=== PATIENT | female | born 1980 | race Caucasian/White ===

== ENCOUNTER → 2016-04-09 | Outpatient (REF) | payer OTHER ==
[~2016-04-09] MED LIST: /ONDA4TA OR; CLINPOW XX; LANOLIN CREAM TOP; MOTRIN PO; PHEN 25 PO; PRIL20CA PO; TUMS500C OR
== END ==
LOC: M LAB REF 12:42
PROVIDERS: ATTEND Nurse Practitioner Adult Health
DX: N39.9 Disorder of urinary system, unspecified (principal)

== ENCOUNTER → 2017-04-21 | Outpatient (REF) | payer OTHER ==
[2017-04-21 10:37] LABS: INFLUENZA A AMPLIFICATION POSITIVE (NEGATIVE); INFLUENZA B AMPLIFICATION NEGATIVE (NEGATIVE); RSV AMPLIFICATION NEGATIVE (NEGATIVE)
== END ==
LOC: M LAB REF 09:54
DX: J11.1 Influenza due to unidentified influenza virus with other respiratory manifestations (principal)

== ENCOUNTER → 2017-05-21 | Outpatient (REF) | payer BC, OTHER ==
[2017-05-21 09:59] LABS: HEMATOCRIT 38.3 % (36.0-47.0); HEMOGLOBIN 11.6 g/dl (12.0-16.0); MEAN CORPUSCULAR HEMOGLOBIN 23.8 pg (27.0-33.0); MEAN CORPUSCULAR HGB CONC 30.3 g/dl (32.0-36.5); MEAN CORPUSCULAR VOLUME 78.6 fl (80.0-96.0); PLATELET COUNT, AUTOMATED 345 10^3/uL (150-450); RED BLOOD COUNT 4.87 10^6/uL (4.00-5.40); RED CELL DISTRIBUTION WIDTH 16.1 % (11.5-14.5); WHITE BLOOD COUNT 9.7 10^3/uL (4.0-10.0)
[2017-05-21 10:07] LABS: ALBUMIN 3.4 GM/DL (3.2-5.2); ALBUMIN/GLOBULIN RATIO 0.94 (1.00-1.93); ALKALINE PHOSPHATASE 103 U/L (45-117); ALT/SGPT 19 U/L (12-78); ANION GAP 5 MEQ/L (8-16); AST/SGOT 12 U/L (7-37); BILIRUBIN,TOTAL 0.2 MG/DL (0.2-1.0); BLOOD UREA NITROGEN 13 MG/DL (7-18); CALCIUM LEVEL 8.3 MG/DL (8.5-10.1); CARBON DIOXIDE LEVEL 28 MEQ/L (21-32); CHLORIDE LEVEL 107 MEQ/L (98-107); CHOLESTEROL LEVEL 147 MG/DL (<200); CHOLESTEROL RISK RATIO 3.195 (<5); GLOMERULAR FILTRATION RATE > 60.0 (>60); GLUCOSE, FASTING 97 MG/DL (70-100); HDL CHOLESTEROL 46 MG/DL (>40); LDL CHOLESTEROL 85.6 MG/DL (<100); NON-HDL-C 101 MG/DL; POTASSIUM SERUM 4.2 MEQ/L (3.5-5.1); SODIUM LEVEL 140 MEQ/L (136-145); TRIGLYCERIDES LEVEL 77 MG/DL (<150)
== END ==
LOC: M LAB REF 04:17
DX: D50.9 Iron deficiency anemia, unspecified (principal)
CPT/HCPCS: 80053

== ENCOUNTER → 2017-06-12 | Outpatient (REF) | payer BC, OTHER ==
[2017-06-12 06:34] LABS: HEMATOCRIT 38.5 % (36.0-47.0); HEMOGLOBIN 11.8 g/dl (12.0-16.0); MEAN CORPUSCULAR HEMOGLOBIN 23.9 pg (27.0-33.0); MEAN CORPUSCULAR HGB CONC 30.6 g/dl (32.0-36.5); MEAN CORPUSCULAR VOLUME 78.1 fl (80.0-96.0); PLATELET COUNT, AUTOMATED 356 10^3/uL (150-450); RED BLOOD COUNT 4.93 10^6/uL (4.00-5.40); RED CELL DISTRIBUTION WIDTH 15.9 % (11.5-14.5); WHITE BLOOD COUNT 8.5 10^3/uL (4.0-10.0)
[2017-06-12 06:53] LABS: FREE T4 0.95 NG/DL (0.76-1.46)
[2017-06-14 14:13] LABS: DEHYDROEPIANDROSTERONE SULFATE 134.3 ug/dL (84.8-378.0); TESTOSTERONE FREE (DIRECT) 1.6 pg/mL (0.0-4.2)
== END ==
LOC: M LAB REF 06:24
DX: N92.4 Excessive bleeding in the premenopausal period (principal)
CPT/HCPCS: 84403

== ENCOUNTER → 2017-06-14 | Outpatient (CLI) | payer BC, OTHER | LOC: M RAD 13:46 | DX: N92.6 Irregular menstruation, unspecified (principal) ==

== ENCOUNTER 2017-08-09 08:19 | Day surgery (SDC) | payer BC, OTHER ==
[2017-08-09 08:52] LABS: HEMATOCRIT 38.3 % (36.0-47.0); MEAN CORPUSCULAR HEMOGLOBIN 24.2 pg (27.0-33.0); MEAN CORPUSCULAR HGB CONC 31.3 g/dl (32.0-36.5); MEAN CORPUSCULAR VOLUME 77.4 fl (80.0-96.0); PLATELET COUNT, AUTOMATED 319 10^3/uL (150-450); RED BLOOD COUNT 4.95 10^6/uL (4.00-5.40); RED CELL DISTRIBUTION WIDTH 15.9 % (11.5-14.5); WHITE BLOOD COUNT 7.5 10^3/uL (4.0-10.0)
[2017-08-09 09:11] LABS: CONTROL LINE HCG INT CTR LINE PRESENT; HCG, SERUM QUALITATIVE NEGATIVE (NEGATIVE)
[2017-08-09] MEDS: LR 1,000 ML IV ×4 (09:24→22:00)
[2017-08-09] MEDS ORDERED: PROPOFOL 200 MG/20 ML VIAL As Ordered (09:32)
[2017-08-09] MEDS ORDERED: LIDOCAINE 2% INJ 100 MG/5 ML SDV (FOR ANES.) As Ordered (09:32)
[2017-08-09] MEDS ORDERED: MIDAZOLAM INJ 2 MG/2 ML VIAL (J2250) As Ordered (09:32)
[2017-08-09] MEDS ORDERED: fentaNYL 100 MCG/2 ML INJECTION (J3010) As Ordered ×2 (09:32→11:10)
[2017-08-09] MEDS ORDERED: ROCURONIUM BROMIDE 50 MG/5 ML VIAL As Ordered ×2 (09:32→11:10)
[2017-08-09] MEDS ORDERED: BUPIVACAINE HCL 0.25% 30 ML VIAL As Ordered (10:14)
[2017-08-09] MEDS ORDERED: HYDROmorphone HCL 2 MG/ML 1ML VIAL (J1170) As Ordered (12:31)
[2017-08-09] MEDS ORDERED: ONDANSETRON 4MG/2ML VIAL (J2405) As Ordered (13:03)
[2017-08-09] MEDS ORDERED: GLYCOPYRROLATE INJ 0.2 MG/ML 2 ML VIAL As Ordered (13:05)
[2017-08-09] MEDS ORDERED: KETOROLAC 30 MG/ML VIAL (J1885) As Ordered (13:43)
[2017-08-09] MEDS: KETOROLAC 30 MG/ML VIAL (J1885) IV ×2 (13:54→19:57)
[2017-08-09] MEDS ORDERED: PERCOCET 5MG/325MG TAB PO (14:00)
[2017-08-09] MEDS ORDERED: MORPHINE 4 MG/ML 1ML VIAL/SYRINGE (J2270) IV (14:00)
[2017-08-09] MEDS ORDERED: zolPIDEM TARTRATE 5 MG TAB PO (14:00)
[2017-08-09] MEDS ORDERED: fentaNYL 100 MCG/2 ML INJECTION (J3010) IV (14:00)
[2017-08-09] MEDS: ONDANSETRON 4MG/2ML VIAL (J2405) IV (14:04)
[2017-08-09] MEDS: PROMETHAZINE INJ 25 MG/ML VIAL (J2550) IV (15:11)
[2017-08-10] MEDS: PERCOCET 5MG/325MG TAB PO ×2 (00:12→06:28)
[2017-08-10] MEDS: LR 1,000 ML IV (02:47)
[2017-08-10] MEDS: KETOROLAC 30 MG/ML VIAL (J1885) IV ×2 (03:01→08:15)
[2017-08-10 06:51] LABS: HEMATOCRIT 31.4 % (36.0-47.0); MEAN CORPUSCULAR HEMOGLOBIN 24.3 pg (27.0-33.0); MEAN CORPUSCULAR HGB CONC 30.9 g/dl (32.0-36.5); MEAN CORPUSCULAR VOLUME 78.7 fl (80.0-96.0); PLATELET COUNT, AUTOMATED 284 10^3/uL (150-450); RED BLOOD COUNT 3.99 10^6/uL (4.00-5.40); RED CELL DISTRIBUTION WIDTH 15.9 % (11.5-14.5); WHITE BLOOD COUNT 10.3 10^3/uL (4.0-10.0)
[2017-08-10 07:00] LABS: HEMOGLOBIN 9.7 g/dl (12.0-15.5)
== END 2017-08-10 10:20 | disposition home or self-care (01) ==
LOC: M SDC 08:19 → M PED 14:48
DX: N85.8 Other specified noninflammatory disorders of uterus (principal); N83.8 Other noninflammatory disorders of ovary, fallopian tube and broad ligament; K21.9 Gastro-esophageal reflux disease without esophagitis; D56.1 Beta thalassemia; G43.909 Migraine, unspecified, not intractable, without status migrainosus; Z88.0 Allergy status to penicillin; Z79.899 Other long term (current) drug therapy
CPT/HCPCS: 58571

== ENCOUNTER → 2017-12-02 | Outpatient (CLI) | payer BC, OTHER ==
[2017-12-02 11:32] LABS: BASO % 0.2 % (0.0-1.0); EOS # 0.1 10^3/uL (0.0-0.50); EOS % 0.7 % (0.0-3.0); HEMATOCRIT 38.6 % (36.0-47.0); HEMOGLOBIN 11.9 g/dl (12.0-15.5); IMMATURE GRANULOCYTE % 0.3 % (0-3.0); LYMPH % 23.2 % (24.0-44.0); MEAN CORPUSCULAR HEMOGLOBIN 24.7 pg (27.0-33.0); MEAN CORPUSCULAR HGB CONC 30.8 g/dl (32.0-36.5); MEAN CORPUSCULAR VOLUME 80.1 fl (80.0-96.0); MONO # 0.5 10^3/uL (0.0-0.8); MONO % 5.3 % (0.0-5.0); NEUTROPHILS # 6.1 10^3/uL (1.8-7.7); NEUTROPHILS % 70.3 % (36.0-66.0); PLATELET COUNT, AUTOMATED 310 10^3/uL (150-450); RED BLOOD COUNT 4.82 10^6/uL (4.00-5.40); RED CELL DISTRIBUTION WIDTH 16.1 % (11.5-14.5); WHITE BLOOD COUNT 8.7 10^3/uL (4.0-10.0)
[2017-12-02 12:34] LABS: ALBUMIN 3.4 GM/DL (3.2-5.2); ALBUMIN/GLOBULIN RATIO 0.83 (1.00-1.93); ALKALINE PHOSPHATASE 93 U/L (45-117); ALT/SGPT 23 U/L (12-78); ANION GAP 8 MEQ/L (8-16); AST/SGOT 14 U/L (7-37); BILIRUBIN,TOTAL 0.3 MG/DL (0.2-1.0); BLOOD UREA NITROGEN 9 MG/DL (7-18); CALCIUM LEVEL 8.6 MG/DL (8.5-10.1); CARBON DIOXIDE LEVEL 27 MEQ/L (21-32); CHLORIDE LEVEL 105 MEQ/L (98-107); CREATININE FOR GFR 0.88 MG/DL (0.55-1.30); FREE T4 0.98 NG/DL (0.76-1.46); GLOMERULAR FILTRATION RATE > 60.0 (>60); GLUCOSE, FASTING 102 MG/DL (70-100); POTASSIUM SERUM 3.9 MEQ/L (3.5-5.1); SODIUM LEVEL 140 MEQ/L (136-145); TOTAL PROTEIN 7.5 GM/DL (6.4-8.2)
== END ==
LOC: M LAB 11:04
DX: D50.9 Iron deficiency anemia, unspecified (principal)
CPT/HCPCS: 84443

== ENCOUNTER 2017-12-05 13:01 | Emergency (ER) | payer OTHER, BC ==
[2017-12-05 13:32] LABS: BASO % 0.4 % (0.0-1.0); EOS # 0.1 10^3/uL (0.0-0.50); EOS % 0.8 % (0.0-3.0); HEMATOCRIT 39.8 % (36.0-47.0); HEMOGLOBIN 12.4 g/dl (12.0-15.5); IMMATURE GRANULOCYTE % 0.3 % (0-3.0); LYMPH # 2.7 10^3/uL (1.5-4.5); LYMPH % 25.6 % (24.0-44.0); MEAN CORPUSCULAR HEMOGLOBIN 24.4 pg (27.0-33.0); MEAN CORPUSCULAR HGB CONC 31.2 g/dl (32.0-36.5); MEAN CORPUSCULAR VOLUME 78.2 fl (80.0-96.0); MONO # 0.6 10^3/uL (0.0-0.8); MONO % 5.7 % (0.0-5.0); NEUTROPHILS % 67.2 % (36.0-66.0); PLATELET COUNT, AUTOMATED 353 10^3/uL (150-450); RED BLOOD COUNT 5.09 10^6/uL (4.00-5.40); WHITE BLOOD COUNT 10.5 10^3/uL (4.0-10.0)
[2017-12-05 13:57] LABS: CONTROL LINE HCG INT CTR LINE PRESENT; HCG, SERUM QUALITATIVE NEGATIVE (NEGATIVE)
[2017-12-05 14:14] LABS: ALBUMIN 3.6 GM/DL (3.2-5.2); ALBUMIN/GLOBULIN RATIO 0.86 (1.00-1.93); ALKALINE PHOSPHATASE 100 U/L (45-117); ALT/SGPT 22 U/L (12-78); ANION GAP 11 MEQ/L (8-16); AST/SGOT 17 U/L (7-37); BILIRUBIN,TOTAL 0.2 MG/DL (0.2-1.0); BLOOD UREA NITROGEN 10 MG/DL (7-18); CALCIUM LEVEL 9.2 MG/DL (8.5-10.1); CARBON DIOXIDE LEVEL 25 MEQ/L (21-32); CHLORIDE LEVEL 105 MEQ/L (98-107); CREATININE FOR GFR 1.02 MG/DL (0.55-1.30); GLOMERULAR FILTRATION RATE > 60.0 (>60); GLUCOSE, FASTING 102 MG/DL (70-100); HEPATITIS B SURFACE ANTIBODY NEGATIVE (POSITIVE); POTASSIUM SERUM 3.9 MEQ/L (3.5-5.1); SODIUM LEVEL 141 MEQ/L (136-145); TOTAL PROTEIN 7.8 GM/DL (6.4-8.2)
[2017-12-05 14:24] LABS: HEPATITIS B SURFACE ANTIGEN NEGATIVE (NEGATIVE)
[2017-12-05 14:52] LABS: HEPATITIS C VIRUS ABY INDEX 0.1 INDEX (<0.8)
[2017-12-05 14:53] LABS: HIV SCREEN CENTAUR EXPOSED NEGATIVE (NEGATIVE)
[2017-12-05] MEDS: ONDANSETRON 4 MG ORAL DISINTEGRATING TAB (Q0162 PER 1MG) PO (16:08)
[2017-12-05] MEDS: ADACEL/BOOSTRIX VACCINE (DIPHTH/PERTUSS/ACELL/TETANUS)0.5ML SYR (90715) IM (16:09)
[2017-12-05] MEDS: EXPOSURE KIT-ADULT 7 DAY SUPPLY PO (16:10)
== END 2017-12-05 16:26 | disposition home or self-care (01) ==
LOC: M ED 13:01
DX: Z77.21 Contact with and (suspected) exposure to potentially hazardous body fluids (principal); Y99.0 Civilian activity done for income or pay; D56.3 Thalassemia minor; F33.9 Major depressive disorder, recurrent, unspecified; Z79.899 Other long term (current) drug therapy; Z88.0 Allergy status to penicillin
CPT/HCPCS: 90715

== ENCOUNTER → 2017-12-26 | Outpatient (REF) | payer OTHER ==
[2017-12-26 15:53] LABS: BASO % 0.3 % (0.0-1.0); EOS # 0.1 10^3/uL (0.0-0.50); EOS % 0.6 % (0.0-3.0); HEMATOCRIT 38.4 % (36.0-47.0); HEMOGLOBIN 11.6 g/dl (12.0-15.5); IMMATURE GRANULOCYTE % 0.5 % (0-3.0); LYMPH # 2.3 10^3/uL (1.5-4.5); LYMPH % 19.8 % (24.0-44.0); MEAN CORPUSCULAR HEMOGLOBIN 24.3 pg (27.0-33.0); MEAN CORPUSCULAR HGB CONC 30.2 g/dl (32.0-36.5); MEAN CORPUSCULAR VOLUME 80.5 fl (80.0-96.0); MONO # 0.7 10^3/uL (0.0-0.8); MONO % 5.8 % (0.0-5.0); NEUTROPHILS # 8.6 10^3/uL (1.8-7.7); PLATELET COUNT, AUTOMATED 354 10^3/uL (150-450); RED BLOOD COUNT 4.77 10^6/uL (4.00-5.40); RED CELL DISTRIBUTION WIDTH 16.4 % (11.5-14.5); WHITE BLOOD COUNT 11.8 10^3/uL (4.0-10.0)
[2017-12-26 16:04] LABS: ALBUMIN 3.6 GM/DL (3.2-5.2); ALKALINE PHOSPHATASE 104 U/L (45-117); ALT/SGPT 24 U/L (12-78); ANION GAP 5 MEQ/L (8-16); AST/SGOT 13 U/L (7-37); BILIRUBIN,TOTAL 0.2 MG/DL (0.2-1.0); BLOOD UREA NITROGEN 7 MG/DL (7-18); CALCIUM LEVEL 8.6 MG/DL (8.5-10.1); CARBON DIOXIDE LEVEL 32 MEQ/L (21-32); CHLORIDE LEVEL 105 MEQ/L (98-107); CREATININE FOR GFR 0.96 MG/DL (0.55-1.30); GLOMERULAR FILTRATION RATE > 60.0 (>60); GLUCOSE, FASTING 86 MG/DL (70-100); POTASSIUM SERUM 3.9 MEQ/L (3.5-5.1); SODIUM LEVEL 142 MEQ/L (136-145); TOTAL PROTEIN 7.6 GM/DL (6.4-8.2)
[2017-12-26 16:51] LABS: HEPATITIS C VIRUS ABY INDEX < 0.0 INDEX (<0.8)
[2017-12-26 16:52] LABS: HIV 1&2 SCREEN CENTAUR NEGATIVE (NEGATIVE)
== END ==
LOC: M SFHCPLAZ 13:58
DX: R11.2 Nausea with vomiting, unspecified (principal)

== ENCOUNTER → 2018-03-06 | Outpatient (CLI) | payer OTHER ==
[~2018-03-06] MED LIST changes: +FLON1SPR; +MULT1CHW44 PO; +PERCOCET PO; +RALT40TA PO; +TRUVTAB PO; +ZITHTAB PO; +ZOFR4TAB14 PO
[2018-03-06 11:46] LABS: HEPATITIS B SURFACE ANTIBODY NEGATIVE (POSITIVE); HEPATITIS B SURFACE ANTIGEN NEGATIVE (NEGATIVE); HEPATITIS C VIRUS ABY INDEX 0.1 INDEX (<0.8); HIV 1&2 SCREEN CENTAUR NEGATIVE (NEGATIVE)
== END ==
LOC: M LAB 09:12
PROVIDERS: ATTEND Internal Medicine Infectious Disease
DX: Z57.8 Occupational exposure to other risk factors (principal)

== ENCOUNTER → 2018-05-16 | Outpatient (CLI) | payer OTHER, BC | LOC: M LAB 11:23 | PROVIDERS: ATTEND Internal Medicine Infectious Disease | DX: Z57.8 Occupational exposure to other risk factors (principal) ==

== ENCOUNTER → 2018-05-16 | Outpatient (CLI) | payer BC, OTHER ==
[2018-05-16 12:10] LABS: BASO % 0.4 % (0.0-1.0); EOS # 0.1 10^3/uL (0.0-0.50); EOS % 0.9 % (0.0-3.0); HEMATOCRIT 40.5 % (36.0-47.0); HEMOGLOBIN 12.8 g/dl (12.0-15.5); LYMPH % 26.8 % (24.0-44.0); MEAN CORPUSCULAR HEMOGLOBIN 25.9 pg (27.0-33.0); MEAN CORPUSCULAR HGB CONC 31.6 g/dl (32.0-36.5); MONO # 0.6 10^3/uL (0.0-0.8); MONO % 5.3 % (0.0-5.0); NEUTROPHILS # 7.5 10^3/uL (1.8-7.7); NEUTROPHILS % 66.2 % (36.0-66.0); PLATELET COUNT, AUTOMATED 359 10^3/uL (150-450); RED BLOOD COUNT 4.94 10^6/uL (4.00-5.40); WHITE BLOOD COUNT 11.3 10^3/uL (4.0-10.0)
[2018-05-16 13:05] LABS: ALT/SGPT 31 U/L (12-78); BILIRUBIN,TOTAL 0.2 MG/DL (0.2-1.0); BLOOD UREA NITROGEN 13 MG/DL (7-18); CALCIUM LEVEL 8.9 MG/DL (8.5-10.1); CARBON DIOXIDE LEVEL 27 MEQ/L (21-32); CHLORIDE LEVEL 103 MEQ/L (98-107); CREATININE FOR GFR 0.86 MG/DL (0.55-1.30); GLOMERULAR FILTRATION RATE > 60.0 (>60); GLUCOSE, FASTING 86 MG/DL (70-100); SODIUM LEVEL 138 MEQ/L (136-145); TOTAL PROTEIN 8.1 GM/DL (6.4-8.2)
== END ==
LOC: M LAB 11:28
PROVIDERS: ATTEND Otolaryngology
DX: R59.0 Localized enlarged lymph nodes (principal)

== ENCOUNTER → 2019-01-15 | Outpatient (REF) | payer OTHER ==
[~2019-01-15] MED LIST changes: -/ONDA4TA OR; +ONDA-1 OR
== END ==
LOC: M SFHCPLAZ 10:49
PROVIDERS: ATTEND Dermatology
DX: L72.11 Pilar cyst (principal)

== ENCOUNTER 2019-02-21 05:40 | Emergency (ER) | payer BC, OTHER ==
[~2019-02-21] VITALS: Ht 162.6 cm; Wt 114.1 kg
[2019-02-21] MEDS ORDERED: SUCR1TAB56 (05:48)
[2019-02-21] MEDS ORDERED: PANT20TA2 (05:48)
[2019-02-21] MEDS ORDERED: FLUTISP (05:48)
[2019-02-21] MEDS ORDERED: SERT50TA29 (05:48)
[2019-02-21] MEDS ORDERED: NS 1,000 ML IV ONE (06:30)
[2019-02-21 07:02] LABS: BASO % 0.2 % (0.0-1.0); EOS % 0.4 % (0.0-3.0); HEMATOCRIT 41.1 % (36.0-47.0); HEMOGLOBIN 12.6 g/dl (12.0-15.5); LYMPH % 19.3 % (24.0-44.0); MEAN CORPUSCULAR HEMOGLOBIN 25.8 pg (27.0-33.0); MEAN CORPUSCULAR HGB CONC 30.7 g/dl (32.0-36.5); MONO # 0.5 10^3/uL (0.0-0.8); NEUTROPHILS # 7.8 10^3/uL (1.5-8.5); NEUTROPHILS % 74.9 % (36.0-66.0); PLATELET COUNT, AUTOMATED 279 10^3/uL (150-450); RED BLOOD COUNT 4.89 10^6/uL (4.00-5.40); WHITE BLOOD COUNT 10.4 10^3/uL (4.0-10.0)
[2019-02-21 07:30] LABS: ALBUMIN 3.5 GM/DL (3.2-5.2); ALT/SGPT 28 U/L (12-78); BILIRUBIN,DIRECT < 0.1 MG/DL (0.0-0.2); BILIRUBIN,TOTAL 0.3 MG/DL (0.2-1.0); BLOOD UREA NITROGEN 8 MG/DL (7-18); CALCIUM LEVEL 8.6 MG/DL (8.5-10.1); CARBON DIOXIDE LEVEL 26 MEQ/L (21-32); CHLORIDE LEVEL 109 MEQ/L (98-107); CK-MB VALUE MASS < 1.0 NG/ML (<3.6); CPK CREATINE PHOSPHOKINASE 105 U/L (26-192); CREATININE FOR GFR 0.76 MG/DL (0.55-1.30); GLOMERULAR FILTRATION RATE > 60.0 (>60); GLUCOSE, FASTING 90 MG/DL (70-100); LIPASE 100 U/L (73-393); MB/CK RELATIVE INDEX 0.95 (< OR =4); SODIUM LEVEL 141 MEQ/L (136-145); TOTAL PROTEIN 7.4 GM/DL (6.4-8.2); TROPONIN I < 0.02 NG/ML (< 0.10)
--- NOTE | 2019-02-21 07:56 | REP ---
Clinical: Abdominal pain. Technique: PA and lateral. Comparison: None. Findings: Subtle patchy air space disease involving the left mid to lower lung zone requires correlation. No effusion. No pneumothorax. Mediastinum and cardiac silhouette are normal. Skeletal structures are intact. Impression: Subtle patchy opacities in the left mid to lower lung zone. Electronically Signed by Nba Oakley MD 02/21/2019 07:48 A
[2019-02-21] MEDS ORDERED: DOXY100C37 PO ×2 (09:04→09:05)
--- NOTE | 2019-02-21 09:20 | REP ---
Clinical: Abdominal pain. Technique: Single supine view of the abdomen and pelvis. Findings: Bowel gas pattern is nonspecific. No organomegaly. No abnormal calcification. Skeletal structures are intact. Impression: Nonspecific bowel gas pattern. Electronically Signed by Nba Oakley MD 02/21/2019 09:11 A
[2019-02-21 09:57] VITALS: BP 139/83
--- NOTE | 2019-02-21 15:41 | ECGEPIP ---
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
== END 2019-02-21 09:56 | disposition home or self-care (01) ==
LOC: M ED 05:40
DX: R55 Syncope and collapse (principal); J18.9 Pneumonia, unspecified organism; R11.0 Nausea; F43.10 Post-traumatic stress disorder, unspecified; K21.9 Gastro-esophageal reflux disease without esophagitis; K29.80 Duodenitis without bleeding; Z88.0 Allergy status to penicillin; Z79.899 Other long term (current) drug therapy

== ENCOUNTER 2019-04-25 09:42 | Emergency (ER) | payer BC, OTHER ==
[~2019-04-25] VITALS: Ht 162.6 cm; Wt 115.9 kg
[~2019-04-25 09:42] MED LIST changes: +DOXY100C37 PO; +FLUTISP; +PANT20TA2; +SERT50TA29; +SUCR1TAB56
[2019-04-25] MEDS ORDERED: CEFD1CAP8 OR (10:08)
[2019-04-25] MEDS ORDERED: diphenhydrAMINE 50 MG CAP PO ONE (10:30)
[2019-04-25] MEDS ORDERED: hydrOXYzine 50 MG TAB PO STA (10:45)
[2019-04-25 12:23] VITALS: BP 150/79
== END 2019-04-25 12:56 | disposition home or self-care (01) ==
LOC: M ED 09:42
DX: R21 Rash and other nonspecific skin eruption (principal); R06.00 Dyspnea, unspecified; T36.95XA Adverse effect of unspecified systemic antibiotic, initial encounter; X58.XXXA Exposure to other specified factors, initial encounter; Y92.89 Other specified places as the place of occurrence of the external cause; D56.9 Thalassemia, unspecified; K22.70 Barrett's esophagus without dysplasia; Z79.899 Other long term (current) drug therapy; Z88.0 Allergy status to penicillin

== ENCOUNTER → 2019-07-02 | Outpatient (CLI) | payer BC, OTHER ==
[~2019-07-02] MED LIST changes: +CEFD1CAP8 OR
== END ==
LOC: M LABSMTC 10:05
PROVIDERS: ATTEND Family Medicine
DX: Z11.59 Encounter for screening for other viral diseases (principal); Z20.828 Contact with and (suspected) exposure to other viral communicable diseases

== ENCOUNTER → 2019-09-04 | Outpatient (REF) | payer BC, OTHER ==
[~2019-09-04] MED LIST changes: +ARIP1TAB6; +LEVO500T3 PO; -PANT20TA2; +PANT20TA6 PO; +SERT-138; -SERT50TA29; +SERT50TA29 PO; +ZOFR4TAB16 PO
[2019-09-04 03:29] LABS: HEMATOCRIT 40.2 % (36.0-47.0); HEMOGLOBIN 12.4 g/dl (12.0-15.5); MEAN CORPUSCULAR HEMOGLOBIN 25.6 pg (27.0-33.0); MEAN CORPUSCULAR HGB CONC 30.8 g/dl (32.0-36.5); MEAN CORPUSCULAR VOLUME 82.9 fl (80.0-96.0); PLATELET COUNT, AUTOMATED 329 10^3/uL (150-450); RED BLOOD COUNT 4.85 10^6/uL (4.00-5.40); WHITE BLOOD COUNT 11.3 10^3/uL (4.0-10.0)
[2019-09-04 04:12] LABS: ALBUMIN 3.7 GM/DL (3.2-5.2); ALT/SGPT 31 U/L (12-78); BILIRUBIN,TOTAL 0.2 MG/DL (0.2-1.0); BLOOD UREA NITROGEN 17 MG/DL (7-18); CALCIUM LEVEL 8.8 MG/DL (8.5-10.1); CARBON DIOXIDE LEVEL 26 MEQ/L (21-32); CHLORIDE LEVEL 104 MEQ/L (98-107); CHOLESTEROL LEVEL 176 MG/DL (<200); CHOLESTEROL RISK RATIO 4.093 (<5); CREATININE FOR GFR 0.86 MG/DL (0.55-1.30); GLOMERULAR FILTRATION RATE > 60.0 (>60); GLUCOSE, FASTING 94 MG/DL (70-100); HDL CHOLESTEROL 43 MG/DL (>40); LDL CHOLESTEROL 116 MG/DL (<100); NON-HDL-C 133 MG/DL; POTASSIUM SERUM 4.2 MEQ/L (3.5-5.1); SODIUM LEVEL 139 MEQ/L (136-145); TOTAL PROTEIN 7.9 GM/DL (6.4-8.2); TRIGLYCERIDES LEVEL 83 MG/DL (<150)
== END ==
LOC: M LAB REF 02:49
PROVIDERS: ATTEND Family Medicine
DX: F41.0 Panic disorder [episodic paroxysmal anxiety] (principal)

== ENCOUNTER 2020-01-03 20:44 | Emergency (ER) | payer BC, OTHER ==
[~2020-01-03] VITALS: Ht 162.6 cm; Wt 115.3 kg
[~2020-01-03 20:44] MED LIST changes: -ARIP1TAB6; -LEVO500T3 PO; -SERT-138; -ZOFR4TAB16 PO
[2020-01-03] MEDS ORDERED: ACETAMINOPHEN 325 MG TAB PO ONE (21:45)
[2020-01-03] MEDS ORDERED: PANTOPRAZOLE 40MG VIAL (C9113 PER 1) IV ONE (21:45)
[2020-01-03] MEDS ORDERED: ONDANSETRON 4MG/2ML VIAL As Ordered ONE (21:46)
[2020-01-03 21:51] LABS: BASO % 0.3 % (0.0-1.0); EOS # 0.1 10^3/uL (0.0-0.5); EOS % 0.9 % (0.0-3.0); HEMATOCRIT 42.4 % (36.0-47.0); HEMOGLOBIN 13.3 g/dl (12.0-15.5); LYMPH # 3.1 10^3/uL (1.5-5.0); LYMPH % 25.5 % (24.0-44.0); MEAN CORPUSCULAR HEMOGLOBIN 25.8 pg (27.0-33.0); MEAN CORPUSCULAR HGB CONC 31.4 g/dl (32.0-36.5); MEAN CORPUSCULAR VOLUME 82.3 fl (80.0-96.0); MONO # 0.7 10^3/uL (0.0-0.8); MONO % 5.4 % (0.0-5.0); NEUTROPHILS # 8.2 10^3/uL (1.5-8.5); NEUTROPHILS % 67.7 % (36.0-66.0); PLATELET COUNT, AUTOMATED 314 10^3/uL (150-450); RED BLOOD COUNT 5.15 10^6/uL (4.00-5.40); WHITE BLOOD COUNT 12.1 10^3/uL (4.0-10.0)
[2020-01-03] MEDS ORDERED: ONDANSETRON 4MG/2ML VIAL IV ONE (22:00)
--- NOTE | 2020-01-03 22:14 | REPVR ---
PROCEDURE INFORMATION: Exam: US Abdomen, Limited; Right Upper Quadrant Exam date and time: 01/03/2020 10:04 PM Age: 39 years old Clinical indication: Abdominal pain; Epigastric; Additional info: Ruq ttp, positive mcduffie's sign TECHNIQUE: Imaging protocol: US abdomen. Real time ultrasound with image documentation. Limited exam focused on the right upper quadrant. COMPARISON: CT ABD PELVIS WITH CONTRAST 06/14/2014 6:08 PM FINDINGS: Liver: Unremarkable. Gallbladder: No gallstones. No gallbladder wall thickening or pericholecystic fluid. 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 Common bile duct: No stones. No ductal dilatation. Pancreas: Unremarkable as visualized. Right kidney: No mass. No definite stones. No hydronephrosis. IMPRESSION: No acute sonographic findings. Electronically signed by: Christopher Veronica On 01/03/2020 22:13:33 PM
[2020-01-03 22:25] LABS: ALBUMIN 3.5 GM/DL (3.2-5.2); ALT/SGPT 32 U/L (12-78); BILIRUBIN,DIRECT < 0.1 MG/DL (0.0-0.2); BILIRUBIN,TOTAL 0.4 MG/DL (0.2-1.0); CK-MB VALUE MASS < 1.0 NG/ML (<3.6); CPK CREATINE PHOSPHOKINASE 181 U/L (26-192); LIPASE 92 U/L (73-393); MB/CK RELATIVE INDEX 0.55 (< OR =4); TROPONIN I < 0.02 NG/ML (< 0.10)
[2020-01-03] MEDS: GASTROGRAFIN SOLUTION 30ML PO SCH ×2 (22:42→22:56)
--- NOTE | 2020-01-03 22:46 | REPVR ---
PROCEDURE INFORMATION: Exam: XR Chest, 2 Views Exam date and time: 01/03/2020 10:31 PM Age: 39 years old Clinical indication: Other: Abdominal pain TECHNIQUE: Imaging protocol: XR of the chest Views: 2 views. COMPARISON: CR Chest, 2 view PA, Lat 02/21/2019 6:34 AM FINDINGS: Lungs: Unremarkable. No consolidation. Pleural space: Unremarkable. No pleural effusion. No pneumothorax. Heart/Mediastinum: Unremarkable. No cardiomegaly. Bones/joints: Unremarkable. IMPRESSION: No acute radiographic findings. Electronically signed by: Christopher Veronica On 01/03/2020 22:46:18 PM
[2020-01-03] MEDS ORDERED: ISOVUE-370 76% 100ML VIAL As Ordered ONE (23:27)
--- NOTE | 2020-01-03 23:51 | REPVR ---
PROCEDURE INFORMATION: Exam: CT Abdomen And Pelvis With Contrast Exam date and time: 01/03/2020 9:41 PM Age: 39 years old Clinical indication: Nausea and vomiting; Abdominal pain; Localized; Right upper quadrant (ruq); Additional info: N/v/d, ruq/epigastric pain, h/o duodenal ulcer TECHNIQUE: Imaging protocol: Computed tomography of the abdomen and pelvis with intravenous contrast. Axial, coronal and sagittal reformatted images were created and reviewed. Radiation optimization: All CT scans at this facility use at least one of these dose optimization techniques: automated exposure control; mA and/or kV adjustment per patient size (includes targeted exams where dose is matched to clinical indication); or iterative reconstruction. Contrast material: ISO; Contrast volume: 100 ml; Contrast route: INTRAVENOUS (IV); COMPARISON: CT ABD PELVIS WITH CONTRAST 06/14/2014 6:08 PM FINDINGS: Mediastinal space: Small hiatal hernia. Liver: Mild hepatomegaly. Gallbladder and bile ducts: No radiodense gallstones. No biliary ductal dilatation. Pancreas: Unremarkable. Spleen: Unremarkable. Adrenals: Unremarkable. Kidneys and ureters: Nonobstructing right renal calculus. No hydronephrosis. Stomach and bowel: Scattered colonic diverticula without evidence of diverticulitis. No obstruction. No bowel wall thickening. No pneumatosis. Appendix: Normal. Intraperitoneal space: No free fluid. No organized fluid collection. No free air. Vasculature: Unremarkable. No aneurysm. Lymph nodes: No pathologically enlarged lymph nodes. Urinary bladder: Unremarkable as visualized. Reproductive: Status post hysterectomy. Bones/joints: No acute osseous abnormality. Degenerative changes, most pronounced at L5-S1. Soft tissues: Unremarkable. IMPRESSION: 1. No CT evidence of acute intra-abdominal or pelvic pathology. 2. Additional findings, as above. Electronically signed by: Christopher Veronica On 01/03/2020 23:51:07 PM
[2020-01-04 00:44] VITALS: BP 114/69
--- NOTE | 2020-01-04 05:52 | ECGEPIP ---
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
== END 2020-01-04 01:00 | disposition home or self-care (01) ==
LOC: M ED 20:44
DX: R11.2 Nausea with vomiting, unspecified (principal); R19.7 Diarrhea, unspecified; R10.84 Generalized abdominal pain; R50.9 Fever, unspecified; R16.0 Hepatomegaly, not elsewhere classified; N20.0 Calculus of kidney; M51.37 Other intervertebral disc degeneration, lumbosacral region; K44.9 Diaphragmatic hernia without obstruction or gangrene; K22.70 Barrett's esophagus without dysplasia; G43.909 Migraine, unspecified, not intractable, without status migrainosus; K21.9 Gastro-esophageal reflux disease without esophagitis; F43.10 Post-traumatic stress disorder, unspecified; Z90.711 Acquired absence of uterus with remaining cervical stump; Z88.0 Allergy status to penicillin; Z79.899 Other long term (current) drug therapy
CPT/HCPCS: 71046; 74177; 76705; 80047; 80076; 81001; 82550; 82553; 83690; 84132; 84484; 85025; 93005; 96374; 96375; 99284; C9113; J2405; Q9963; Q9967

== ENCOUNTER → 2020-01-14 | Outpatient (REF) | payer OTHER | LOC: M LAB REF 14:51 | PROVIDERS: ATTEND Family Medicine | DX: R19.7 Diarrhea, unspecified (principal) ==

== ENCOUNTER → 2020-02-01 | Outpatient (CLI) | payer OTHER ==
[~2020-02-01] MED LIST changes: +LEVO500T3 PO; +ZOFR4TAB16 PO
== END ==
LOC: M LABSMTC 11:12
PROVIDERS: ATTEND Anesthesiology
DX: Z01.812 Encounter for preprocedural laboratory examination (principal); Z20.828 Contact with and (suspected) exposure to other viral communicable diseases

== ENCOUNTER 2020-02-06 11:17 | Day surgery (SDC) | payer BC, OTHER ==
[~2020-02-06] VITALS: Ht 162.6 cm; Wt 113.9 kg
[~2020-02-06 11:17] MED LIST changes: -LEVO500T3 PO; +LIDOCAINE 2% 100MG/5ML SDV (FOR ANES.) As Ordered ONE; +METOCLOPRAMIDE INJ 10MG/2ML VIAL (J2765 PER 1) As Ordered ONE; +MIDAZOLAM INJ 2MG/2ML VIAL (J2250 PER 1MG) As Ordered ONE; +ONDANSETRON 4MG/2ML VIAL As Ordered ONE; +ROCURONIUM BROMIDE 50 MG/5 ML VIAL As Ordered ONE; -ZOFR4TAB16 PO; +fentaNYL 100 MCG/2 ML INJECTION (J3010) As Ordered ONE; +propofoL 200 MG/20 ML VIAL As Ordered ONE
[2020-02-06] MEDS ORDERED: LEVO500T3 PO (11:31)
[2020-02-06] MEDS: LR 1,000 ML IV ONE (12:04)
[2020-02-06] MEDS: LevoFLOXacin IV 500 MG in IV 1 EA IV ONE (12:05)
[2020-02-06] MEDS ORDERED: ALBUTEROL 6.7GM INHALER **FOR ANES. CART/OMNICELL ONLY As Ordered ONE (12:07)
[2020-02-06] MEDS ORDERED: dexameTHASONE 4 MG/ML 1ML VIAL (J1100 PER 1MG) As Ordered ONE (12:07)
[2020-02-06] MEDS ORDERED: ROCURONIUM BROMIDE 50 MG/5 ML VIAL As Ordered ONE ×2 (12:07→14:31)
[2020-02-06] MEDS ORDERED: KETOROLAC 60MG 2ML VIAL As Ordered ONE (12:07)
[2020-02-06] MEDS ORDERED: LIDOCAINE 1% SDV 30ML VIAL As Ordered ONE (12:31)
[2020-02-06] MEDS ORDERED: BUPIVACAINE HCL 0.25% 30ML VIAL As Ordered ONE (12:31)
[2020-02-06] MEDS: SCOPOLAMINE 1MG TRANSDERMAL PATCH TOP ONE (13:11)
[2020-02-06] MEDS ORDERED: fentaNYL 100 MCG/2 ML INJECTION (J3010) As Ordered ONE (15:30)
[2020-02-06] MEDS ORDERED: HALOPERIDOL 5MG/ML VIAL (J1630 PER 1) As Ordered ONE (15:46)
[2020-02-06] MEDS ORDERED: ZOFR4TAB16 PO (15:51)
[2020-02-06] MEDS ORDERED: ONDANSETRON 4MG/2ML VIAL As Ordered ONE (16:26)
[2020-02-06] MEDS: ONDANSETRON 4MG/2ML VIAL IV PRN (16:27)
[2020-02-06] MEDS ORDERED: HYDROMORPHONE HCL 0.5 MG/ 0.5 ML SYRINGE (J1170 PER 1) IV PRN (16:45)
[2020-02-06] MEDS ORDERED: oxyCODONE 5MG TAB PO PRN (16:45)
[2020-02-06] MEDS ORDERED: fentaNYL 100 MCG/2 ML INJECTION (J3010) IV PRN (16:45)
[2020-02-06] MEDS ORDERED: LR 1,000 ML IV SCH (16:45)
[2020-02-06] MEDS ORDERED: NORCO, ANEXSIA 5/325MG TABLET (HYDROcodone/ACETAMINOPHEN) PO PRN ×2 (16:45)
[2020-02-06] MEDS: PROMETHAZINE INJ 25 MG/ML VIAL (J2550) IV ONE (16:52)
[2020-02-06] MEDS: PROMETHAZINE INJ 25 MG/ML VIAL (J2550) IV SCH (17:21)
[2020-02-06] MEDS ORDERED: KETOROLAC 30 MG/ML 1ML VIAL IV SCH (18:00)
[2020-02-06 18:47] VITALS: BP 122/71
--- NOTE | 2020-02-07 07:50 | ROOPDOC ---
[facility] Report Of Operation Report of Operation DATE OF PROCEDURE: 02/06/20 PREPROCEDURE DIAGNOSES: biliary dyskinesia. POSTPROCEDURE DIAGNOSES: biliary dyskinesia, chronic cholecystitis. PROCEDURE: Robotic Assisted Laparoscopic Cholecystectomy with ICG biliary identification; transversus abdominis plane block under laparoscopic guidance using Marcaine 1/4% and lidocaine 1% SURGEON: Fransico Krause MD WOOL SAMPLER: Tereza Manning, LAMBERT Ms. Manning assisted with placement of ports, management of the robot instruments and arms on the field while I was at the surgeon's console, extraction of the gb and closure of ports. ANESTHESIA: General Anesthesia. ESTIMATED BLOOD LOSS: Approximately 10 mL. COMPLICATIONS: none. REMARKS: 39 F with persistent and right upper quadrant pain and discomfort as well as nausea for at least 1 month now. Workup includes no visible stones inside of the gallbladder and a low ejection fraction on HIDA scan consistent with biliary dyskinesia as a cause of her pain and discomfort. She is brought in today for cholecystectomy.. PROCEDURE NOTE: Gallbladder is noted to be moderately distended but relatively thin-walled with no palpable stones inside of the gallbladder. DESCRIPTION OF PROCEDURE: Patient was given a dose of Levaquin 500 mg IV preoperatively for prophylaxis; 5 mg of ICG was given regular intravenously in the preoperative holding area. She was brought to the operating room, laid supine on the table, compression boots placed for DVT prophylaxis. General endotracheal anesthesia started. His abdomen then prepped and draped in usual sterile fashion. Surgical timeout was performed prior to confirm right procedure, right patient identification and other necessary information prior to starting surgery. Entry into the abdomen done through an incision aslightly to the left and below of the umbilical cleft. A Veress needle was inserted with a controlled fashion. CO2 insufflation started to pressure 15 mmHg. Using the same incision an 8 mm robotic trochar was placed under direct vision laparoscope. The area underneath the insertion site was inspected and no injury found. She was then placed in 10 reverse Trendelenburg. Under direct vision 3 more 8 mm trochars were placed along a row at level to the camera port site at the anterior axillary line, right midclavicular line and left mid clavicular line. She had some omental adhesions from prior port sites slightly to the left of the umbilicus which was lysed with laparoscopic scissors connected to a monopolar cautery. A transversus abdominis plane block was then performed bilaterally using the lidocaine/marcaine mixture under laparoscopic guidance. The da Jaiden robot tower was then maneuvered in place and the trochards docked to the robot. I used a prograsp, forced bipolar, and hook cautery for the procedure with a 30 robotic camera. I unscrubbed and assumed control of the camera and instruments at the surgeon's console. Operative findings: She has a moderately enlarged and fatty replaced liver. Initially gallbladder wasn't visible with some omental adhesions on the bottom of the liver and decide the gallbladder which needed to be lysed. Once visualized the gallbladder is noted to be moderately distended and takes a prolonged elongated course deep int o the underside of the liver. The gallbladder wall is only minimally thickened with no signs of active inflammation. I did not notice any significant or big stones inside of the gallbladder during dissection. The omental adhesions were lysed with cautery to expose the gallbladder. The fundus of the gallbladder was grasped and the gallbladder is elevated superiorly exposing the neck of the gallbladder. The peritoneum overlying the area is opened up and dissected free both anteriorly and posteriorly to help with retraction of the gallbladder. The hepatocystic triangle was approached and dissected using hook cautery and firely visualization of the cystic duct. There was good illumination of the course of the cystic duct. The wall of the gallbladder appears midly thickened. The cystic duct was identified coming off from the neck of the gallbladder. This was circumferentially dissected. The cystic artery was identified in its usual position medially behind a mildly enlarged lymph node of [place]. This was similarly circumferentially dissected off surrounding adipose tissue. We continued posterior dissection proximally at the neck of gallbladder to dissect the posterior wall of the gallbladder off the liver plate until a critical view of safety was achieved whereby only the previously identified duct and artery coursing through the neck the gallbladder(photodocumentation done.) The cystic artery looks to a bifurcated early and both branches were clipped. At this point the the cystic artery was most accessible and this was clipped 2 times and divided in between the hemlock clips. After again checking her anatomy and verifying with firely the course of thecystic duct , this was also clipped and divided with 2 clips remaining at the cystic duct stump. The rest of the gallbladder was then dissected free of the gallbladder bed using Bovie cautery. The gallbladder was then placed in an Endo Catch bag and retrieved outside through the right axillary port site. Since there were no big stones, were able to extract it without much difficulty through the 8 mm port did not need to be enlarged. The clips and liver bed was inspected for bleeding and bile leakage and none found. The abdomen was deflated, The trochars undocked, the robot removed from the field. Rest of the skin incisions closed with 4-0 Monocryl in subcuticular fashion. Dermabond placed to cover the incisions.. Patient was awakened, extubated and brought to recovery room stable . FRANSICO KRAUSE MD Feb 07, 2020 07:50
== END 2020-02-06 18:47 | disposition home or self-care (01) ==
LOC: M SDC 11:17
PROVIDERS: ATTEND Surgery
DX: K82.4 Cholesterolosis of gallbladder (principal); K81.1 Chronic cholecystitis; D56.1 Beta thalassemia; F43.10 Post-traumatic stress disorder, unspecified; K21.9 Gastro-esophageal reflux disease without esophagitis; K22.70 Barrett's esophagus without dysplasia; G43.909 Migraine, unspecified, not intractable, without status migrainosus; Z86.59 Personal history of other mental and behavioral disorders; Z88.0 Allergy status to penicillin; Z90.710 Acquired absence of both cervix and uterus
CPT/HCPCS: 47562; 88304; J1100; J1885; J1956; J2250; J2405; J2765; J3010; S2900

== ENCOUNTER → 2020-03-07 | Outpatient (REF) | payer OTHER, BC ==
[~2020-03-07] MED LIST changes: +LEVO500T3 PO; -LIDOCAINE 2% 100MG/5ML SDV (FOR ANES.) As Ordered ONE; -METOCLOPRAMIDE INJ 10MG/2ML VIAL (J2765 PER 1) As Ordered ONE; -MIDAZOLAM INJ 2MG/2ML VIAL (J2250 PER 1MG) As Ordered ONE; -ONDANSETRON 4MG/2ML VIAL As Ordered ONE; -ROCURONIUM BROMIDE 50 MG/5 ML VIAL As Ordered ONE; +ZOFR4TAB16 PO; -fentaNYL 100 MCG/2 ML INJECTION (J3010) As Ordered ONE; -propofoL 200 MG/20 ML VIAL As Ordered ONE
[2020-03-07 11:28] LABS: CHOLESTEROL RISK RATIO 3.767 (<5); THYROID STIMULATING HORMONE 1.83 uIU/ML (0.358-3.740)
== END ==
LOC: M LAB REF 10:03
PROVIDERS: ATTEND Family Medicine
DX: F41.0 Panic disorder [episodic paroxysmal anxiety] (principal)

== ENCOUNTER → 2020-04-01 | Outpatient (CLI) | payer BC, OTHER ==
[~2020-04-01] MED LIST changes: +ISOVUE-370 76% 100ML VIAL As Ordered ONE
--- NOTE | 2020-04-01 16:03 | REPVR ---
PROCEDURE INFORMATION: Exam: CT Neck With Contrast Exam date and time: 04/01/2020 3:29 PM Age: 39 years old Clinical indication: Neck pain; Prior surgery; Additional info: Localized swelling, mass TECHNIQUE: Imaging protocol: Computed tomography images of the neck with intravenous contrast. Radiation optimization: All CT scans at this facility use at least one of these dose optimization techniques: automated exposure control; mA and/or kV adjustment per patient size (includes targeted exams where dose is matched to clinical indication); or iterative reconstruction. Contrast material: ISO 370; Contrast volume: 75 ml; Contrast route: INTRAVENOUS (IV); COMPARISON: CT Neck with contrast 03/22/2018 4:40 PM FINDINGS: Nasopharynx: Unremarkable. Oropharynx: Unremarkable. No significant tonsillar enlargement. Hypopharynx: Unremarkable. Larynx: Unremarkable. Normal epiglottis. Retropharyngeal space: Unremarkable. Submandibular/Parotid glands: Normal. Glands are normal in size. Thyroid: Normal. No enlarged or calcified nodules. Lymph nodes: It is prominent lymph nodes at level II not meeting the criteria of lymphadenopathy. Trachea: Visualized trachea is unremarkable. Lungs: Unremarkable as visualized. Bones/joints: Unremarkable. No acute fracture. Soft tissues: Unremarkable. No significant soft tissue swelling. IMPRESSION: No acute findings. Electronically signed by: Mich Gustafson On 04/01/2020 16:03:58 PM
== END ==
LOC: M RAD 15:09
PROVIDERS: ATTEND Family Medicine
DX: R22.1 Localized swelling, mass and lump, neck (principal)

== ENCOUNTER 2020-04-08 04:17 | Emergency (ER) | payer BC, OTHER ==
[~2020-04-08] VITALS: Ht 162.6 cm; Wt 119.2 kg
[~2020-04-08 04:17] MED LIST changes: -ISOVUE-370 76% 100ML VIAL As Ordered ONE
--- OUTSIDE RECORDS SUMMARY | 2020-04-08 04:25 | CCD ---
Author Author [facility] Organization [facility] Address [address] [place] [address] Phone Care Team Providers Care Museum Service Scheduler Name Role Phone Chris KRISHNAMURTHY, Chinmay Mccall Unavailable [phone] Piper KRISHNAMURTHY, Lillian Aguiar PP [phone] Reason for Referral No Reason for Referral Recorded Problems Includes: Active, inactive, and resolved Problems All Visits Onset Date - Time Resolved Date - Time Provider Co ndition Status Iron Deficiency Anemia 04/08/2016 - 12:00AM Josefina Chamberlain ser ANP-BC Active Anemia Hypochromic / Microcytic 04/03/2015 - 12:00AM Jonatan Zimmerman ANP-BC Active Gastroenteritis 04/03/2015 - 12:00AM Josefina Zimmerman ANP -BC Inactive Allergic Rhinitis 03/07/2013 - 12:00AM Laurel Rivera RPA Active Note: flaring spring-fall depressive disorder-unspecified 03/07/2013 - 12:00AM Jonatan Rivera RPA Active Note: post Dyspepsia 03/07/2013 - 12:00AM Josefina Zimmerman ANP-BC Active Note: EGD 07/01: irregular Z line with negative biopsy, hiatal herniasymptomatic relief with daily PPI 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 Mcdonald referral Abnormal Pap Smear 08/19/2004 - 12:00AM Josefina Zimmerman [facility]- Active Note: 08/23: LSIL mild dyspla leslie, MYRNA I)07/24: ASCUS, HPV negative08/25: LSIL04/28, 09/25, 10/27,01/31, 07/05 normal Plan of Treatment Pending Tests Order Diagnosis Results Due Ordering Provi anthony Outside Labs CBC with Manual Diff Iron deficiency anemia, unspecifi ed 08/24/19 Lillian Saldaña MD Outside Labs Other Diarrhea, unspecified 01/21/20 Lakesha Saldaña MD Lab Lipid Panel 03/21/20 Lillian garcia MD Lab TSH 03/21/20 Lillian garcia MD Rads U/S - a. Ultrasound Ultrasound Oth abn and inc onclusive findings on dx imaging of breast 04/18/20 Lillian Saldaña MD Care Programs [facility] Future Appointments Date Time Location Provider followup 04/18/2020 2:30PM [facility] Lillian Saldaña MD Findings Encounter Date Ordered screening mammogram ANNUAL PE-followup with Lillian Saldaña MD 09/04/2019 Tylenol for discomfort or fever. Push fluids and rest. Saline nasal spray to thin secretions and encourage drainage. Follow up with PCP if persistent or high fever, increased work of breathing, persistent pain, if sxs not improving, or if concerned sick visit with Mike Zimmerman PA-C 06/26/2019 Tylenol for discomfort or fever. Push fluids and rest. Saline nasal spray to thin secretions and encourage drainage. Follow up with PCP if persistent or high fever, increased work of breathing, persistent pain, if sxs not improving, or if concerned followup with Mike Zimmerman PA-C 05/01/2019 Explanation of plan Take all medicatio n as directed. Handwashing discussed to reduce spread of infection. May continue OTC medications. Ibuprofen for pain, inflammation. Notify office or Primary Care Provider if worsening or no Improvement in 7 days. Increase fluids. Rest sick visit with Brittany Martinesha [employer] 04/23/2019 Explanation of plan Humidifier in room. Handwashing discussed to reduce spread of infection. May continue OTC medications. Notify office or Primary Care Provider if worsening or no Improvement in 7 days. Increase fluids. [facility] Explanation of plan Humidifier in room. Saline nasal flushes prn. Take all medication as directed. Handwashing discussed to reduce spread of infection. May continue OTC medications. Notify office or Primary Care Provider if worsening or no Improvement in 7 days. Increase fluids. Rest sick visit with Brittany Marit [facility] 01/25/2018 Ordered antihistamines sick visit with Brittany Marti [facility] 07/07/2016 Supportive care with tylenol for fever. Suspect viral process but given abdominal complaints and continued symptoms will obtain labs as above and follow up via phone once obtained. In the interim, recommended rest, fluids, BRAT diet and avoidance of dairy. Advised to call if high or persistent fever, poor urine output, persistent abdominal pain, persistent vomiting or frequent diarrhea sick visit with [facility] 06/11/2016 Tylenol for discomfort or fever. Push fluids and rest. Advised to call if persistent or high fever, increased work of breathing, persistent pain, if sxs not improving, or if concerned sick visit with [facility] 03/17/2016 Tylenol for discomfort or fever. Push fluids and rest. Advised to call if persistent or high fever, increased work of breathing, persistent pain, if sxs not improving, or if concerned sick visit with [facility] 02/17/2016 Ordered a urine culture sick visit with Humble Noriega MD Saline nasal spray as needed. General mechanisms of infectious spread and hygiene reviewed with the patient. Instructed to call if symptoms fail to improve over next several days sick visit with Humble Noriega MD 07/23/2014 Assessments Includes: Assessments for all patient encounters Findings Encounter Date Adjustment disorder which is inadequatel y controlled on sertraline 100mg daily. Will add abilify 5mg daily. Follow-up in 6 weeks [Adjustment disorder with mixed anxiety and depressed mood] followup with Lillian Saldaña MD 03/07/2020 Allergic rhinitis which is stable stabl e on flonase, saline spray [Allergic rhinitis, unspecified] followup with Lillian Saldaña MD 03/07/2020 Billings's esophagus without dysplasia wh ich is stable Follows with GI, last endscopy 2019, repeat in 2022. Continue Protonix [Billings's esophagus without dysplasia] followup with Lillian Saldaña MD 03/07/2020 Fatty liver which is stable Per GI, LFT 's wnl today. Continue healthy diet, exercise, weight loss [Fatty (change of) liver, not elsewhere classified] followup with Lillian Saldaña MD 03/07/2020 Lumbago which is stable Continue suppor tive care with stretching, heat. Continue weight loss efforts [Low back pain] followup with Lillian Saldaña MD 03/07/2020 Obesity which is stable Counseling and education provided regarding healthy diet, exercise, weight loss. Patient very motivated to loose weight [Morbid (severe) obesity due to excess calories] followup with Lillian Saldaña MD 03/07/2020 Panic disorder [Panic disorder [episodic paroxysmal an xiety]] followup with Lillian Saldaña MD 03/07/2020 Post-traumatic stress disorder [Post-traumatic stress disorder, chronic] followup with Lillian Saldaña MD 03/07/2020 Gastrointestinal infections Patient rep orts she underwent abdominal CT and abdominal US when in [facility] ED. Records requested today. Will obtain stool studies. Patient advised to maintain BRAT diet, PO hydration [Infectious gastroenteritis and colitis, unspecified] sick visit with Lillian Saldaña MD 01/14/2020 Adjustment disorder stable on sertralin e 150mg daily. Will continue to monitor. RTC in 6 months for follow-up [Adjustment disorder with mixed anxiety and depressed mood] ANNUAL PE-followup exam/30 with Lillian Saldaña MD Allergic rhinitis stable on flonase, sa line spray [Allergic rhinitis, unspecified] ANNUAL PE-followup exam/30 with Lillian Saldaña MD Billings's esophagus without dysplasia F ollows with GI, last endscopy 2019, repeat in 2022. Continue Protonix [Billings's esophagus without dysplasia] ANNUAL PE-followup exam/30 with Lillian Saldñaa MD 09/04/2019 Fatty liver Per GI, LFT's wnl today. Co ntinue healthy diet, exercise, weight loss [Fatty (change of) liver, not elsewhere classified] ANNUAL PE-followup exam/30 with Lillian Saldaña MD 09/04/2019 Lumbago Continue supportive care with rashida lehman. Continue weight loss efforts [Low back pain] ANNUAL PE-followup exam/30 with Lillian Saldaña MD 09/04/2019 Obesity Counseling and education provid ed regarding healthy diet, exercise, weight loss. Patient very motivated to loose weight [Morbid (severe) obesity due to excess calories] ANNUAL PE-followup exam/30 with Lillian Saldaña MD 09/04/2019 Panic disorder [Panic disorder [episodic paroxysmal an xiety]] ANNUAL PE-followup exam/30 with Lillian Saldaña MD 09/04/2019 Post-traumatic stress disorder [Post-traumatic stress disorder, chronic] ANNUAL PE-followup exam/30 with Lillian Saldaña MD 09/04/2019 Routine adult history and physical (18 - 64 yrs) Working nights, having difficulty switching between night and day shifts. Last pap 06/2016, s/p hysterectomy 05/2017. Paternal Aunt with history of breast cancer diagnosed in her 50's. Obtain baseline mammogram [Encounter for general adult medical examination with abnormal findings] ANNUAL PE-followup exam/30 with Lillian Saldaña MD 09/04/2019 Adjustment disorder Counseling provided today, improving with sertraline 150mg daily. Will continue to monitor. Follow-up at annual exam scheduled in August [Adjustment disorder with mixed anxiety and depressed mood] Telehealth Communication FU with Lillian Saldaña MD 07/16/2019 Panic disorder [Panic disorder [episodic paroxysmal an xiety]] Telehealth Communication FU with Lillian Saldaña MD 07/16/2019 Post-traumatic stress disorder [Post-traumatic stress disorder, chronic] Telehealth Communication FU with Lillian Saldaña MD 07/16/2019 Acute sinusitis , azithromycin has worked well in past sick visit with Mike Zimmerman PA-C 06/26/2019 Acute sinusitis has tolerated z pac in past. Was improving with Cefdinir but has now worsened after Cefdinir stopped due to reaction followup with Mike Zimmerman PA-C 05/01/2019 Acute otitis media of right ear sick visit with Brittany maurice [employer] 04/23/2019 Upper respiratory infection , viral in nature sick vis it with Brittany Romano [employer] 04/12/2019 Lobar pneumonia , resolving. Chest X-ra y showed resolved pneumonia, LLL. Continue monitoring, follow up with PCP if symptoms persist/worsen followup with Mike Zimmerman PA-C 03/01/2019 Diarrhea Intermittent with constipation , previously seen by GI and would like to return for further eval. Has appointment scheduled in January [Diarrhea, unspecified] followup with Lillian Saldaña MD 12/08/2018 Dyspepsia stable on protonix [Functional dyspepsia] f ollowup with iLllian Saldaña MD 12/08/2018 Panic disorder Improving with increase in sertraline dose to 75mg PO daily [Panic disorder [episodic paroxysmal anxiety]] followup with Lillian Saldaña MD 12/08/2018 Post-traumatic stress disorder RTC f or annual exam [Post-traumatic stress disorder, chronic] followup with Lillian Saldaña MD 12/08/2018 Diarrhea Intermittent with constipation , previously seen by GI and would like to return for further eval [Diarrhea, unspecified] followup with Lillian Saldaña MD 10/25/2018 Dyspepsia stable on protonix [Functional dyspepsia] f ollowup with Lillian Saldaña MD 10/25/2018 Panic disorder Increase sertraline to 7 5mg PO daily. Follow-up in 1 month [Panic disorder [episodic paroxysmal anxiety]] followup with Lillian Saldaña MD 10/25/2018 Post-traumatic stress disorder [Post-traumatic stress disorder, chronic] followup with Lillian Saldaña MD 10/25/2018 Allergic rhinitis patient using saline nasal spray routinely along with Flonase, sinus symptoms stable [Allergic rhinitis, unspecified] ANNUAL PE- followup exam/30 with Lillian Saldaña MD 08/30/2018 Dyspepsia stable on protonix [Functional dyspepsia] A NNUAL PE-followup exam/30 with Lillian Saldaña MD 08/30/2018 Instructions for patient Tylenol or Ibu profen as needed to alleviate back pain that prevents patient from sleeping. Patient will begin seeing physical therapy to further alleviate discomfort in lower back through stretches and strengthening that she can continue at home. Continue taking Claritin and Flonase as needed for allergies. Discussed starting a seratonin reuptake inhibitor for PTSD and occasional panic attacks, discussed potential side effects and patient will come back to follow-up in 6 weeks to check progress on new medication ANNUAL PE-followup exam/30 with Lillian Saldaña MD Lumbago [Low back pain] ANNUAL PE-followup exam/30 with Meghan Saldaña MD 08/30/2018 Panic disorder ANNUAL PE-followup exam/30 with Lillian Saldaña MD 08/30/2018 Post-traumatic stress disorder [Post-traumatic stress disorder, chronic] ANNUAL PE-followup exam/30 with Lillian Saldaña MD 08/30/2018 Routine adult history and physical (18 - 64 yrs) -Breast and Pap exam done 07/05, patient now following with Dr. Hunt ANNUAL PE-followup exam/30 with Lillian Saldaña MD 08/30/2018 Acute cervical lymph[facility]itis on [facility] Patient did not really improve once doxycycline therapy completed. Patient has seen Dr. Mahajan in the past , 's office was notified and he will see patient in about 2 weeks , will obtain CT neck, patient will follow-up here in one week. Nasal culture completed, spoke with Dr. Ramsey who recommends treatment with Bactrim for possible MRSA infection also will treat nasal sores with Bactroban ointment applied sparingly to the lesions twice daily Patient will continue to drink increased fluids, may take Tylenol or ibuprofen for neck discomfort, advised to increase rest. She will call sooner ifshe develops any fever or condition changes followup with Josefina BALTAZAR-BC 03/16/2018 Acute cervical lymphadenitis on the [facility] t Patient is slowly improving, will continue with doxycycline therapy. At this point in time I do not find a neck mass, will consider CT scan of the neck if indicated, patient will follow-up in one week. She will finish antibiotic in 4 days' time for a total of 14 days of treatment. Patient will continue to drink increased fluids, may take Tylenol or ibuprofen for neck discomfort, advised to increase rest. She will call sooner if she develops any fever or condition changes followup with Josefina BALTAZAR-BC 03/10/2018 Allergic rhinitis -Start saline nasal s pray prior to Flonase, alternate direction of spray in the nose to help with healing and spray gently. May also take Claritin or Angela for postnasal drip sick visit with Josefina BALTAZAR-BC 02/28/2018 Dyspepsia -Patient is having reflux jameson ly, she will start protontix1 tablet twice daily for the first 10 days and decrease to once daily. Suspect may be cause of sore throat as strep screen is negative, although she does have some symptoms of early sinusitis as well sick visit with Josefina Zimmerman [facility] 02/28/2018 Fatigue -Monospot has returned negative as well as Martinez-Thao virus antibodies IgM, fatigue may be related to current adenopathy and allergies. Patient has not been sleeping well due to her discomfort. May take Tylenol or ibuprofen for neck pain. We'll start doxycycline to treat her neck adenopathy, patient to return in 10 days for reevaluation, call sooner if needed sick visit with Josefina Zimmerman [facility] 02/28/2018 Acute sinusitis sick visit with Brittany Romano [facility] Abnormal Pap Smear -Pap test normal in 07/05, pt is having hysterectomy on 08/09/17, will obtain recent preoperative labs ANNUAL PE-followup exam/30 with Josefina Marti [facility] 07/21/2017 Allergic rhinitis patient using saline nasal spray routinely along with Flonase, sinus symptoms improved overall ANNUAL PE-followup exam/30 with [facility] 07/21/2017 Dyspepsia Has stopped using Pepcid as s ymptoms are controlled, has a rare breakthrough about once a month for which she uses Tums ANNUAL PE-followup exam/30 with Josefina M [facility] 07/21/2017 Iron deficiency anemia pt indicates has been told has thalassemia, no workup found supporting this in record, prometrius test negative for IBD, thought related in part to heavier menses, having hysterectomy later this month ANNUAL PE-followup exam/30 with Josefina Figueroa [facility] 07/21/2017 Noninfectious dermatological conditions Patient has asymmetrical lesion right upper back, multiple other lesions as well, will refer to dermatology for further evaluation ANNUAL PE-followup exam/30 with Josefina M [facility] 07/21/2017 Routine adult history and physical (18 - 64 yrs) -Breast and Pap exam done 07/05, patient now following with Dr. Hunt ANNUAL PE-followup exam/30 with Josefina [facility] 07/21/2017 Acute upper respiratory infection possi ble early sinusitis. Start doxycyline 100mg twice daily, take as directed. Pt was instructed to use saline and Flonase correctly, was given written instructions. Was always tasting Flonase when used, suspect that is why it was ineffective. May OTC cough syrup such as Delsym, take claritin or angela for post nasal drip. Will need to continue regimen until ears are no longer pressured [facility] Neck strain sick visit with Brittany Marti [facility] Pyrexia sick visit with Brittany Figueroa [facility] Viral syndrome sick visit with Brittany Figueroa [facility] Diarrhea - possibly viral, internal/ext ernal hemorrhoid. No distress. No associated symptoms. Monitor. Return if any abdominal pain, fever, rectal pain sick visit with Brittany M [facility] 10/18/2016 Contact dermatitis of the left arm Unk nown exposure. Patient instructed to avoid itching the area. May apply steroid ointment as directed. Benadryl or Zyrtec as directed for itching. Most likely will resolve on its own within the next few days. Monitor for worsening symptoms or infection secondary to excoriation sick visit with Brittany Marti [facility] 07/07/2016 Abnormal Pap Smear -Pap test taken with out difficulty, will be notified of results once available ANNUAL PE-followup exam/30 with Josefina Figueroa [facility] 06/25/2016 Allergic rhinitis Recommend patient use saline nasal spray routinely when having some increased nasal swelling ANNUAL PE-followup exam/30 with Josefina M [facility] 06/25/2016 Dyspepsia Using Pepcid intermittently with good resul ts ANNUAL PE-followup exam/30 with Josefina M [facility] 06/25/2016 Iron deficiency anemia MCV is 74 in 05/19 7, has had GI workup in 07/31, pt indicates has been told has thalassemia, no workup found supporting this in record, prometrius test negative for IBD, will check hemoglobin electrophoresis in future, has labs at [facility] Routine adult history and physical (18 - 64 yrs) -Breast and Pap exam done today ANNUAL PE-followup exam/ with Josefina Marti Elsie [facility]- 0 06/25/2016 Viral gastroenteritis sick visit with Lisandra Figueroa [place] [facility] Abdominal pain--RUQ She does have an ul trasound scheduled in [place] tomorrow. She is requesting to have a ultrasound changed to today in [place]. Discussed GB vs. viral illness. If we are unable I have asked her to keep her scheduled appt. She does not appear acutely ill, or dehyrdrated at this time. If her pain worsens or she is unable to keep fluids down she can use the ER for immdiate care sick visit with Brittany Marti [facility] 04/14/2016 Constipation sick visit with Brittany Marti Rosal[facility]- Abdominal pain--RUQ Will check Monospot due to discomfort here and increased fatigue, that has returned negative. CMP is negative with liver function tests normal, may be a viral syndrome or possibly a gastroenteritis. Patient to call if symptoms not improving sick visit with Josefina M Elsie [facility]- 04/08/2016 Iron deficiency anemia , MCV 75, will pl an to obtain iron studies. Patient indicates she does occasionally have small amounts of blood with constipation, has known hemorrhoids. Will obtain stool for occult blood. Treatment options will be reevaluated once labs are available, patient will call if symptoms worsen or if not improving sick visit with Josefina M Elsie [facility]- 04/08/2016 Upper respiratory infection , viral in nature [facility] Acute sinusitis sick visit with Lisandra Figueroa [facility] 01/20 Otitis media ; bilateral [facility] Upper respiratory infection , viral in nature urgent visit mara Zimmerman PA-C 12/08/2015 Acute hemorrhagic cystitis sick visit with Humble Noriega MD 04/16/2015 Bacterial cystitis no evidence of pyelo nephritis. Possibly urolithiasis but presentation more typical of UTI sick visit with Humble Noriega MD 04/16/2015 Urinary tract infection sick visit with Humble Noriega MD Gastrointestinal infections -suspect ga stroenteritis, most likely viral. Will start zofran 8mg 1 tab every 8 hrs as needed. Will check BMP, as potassium has been borderline in the past. Follow BRAT diet which was included in patient instructions, will call if not improving sick visit with Josefina Zimmerman ANP-BC 04/03/2015 Acute upper respiratory infection vs bronchitis sick visit with Josefina Zimmerman ANP-BC 12/17/2014 Acute otitis media of right ear sick visit with Humble sanabria MD 07/23/2014 Acute upper respiratory infection sick visit with Humble Olmos MD 07/23/2014 Abdominal pain--RLQ resolved sick visit with J Shamb o RPA 06/20/2014 Allergic rhinitis sick visit with Lauerl J Shambo RPA 04/2014 Acute viral pharyngitis sick visit with Dewey Ty 05/20/2014 Otitis media left followup with J Shambo RPA 2014 Sinusitis followup with J Shambo RPA 2014 Otitis media sick visit with J Shambo RPA 08/2014 Sinusitis sick visit with J Shambo RPA 08/2014 Contusion of the shoulder and upper arm with intact sk in surface followup with J Shambo RPA 04/11/2014 Contusion with intact skin surface of the forearm foll owup with J Shambo RPA 04/11/2014 Contusion with intact skin surface of the thigh follow up with J Shambo RPA 04/11/2014 Right leg strain resolved followup with J Shambo RPA 04/11/2014 Pain in lower leg right sick visit with J Shambo RPA 04/04/2014 Pain in thigh right sick visit with J Shambo RPA Upper respiratory infection , viral in nature sick vis it with J Shambo RPA 04/04/2014 Viral gastroenteritis (rotavirus) sick visit with Dewey Rivera MD 08/15/2013 Essential hypertension followup with Laurel Rivera RPA Dyspepsia followup with Dewey Rivera MD 03/22 Essential hypertension followup with Dewey Rivera MD 0 04/10/2013 Gastroenteritis sick visit with Laurel Rivera RPA 02/18 Upper respiratory infection , viral in nature sick vis it with Laurel Rivera RPA 03/07/2013 Instructions Instructions not supported for this document typeNo Instructions Recorded Medical Equipment - Implanted Devices Includes: Current and historical DevicesNo Medical Equipment Recorded Medications Includes: Current and historical Medications Current Medications (continue as prescribed) Abilify 5 MG Oral Tablet 03/07/2020 Provider: Lillian Saldaña MD Diagnosis: 1 PO QD Flonase Allergy Relief 50 MCG/ACT Nasal Suspension 0 Provider: Lillian Saldaña MD Diagnosis: Instill 1-2 sprays each nostril once daily Protonix 20 MG Oral Tablet Delayed Release 08/27/2019 Provider: Lillian Saldaña MD Diagnosis: 1 PO QD Sertraline HCl 100 MG Oral Tablet 07/10/2019 Provid er: Lillian Saldaña MD Diagnosis: 1.5 tabs daily Symbicort 160-4.5 MCG/ACT Inhalation Aerosol 06/29/2019 Provider: Mike Zimmerman PA-C Diagnosis: 1 puff q am and 1 puff q pm Doxycycline Hyclate 100MG Oral Capsule 02/21/2019 P rovider: Diagnosis: Sucralfate 1GM Oral Tablet 02/20/2019 Provider: Chinmay Perez MD Diagnosis: Bactroban Nasal 2% Ointment 03/16/2018 Provider: Josefina Zimmerman ANP-BC Diagnosis: apply to nasal cavity twice daily for 14 days Ondansetron 4MG Oral Tablet Disintegrating 12/23/2017 Provider: Mikey Ramsey MD Diagnosis: 1 PO QID prn Famotidine 20 MG Tablet 06/25/2016 Provider: Josefina Zimmerman ANP-BC Diagnosis: 1-2 tabsas needed Daily Value Multivitamin Tablet 06/25/2016 Provider : Josefina Zimmerman ANP-BC Diagnosis: 1 PO QD Past Medications on file Emverm 100 MG Oral Tablet Chewable 01/09/2020 - 01/15/2020 P rovider: Lillian Saldaña MD Diagnosis: 1 PO BID x 3 days. Repeat in 3 weeks if not cured with initi al treatment. Azithromycin 250 MG Oral Tablet 06/26/2019 - 07/01/2019 Prov ider: Mike Zimmerman PA-C Diagnosis: Acute maxillary sinu sitis, unspecified Take 2 tablets PO on day 1 and 1 tablet PO on days 2 through 5 Sertraline HCl 100 MG Oral Tablet 06/06/2019 - 07/10/2019 Pr ovider: Lillian Saldaña MD Diagnosis: 1 PO QD Oseltamivir Phosphate 75 MG Oral Capsule 05/08/2019 - 2019 Provider: Mikey Ramsey MD Diagnosis: 1 PO QD Azithromycin 250 MG Oral Tablet 05/01/2019 - 05/06/2019 Prov ider: Mike Zimmerman PA-C Diagnosis: Acute maxillary sinu sitis, unspecified Take 2 tablets PO on day 1 and 1 tablet PO on days 2 through 5 Cefdinir 300 MG Oral Capsule 04/23/2019 - 05/03/2019 Provide r: Brittany Romano [employer]-BC Diagnosis: 1 cap po bid Protonix 20MG Oral Tablet Delayed Release 02/01/2019 - 07/15 Provider: Lillian Saldaña MD Diagnosis: 1 PO QD Sertraline HCl 50MG Oral Tablet 01/08/2019 - 06/06/2019 Prov ider: Lillian Saldaña MD Diagnosis: 1.5 tabs daily Sertraline HCl 50MG Oral Tablet 10/25/2018 - 12/08/2018 Prov ider: Lillian Saldaña MD Diagnosis: 1.5 tabs daily Flonase Allergy Relief 50MCG/ACT Nasal Suspension 09/25/2018 - 09/04/2019 Provider: Lillian Saldaña MD Diagnosis: Instill 1-2 sprays each nostril once daily Protonix 20MG Oral Tablet Delayed Release 09/18/2018 - 12/08 Provider: Lillian Saldaña MD Diagnosis: 1 PO QD Sertraline HCl 50MG Oral Tablet 08/30/2018 - 03/07/2020 Prov ider: Lillian Saldaña MD Diagnosis: 1 PO QD Protonix 20MG Oral Tablet Delayed Release 05/16/2018 - 08/30 Provider: Josefina Zimmerman ANP-BC Diagnosis: 1 PO QD Bactrim DS 800-160MG Oral Tablet 03/16/2018 - 03/26/2018 Pro vider: Josefina Zimmerman ANP-BC Diagnosis: 1 tab po bid x 10 days. Doxycycline Monohydrate 100MG Oral Capsule 03/07/2018 - 02/19 Provider: Josefina Zimmerman ANP-BC Diagnosis: Take 1 tab every 12 hours with food Doxycycline Monohydrate 100MG Oral Capsule 02/28/2018 - 02/18 Provider: Josefina Zimmerman ANP-BC Diagnosis: Take 1 tab every 12 hours with food Protonix 20MG Oral Tablet Delayed Release 02/28/2018 - 03/16 Provider: Josefina Zimmerman [facility] Diagnosis: 1 TAB TWICE DAILY FOR 10 DAYS THEN DECREASE TO ONCE DAILY WI TH A MEAL Bactrim DS 800-160MG Oral Tablet 01/25/2018 - 03/16/2018 Pro vider: Brittany Marti Conradjosafat [facility]- Diagnosis: 1 tab po bid x 10 days. Flonase Allergy Relief 50MCG/ACT Nasal Suspension 08/01/2017 - 08/30/2018 Provider: Josefina Zimmerman [facility] Diagnosis: Instill 1-2 sprays each nostril once daily Tamiflu 75MG Oral Capsule 04/21/2017 - 07/21/2017 Provider: Josefina Zimmerman [facility] Diagnosis: as directed- 1 capsule PO Q12H for 5 days Doxycycline Hyclate 100MG Oral Tablet 03/18/2017 - 8 Provider: Josefina Zimmerman [facility] Diagnosis: Take 1 tab every 12 hours with food Flonase Allergy Relief 50 MCG/ACT NA SUSP 07/20/2016 - 07/21 Provider: Josefina Zimmerman [facility] Diagnosis: Instill 1-2 sprays each nostril once daily Triamcinolone Acetonide 0.1 % Ointment 07/07/2016 - 07/18/19 17 Provider: Brittany Romano [facility] Diagnosis: apply BID to skin on left arm. Flonase Allergy Relief 50 MCG/ACT Suspension 06/25/2016 - Provider: Josefina Zimmerman [facility] Diagnosis: Instill 1-2 sprays each nostril once daily Zofran ODT 4 MG Tablet Dispersible 06/11/2016 - 06/25/2016 P rovider: Lisandra Figueroa RPA Diagnosis: 1 PO TID prn nausea Bactrim DS 800-160 MG Tablet 03/19/2016 - 04/12/2016 Provide r: Mikey Ramsey MD Diagnosis: 1 PO BID Levaquin 500 MG Tablet 02/17/2016 - 04/12/2016 Provider: Lisandra Figueroa RPA Diagnosis: 1 PO QD Fluticasone Propionate 50 MCG/ACT Suspension 06/17/2015 - Provider: Humble Noriega MD Diagnosis: 2 sprays in each nostril QD Bactrim DS 800-160 MG Tablet 04/16/2015 - 04/12/2016 Provide r: Humble Noriega MD Diagnosis: Urinary tract infect ion, site not specified 1 PO BID for 3 days. Zofran ODT 8 MG Tablet Dispersible 04/03/2015 - 06/11/2016 P rovider: Josefina Zimmerman [facility] Diagnosis: 1 tab every 8 hrs, dissolve on tongue Zithromax Z-Frankie 250 MG Tablet 07/23/2014 - 04/12/2016 Provid er: Humble Noriega MD Diagnosis: Acute serous otitis media, right ear 2 po qd for one day, then one po qd for 4 days. Fluticasone Propionate 50 MCG/ACT Suspension 05/20/2014 - Provider: Dewey Rivera MD Diagnosis: 2 sprays in each nostril QD Protonix 40 MG Tablet, enteric coated 05/20/2014 - 7 Provider: Dewey Rivera MD Diagnosis: ESOPHAGEAL REFLUX 1 PO QD Zithromax Z-Frankie 250 MG Tablet 05/20/2014 - 04/12/2016 Provid er: Dewey Rivera MD Diagnosis: as directed 2 tabs po today, then 1 po daily until gone Doxycycline Hyclate 100 MG OR TABS 04/26/2014 - 05/20/2014 P rovider: Laurel Rivera RPA Diagnosis: Fluticasone Propionate 50 MCG/ACT NA SUSP 04/04/2014 - 05/20 Provider: Laurel Rivera RPA Diagnosis: Zofran 4 MG OR TABS 08/15/2013 - 04/12/2016 Provider: Dewey Rivera MD Diagnosis: 1 or 2 tabs every 6 hours as needed for nausea Lisinopril 2.5 MG OR TABS 08/31/2012 - 04/10/2013 Provider: Diagnosis: Hypertension/Unspeci fied Protonix 40 MG OR TBEC 06/06/2012 - 05/20/2014 Provider: Diagnosis: ESOPHAGEAL REFLUX Medications Administered Includes: Administered Medications in patient's chartNo Administered Medications Recorded Vital Signs Includes: Vital Signs from 03/07/2019 through 03/07/2020 Vital Name 03/07/2020 02:28P 01/14/2020 09:50A 09/04/2019 01:08P 07/16/2019 01:11P 06/26/2019 01:12P Body Surface Area (m2) 2.15 2.15 2.13 2. 15 Blood Pressure Sitting (mmHg) 128/74 120/86 110/62 Pulse Rate-Sitting (bpm) 87 78 72 88 Respiration Rate (breaths/min) 18 18 20 22 Temp-Oral (F) 98.3 98.4 Height (in) 63 63 63 63 63 Weight (lb) 256 255.6 252 256 Body Mass Index (kg/m2) 45.3 45.3 44.6 4 5.3 Vital Name 05/01/2019 02:02P 04/23/2019 10:13A 04/12/2019 10:49A Body Surface Area (m2) 2.15 2.15 Blood Pressure Sitting (mmHg) 130/80 118/80 Pulse Rate-Sitting (bpm) 72 60 78 Respiration Rate (breaths/min) 20 18 24 Temp-Oral (F) 97.9 97.9 Height (in) 63 63 63 Weight (lb) 257 257 Body Mass Index (kg/m2) 45.5 45.5 Oxygen Saturation (%) 97 98 Results Includes: Results from 03/07/2019 through 03/07/2020 LIPASE [facility] Ordered by Lillian Saldaña MD on 01/21/2020 Collected: 01/21/2020 Reported: 01/21/2020 12:45 Lipase SerPl-cCnc 85 enzyme_unit_per_liter (73-393) N (Normal) Note: Responsible Observer: Lipase Lipas e 400.2310 (G) Reviewed by Lillian Saldaña MD on 01/20; All test results are final unless otherwise noted. Reported Physicians [facility] Ordered by Lillian Saldaña MD on 01/21/2020 Collected: 01/21/2020 Reported: 01/21/2020 12:45 Reported Physicians See Note None Note: Reported Physicians:Ordering: Sofía Moranending: Nguyen Toro To: Lillian Saldaña Reviewed by Lillian Saldaña MD on 01/20; All test results are final unless otherwise noted. AMYLASE [facility] Ordered by Lillian Saldaña MD on 01/21/2020 Collected: 01/21/2020 Reported: 01/21/2020 12:45 Amylase SerPl-cCnc 39 enzyme_unit_per_liter (30-118) N (Normal) Note: Responsible Observer: Amylase Amyl ase 400.2300 (G) Reviewed by Lillian Saldaña MD on 01/20; All test results are final unless otherwise noted. Reported Physicians [facility] Ordered by Lillian Saldaña MD on 01/21/2020 Collected: 01/21/2020 Reported: 01/21/2020 12:45 Reported Physicians See Note None Note: Reported Physicians:Ordering: Joe MoranAttending: Nguyen Toro To: Lillian Saldaña Reviewed by Lillian Saldaña MD on 01/20; All test results are final unless otherwise noted. TROPONIN [facility] Ordered by Lillian Saldaña MD on 01/21/2020 Collected: 01/21/2020 Reported: 01/21/2020 12:45 Troponin I SerPl-mCnc Less Than 0.015 (0.00-0.09) N (Normal) Note: Less than 0.09 NG/ML Negative 0.10 - 0.77 NG/ML High Risk0.78 NG/ML or Greater PositiveThe WHO defined the cutoff (definition for diagnosis of [place])for this method as 0.78 ng/ml.Responsible Observer: Troponin I Troponin I 600.1101 (G) Reviewed by Lillian Saldaña MD on 01/20; All test results are final unless otherwise noted. Reported Physicians [facility] Ordered by Lillian Saldaña MD on 01/21/2020 Collected: 01/21/2020 Reported: 01/21/2020 12:45 Reported Physicians See Note None Note: Reported Physicians:Ordering: Joe MoranAttending: Nguyen Toro To: Lillian Saldaña Reviewed by Lillian Saldaña MD on 01/20; All test results are final unless otherwise noted. CBC W AUTO DIFF [facility] Ordered by Lillian Saldaña MD on 01/21/2020 Collected: 01/21/2020 Reported: 01/21/2020 12:21 MCV BldCo Auto 83.9 FemtoLiter_[SI_Volume_Units] (80-96) N (Normal) Note: Responsible Observer: MCV MCV 100 .0600 (B) RDW RBC Auto 15 percent (11-15) N (Normal) Note: Responsible Observer: RDW RDW 100 .0900 (B) Manual diff Bld NO None Note: Responsible Observer: CBC Manual D ifferential Added 100.1990 (B) PMV Bld 9.9 FemtoLiter_[SI_Volume_Units] (9.1-13.1) N (Normal) Note: Responsible Observer: MPV MPV 100 .1100 (B) Imm Granulocytes Bld Ql Auto See Note (0-2) N (Normal) Note: [id number] Ob materials handler: IG% IG% 100.1375 (B) Hct VFr Bld Auto 40.5 percent (37-47) N (Normal) Note: Responsible Observer: HEMATOCRIT H EMATOCRIT 100.0500 (B) MCHC BldCo-mCnc 30.9 GramsPerDeciLiter_[Mass_Concentration_Units] (33-37) L (Low) Note: Responsible Observer: MCHC MCHC 1 00.0800 (B) Imm Granulocytes # Bld Auto 0.0 Unit (0-0.1) None Note: Responsible Observer: IG# IG# 100 .1400 (B) Monocytes/leuk NFr Bld Auto 4.5 percent (4-12) N (Normal) Note: Responsible Observer: MONO % MONO % 100.1225 (B) Hgb Bld-sCnc 12.5 GramsPerDeciLiter_[Mass_Concentration_Units] (10.7-15.4) N (Normal) Note: Responsible Observer: HGB HEMOGLOB IN 100.0400 (B) WBC # Bld Auto 8.7 ThousandsPerMicroLiter_[Number_Concentration_Units] (4.45-10 .71) N (Normal) Note: Responsible Observer: WBC WHITE BL OOD COUNT 100.0100 (E) Basophils # Bld Auto 0.0 Unit (0.0-0.2) N (Normal) Note: Responsible Observer: BASO # BASO# 100.1350 (B) Basophils/leuk NFr Bld Auto 0.3 percent (0.4-1.3) L (Low) Note: Responsible Observer: BASO % BASO % 100.1325 (B) Eosinophil # Bld Auto 0.1 Unit (0.0-0.5) N (Normal) Note: Responsible Observer: EOS # EOS# 100.1300 (D) Eosinophil/leuk NFr Bld Auto 0.7 percent (0-7) N (Normal) Note: Responsible Observer: EOS % EOS % 100.1275 (B) Lymphocytes # Bld Auto 2.2 Unit (0.6-4.6) N (Normal) Note: Responsible Observer: LYMPH # LYMP H# 100.1200 (B) Lymphocytes/leuk NFr Bld Auto 25.4 percent (14-46) N (Normal) Note: Responsible Observer: LYMPH % LYMP H % 100.1175 (B) Monocytes # Bld Auto 0.4 Unit (0.2-1.2) N (Normal) Note: Responsible Observer: MONO # MONO# 100.1250 (C) Neutrophils # Bld Auto 6.0 Unit (1.7-7.6) N (Normal) Note: Responsible Observer: NEUT# NEUT# 100.1150 (B) Neutrophils/leuk NFr Bld Auto 68.9 percent (41-77) N (Normal) Note: Responsible Observer: NEUT% NEUT% 100.1125 (B) Platelet # Bld Auto 305 ThousandsPerMicroLiter_[Number_Concentration_Units] (130-472 ) N (Normal) Note: Responsible Observer: PLATELET COU NT PLATELET COUNT 100.1000 (D) MCH RBC Qn Auto 25.9 PicoGram_[SI_Mass_Units] (27-31) L (Low) Note: Responsible Observer: MCH MCH 100 .0700 (B) RBC # Bld Auto 4.83 MillionsPerMicroLiter_[Number_Concentration_Units] (4.20-5.4 0) N (Normal) Note: Responsible Observer: RBC Red Bloo d Count 100.0300 (B) NUCLEATED RED BLOOD CELL# 0 Unit None Note: Responsible Observer: NRBC# NUCLEA SETH RBC 100.1362 (A) NUCLEATED RED BLOOD CELL 0 percent None Note: Responsible Observer: NRBC% NRBC% 100.1360 (B) Reviewed by Lillian Saldaña MD on 01/27; All test results are final unless otherwise noted. [facility] Ordered by Lillian Saldaña MD on 01/21/2020 Collected: 01/21/2020 Reported: 01/21/2020 12:45 ALT SerPl w P-5'-P-cCnc 24 enzyme_unit_per_liter (10-49) N (Normal) Note: Responsible Observer: SGPT/ALT SGP T/ALT 400.1750 (G) Calcium SerPl-mCnc 9.0 MilliGramsPerDeciLiter_[Mass_Concentration_Units] (8.5-10.1) N (Normal) Note: Responsible Observer: Calcium Calc ium 400.2500 (G) Bilirub SerPl-mCnc 0.4 MilliGramsPerDeciLiter_[Mass_Concentration_Units] (0.3-1.2) N (Normal) Note: Responsible Observer: T KAM Total Bilirubin 400.2600 (G) CO2 SerPl-sCnc 30 MilliMolesPerLiter_[Substance_Concentration_Units] (20-31) N (Normal) Note: Responsible Observer: CO2 Carbon D ioxide 400.1400 (G) Chloride SerPl-sCnc 104 MilliMolesPerLiter_[Substance_Concentration_Units] (99-109) N (Normal) Note: Responsible Observer: Chloride Chl oride 400.1250 (G) Glucose SerPl-mCnc 82 MilliGramsPerDeciLiter_[Mass_Concentration_Units] (74-106) N (Normal) Note: Responsible Observer: Glucose Gluc ose 400.1500 (G) Potassium SerPl-sCnc 3.8 MilliMolesPerLiter_[Substance_Concentration_Units] (3.5-5.5) N (Normal) Note: Responsible Observer: K Potassium 400.1210 (G) Prot SerPl-mCnc 8.2 GramsPerDeciLiter_[Mass_Concentration_Units] (5.7-8.2) N (Normal) Note: Responsible Observer: TP Total Pro tein 400.2800 (G) Sodium SerPl-sCnc 139 MilliMolesPerLiter_[Substance_Concentration_Units] (132-146) N (Normal) Note: Responsible Observer: Sodium Sodiu m 400.1100 (G) AST SerPl w P-5'-P-cCnc 16 enzyme_unit_per_liter (0-33) N (Normal) Note: Responsible Observer: SGOT / AST S GOT / AST 400.1900 (G) BUN SerPl-mCnc 12 MilliGramsPerDeciLiter_[Mass_Concentration_Units] (9-23) N (Normal) Note: Responsible Observer: BUN Blood Ur ea Nitrogen 400.1000 (G) Anion Gap SerPl-sCnc 9 MilliMolesPerLiter_[Substance_Concentration_Units] (8-16) N (Normal) Note: Responsible Observer: ANION GAP AN ION GAP 400.1402 (E) Albumin SerPl BCP-mCnc 3.8 GramsPerDeciLiter_[Mass_Concentration_Units] (3.2-4.8) N (Normal) Note: Responsible Observer: Albumin Albu min 400.2700 (G) ALP SerPl-cCnc 100 enzyme_unit_per_liter (45-129) N (Normal) Note: Responsible Observer: ALP Alkaline Phosphatase 400.2000 (G) GFR/BSA.pred SerPlBld-ArVRat Greater Than 60 (ABOVE 60) None Note: Responsible Observer: GFR Glomerul ar Filt Rate Calc 400.1605 (D) Creatinine 0.9 MilliGramsPerDeciLiter_[Mass_Concentration_Units] (0.5-1.1) N (Normal) Note: Responsible Observer: Creatinine C reatinine 400.1600 (G) Reviewed by Lillian Saldaña MD on 01/27; All test results are final unless otherwise noted. [facility] Ordered by Lillian Saldaña MD on 01/21/2020 Collected: 01/21/2020 Reported: 01/21/2020 13:26 Lactic w Rfx (if elevated) 0.9 MilliMolesPerLiter_[Substance_Concentration_Units] (0.5-2.2) N (Normal) Note: Responsible Observer: Lactic Acid Lactic Acid 400.2831 (G) NOTES See Note None Note: Special Instructions: Lab may orde r repeat test if initial test elevatedPhysician If elevated, reflex second test in 4-6 hrs Reviewed by Lillian Saldaña MD on 01/27; All test results are final unless otherwise noted. Blood Culture (Incl Anaerobic)-1 [facility] Ordered by Lillian Saldaña MD on 01/21/2020 Collected: 01/21/2020 Reported: 01/26/2020 12:17 Bacteria Bld Cult See Note None Note: NG5DNo growth.[id number] GROWTH AFTE R 5 DAYS Reviewed by Lillian Saldaña MD on 01/27; All test results are final unless otherwise noted. Blood Culture (Incl Anaerobic)-2 [facility] Ordered by Lillian Saldaña MD on 01/21/2020 Collected: 01/21/2020 Reported: 01/26/2020 12:17 Bacteria Bld Cult See Note None Note: NG5DNo growth.[id number] GROWTH AFTE R 5 DAYS Reviewed by Lillian Saldaña MD on 01/27; All test results are final unless otherwise noted. Reported Physicians [facility] Ordered by Lillian Saldaña MD on 01/21/2020 Collected: 01/21/2020 Reported: 01/26/2020 12:17 Reported Physicians See Note None Note: Reported Physicians:Ordering: Sofía Moranending: Nguyen Toro To: Lillian Saldaña Reviewed by Lillian Saldaña MD on 01/27; All test results are final unless otherwise noted. CBC W AUTO DIFF [facility] Ordered by Lillian Saldaña MD on 01/18/2020 Collected: 01/18/2020 Reported: 01/18/2020 11:37 MCV BldCo Auto 83.6 FemtoLiter_[SI_Volume_Units] (80-96) N (Normal) Note: Responsible Observer: MCV MCV 100 .0600 (B) RDW RBC Auto 15 percent (11-15) N (Normal) Note: Responsible Observer: RDW RDW 100 .0900 (B) Manual diff Bld NO None Note: Responsible Observer: CBC Manual D ifferential Added 100.1990 (B) PMV Bld 10.2 FemtoLiter_[SI_Volume_Units] (9.1-13.1) N (Normal) Note: Responsible Observer: MPV MPV 100 .1100 (B) Imm Granulocytes Bld Ql Auto See Note (0-2) N (Normal) Note: [id number] Ob materials handler: IG% IG% 100.1375 (B) Hct VFr Bld Auto 43.2 percent (37-47) N (Normal) Note: Responsible Observer: HEMATOCRIT H EMATOCRIT 100.0500 (B) MCHC BldCo-mCnc 30.6 GramsPerDeciLiter_[Mass_Concentration_Units] (33-37) L (Low) Note: Responsible Observer: MCHC MCHC 1 00.0800 (B) Imm Granulocytes # Bld Auto 0.0 Unit (0-0.1) None Note: Responsible Observer: IG# IG# 100 .1400 (B) Monocytes/leuk NFr Bld Auto 4.9 percent (4-12) N (Normal) Note: Responsible Observer: MONO % MONO % 100.1225 (B) Hgb Bld-sCnc 13.2 GramsPerDeciLiter_[Mass_Concentration_Units] (10.7-15.4) N (Normal) Note: Responsible Observer: HGB HEMOGLOB IN 100.0400 (B) WBC # Bld Auto 8.5 ThousandsPerMicroLiter_[Number_Concentration_Units] (4.45-10 .71) N (Normal) Note: Responsible Observer: WBC WHITE BL OOD COUNT 100.0100 (E) Basophils # Bld Auto 0.0 Unit (0.0-0.2) N (Normal) Note: Responsible Observer: BASO # BASO# 100.1350 (B) Basophils/leuk NFr Bld Auto 0.5 percent (0.4-1.3) N (Normal) Note: Responsible Observer: BASO % BASO % 100.1325 (B) Eosinophil # Bld Auto 0.1 Unit (0.0-0.5) N (Normal) Note: Responsible Observer: EOS # EOS# 100.1300 (D) Eosinophil/leuk NFr Bld Auto 0.8 percent (0-7) N (Normal) Note: Responsible Observer: EOS % EOS % 100.1275 (B) Lymphocytes # Bld Auto 2.0 Unit (0.6-4.6) N (Normal) Note: Responsible Observer: LYMPH # LYMP H# 100.1200 (B) Lymphocytes/leuk NFr Bld Auto 24.1 percent (14-46) N (Normal) Note: Responsible Observer: LYMPH % LYMP H % 100.1175 (B) Monocytes # Bld Auto 0.4 Unit (0.2-1.2) N (Normal) Note: Responsible Observer: MONO # MONO# 100.1250 (C) Neutrophils # Bld Auto 5.9 Unit (1.7-7.6) N (Normal) Note: Responsible Observer: NEUT# NEUT# 100.1150 (B) Neutrophils/leuk NFr Bld Auto 69.5 percent (41-77) N (Normal) Note: Responsible Observer: NEUT% NEUT% 100.1125 (B) Platelet # Bld Auto 321 ThousandsPerMicroLiter_[Number_Concentration_Units] (130-472 ) N (Normal) Note: Responsible Observer: PLATELET COU NT PLATELET COUNT 100.1000 (D) MCH RBC Qn Auto 25.5 PicoGram_[SI_Mass_Units] (27-31) L (Low) Note: Responsible Observer: MCH MCH 100 .0700 (B) RBC # Bld Auto 5.17 MillionsPerMicroLiter_[Number_Concentration_Units] (4.20-5.4 0) N (Normal) Note: Responsible Observer: RBC Red Bloo d Count 100.0300 (B) NUCLEATED RED BLOOD CELL# 0 Unit None Note: Responsible Observer: NRBC# NUCLEA SETH RBC 100.1362 (A) NUCLEATED RED BLOOD CELL 0 percent None Note: Responsible Observer: NRBC% NRBC% 100.1360 (B) Reviewed by Lillian Saldaña MD on 01/17; All test results are final unless otherwise noted. [facility] Ordered by Lillian Saldaña MD on 01/18/2020 Collected: 01/18/2020 Reported: 01/18/2020 12:04 ALT SerPl w P-5'-P-cCnc 32 enzyme_unit_per_liter (10-49) N (Normal) Note: Responsible Observer: SGPT/ALT SGP T/ALT 400.1750 (G) Calcium SerPl-mCnc 9.4 MilliGramsPerDeciLiter_[Mass_Concentration_Units] (8.5-10.1) N (Normal) Note: Responsible Observer: Calcium Calc ium 400.2500 (G) Bilirub SerPl-mCnc 0.4 MilliGramsPerDeciLiter_[Mass_Concentration_Units] (0.3-1.2) N (Normal) Note: Responsible Observer: T KAM Total Bilirubin 400.2600 (G) CO2 SerPl-sCnc 30 MilliMolesPerLiter_[Substance_Concentration_Units] (20-31) N (Normal) Note: Responsible Observer: CO2 Carbon D ioxide 400.1400 (G) Chloride SerPl-sCnc 105 MilliMolesPerLiter_[Substance_Concentration_Units] (99-109) N (Normal) Note: Responsible Observer: Chloride Chl oride 400.1250 (G) Glucose SerPl-mCnc 89 MilliGramsPerDeciLiter_[Mass_Concentration_Units] (74-106) N (Normal) Note: Responsible Observer: Glucose Gluc ose 400.1500 (G) Potassium SerPl-sCnc 4.1 MilliMolesPerLiter_[Substance_Concentration_Units] (3.5-5.5) N (Normal) Note: Responsible Observer: K Potassium 400.1210 (G) Prot SerPl-mCnc 8.0 GramsPerDeciLiter_[Mass_Concentration_Units] (5.7-8.2) N (Normal) Note: Responsible Observer: TP Total Pro tein 400.2800 (G) Sodium SerPl-sCnc 140 MilliMolesPerLiter_[Substance_Concentration_Units] (132-146) N (Normal) Note: Responsible Observer: Sodium Sodiu m 400.1100 (G) AST SerPl w P-5'-P-cCnc 20 enzyme_unit_per_liter (0-33) N (Normal) Note: Responsible Observer: SGOT / AST S GOT / AST 400.1900 (G) BUN SerPl-mCnc 10 MilliGramsPerDeciLiter_[Mass_Concentration_Units] (9-23) N (Normal) Note: Responsible Observer: BUN Blood Ur ea Nitrogen 400.1000 (G) Anion Gap SerPl-sCnc 9 MilliMolesPerLiter_[Substance_Concentration_Units] (8-16) N (Normal) Note: Responsible Observer: ANION GAP AN ION GAP 400.1402 (E) Albumin SerPl BCP-mCnc 3.9 GramsPerDeciLiter_[Mass_Concentration_Units] (3.2-4.8) N (Normal) Note: Responsible Observer: Albumin Albu min 400.2700 (G) ALP SerPl-cCnc 102 enzyme_unit_per_liter (45-129) N (Normal) Note: Responsible Observer: ALP Alkaline Phosphatase 400.2000 (G) GFR/BSA.pred SerPlBld-ArVRat Greater Than 60 (ABOVE 60) None Note: Responsible Observer: GFR Glomerul ar Filt Rate Calc 400.1605 (D) Creatinine 0.9 MilliGramsPerDeciLiter_[Mass_Concentration_Units] (0.5-1.1) N (Normal) Note: Responsible Observer: Creatinine C reatinine 400.1600 (G) Reviewed by Lillian Saldaña MD on 01/17; All test results are final unless otherwise noted. Reported Physicians [facility] Ordered by Lillian Saldaña MD on 01/18/2020 Collected: 01/18/2020 Reported: 01/18/2020 12:04 Reported Physicians See Note None Note: Reported Physicians:Ordering: Lillian JjAttending: Lillian Saldaña Reviewed by Lillian Saldaña MD on 01/17; All test results are final unless otherwise noted. History of Present Illness History of Present Illness not supported for this document typeNo History of Present Illness Recorded Social History Description Last Updated Smoking status : Never smoker 07/05/2016 Caffeine use 20 oz. 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 12/17/2014 Not a current smoker 07/23/2014 Alcohol use None 03/07/2013 Non-smoker 03/07/2013 Procedures and Surgical History Includes: Procedures from 03/07/2019 through 03/07/2020 Procedures Code Diagnosis Performing Provider Service Location Service Date Brief Emotional Behavior Assessment [address] Adju stment disorder with mixed anxiety and depressed mood, Post-traumatic stress disorder, chronic, Panic disorder without agoraphobia, Screening for Mental Health/Behavioral Disorder, Unspecified Lillian Saldaña MD [facility] 020 Surgical History Last Updated Surgical / procedural history May 2017, total hyste rectomy (ovaries remain) 09/04/2019 History of section In 2008 ~hy sterectomy 07/2017 Dr. Alejo ~right cervical lymph node removed 05/23/18 Dr. Cruz 08/30/2018 Prior surgery Ear surgery?, de livery, colposcopy (2002), Essure procedure (2011) 04/04/2014 Medical History Includes: Medical History in patient's chart Description Last Updated History of colonoscopy 2019, normal, Grade 3 hemorrho ids 09/04/2019 A Pap smear was performed 06/25/2016 08/30/2018 Colposcopy of cervix in 200207/05/2016 Hysteroscopy with insertion of device to occlude fallo pian tubes In 201107/05/2016 Tympanoplasty In 198807/05/2016 No tissue injury of the head 04/09/2016 A recent URI 12/08/2015 Environmental exposure was unknown 04/03/2015 No consumption of possibly contaminated, spoiled, or p oisonous food 04/03/2015 No exposure to a contagious disease sta pricilla her daughter also had illness and seems to be recovered ~ 04/03/2015 Not taking antibiotics recently last given in - Not taking OTC medications 07/23/2014 Family History Includes: Family History in patient's chart Description Last Updated Brother in good health Has sports-induc ed asthma, currently is being evaluated for MS 07/05/2016 Father in fair health Has hypertension, hypercholesterolemia, asthma, depression 07/05/2016 First child is a son Has reactive airway disease 06/19 Mother in fair health has hypertension, asthma, depre ssion, is a smoker 07/05/2016 Second child is a daughter Healthy, is a cystic fibro sis carrier 07/05/2016 Sister in good health Is a cystic fibrosis carrier Strong [facility] GI disorders. Reports + [facility] breast cance r, depression, HTN 03/07/2013 Review of Systems Review of Systems not supported for this document typeNo Review of Systems Recorded Mental Status Mental Status not supported for this document typeNo Mental Status Recorded Functional Status Functional Status not supported for this document typeNo Functional Status Recorded Physical Exam Physical Exam not supported for this document typeNo Physical Exam Recorded Immunizations Includes: Immunizations in patient's chart Vaccine Dose # Date Site Reaction(s) Status Source Td 1 03/21/2009 Complete (Reported) Patient Allergies Includes: Active, inactive, and resolved Allergies Substance Type Reaction Onset Date - Time Resolved Date - Ti me Status 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 vomiting 08/17/2012 - 12:00AM Acti ve Penicillin G Benzathine Allergy unknown 03/07/2013 - 12:00AM Active Cefdinir Allergy Hives, Shortness of Breath 05/01/2019 - 12:00AM Active Ceclor Allergy nausea 03/07/2013 - 12:00AM Acti ve Encounters Includes: Encounters from 03/07/2019 through 03/07/2020 Encounter Provider Location Date Check-In Time Check-Out Time D iagnosis followup Lillian Saldaña MD [facility], [facility] 03/07 2:16PM 2:44PM Fatty Liver, Allergic Rhinitis, Adjustme nt Disorder, Obesity, Lumbago, Post-traumatic Stress Disorder, Panic Disorder, Billings's Esophagus Without Dysplasia sick visit Lillian Saldaña MD [facility], [facility] 1 9:44AM 10:26AM Gastrointestinal Infections [Patient Encounter] Lillian Saldaña MD 01/09/20202 020 2:25PM 09/04/2019 11:59PM ANNUAL PE-followup exam/30 Lillian Saldaña MD [facility], [facility] 09/04/2019 12:50PM 1:33PM Adjustment Disorder, Post-traumatic Stress Disorder, Panic Disorder, Allergic Rhinitis, Lumbago, Routine History and Physical Adult (18 - 64 Yrs), Obesity, Billings's Esophagus Without Dysplasia, Fatty Liver [Patient Encounter] Lillian Saldaña MD 08/17/20192 020 2:42PM 07/16/2019 11:59PM Telehealth Communication FU Lillian Saldaña MD [facility], [facility] 07/16/2019 11:33AM 1:12PM Post-traumatic S tress Disorder, Panic Disorder, Adjustment Disorder sick visit Mike Zimmerman PA-C [facility], [facility] 0 1:04PM 1:22PM Sinusitis Acute [Patient Encounter] Mikey Ramsey MD 05/08/2019 0 05/01/2019 7:23PM 05/01/2019 11:59PM followup Mike Zimmemran PA-C [facility], [facility] 0 1:47PM 2:22PM Sinusitis Acute sick visit Brittany Marti [facility], [facility] 04/23/2019 10:05AM 10:34AM Otitis Media Acute of Right Ear sick visit Brittany Marti [facility], [facility] 04/12/2019 10:38AM 11:15AM Upper Respiratory Infection Insurance Includes: Active Insurance Policies Plan Name Member ID Group # Subscriber Relationship Effective Da pricilla 1 - [place] Plan[employer] [id number] Jamar De Luna Advance Directives Includes: Current Advance DirectivesNo Advance Directives Recorded Health Concerns Includes: Active Health ConcernsNo Active Health Concerns Recorded Goals Includes: Active GoalsNo Active Goals Recorded Interventions Includes: Interventions for active GoalsNo Interventions Recorded Evaluations & Outcomes Includes: Evaluations & Outcomes for active GoalsNo Outcomes Recorded
--- OUTSIDE RECORDS SUMMARY | 2020-04-08 04:26 | CCD ---
Author [facility] Address [address] [place] [address] Phone Care Team Providers Care Dock Associate Name Role Phone Chris KRISHNAMURTHY, Chinmay Mccall Unavailable [phone] Piper KRISHNAMURTHY, Lillian Aguiar PP [phone] Reason for Referral No Reason for Referral [...] Pap Smear 08/19/2004 - 12:00AM Josefina Zimmerman ANP- Active Note: 08/23: LSIL mild dyspla leslie, MYRNA I)07/24: ASCUS, HPV negative08/25: LSIL04/28, 09/25, 10/27,01/31, 07/05 normal Plan of Treatment Pending Tests Order Diagnosis Results Due Ordering Provi anthony Outside Labs CBC with Manual Diff Iron deficiency anemia, unspecifi ed 08/24/19 Lillian Saldaña MD Lab CBC 10/14/19 Lillian garcia MD Lab CMP 10/14/19 Lillian garcia MD Lab Lipid Panel 10/14/19 Lillian garcia MD Lab TSH 10/14/19 Lillian garcia MD Outside Labs Other Diarrhea, unspecified 01/21/20 Lakesha Saldaña MD [facility] - a. Ultrasound Ultrasound Oth abn and inc onclusive findings on dx imaging of breast 04/18/20 Lillian Saldaña MD Xrays - Mammograms Mammogram Right Oth abn and inconclu sive findings on dx imaging of breast 04/18/20 Lillian Saldaña MD Care Programs [facility] Future Appointments Date Time Location Provider followup 03/07/2020 2:30PM [facility], [facility] Lillian Saldaña MD [...] Increase fluids. Rest sick visit with Brittany Marti [facility] 04/23/2019 Explanation of plan Humidifier in room. Handwashing discussed to reduce spread of infection. May continue OTC medications. Notify office or Primary Care Provider if worsening or no Improvement in 7 days. Increase fluids. Rest sick visit with Brittany Marti [facility] 04/12/2019 Explanation of plan Humidifier in room. Saline nasal flushes prn. Take all medication as directed. Handwashing discussed to reduce spread of infection. May continue OTC medications. Notify office or Primary Care Provider if worsening or no Improvement in 7 days. Increase fluids. Rest sick visit with Brittany Marti [facility] 01/25/2018 Ordered antihistamines sick visit with Brittany Marti [facility] 07/07/2016 Supportive care with tylenol for fever. Suspect viral process but given abdominal complaints and continued symptoms will obtain labs as above and follow up via phone once obtained. In the interim, recommended rest, fluids, BRAT diet and avoidance of dairy. Advised to call if high or persistent fever, poor urine output, persistent abdominal pain, persistent vomiting or frequent diarrhea sick visit with [facility] 06/11/2016 Tylenol for discomfort or fever. Push fluids and rest. Advised to call if persistent or high fever, increased work of breathing, persistent pain, if sxs not improving, or if concerned sick visit with [facility] 03/17/2016 Tylenol for discomfort or fever. Push fluids and rest. Advised to call if persistent or high fever, increased work of breathing, persistent pain, if sxs not improving, or if concerned sick visit with [facility] 02/17/2016 Ordered a urine culture sick visit with Humble Noriega MD Saline nasal spray as needed. General mechanisms of infectious spread and hygiene reviewed with the patient. Instructed to call if symptoms fail to improve over next several days sick visit with Humble Noriega MD 07/23/2014 Assessments Includes: Assessments for all patient encounters Findings Encounter Date Gastrointestinal infections Patient rep orts she underwent abdominal CT and abdominal US when in [facility] ED. Records requested today. Will obtain stool [...] without dysplasia] ANNUAL PE-followup exam/30 with Lillian Saldaña MD 09/04/2019 Fatty liver Per GI, LFT's [...] right ear sick visit with Brittany maurice [facility] 04/23/2019 Upper respiratory infection , viral in nature sick vis it with Brittany Romano [facility] 04/12/2019 Lobar pneumonia , resolving. Chest X-ra [...] dyspepsia] f ollowup with Lillian Saldaña MD 12/08/2018 Panic disorder Improving with [...] MD 08/30/2018 Acute cervical lymphadenitis on the righ t Patient did not really improve once doxycycline [...] fever or condition changes followup with Josefina Zimmerman [facility]- 03/16/2018 Acute cervical lymphadenitis on the rig t Patient is slowly improving, will continue [...] fever or condition changes followup with Josefina Zimmerman [facility]- 03/10/2018 Allergic rhinitis -Start saline nasal s pray prior to Flonase, alternate direction of spray in the nose to help with healing and spray gently. May also take Claritin or Angela for postnasal drip sick visit with Josefina Zimmerman [facility]- 02/28/2018 Dyspepsia -Patient is having reflux jameson ly, she will start protontix1 tablet twice daily for the first 10 days and decrease to once daily. Suspect may be cause of sore throat as strep screen is negative, although she does have some symptoms of early sinusitis as well sick visit with Josefina Zimmerman [facility]- 02/28/2018 Fatigue -Monospot has returned negative as [...] if needed sick visit with Josefina Zimmerman [facility]- 02/28/2018 Acute sinusitis sick visit with Brittany Romano [facility]- Abnormal Pap Smear -Pap test normal in 07/05, pt is having hysterectomy on 08/09/17, will obtain recent preoperative labs ANNUAL PE-followup exam/30 with Josefina Zimmerman ANP- 07/21/2017 Allergic rhinitis patient using saline nasal spray routinely along with Flonase, sinus symptoms improved overall ANNUAL PE-followup exam/30 with Josefina M [facility] 07/21/2017 Dyspepsia Has stopped using Pepcid as s ymptoms are controlled, has a rare breakthrough about once a month for which she uses Tums ANNUAL PE-followup exam/30 with Josefina Marti [facility] 07/21/2017 Iron deficiency anemia pt indicates has been told has thalassemia, no workup found supporting this in record, prometrius test negative for IBD, thought related in part to heavier menses, having hysterectomy later this month ANNUAL PE-followup exam/30 with Josefina Marti [facility] 07/21/2017 Noninfectious dermatological conditions Patient has asymmetrical lesion right upper back, multiple other lesions as well, will refer to dermatology for further evaluation ANNUAL PE-followup exam/30 with Josefina Marti [facility] 07/21/2017 Routine adult history and physical (18 - 64 yrs) -Breast and Pap exam done 07/05, patient now following with Dr. Hunt ANNUAL PE-followup exam/30 with [facility] 07/21/2017 Acute upper respiratory infection possi ble [...] no longer pressured sick visit with Josefina Marti [facility] 03/18/2017 Neck strain sick visit with Brittany Marti [facility] Pyrexia sick visit with Brittany Figueroa [facility] Viral syndrome sick visit with Brittany Figueroa [facility] Diarrhea - possibly viral, internal/ext ernal hemorrhoid. No distress. No associated symptoms. Monitor. Return if any abdominal pain, fever, rectal pain sick visit with Brittany Marti [facility] 10/18/2016 Contact dermatitis of the left arm Unk nown exposure. Patient instructed to avoid itching the area. May apply steroid ointment as directed. Benadryl or Zyrtec as directed for itching. Most likely will resolve on its own within the next few days. Monitor for worsening symptoms or infection secondary to excoriation sick visit with Brittany Marti Rosalina [facility] 07/07/2016 Abnormal Pap Smear -Pap test taken with out difficulty, will be notified of results once available [facility] Allergic rhinitis Recommend patient use saline nasal spray routinely when having some increased nasal swelling ANNUAL PE-followup exam/30 with Josefina Marti [facility] 06/25/2016 Dyspepsia Using Pepcid intermittently with good resul ts ANNUAL PE-followup exam/30 with Josefina M [facility] 06/25/2016 Iron deficiency anemia MCV is 74 in 05/19 7, has had GI workup in 07/31, pt indicates has been told has thalassemia, no workup found supporting this in record, prometrius test negative for IBD, will check hemoglobin electrophoresis in future, has labs at [facility] ANNU[facility] Routine adult history and physical (18 - 64 yrs) -Breast and Pap exam done today AN[facility] 06/[facility]2016 Viral gastroenteritis sick visit with Lisandra Figueroa [facility] Abdominal pain--RUQ She does have an ul trasound scheduled in [place] tomorrow. She is requesting to have a ultrasound changed to today in [place]. Discussed GB vs. viral illness. If we are unable I have asked her to keep her scheduled appt. She does not appear acutely ill, or dehyrdrated at this time. If her pain worsens or she is unable to keep fluids down she can use the ER for immdiate care sick visit with Brittany Marti Rosal[facility] 04/14/2016 Constipation sick visit with Brittany Marti [facility] Abdominal pain--RUQ Will check Monospot due to discomfort here and increased fatigue, that has returned negative. CMP is negative with liver function tests normal, may be a viral syndrome or possibly a gastroenteritis. Patient to call if symptoms not improving [facility] Iron deficiency anemia , MCV 75, will pl an to obtain iron studies. Patient indicates she does occasionally have small amounts of blood with constipation, has known hemorrhoids. Will obtain stool for occult blood. Treatment options will be reevaluated once labs are available, patient will call if symptoms worsen or if not improving sick visit with Josefina Figueroa Zimmerman [facility] 04/08/2016 Upper respiratory infection , viral in nature [facility]20 Otitis media ; bilateral [facility] Upper respiratory infection , viral in nature urgent visit w juventino Mike Elsie GREGG 12/08/2015 Acute hemorrhagic cystitis sick visit with [...] 07/23/2014 Abdominal pain--RLQ resolved sick visit with Laurel rodriguez RPA 06/20/2014 Allergic rhinitis sick visit with Laurel Mi Shambo [facility] 04/2014 Acute viral pharyngitis sick visit with Dewey Ty 05/20/2014 Otitis media left followup with J Shambo [facility] 2014 Sinusitis followup with J Shambo [facility] 2014 Otitis media sick visit with Laruel J Shambo [facility] 08/2014 Sinusitis sick visit with J Shambo [facility] 08/2014 Contusion of the shoulder and upper arm with intact sk in surface followup with J Shambo [facility] 04/11/2014 Contusion with intact skin surface of the forearm foll owup with J Shambo [facility] 04/11/2014 Contusion with intact skin surface of the thigh follow up with Laurel Rivera [facility] 04/11/2014 Right leg strain resolved followup with Laurel Rivera [facility] 04/11/2014 Pain in lower leg right sick visit with Laurel Rivera [facility] 04/04/2014 Pain in thigh right sick visit with stephanie Rivera [facility] Upper respiratory infection , viral in nature sick vis it with Laurel Rivera [facility] 04/04/2014 Viral gastroenteritis (rotavirus) sick visit with Dewey Rivera MD 08/15/2013 Essential hypertension followup with Laurel Rivera [facility] Dyspepsia followup with Dewey Rivera MD 03/22 Essential hypertension followup with Dewey Rivera MD 0 04/10/2013 Gastroenteritis sick visit with Laurel Rivera [facility] 02/18 Upper respiratory infection , viral in nature sick vis it with Laurel Rivera [facility] 03/07/2013 Instructions Instructions not supported for this document typeNo Instructions Recorded Medical Equipment - Implanted Devices Includes: Current and historical DevicesNo Medical Equipment Recorded Medications Includes: Current and historical Medications Current Medications (continue as prescribed) Emverm 100 MG Oral Tablet Chewable 01/09/2020 - 01/15/2020 P rovider: Lillian Saldaña MD Diagnosis: 1 PO BID x 3 days. Repeat in 3 weeks if not cured with initi al treatment. Flonase Allergy Relief 50 MCG/ACT Nasal Suspension [...] Tablet 02/20/2019 Provider: Chinmay Perez MD Diagnosis: Sertraline HCl 50MG Oral Tablet 08/30/2018 Provider : Lillian Saldaña MD Diagnosis: 1 PO QD Bactroban Nasal 2% Ointment 03/16/2018 Provider: Josefina Zimmerman [facility] Diagnosis: apply to nasal cavity twice daily for 14 days Ondansetron 4MG Oral Tablet Disintegrating 12/23/2017 Provider: Mikey Ramsey MD Diagnosis: 1 PO QID prn Famotidine 20 MG Tablet 06/25/2016 Provider: Josefina Zimmerman [facility] Diagnosis: 1-2 tabsas needed Daily Value Multivitamin Tablet 06/25/2016 Provider : Josefina Zimmerman [facility] Diagnosis: 1 PO QD Past Medications on file Azithromycin 250 MG Oral Tablet 06/26/2019 - [...] Capsule 04/23/2019 - 05/03/2019 Provide r: Brittany Marti Rosalina [facility] Diagnosis: 1 cap po bid Protonix 20MG [...] Release 05/16/2018 - 08/30 [facility] Diagnosis: 1 PO QD Bactrim DS 800-160MG Oral Tablet 03/16/2018 - 03/26/2018 Pro vider: Josefina Zimmerman [facility] Diagnosis: 1 tab po bid x 10 days. Doxycycline Monohydrate 100MG Oral Capsule 03/07/2018 - 02/19 Provider: Josefina Zimmerman [facility] Diagnosis: Take 1 tab every 12 hours with food Doxycycline Monohydrate 100MG Oral Capsule 02/28/2018 - 02/18 Provider: Josefina Zimmerman [facility] Diagnosis: Take 1 tab every 12 hours with food Protonix 20MG Oral Tablet Delayed Release 02/28/2018 - 03/16 Provider: Josefina Zimmerman [facility] Diagnosis: 1 TAB TWICE DAILY FOR 10 DAYS THEN DECREASE TO ONCE DAILY WI TH A MEAL Bactrim DS 800-160MG Oral Tablet 01/25/2018 - 03/16/2018 Pro vider: [facility] Diagnosis: 1 tab po bid x 10 days. Flonase Allergy Relief 50MCG/ACT Nasal Suspension 08/01/2017 - 08/30/2018 Provider: Josefina Zimmerman [facility] Diagnosis: Instill 1-2 sprays each nostril once daily Tamiflu 75MG Oral Capsule 04/21/2017 - 07/21/2017 Provider: Josefina Zimmerman [facility] Diagnosis: as directed- 1 capsule PO Q12H for 5 days Doxycycline Hyclate 100MG Oral Tablet 03/18/2017 - 8 [facility]: [facility] Diagnosis: Take 1 tab every 12 hours with food Flonase Allergy Relief 50 MCG/ACT NA SUSP 07/20/2016 - 07/21 Provider: Josefina Zimmerman [facility] Diagnosis: Instill 1-2 sprays each nostril once daily Triamcinolone Acetonide 0.1 % Ointment 07/07/2016 - 07/18/19 17 Provider: Brittany RIVEROP-[facility] Diagnosis: apply BID to skin on left arm. Flonase Allergy Relief 50 MCG/ACT Suspension 06/25/2016 - Provider: Josefina Zimmerman [facility] Diagnosis: Instill 1-2 sprays each nostril once daily Zofran ODT 4 MG Tablet Dispersible 06/11/2016 - 06/25/2016 P rovider: Lisandra Figeuroa [facility] Diagnosis: 1 PO TID prn nausea Bactrim DS 800-160 MG Tablet 03/19/2016 - 04/12/2016 Provide r: Mikey Ramsey MD Diagnosis: 1 PO BID Levaquin 500 MG Tablet 02/17/2016 - 04/12/2016 Provider: Lisandra Figueroa [facility] Diagnosis: 1 PO QD Fluticasone Propionate 50 MCG/ACT Suspension 06/17/2015 - Provider: Humble Noriega MD Diagnosis: 2 sprays in each nostril QD Bactrim DS 800-160 MG Tablet 04/16/2015 - 04/12/2016 Provide r: Humble Noriega MD Diagnosis: Urinary tract infect ion, site not specified 1 PO BID for 3 days. Zofran ODT 8 MG Tablet Dispersible 04/03/2015 - 06/11/2016 P rovider: Josefina Zimmerman [facility] Diagnosis: 1 tab every 8 hrs, dissolve [...] Recorded Vital Signs Includes: Vital Signs from 01/13/2019 through 01/14/2020 Vital Name 01/14/2020 09:50A 09/04/2019 01:08P 07/16/2019 01:11P 06/26/2019 01:12P 05/01/2019 02:02P Body Surface Area (m2) 2.15 2.13 2.15 Blood Pressure Sitting (mmHg) 120/86 110/62 Pulse Rate-Sitting (bpm) 78 72 88 72 Respiration Rate (breaths/min) 18 20 22 20 Height (in) 63 63 63 63 63 Weight (lb) 255.6 252 256 Body Mass Index (kg/m2) 45.3 44.6 45.3 Temp-Oral (F) 98.4 Vital Name 04/23/2019 10:13A 04/12/2019 10:49A 03/01/2019 01:40P Body Surface Area (m2) 2.15 2.15 2.15 Blood Pressure Sitting (mmHg) 130/80 118/80 Pulse Rate-Sitting (bpm) 60 78 84 Respiration Rate (breaths/min) 18 24 20 Height (in) 63 63 63 Weight (lb) 257 257 256.125 Body Mass Index (kg/m2) 45.5 45.5 45.4 Temp-Oral (F) 97.9 97.9 97.8 Oxygen Saturation (%) 97 98 99 Flow Rate (l/min) (None (Room Air)) FiO2 (%) 21 Blood Pressure Sitting R 122/74 BP Cuff Size Large Results Includes: Results from 01/13/2019 through 01/14/2020No Results Recorded For Specified Dates History of Present Illness History of Present [...] States for the past year 07/05/2016 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/05/2016 Never smoked , had second hand exposure, 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, 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 12/17/2014 Not a current smoker 07/23/2014 Alcohol use None 03/07/2013 Non-smoker 03/07/2013 Procedures and Surgical History Includes: Procedures from 01/13/2019 through 01/14/2020 Procedures Code Diagnosis Performing Provider Service Location Service Date Brief Emotional Behavior Assessment [address]3731 Adju stment disorder with mixed anxiety and depressed mood, Post-traumatic stress disorder, chronic, Panic disorder without agoraphobia, Screening for Mental Health/Behavioral Disorder, Unspecified Lillian Saldaña MD [facility], [facility] 020 Surgical History [...] Not taking antibiotics recently last given in 5-15 Not taking OTC medications 07/23/2014 Family History [...] health 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 vomiting 08/17/2012 - 12:00AM Acti ve Penicillin G Benzathine Allergy unknown 03/07/2013 - 12:00AM Active Cefdinir Allergy Hives, Shortness of Breath 05/01/2019 - 12:00AM Active Ceclor Allergy nausea 03/07/2013 - 12:00AM Acti ve Encounters Includes: Encounters from 01/13/2019 through 01/14/2020 Encounter Provider Location Date Check-In Time Check-Out Time D iagnosis sick visit Lillian Saldaña MD [facility], [facility] 1 9:44AM 09/04/2019 11:59PM Gastrointestinal Infections [Patient Encounter] Lillian Saldaña MD 01/09/2020 020 2:25PM 09/04/2019 11:59PM ANNUAL PE-followup exam/30 Lillian Saldaña MD [facility], [facility] 09/04/2019 12:50PM 1:33PM Adjustment Disorder, Post-traumatic Stress Disorder, Panic Disorder, Allergic Rhinitis, Lumbago, Routine History and Physical Adult (18 - 64 Yrs), Obesity, Billings's Esophagus Without Dysplasia, Fatty Liver [Patient Encounter] Lillian Saldaña MD 08/17/2019 020 2:42PM 07/16/2019 11:59PM Telehealth Communication FU Lillian Saldaña MD [facility], [facility] 07/16/2019 11:33AM 1:12PM Post-traumatic S tress Disorder, Panic Disorder, Adjustment Disorder [facility] 0 1:04PM 1:22PM Sinusitis Acute [Patient Encounter] Mikey Ramsey MD 05/08/2019 0 05/01/2019 7:23PM 05/01/2019 11:59PM [facility] 0 1:47PM 2:22PM Sinusitis Acute sick visit Brittany Marti [facility], [facility] 04/23/2019 10:05AM 10:34AM Otitis Media Acute of Right Ear sick visit Brittany Marti [facility], [facility] 04/12/2019 10:38AM 11:15AM Upper Respiratory Infection [facility] 9 1:18PM 2:03PM Lobar Pneumonia Insurance Includes: Active Insurance Policies Plan Name Member ID Group # Subscriber Relationship Effective Da pricilla 1 - [place] Plan-[place] [id number] Jamar De Luna Advance Directives Includes: Current Advance DirectivesNo Advance Directives Recorded Health Concerns Includes: Active Health ConcernsNo Active Health Concerns Recorded Goals Includes: Active GoalsNo Active Goals Recorded Interventions Includes: Interventions for active GoalsNo Interventions Recorded Evaluations & Outcomes Includes: Evaluations & Outcomes for active GoalsNo Outcomes Recorded
--- OUTSIDE RECORDS SUMMARY | 2020-04-08 04:26 | CCD ---
Author Author [facility] Organization [facility] em[facility] Address Unknown Phone Unavailable Care Team Providers Care Hand Scudder Name Role Phone Sydneemike Judah Unavailable PROBLEMS Type Condition ICD9-CM Code [id number] Code Onset Dates Condition S tatus SNOMED Code Notes Problem Melanocytic nevi of unspecified lower limb, including hip D22.70 Active 57022669 Problem Melanocytic nevi of unspecified upper limb, including shoulder D22.60 Active 581450486 Problem Melanocytic nevi of trunk D22.5 Active 184162 002 Problem Melanocytic nevi of left lower limb, including hip D22.72 Active 647304952 Problem Melanocytic nevi of right lower limb, including hip D22.71 Active 250931344 Problem Xerosis cutis L85.3 Active 06159883 Problem Melanocytic nevi of face D22.30 Active 9007711 04 Problem Folliculitis L73.9 Active 92096837 Problem 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 Active 88917860 ALLERGIES Allergen (clinical drug ingredient) Drug/Non Drug Allergy do cumented on EMR Reaction Allergy Type Onset Date Status Penicillin (For Allergies Use Only) Hives Drug Allerg y Active ENCOUNTERS from 1982 to 2020-01-14 Encounter Location Date Provider Diagnosis [facility] Dermatology [address] [place] [id number] Sep, 2019 Judah Valdovinos 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 IMMUNIZATIONS Vaccine Route Administration Date Status Hepatitis B 0.5mL (HEPLISAV-B) IM Intramuscular Apr 06, 2018 Administered Hepatitis B 0.5mL (HEPLISAV-B) IM Intramuscular Mar 09, 2018 Administered Hepatitis B Adult 1.0mL (Engerix-B) Unknown August 08, 2000 Administered Hepatitis B Adult 1.0mL (Engerix-B) Unknown Feb 09, 2000 Administered Hepatitis B Adult 1.0mL (Engerix-B) Unknown Dec 30, 1999 Administered SOCIAL HISTORY Tobacco Use: Social History Observation Description Date Details (start date - stop date) Never Smoker Sex Assigned At : Social History Observation Description Sex Assigned At Unknown Education: Question Answer Notes Level of Education: Not Finished College Language: Question Answer Notes Languages spoken: Mohawk Gnosticism: Question Answer Notes Gnosticism 21 Mandaen Sexual Hx: Question Answer Notes Had sex in the last 12 months (vaginal, oral, or anal)? Yes with Men only Alcohol Screening: Question Answer Notes Did you have a drink containing alcohol in the past year? Ye s Points 1 Interpretation Negative How many drinks did you have on a typica l day when you were drinking in the past year? 1 or 2 (0 points) How often did you have a drink containing alcohol in t he past year? Monthly or less (1 point) Tobacco Use: Question Answer Notes Are you a: never smoker REASON FOR REFERRAL No Information VITAL SIGNS Weight 254.6 lbs Sep, Height 64 in Sep, BMI 43.70 kg/m2 Sep, Blood pressure systolic 132 mm Hg Sep, Blood pressure diastolic 78 mm Hg Sep, MEDICATIONS Medication SIG (Take, Route, Frequency, Duration) Start Date En d Date Status Flonase 50 MCG/ACT 1 spray in each nostril Nasally Once a day Active Pantoprazole Sodium 40 MG Oral for 90 Ac tive Zoloft Active Multivitamin - Orally Active Sertraline HCl 100 MG Oral for 90 Active PROCEDURES Procedure Date Ordered Result Body Site Medication: Kenalog 40mg/1mL [place] (Triamcinolone) 2019-09-27 N/A RESULTS No Results REASON FOR VISIT SHOT IN SCAR MEDICAL (GENERAL) HISTORY Type Description Date Medical History Betathalassemia Medical History GERD Medical History ptsd Surgical History c -section 2009 Surgical History hysterectomy 2018 Surgical History essure 2012 Hospitalization History GI issues Goals Section No Information Health Concerns No Information MEDICAL EQUIPMENT No Information MENTAL STATUS No Information FUNCTIONAL STATUS No Information ASSESSMENTS Encounter Date Diagnosis Notes Sep, Hypertrophic scar (ICD-10 - L91.0) PLAN OF TREATMENT Treatment Notes Assessment Notes Clinical Notes Hypertrophic scar Consent: The benefits, risks , and complications of intralesional Kenalog injection were thoroughly reviewed prior to carrying out the procedure. Specifically, the risk of skin atrophy which may be permanent was reviewed. It was also emphasized that multiple treatments may be necessary. # lesions injected: [ 1 ]. Kenalog concentration: [ 20 ] mg/cc. Sterile saline was used to reach this concentration . [facility] for Kenalog 40: [facility] [id number] Method:Area to be treated cleansed with chlorhexidine. Intralesional Kenalog at the concentration above was carefully injected into affected areas and sites massaged well to distribute the steroid evenly. Patient tolerated well. Total of [ 0.6 ] cc's injected today. Post-procedure:The patient was instructed to gently massage the treatment site(s). Should any problems occur the patient is to call the office immediately Next Appt Details 4 Weeks - 6 Weeks Reason:ILK follow up w / Tayler Provider Name:Tayler Chen, 02:15:00 PM, [address] [place] [address], [address] [place] [address], [id number], Provider Name:Judah Valdovinos, 2020-02 01:30:00 PM, [address] [place] [address], [address] [place] [address], [id number], Follow Up:4 Weeks - 6 WeeksILK follow up w/ Tayler Insurance Providers Payer Name Payer Address Payer Phone Insured Name Patient Relati onship to Insured Coverage Start Date Coverage End Date [facility] [address] [facility] [id number] [phone] Judson De Luna
--- OUTSIDE RECORDS SUMMARY | 2020-04-08 04:26 | CCD ---
Author Author [facility] Organization 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 Active 82193374 Problem Nevus of neck D22.4 Active 85045992 Problem Xerosis cutis L85.3 Active 91063203 Problem Dermatofibroma D23.9 Active 535110015 Problem Melanocytic nevi of trunk D22.5 Active 241810 002 Problem Melanocytic nevi of left lower limb, including hip D22.72 Active 510115910 Problem Melanocytic nevi of right lower limb, including hip D22.71 Active 603810251 Problem 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 Active 4476709 Problem Atrophic scar L90.5 Active 863090972 ALLERGIES Allergen (clinical drug ingredient) Drug/Non Drug Allergy do cumented on EMR Reaction Allergy Type Onset Date Status Penicillin (For Allergies Use Only) Hives Drug Allerg y Active ENCOUNTERS from 1982 to 2020-02-26 Encounter Location Date Provider Diagnosis [facility] Dermatology [address] [address] Feb, Judah Valdovinos Atrophic scar L90.5 ; Screen ing, malignant neoplasm, skin Z12.83 ; Folliculitis L73.9 ; Melanocytic nevi of trunk D22.5 ; Melanocytic nevi of unspecified upper limb, including shoulder D22.60 ; Melanocytic nevi of unspecified lower limb, including hip D22.70 ; Melanocytic nevi of face D22.30 ; Melanocytic nevi of left lower limb, including hip D22.72 ; Melanocytic nevi of right lower limb, including hip D22.71 ; Nevus of neck D22.4 ; Xerosis cutis L85.3 ; Dermatofibroma D23.9 and 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 IMMUNIZATIONS Vaccine Route Administration Date Status Hepatitis [...] College Language: Question Answer Notes Languages spoken: [place] Islander Restorationist: Question Answer Notes Restorationist 21 Uatsdin Sexual Hx: Question Answer Notes Had sex [...] FOR REFERRAL No Information VITAL SIGNS Weight 250 lbs Feb, Height 64 in Feb, BMI 42.91 kg/m2 Feb, Blood pressure systolic 132 mm Hg Feb, Blood pressure diastolic 80 mm Hg Feb, MEDICATIONS Medication SIG (Take, Route, Frequency, Duration) Notes Start Da te End Date Status Flonase 50 MCG/ACT 1 spray in each nostril Nasally Once a day Active Multivitamin - Orally Active Sertraline HCl 100 MG Oral for 90 A ctive Pantoprazole Sodium 40 MG Oral for 90 Active Clindamycin Phosphate 1 % as directed Externally Twice a day to affected areas armpits, groin, face for 30 day(s) Active PROCEDURES No Information RESULTS No Results REASON FOR VISIT 1 YEAR FBSE MEDICAL (GENERAL) HISTORY Type Description Date Medical History Betathalassemia Medical History GERD Medical History ptsd Surgical History c -section 2008 Surgical History hysterectomy 2017 Surgical History essure 2011 Surgical History Gallbladder removal 2019 Hospitalization History GI issues Goals Section No Information Health Concerns No Information MEDICAL EQUIPMENT No Information MENTAL STATUS No Information FUNCTIONAL STATUS No Information ASSESSMENTS Encounter Date Diagnosis Assessment Notes Treatment Notes Treatm ent Clinical Notes Feb, Atrophic scar (ICD-10 - L90.5) No ILK today, will do saline trial - 10 cc injected to right neck scar after discussion R/B/A. Tolerated well. May help with atrophy and pigment dilution, she is aware, we can do PDL in future as well if we are able to obtain in the clinic Feb, Screening, malignant neoplasm, skin (ICD-10 - Z1 2.83) Patient counseled on signs and symptoms of skin cancer including ABCDE's of Melanoma. Patient counseled to wear sunscreen or use sun protective clothing when outdoors. Avoid peak hours of sun between 10-2. Patient instructed to call with any new or changing lesions. Feb, Folliculitis (ICD-10 - L73.9) Can use rx as above, can use BPO wash daily in shower, pat/dry off with white towels Feb, Melanocytic nevi of trunk (ICD-10 - D22.5) Benign, reassurance, ABCDE, photoprotection, q 2 Y MD skin check, q 2 M self skin check Feb, Melanocytic nevi of unspecif ied upper limb, including shoulder (ICD-10 - D22.60) Benign, reassurance, ABCDE, photoprotection, q 2 Y MD skin check, q 2 M self skin check Feb, Melanocytic nevi of unspecif ied lower limb, including hip (ICD-10 - D22.70) Benign, reassurance, ABCDE, photoprotection, q 2 Y MD skin check, q 2 M self skin check Feb, Melanocytic nevi of face (ICD-10 - D22.30) Benign, reassurance, ABCDE, photoprotection, q 2 Y MD skin check, q 2 M self skin check Feb, Melanocytic nevi of left low er limb, including hip (ICD-10 - D22.72) Benign-appearing today. Reassurance provided, however patient was educated moles can jacquard loom card changer time. ABCDE education performed. Patient instructed to return for any changes to the mole to include size, color, itching, burning, or bleeding. Feb, Melanocytic nevi of right lo wer limb, including hip (ICD-10 - D22.71) Benign, reassurance, ABCDE, photoprotection, q 2 Y MD skin check, q 2 M self skin check Feb, Nevus of neck (ICD-10 - D22.4) Benign, reassurance, ABCDE, photoprotection, q 2 Y MD skin check, q 2 M self skin check Feb, Xerosis cutis (ICD-10 - L85.3) Discussed important issues including the need to take short baths or showers, use a mild soap like Dove, Tone or Caress, and the importance of moisturizing after bathing, and discussed that moisturizing creams are more effective than lotions. Feb, Dermatofibroma (ICD-10 - D23.9) Benign, reassurance Feb, Martinez angioma (ICD-10 - D18.01) Benign, reassurance Feb, Other Benign lesion. Benign lesion counseling performed PLAN OF TREATMENT Medication Medication Name Sig Start Date Stop Date Clindamycin Phosphate 1 % as directed Externally Twice a day to affected areas armpits, groin, face for 30 day(s) Treatment Notes Assessment Notes Clinical Notes Atrophic scar No ILK today, will do saline trial - 10 cc injected to right neck scar after discussion R/B/A. Tolerated well. May help with atrophy and pigment dilution, she is aware, we can do PDL in future as well if we are able to obtain in the clinic Martinez angioma Benign, reassurance Screening, malignant neoplasm, skin Patient counseled on signs and symptoms of skin cancer including ABCDE's of Melanoma. Patient counseled to wear sunscreen or use sun protective clothing when outdoors. Avoid peak hours of sun between 10 -2. Patient instructed to call with any new or changing lesions. Folliculitis Can use rx as above, can use BPO wash daily in shower, pat/dry off with white towels Melanocytic nevi of trunk Benign, reassu inderjit, ABCDE, photoprotection, q 2 Y MD skin check, q 2 M self skin check Melanocytic nevi of unspecified upper limb, including should er Benign, reassurance, ABCDE, photoprotection, q 2 Y MD skin check, q 2 M self skin check Melanocytic nevi of unspecified lower limb, including hip Benign, reassurance, ABCDE, photoprotection, q 2 Y MD skin check, q 2 M self skin check Melanocytic nevi of face Benign, reassur ance, ABCDE, photoprotection, q 2 Y MD skin check, q 2 M self skin check Dermatofibroma Benign, reassurance Xerosis cutis Discussed important issues including the need to take short baths or showers, use a mild soap like Dove, Tone or Caress, and the importance of moisturizing after bathing, and discussed that moisturizing creams are more effective than lotions. Melanocytic nevi of left lower limb, including hip Benign-appearing today. Reassurance provided, however patient was educated moles can jacquard loom card changer time. ABCDE education performed. Patient instructed to return for any changes to the mole to include size, color, itching, burning, or bleeding. Melanocytic nevi of right lower limb, including hip Benign, reassurance, ABCDE, photoprotection, q 2 Y MD skin check, q 2 M self skin check Nevus of neck Benign, reassurance, ABCDE, photoprotection, q 2 Y MD skin check, q 2 M self skin check Next Appt Details 4 Weeks - 6 Weeks:, 1 Year Reason:neck s car: FBSE Provider Name:Judah Valdovinos, 2020-03 01:30:00 PM, [address] [place] [address], [address] [place] [address], [id number], Provider Name:Judah Valdovinos, 2021-02 01:30:00 PM, [address] [place] [address], [address] [place] [address], [place], [address], Follow Up:4 Weeks - 6 Weeks:, 1 Yearneck scar: FBSE Insurance Providers Payer Name Payer Address Payer Phone Insured Name Patient Relati onship to Insured Coverage Start Date Coverage End Date [facility] [address] [facility] [id number] Judson De Luna A
--- OUTSIDE RECORDS SUMMARY | 2020-04-08 04:26 | CCD | Continuity of Care Document ---
Author Author Yanni KRAUSE MD Organization Unknown Address [address] [facility] [address] [place] [address] Phone [phone] Care Team Providers Care Leasing Property Manager Name Role Phone Lillian Silverio M.D. AUTM [phone] Problems Active Problems Provider Date Light and infrequent menstruation Cortez Goncalves MD On set: 03/11/2011 Social History Type Date Description Comments Sex Unknown ETOH Use Denies alcohol use Tobacco Use Start: Unknown Non Smoker Recreational Drug Use Denies Drug Use Exercise Type/Frequency Walks 5 times a week Allergies, Adverse Reactions, Alerts Active Allergies Reaction Severity Comments Date Penicillin Urticaria 05/12/2011 Medications Active Medications SIG Qnty Indications Ordering Provide r Date Levofloxacin 500mg Tablets once daily x 7 days 7tabs Fransico Krause MD 0 Ondansetron HCL 4mg Tablets one table every 6 hours as needed for nausea 20tabs Fransico Infante MD 01/29/2020 Multivitamin Adult 1 by mouth every day Unknown Flonase Allergy Relief 50mcg/Act Suspension 2 sprays per nostril daily Unknown 0 Ondansetron HCL 4mg Tablets A s needed Unknown Sertraline HCL 100mg Tablets 1 1/2 every day Lillian Silverio M.D. Pantoprazole Sodium 40mg Tablets D R 1 every day 60tabs Chinmay Perez MD Immunizations Description No Information Available Vital Signs Date Vital Result Comment 01/29/2020 3:18pm BP Systolic 127 mmHg BP Diastolic 90 mmHg Height 64 inches 5'4" Weight 244.12 lb BMI (Body Mass Index) 41.9 kg/m2 [place] Body Weight 120 lb Weight 110.735 kg 2017 1:19pm BP Systolic 142 mmHg BP Diastolic 80 mmHg Height 64 inches 5'4" Weight 256.00 lb BMI (Body Mass Index) 43.9 kg/m2 [place] Body Weight 120 lb Weight 116.122 kg Results Description No Information Available Procedures Description No Information Available Medical Devices Description No Information Available Encounters Description No Information Available Assessments Description No Information Available Plan of Treatment Future Appointment(s):* 02/06/2020 12:45 pm - Fransico Krause MD at [facility] 2017 - Makeda Hough MD* Z48.816 Encounter for surgical aftercare following surgery on the genitourinary system Functional Status Description No Information Available Mental Status Description No Information Available Referrals Refer to Reason for Referral Status Appt Date Babar Mauricio JR, MD RUQ PAIN, NAUSEA AND VOMITING. Scheduled 01/29/[address] [place] [id number] [phone]
--- OUTSIDE RECORDS SUMMARY | 2020-04-08 04:26 | CCD | Continuity of Care Document ---
Author Author [facility] Address [address] [place] [address] Phone Support Name Relationship Address Phone Lillian Saldaña PRS [address] [place] [address] Rica Zimmermany PRS [facility] [place] [address] Doctor Provided, Family No PRS Unknown Unava ilable Joe Toro PRS [address] [facility] [place] [address] Allergies, Adverse Reactions, Alerts Allergen Type Severity Reaction Last Updated Verified Status cefaclor Allergy Unknown January 21, 2020 12:16pm Yes Active penicillin V Allergy Unk nown January 21, 2020 12:16pm Yes Active prednisone Adverse Reaction Moderate TENDER SKIN, FLUSH FACE, INSOMNIA, SORE THROAT January 21, 2020 12:16pm Yes Active oxycodone Adverse Reaction Mild ?vomiting January 21, 2020 12:16pm Yes Active hydrocodone Adverse Reaction Unknown [employer] January 21, 2020 12:16pm Yes Active Medications Medication Status Dose Units Route Directions Qty Days Start Date End Date Instructions Multivitamin Active 1 TAB PO Once Per Day December 05, 2016 10:42am Fluticasone Propionate (Flonase Allergy Relief) 9.9 ML spray,suspension Active 1 SPRAYS MEETA Once Per Day December 05, 2016 10:42am Pantoprazole Active 40 MG PO Once Per Day January 21, 2020 12:16pm Ondansetron Hcl (Zofran) 4 mg tablet Activ e 4 MG PO Every 6 hours January 21, 2020 3:23pm Famciclovir Discontinued 500 MG PO 0 April 23, 2010 4:43pm August 18, 2010 12:56pm Fluocinonide Discontinued 60 GM TP 0 April 23, 2010 4:44pm August 18, 2010 12:56pm Esomeprazole Magnesium (Nexium) 40 mg ca psule,delayed release(DR/EC) Discontinued 40 MG PO Once Per Day 0 April 23, 2010 4:44pm August 18, 2010 12:56pm Dicyclomine (Bentyl) 10 mg capsule D iscontinued 10 MG PO T hree times a day 0 April 23, 2010 4:45pm August 18, 2010 12:56pm Pseudoephedrine Hcl Discontinued 60 MG PO UNKNOWN 0 April 23, 2010 4:47pm December 11, 2010 10:28am Norgestrel-Ethinyl Estradiol (Lo-Ovral-28) Discontinued 1 TAB PO O nce Per Day 0 April 23, 2010 4:47pm August 18, 2010 12:56pm Sertraline Discontinued 50 MG PO Once Per Day 0 April 23, 2010 4:48pm August 18, 2010 12:56pm Vits W-Ca,Fe,Fa(<1MG) () Discontinued 1 TAB PO O nce Per Day 0 July 06, 2010 8:28am December 16, 2010 10:07am Ciprofloxacin-Dexamethasone (Ciprodex) 0 .3-0.1 % drops,suspension Discontinued 4 DROPS 2 Times Per Day August 18, 2010 1:25pm September 10 9:26am Sulfamethoxazole-Trimethoprim (Bactrim Ds) 800-160 mg tablet Discontinued 1 TAB PO 2 Times Per Day September 10, 2010 9:26am November 10:28am Ondansetron Hcl Discontinued 1 TAB PO Q4HRS 30 May 06, 2011 10:00am April 24, 2012 2:36pm Vits W-Ca,Fe,Fa(<1MG) () Discontinued 1 TAB PO O nce Per Day 0 May 06, 2011 10:32am April 24, 2012 2:36pm Azithromycin (Zithromax) 250 mg tablet Discontinued 1 TAB PO O nce Per Day 6 July 16, 2011 11:08am April 24, 2012 2:36pm Azithromycin (Zithromax) 500 mg tablet Discontinued 500 MG PO Once Per Day 7 April 03, 2012 3:49pm April 24, 2012 2:36pm Fluticasone Propionate (Flonase) 50 mcg/ actuation spray,suspension Discontinued 2 SPRAYS NA 2 Times Per Day 1 April 03, 2012 3:50pm April 242012 2:36pm Omeprazole Magnesium (Prilosec Otc) 20 m g tablet,delayed release (DR/EC) Discontinued 10 MG PO 2 Times Per Day 0 April 24, 2012 2:34pm May 9:43am Norethindrone-Ethin Estradiol (Balziva ( 28)) 0.4-35 mg-mcg tablet Discontinued 1 TAB PO Once Per Day 0 April 24, 2012 2:36pm August 03, 2012 10:14am Oxycodone-Acetaminophen (Percocet) 5-325 mg tablet Discontinued 1 - 2 TAB PO Every 4 Hours 60 May 22, 2012 12:12pm August 03 10:14am Pantoprazole (Protonix) 40 mg tablet,delayed release ( DR/EC) Discontinued 40 MG PO Once Per Day 90 June 06, 2012 9:43am December 052016 10:43am Azithromycin (Zithromax) 500 mg tablet Discontinued 500 MG PO Once Per Day 7 June 09, 2012 9:35am August 03, 2012 10:14am Prednisone Discontinued 3 TAB PO Once Per Day 15 August 03, 2012 10:15am August 10, 2012 7:57am Loratadine (Claritin) Discontinued 10 MG PO DAILY PRN August 03, 2012 10:1 8am August 31, 2012 9:41am Azithromycin (Zithromax) 500 mg tablet Discontinued 500 MG PO Once Per Day 7 August 10, 2012 7:58am August 31, 2012 9:41am Oxycodone-Acetaminophen (Percocet) 5-325 mg tablet Discontinued 1 - 2 TAB PO Q4H August 15, 2012 8:31am August 17, 2012 9:44am Lisinopril Discontinued 2.5 MG PO Once Per Day August 15, 2012 8:31am August 31, 2012 9:44am Lisinopril Discontinued 2.5 MG PO Once Per Day August 31, 2012 9:44am December 05, 2016 10:43am Problems Active Problems Medical Problem Onset Date Status Viral syndrome Active Nausea & vomiting Acti ve Procedures Procedure Date Performed Status CT Abd/pel w/ contrast January 21, 2020 11:59am completed Blood Culture January 21, 2020 active US Abd single organ/quadrant January 18, 2020 10:20am completed US Breast - Limited Unilat September 20, 2019 2:28pm completed DIG MAMMO SCREEN RT 2D ONLY September 2:03pm completed 3D DIG MAMMO SCREEN BILAT September 11, 2019 8:23am completed Xray Chest 2 view PA/LAT March 012018 2:44pm completed Relevant Diagnostic Tests and/or Laboratory Data Laboratory Results Test Date/Time Result Interpretation Reference Range Result Comment Performing Site White Blood Count January 21, 2020 12:14pm 8.7 10e3/uL 4.45-10.71 [facility], [address] [place] [address] 54647 White Blood Count January 18, 2020 10:30am 8.5 10e3/uL 4.45-10.71 [facility], [address] [place] [address] 97005 Red Blood Count January 21, 2020 12:14pm 4.83 10e6/uL 4.20-5.40 [facility], [address] [place] [address] Red Blood Count January 18, 2020 10:30am 5.17 10e6/uL 4.20-5.40 [facility], [address] [place] [address] 00958 Hemoglobin January 21, 2020 12:14pm 12.5 g/dL 10.7-15.4 [facility], [address] [place] [address] 55031 Hemoglobin January 18, 2020 10:30am 13.2 g/dL 10.7-15.4 [facility], [address] [place] [address] 70609 Hematocrit January 21, 2020 12:14pm 40.5 % 37-47 [facility], [address] [place] [address] 99554 Hematocrit January 18, 2020 10:30am 43.2 % 37-47 [facility], [address] [place] [address] 19560 Mean Corpuscular Volume January 12:14pm 83.9 fl 80-96 [facility], [address] [place] [address] Mean Corpuscular Volume December 10:30am 83.6 fl 80-96 [facility], [address] [place] [address] 69267 Mean Corpuscular Hemoglobin January 21, 2020 12:14pm 25.9 pg 27-31 [facility], [address] [place] [address] Mean Corpuscular Hemoglobin January 18, 2020 10:30am 25.5 pg 27-31 [facility], [address] [place] [address] 03441 Mean Corpuscular Hemoglobin Concent January 21, 2020 12:14pm 30.9 g/dl 37 [facility], [address] [place] [address] Mean Corpuscular Hemoglobin Concent January 18, 2020 10:30am 30.6 g/dl [facility], [address] [place] [address] Red Cell Distribution Width January 21, 2020 12:14pm 15 % 11-15 [facility], [address] [place] [address] Red Cell Distribution Width January 18, 2020 10:30am 15 % 11-15 [facility], [address] [place] [address] Platelet Count January 21, 2020 12:14pm 305 10e3/ul 130-472 [facility], [address] [place] [address] Platelet Count January 18, 2020 10:30am 321 10e3/ul 130-472 [facility], [address] [place] [address] Mean Platelet Volume January 20 12:14pm 9.9 fl 9.1-13.1 [facility], [address] [place] [address] Mean Platelet Volume January 17 020 10:30am 10.2 fl 9.1-13.1 [facility], [address] [place] [address] 53231 Neutrophils (%) (Auto) January 21, 2020 12:14pm 68.9 % 41-77 [facility], [address] [place] [address] 59031 Neutrophils (%) (Auto) January 18, 2020 10:30am 69.5 % 41-77 [facility], [address] [place] [address] 74131 Absolute Neutrophil January 20 12:14pm 6.0 # 1.7-7.6 [facility], [address] [place] [address] Absolute Neutrophil January 17 10:30am 5.9 # 1.7-7.6 [facility], [address] [place] [address] 66124 Lymphocytes (%) (Auto) January 21, 2020 12:14pm 25.4 % 14-46 [facility], [address] [place] [address] 04024 Lymphocytes (%) (Auto) January 18, 2020 10:30am 24.1 % 14-46 [facility], [address] [place] [address] 48717 Lymphocytes # (Auto) January 20 12:14pm 2.2 # 0.6-4.6 [facility], [address] [place] [address] 96920 Lymphocytes # (Auto) January 17 10:30am 2.0 # 0.6-4.6 [facility], [address] [place] [address] 21926 Monocytes (%) (Auto) January 20 12:14pm 4.5 % 4-12 [facility], [address] [place] [address] Monocytes (%) (Auto) January 17 10:30am 4.9 % 4-12 [facility], [address] [place] [address] 61306 Monocytes # January 21, 2020 12:14pm 0.4 # 0.2-1.2 [facility], [address] [place] [address] 14298 Monocytes # January 18, 2020 10:30am 0.4 # 0.2-1.2 [facility], [address] [place] [address] 37108 Eosinophils (%) (Auto) January 21, 2020 12:14pm 0.7 % 0-7 [facility], [address] [place] [address] 20978 Eosinophils (%) (Auto) January 18, 2020 10:30am 0.8 % 0-7 [facility], [address] [place] [address] 32073 Absolute Eosinophils (CBC) January 21, 2020 12:14pm 0.1 # 0.0-0.5 [facility], [address] [place] [address] 71849 Absolute Eosinophils (CBC) December 212019 10:30am 0.1 # 0.0-0.5 [facility], [address] [place] [address] 93341 Basophils (%) (Auto) January 20 12:14pm 0.3 % 0.4-1.3 [facility], [address] [place] [address] 10305 Basophils (%) (Auto) January 17 10:30am 0.5 % 0.4-1.3 [facility], [address] [place] [address] 81249 Absolute Basophils (CBC) January 12:14pm 0.0 # 0.0-0.2 [facility], [address] [place] [address] Absolute Basophils (CBC) December 10:30am 0.0 # 0.0-0.2 [facility], [address] [place] [address] 86776 Immature Granulocyte % (Auto) Novemb er 2019 12:14pm 0.2 % 0-2 [facility], [address] [place] [address] Immature Granulocyte % (Auto) Octobe r 2019 10:30am 0.2 % 0-2 [facility], [address] [place] [address] 45271 Absolute Immature Granulocyte (auto January 21, 2020 12:14pm 0.0 # 0-0.1 [facility], [address] [place] [address] 69787 Absolute Immature Granulocyte (auto January 18, 2020 10:30am 0.0 # 0-0.1 [facility], [address] [place] [address] 76111 Add Manual Differential January 12:14pm No [facility], [address] [place] [address] 01851 Add Manual Differential December 10:30am No [facility], [address] [place] [address] 68471 Blood Urea Nitrogen January 20 12:14pm 12 mg/dL 12-11 [facility], [address] [place] [address] 68619 Blood Urea Nitrogen January 17 10:30am 10 mg/dL 12-11 [facility], [address] [place] [address] 38233 Sodium Level January 21, 2020 12:14pm 139 mmol/L 132-146 [facility], [address] [place] [address] Sodium Level January 18, 2020 10:30am 140 mmol/L 132-146 [facility], [address] [place] [address] 01573 Potassium Level January 21, 2020 12:14pm 3.8 mmol/L 3.5-5.5 [facility], [address] [place] [address] 50739 Potassium Level January 18, 2020 10:30am 4.1 mmol/L 3.5-5.5 [facility], [address] [place] [address] 87591 Chloride Level January 21, 2020 12:14pm 104 mmol/l 99-109 [facility], [address] [place] [address] Chloride Level January 18, 2020 10:30am 105 mmol/l 99-109 [facility], [address] [place] [address] 10767 Carbon Dioxide Level January 20 12:14pm 30 mmol/l -31 [facility], [address] [place] [address] Carbon Dioxide Level January 17 020 10:30am 30 mmol/l - [facility], [address] [place] [address] 47510 Anion Gap January 21, 2020 12:14pm 9 mmol/l 8-16 [facility], [address] [place] [address] 84145 Anion Gap January 18, 2020 10:30am 9 mmol/l -16 [facility], [address] [place] [address] 93166 Glucose Level January 21, 2020 12:14pm 82 mg/dL 74-106 [facility], [address] [place] [address] Glucose Level January 18, 2020 10:30am 89 mg/dL 74-106 [facility], [address] [place] [address] 31117 Creatinine January 21, 2020 12:14pm 0.9 mg/dL 0.5-1.1 [facility], [address] [place] [address] 93913 Creatinine January 18, 2020 10:30am 0.9 mg/dL 0.5-1.1 [facility], [address] [place] [address] Glomerular Filtration Rate Calc Nove mber 2019 12:14pm Greater than 60 ml/min ABOVE 60 [facility], [address] [place] [address] Glomerular Filtration Rate Calc Octo samuel 2019 10:30am Greater than 60 ml/min ABOVE 60 [facility], [address] [place] [address] Alanine Aminotransferase (ALT/SGPT) January 21, 2020 12:14pm 24 U/L -49 [facility], [address] [place] [address] Alanine Aminotransferase (ALT/SGPT) January 18, 2020 10:30am 32 U/L -49 [facility], [address] [place] [address] 85148 Aspartate Amino Transf (AST/SGOT) No vember 2019 12:14pm 16 U/L 0-33 [facility], [address] [place] [address] Aspartate Amino Transf (AST/SGOT) Oc tober 2019 10:30am 20 U/L 0-33 [facility], [address] [place] [address] Alkaline Phosphatase January 20 12:14pm 100 U/L 45-129 [facility], [address] [place] [address] Alkaline Phosphatase January 17 10:30am 102 U/L 45-129 [facility], [address] [place] [address] Amylase Level January 21, 2020 12:14pm 39 U/L 30-118 [facility], [address] [place] [address] 53028 Lipase January 21, 2020 12:14pm 85 U/L 73-393 [facility], [address] [place] [address] Calcium Level January 21, 2020 12:14pm 9.0 mg/dL 8.5-10.1 [facility], [address] [place] [address] Calcium Level January 18, 2020 10:30am 9.4 mg/dL 8.5-10.1 [facility], [address] [place] [address] Total Bilirubin January 21, 2020 12:14pm 0.4 mg/dL 0.3-1.2 [facility], [address] [place] [address] Total Bilirubin January 18, 2020 10:30am 0.4 mg/dL 0.3-1.2 [facility], [address] [place] [address] 32366 Albumin January 21, 2020 12:14pm 3.8 g/dL 3.2-4.8 [facility], [address] [place] [address] Albumin January 18, 2020 10:30am 3.9 g/dL 3.2-4.8 [facility], [address] [place] [address] 99477 Serum Total Protein January 20 12:14pm 8.2 g/dL 5.7-8.2 [facility], [address] [place] [address] Serum Total Protein October 30th, 20 20 10:30am 8.0 g/dL 5.7-8.2 [facility], [address] [place] [address] 31276 Lactic Acid Level January 21, 2020 12:14pm 0.9 mmol/L 0.5-2.2 [facility], [address] [place] [address] 22244 Troponin I January 21, 2020 12:14pm Less than 0.015 ng/mL 0.00-0.09 Less than 0.09 NG/ML Negative0.10 - 0.77 NG/ML High Risk0.78 NG/ML or Greater Positive The WHO defined the cutoff (definition for diagnosis of [place])for this method as 0.78 ng/ml. [facility], [address] [place] [address] 27986 Diagnostic Imaging Reports Report Dictated Date/Time Dictated By Status Radiology Report March 01, 2019 2:53p bandar Mendez MD completed [place] [address] [place] [address] [phone] NAME SEX PT STATUS ACCOUNT NUMBER YANNI DE LUNA REG REF [id number] ORDERING PHYSICIAN LOCATION MEDICAL RECORD NO. MIKE STRONG [facility] [id number] ATTENDING PHYSICIAN DATE OF DATE OF EXAM/TIME Lillian aSldaña MD 1980 03/01/19 / 1444 TYPE / EXAM Xray Chest 2 view PA/LAT REASON FOR EXAM LOBAR PNEUMONIA, UNSPECIFIED ORGANISM COMPARISON: 02/21/2019, study from [facility] FINDINGS: Lung meade are clear. No focal infiltrate or consolidation is identified. The previously noted infiltrate at the left lower lobe is no longer demonstrated. Cardiac silhouette appears unremarkable. Costophrenic angles are sharp. Osseous structures appear unremarkable IMPRESSION: Resolved left lower lobe infiltrate. No acute pulmonary findings. This study was reviewed by the supervising Radiologist at the time of this dictation. Reported by Christopher Mancuso at 03/01/2019 2:53 PM Signed by Christopher Mancuso at 03/01/2019 3:10 PM Reported By Ariane Mendez MD on 03/01/19 5414 Signed By Ariane Mendez MD on 03/02/19 3276 Date Time CC: Lillian Saldaña MD; Ariane Mendez MD Techn: CARAI Trans Dt/Tm: Trans by: DT Prt Dt/Tm: [id number]: Total DLP = 0.00 mGy-cm Fluoroscopy Time (in secs): Radiology Report September 12, 2019 11:30am Alex Baird MD completed [facility] [address] [place], [place] [id number] [phone] NAME SEX PT STATUS ACCOUNT NUMBER YANNI DE LUNA REG REF [id number] ORDERING PHYSICIAN LOCATION MEDICAL RECORD NO. Lillian Saldaña MD MAMMO [id number] ATTENDING PHYSICIAN DATE OF DATE OF EXAM/TIME Lillian Saldaña MD 1980 09/11/19922 TYPE / EXAM 3D DIG MAMMO SCREEN BILAT REASON FOR EXAM SCREENING LAST CLINICAL BREAST EXAM: unknown FIVE YEAR RISK: 0.3% LIFETIME RISK: 10.3% FAMILY HISTORY OF BREAST CARCINOMA: paternal aunt COMPARISON: None 2D bilateral digital mammogram in the CC and MLO projections was performed with supplemental 3D tomosynthesis of both breasts. FINDINGS: Craniocaudad and oblique lateral views of the breasts were obtained. The breasts are composed of scattered areas of fibroglandular density. Focal asymmetry is seen in the 11 to 12:00 position of the right breast. Further evaluation with compression spot imaging and ultrasound is advised. An axillary node is seen on the left. There is no other dominant mass, suspicious clustered microcalcification or architectural distortion. IMPRESSION: Focal asymmetry seen in the 11 12:00 position of the right breast. Further evaluation advised. OVERALL FINAL ASSESSMENT OF FINDINGS BI-RADS 0 - Incomplete: Needs Additional Imaging Evaluation. OVERALL FINAL ASSESSMENT OF THE BREAST COMPOSITION Breast Density Classification: B Description: The breasts are composed of scattered areas of fibroglandular density. This mammogram was read with the assistance of [employer], an FDA-approved computer- aided detection system for mammography. Reported By Alex Baird MD on 09/12/19 1130 Signed By Alex Baird MD on 09/12/19 1145 Date Time CC: Lillian Saldaña MD; Alex Baird MD Techn: BAKLE Trans Dt/Tm: Trans by: DT Prt Dt/Tm: : Total DLP = 0.00 mGy-cm : Total Radiation Dose = 0.0000 mSv Lifetime Dose: 0 mSv Radiology Report September 20, 2019 4:04pm Alex Baird MD completed [facility] [address] [place] [address] [phone] NAME SEX PT STATUS ACCOUNT NUMBER YANNI DE LUNA [facility] REF [id number] ORDERING PHYSICIAN LOCATION MEDICAL RECORD NO. Lillian Saldaña MD MAMMO [id number] ATTENDING PHYSICIAN DATE OF DATE OF EXAM/TIME Doctor Provided,No Family 1980 09/20/19 / 152 8 TYPE / EXAM US Breast - Limited Unilat REASON FOR EXAM RIGHT BREAST ABN SEEN ON MAMMO COMPARISON: None Multiple images of the right breast at the 11-12 o'clock location were obtained, encompassing the area of clinical concern. FINDINGS: No cystic or solid mass identified. IMPRESSION: No sonographic evidence of a mass. OVERALL FINAL ASSESSMENT OF FINDINGS BI-RADS 3 - Probably benign findings Reported By Alex Baird MD on 09/20/19 1604 Signed By Alex Baird MD on 09/20/19 160 Date Time CC: Alex Baird MD; No Family PHYS Provided Techn: CARAI Trans Dt/Tm: Trans by: DT Prt Dt/Tm: : Total DLP = 0.00 mGy-cm : Total Radiation Dose = 0.0000 mSv Lifetime Dose: 0 mSv Radiology Report September 20, 2019 3:59pm Alex Baird MD completed [facility] [address] [place] [address] [phone] NAME SEX PT STATUS ACCOUNT NUMBER YANNI DE LUNA PRE REF [id number] ORDERING PHYSICIAN LOCATION MEDICAL RECORD NO. Lillian Saldaña MD MAMMO [id number] ATTENDING PHYSICIAN DATE OF DATE OF EXAM/TIME Doctor Provided,No Family 1980 09/20/19 / 150 3 TYPE / EXAM DIG MAMMO SCREEN RT 2D ONLY REASON FOR EXAM EXTRA VIEWS LAST CLINICAL BREAST EXAM: Unknown FIVE YEAR RISK: 0.3% LIFETIME RISK: 10.3% FAMILY HISTORY OF BREAST CARCINOMA: Aunt COMPARISON: Screening mammogram dated September 11, 2019 FINDINGS: Craniocaudad and oblique lateral views of the breasts were obtained. The breast is composed of scattered areas of fibroglandular density. Compression spot imaging of the left breast demonstrates persistent focal asymmetry in the 11-12 o'clock position of the breast. Ultrasound imaging demonstrates no correlate, and this finding is likely related to asymmetrical breast tissue. No other asymmetry, architectural distortion, or suspicious microcalcification is seen. IMPRESSION: Focal asymmetry in the 12:00 position with no ultrasound correlate. Six-month ultrasound and mammographic follow-up advised. OVERALL FINAL ASSESSMENT OF FINDINGS BI-RADS 3 - Probably benign findings OVERALL FINAL ASSESSMENT OF THE BREAST COMPOSITION Breast Density Classification: B Description: The breast is composed of scattered areas of fibroglandular density. This mammogram was read with the assistance of [employer], an FDA-approved computer-a ided detection system for mammography. Reported By Alex Baird MD on 09/20/19 1550 Signed By Alex Baird MD on 09/20/19 1604 Date Time CC: Alex Baird MD; No Family PHYS Provided Techn: PELBU Trans Dt/Tm: Trans by: DT Prt Dt/Tm: : Total DLP = 0.00 mGy-cm : Total Radiation Dose = 0.0000 mSv Lifetime Dose: 0 mSv Health Concerns Health Concerns may be documented in an alternate section. Advance Directives Advance Directive Response Recorded Date/Time Advanced Directive No No [email or web address] 12:13pm Does Patient have a DNR? No January 21, 2020 12:13pm Healthcare Proxy No Ana poseykendra 2019 12:13pm Living Will No March 212014 10:52am Chief Complaint and Reason for Visit Chief Complaint J18.1 SCREENING/DENSE TISSUE/ BASELINE CALLBACK AND POSS US RUQ PAIN,R10.10,A09 abdominal pain,vomiting Encounters Encounter Location(s) Ar rival/Admit Date Discharge/Depart Date Provider(s) Registered Referred [facility]-Radiology March 01, 2019 2:18pm TAE AMOS Registered Referred [facility]-Mammography September 11, 2019 10:26am Lillian Saldaña MD Registered Referred [facility]-Mammography September 20, 2019 3:00pm Lillian Saldaña MD Registered Referred [facility]-Radiology January 18, 2020 9:40am Lillian Saldaña MD Departed Emergency [facility]-Emergency Room ER January 21, 2020 11:29am January 21, 2020 3:50pm null Assessments No Assessments Information Available Functional Status No Functional Status information available Goals Goals may be documented in an alternate section. Immunizations No Immunization Information Available Mental Status Observation Response Karan e Recorded Impairments No impairments or barriers January 21, 2020 11:30am Medical Equipment No Medical Equipment Information available Insurance Providers Guarantor Yanni De Luna Address [address] [place], [place] [address] Contact Info. Home Phone: Payer Policy Id Coverage Id Subscriber's Name Subscriber Id Effective Date Expiration Date BC/BS SRI [employer] [id number] Jamar De Luna [id number] [facility] [id number] Jamar De Luna [id number] Self Pay Self N/A PATIENT RESPONSIBILITY Plan of Treatment Future Tests Future scheduled test information is unavailable Pending Tests Pending diagnostic test information is unavailable Future Visits Future appointment information is unavailable Referrals to Other Providers Referral information is unavailable Future Procedures Future procedure information is unavailable Future Medications Future medication information is unavailable Patient Instructions Acute Nausea and Vomiting (ED) Social History Smoking Status Status Date of Observation Never smoker January 21, 2020 12:1 3pm Observation Status Date of Observation Not January 21, 2020 Observation Status Observation Response Karan e of Response Smoking Status Never smoker January 21, 2020 12:13pm Alcohol Use No January 21, 2020 12:05pm Substance Use No Novembe r 2019 12:05pm Assigned Sex Female Vital Signs Vital Reading Result Ref erence Range Collection Date/Time Height 64 [in_i] January 21, 2020 12:13pm Weight 252.00 [lb_av] January 21, 2020 12:13pm Body Temperature 98.7 [degF] 97.6-99.5 January 21, 2020 12:13pm Heart Rate 72 /min 60-100 January 21, 2020 12:13pm Respiratory rate 16 /min 12-24 January 21, 2020 12:13pm Oxygen saturation by Pulse oximetry 97 % 95- 100 January 21, 2020 12:13pm BP Systolic 126 mm[Hg] January 21, 2020 12:13pm BP Diastolic 84 mm[Hg] January 21, 2020 12:13pm
--- OUTSIDE RECORDS SUMMARY | 2020-04-08 04:28 | CCD ---
Author Author [facility] Organization [facility] Address Unknown Phone Unavailable Care Team Providers Care Education And Training Coordinator Name Role Phone Jonatan Ramsey MD Unavailable Unavailable Jonatan Ramsey MD Unavailable Unavailable Jonatan Ramsey MD Unavailable Unavailable Jonatan Ramsey MD Unavailable Unavailable LynJonatan turk MD Unavailable Unavailable Jonatan Ramsey MD Unavailable Unavailable LynJonatan turk MD Unavailable Unavailable LynJonatan turk MD Unavailable Unavailable LynJonatan turk MD Unavailable Unavailable LynJonatan turk MD Unavailable Unavailable LynJonatan turk MD Unavailable Unavailable LynJonatan turk MD Unavailable Unavailable Jonatan Ramsey MD Unavailable Unavailable Jonatan Ramsey MD Unavailable Unavailable LynJonatan turk MD Unavailable Unavailable Jonatan Ramsey MD Unavailable Unavailable Jonatan Ramsey MD Unavailable Unavailable LynJonatan turk MD Unavailable Unavailable Jonatan Ramsey MD Unavailable Unavailable Jonatan Ramsey MD Unavailable Unavailable LynJonatan turk MD Unavailable Unavailable Jonatan Ramsey MD Unavailable Unavailable LynJonatan turk MD Unavailable Unavailable LynJonatan turk MD Unavailable Unavailable LynJonatan turk MD Unavailable Unavailable Jonatan Ramsey MD Unavailable Unavailable Jonatan Ramsey MD Unavailable Unavailable Jonatan Ramsey MD Unavailable Unavailable Jonatan Ramsey MD Unavailable Unavailable Jonatan Ramsey MD Unavailable Unavailable Jonatan Ramsey MD Unavailable Unavailable Jonatan Ramsey MD Unavailable Unavailable Jonatan Ramsey MD Unavailable Unavailable Jonatan Ramsey MD Unavailable Unavailable Jonatan Ramsey MD Unavailable Unavailable LynJonatan turk MD Unavailable Unavailable LynJonatan turk MD Unavailable Unavailable Jonatan Ramsey MD Unavailable Unavailable Jonatan Ramsey MD Unavailable Unavailable Jonatan Ramsey MD Unavailable Unavailable Jonatan Ramsey MD Unavailable Unavailable Jonatan Ramsey MD Unavailable Unavailable Jonatan Ramsey MD Unavailable Unavailable Jonatan Ramsey MD Unavailable Unavailable Jonatan Ramsey MD Unavailable Unavailable Jonatan Ramsey MD Unavailable Unavailable LynJonatan turk MD Unavailable Unavailable LynJonatan turk MD Unavailable Unavailable LynJonatan turk MD Unavailable Unavailable LynJonatan turk MD Unavailable Unavailable LynJonatan turk MD Unavailable Unavailable LynJonatan turk MD Unavailable Unavailable LynJonatan turk MD Unavailable Unavailable LyndaJonatan lackey MD Unavailable Unavailable LynJonatan turk MD Unavailable Unavailable LyndaJonatan lackey MD Unavailable Unavailable LyndaJonatan lackey MD Unavailable Unavailable LynJonatan turk MD Unavailable Unavailable LynJonatan turk MD Unavailable Unavailable LyndaJonatan lackey MD Unavailable Unavailable LyndaJonatan lackey MD Unavailable Unavailable LynJonatan turk MD Unavailable Unavailable LynJonatan turk MD Unavailable Unavailable LynJonatan turk MD Unavailable Unavailable LynJonatan turk MD Unavailable Unavailable LynJonatan turk MD Unavailable Unavailable LynJonatan turk MD Unavailable Unavailable LynJonatan turk MD Unavailable Unavailable LynJonatan turk MD Unavailable Unavailable LynJonatan turk MD Unavailable Unavailable LynJonatan turk MD Unavailable Unavailable LynJonatan turk MD Unavailable Unavailable LynJonatan turk MD Unavailable Unavailable LynJonatan turk MD Unavailable Unavailable LynJonatan turk MD Unavailable Unavailable LynJonatan turk MD Unavailable Unavailable LynJonatan turk MD Unavailable Unavailable LynJonatan turk MD Unavailable Unavailable LynJonatan turk MD Unavailable Unavailable LynJonatan turk MD Unavailable Unavailable LynJonatan turk MD Unavailable Unavailable LynJonatan turk MD Unavailable Unavailable LynJonatan turk MD Unavailable Unavailable LynJonatan turk MD Unavailable Unavailable LynJonatan turk MD Unavailable Unavailable LynJonatan turk MD Unavailable Unavailable LynJonatan turk MD Unavailable Unavailable LynJonatan turk MD Unavailable Unavailable LynJonatan turk MD Unavailable Unavailable LynJonatan turk MD Unavailable Unavailable Jonatan Ramsey MD Unavailable Unavailable PiperCosme mcmahon MD Unavailable Unavailable PiperCosme mcmahon MD Unavailable Unavailable Cosme Saldaña MD Unavailable Unavailable Cosme Saldaña MD Unavailable Unavailable PiperCosme mcmahon MD Unavailable Unavailable PiperCosme mcmahon MD Unavailable Unavailable PiperCosme mcmahon MD Unavailable Unavailable Piper, E Lillian MD Unavailable Unavailable Piper, E Lillian MD Unavailable Unavailable Piper, E Lillian MD Unavailable Unavailable Piper, E Lillian MD Unavailable Unavailable Piper, E Lillian MD Unavailable Unavailable Piper, E Lillian MD Unavailable Unavailable Piper, E Lillian MD Unavailable Unavailable Piper, E Lillian MD Unavailable Unavailable Piper, E Lillian MD Unavailable Unavailable Piper, E Lillian MD Unavailable Unavailable Piper, E Lillian MD Unavailable Unavailable Piper, E Lillian MD Unavailable Unavailable Piper, E Lillian MD Unavailable Unavailable Piper, E Lillian MD Unavailable Unavailable Piper, E Lillian MD Unavailable Unavailable Piper, E Lillian MD Unavailable Unavailable Piper, E Lillian MD Unavailable Unavailable Piper, E Lillian MD Unavailable Unavailable Piper, E Lillian MD Unavailable Unavailable Piper, E Lillian MD Unavailable Unavailable Piper, E Lillian MD Unavailable Unavailable Piper, E Lillian MD Unavailable Unavailable Piper, E Lillian MD Unavailable Unavailable Piper, E Lillian MD Unavailable Unavailable Piper, E Lillian MD Unavailable Unavailable Piper, E Lillian MD Unavailable Unavailable Piper, E Lillian MD Unavailable Unavailable Piper, E Lillian MD Unavailable Unavailable Piper, E Lillian MD Unavailable Unavailable Piper, E Lillian MD Unavailable Unavailable Piper, E Lillian MD Unavailable Unavailable Piper, E Lillian MD Unavailable Unavailable Piper, E Lillian MD Unavailable Unavailable Piper, E Lillian MD Unavailable Unavailable Piper, E Lillian MD Unavailable Unavailable Piper, E Lillian MD Unavailable Unavailable Piper, E Lillian MD Unavailable Unavailable Piper, Cosme Snyder MD Unavailable Unavailable ChrisStefany ferrara MD Unavailable Unavailable Stefany Perez MD Unavailable Unavailable Stefany Perez MD Unavailable Unavailable Stefany Perez MD Unavailable Unavailable Stefany Perez MD Unavailable Unavailable Stefany Perez MD Unavailable Unavailable Stefany Perez MD Unavailable Unavailable Stefany Perez MD Unavailable Unavailable Stefany Perez MD Unavailable Unavailable Stefany Perez MD Unavailable Unavailable Stefany Perez MD Unavailable Unavailable Stefany Perez MD Unavailable Unavailable Stefany Perez MD Unavailable Unavailable Stefany Perez MD Unavailable Unavailable Chris, Stefany Moy MD Unavailable Unavailable Chris, Stefany Moy MD Unavailable Unavailable Chris, Stefany Moy MD Unavailable Unavailable Chris, Stefany Moy MD Unavailable Unavailable Chris, Stefany Moy MD Unavailable Unavailable Chris, Stefany Moy MD Unavailable Unavailable Chris, Stefayn Moy MD Unavailable Unavailable Chris, Stefany Moy MD Unavailable Unavailable Chris, Stefayn Moy MD Unavailable Unavailable Chris, Stefany Moy MD Unavailable Unavailable Chris, Stefany Moy MD Unavailable Unavailable Chris, Stefany Moy MD Unavailable Unavailable Chris, Stefany Moy MD Unavailable Unavailable Chris, Stefany Moy MD Unavailable Unavailable Chris, Stefany Moy MD Unavailable Unavailable Chris, Stefany Moy MD Unavailable Unavailable Chris, Stefany Moy MD Unavailable Unavailable Chris, Stefany Moy MD Unavailable Unavailable Chris, Stefany Moy MD Unavailable Unavailable Chris, Steafny Moy MD Unavailable Unavailable Chris, Setfany Moy MD Unavailable Unavailable Chris, Stefany Moy MD Unavailable Unavailable Chris, Stefany Moy MD Unavailable Unavailable Chris, Stefany Moy MD Unavailable Unavailable Chris, Stefany Moy MD Unavailable Unavailable Chris, Stefany Moy MD Unavailable Unavailable Chris, Stefany Moy MD Unavailable Unavailable Chris, Stefany Moy MD Unavailable Unavailable Chris, Stefany Moy MD Unavailable Unavailable Chris, Stefany Moy MD Unavailable Unavailable Chris, Stefany Moy MD Unavailable Unavailable Chris, Stefany Moy MD Unavailable Unavailable Chris, Stefany Moy MD Unavailable Unavailable Chris, Stefany Moy MD Unavailable Unavailable Chris, Stefany Moy MD Unavailable Unavailable Chris, Stefany Moy MD Unavailable Unavailable Chris, Stefany Moy MD Unavailable Unavailable Chris, Stefany Moy MD Unavailable Unavailable Chris, Stefany Moy MD Unavailable Unavailable Chris, Stefany Moy MD Unavailable Unavailable Chris, Stefany Moy MD Unavailable Unavailable Chris, Stefany Moy MD Unavailable Unavailable Chris, Stefany Moy MD Unavailable Unavailable Chris, Stefany Moy MD Unavailable Unavailable Chris, Stfeany Moy MD Unavailable Unavailable Chris, Stefany Moy MD Unavailable Unavailable Chris, Stefany Moy MD Unavailable Unavailable Chris, Stefany Moy MD Unavailable Unavailable Chris, Stefany Moy MD Unavailable Unavailable Chris, Stefany Moy MD Unavailable Unavailable Chris, Stefany Moy MD Unavailable Unavailable Chris, Stefany Moy MD Unavailable Unavailable Chris, Stefany Moy MD Unavailable Unavailable Chris, Stefany Moy MD Unavailable Unavailable Chris, Stefany Moy MD Unavailable Unavailable Chris, Stefany Moy MD Unavailable Unavailable Chris, W Chinmay MD Unavailable Unavailable Elsie, D Mike PA Unavailable Unavailable Elsie, D Mike PA Unavailable Unavailable Elsie, D Mike PA Unavailable Unavailable Elsie, D Mike PA Unavailable Unavailable Elsie, D Mike PA Unavailable Unavailable Elsie, D Mike PA Unavailable Unavailable Elsie, D Mike PA Unavailable Unavailable Elsie, D Mike PA Unavailable Unavailable Elsie, D Mike PA Unavailable Unavailable Elsie, D Mike PA Unavailable Unavailable Elsie, D Mike PA Unavailable Unavailable Elsie, D Mike PA Unavailable Unavailable Elsie, D Mike PA Unavailable Unavailable Elsie, D Mike PA Unavailable Unavailable Elsie, D Mike PA Unavailable Unavailable Elsie, D Mike PA Unavailable Unavailable Elsie, D Mike PA Unavailable Unavailable Elsie, D Mike PA Unavailable Unavailable Elsie, D Mike PA Unavailable Unavailable Elsie, D Mike PA Unavailable Unavailable Joe Toro MD Unavailable Unavailable PiperCosme MD Unavailable Unavailable Piper E Lillian KRISHNAMURTHY Unavailable Unavailable Piper, E Lillian KRISHNAMURTHY Unavailable Unavailable Piper, E Lillian KRISHNAMURTHY Unavailable Unavailable Piper, E Lillian KRISHNAMURTHY Unavailable Unavailable iPper E Lillian KRISHNAMURTHY Unavailable Unavailable Piper E Lillian KRISHNAMURTHY Unavailable Unavailable Piper E Lillian KRISHNAMURTHY Unavailable Unavailable Piper, E Lillian KRISHNAMURTHY Unavailable Unavailable Piper E Lillian KRISHNAMURTHY Unavailable Unavailable Piper E Lillian KRISHNAMURTHY Unavailable Unavailable Piper E Lillian KRISHNAMURTHY Unavailable Unavailable Piper E Lillian KRISHNAMURTHY Unavailable Unavailable Piper E Lillian KRISHNAMURTHY Unavailable Unavailable Piper E Lillian KRISHNAMURTHY Unavailable Unavailable Piper E Lillian KRISHNAMURTHY Unavailable Unavailable Piper E Lillian KRISHNAMURTHY Unavailable Unavailable Piper E Lillian KRISHNAMURTHY Unavailable Unavailable Piper E Lillian KRISHNAMURTHY Unavailable Unavailable Piper E Lillian KRISHNAMURTHY Unavailable Unavailable Piper E Lillian MD Unavailable Unavailable Piper E Lillian KRISNHAMURTHY Unavailable Unavailable Piper E Lillian MD Unavailable Unavailable Piper E Lillian KRISHNAMURTHY Unavailable Unavailable Piper E Lillian KRISHNAMURTHY Unavailable Unavailable Piper E Lillian KRISHNAMURTHY Unavailable Unavailable Piper, E Lillian MD Unavailable Unavailable Piper, E Lillian MD Unavailable Unavailable Piper, E Lillian MD Unavailable Unavailable Piper E Lillian MD Unavailable Unavailable Piper, Cosme Snyder MD Unavailable Unavailable Piper, Cosme Snyder MD Unavailable Unavailable Piper, E Lillian KRISHNAMURTHY Unavailable Unavailable Piper, E Lillian KRISHNAMURTHY Unavailable Unavailable Piper, E Lillian KRISHNAMURTHY Unavailable Unavailable Piper, E Lillian KRISHNAMURTHY Unavailable Unavailable Piper, Cosme Snyder MD Unavailable Unavailable Piper, E Lillian KRISHNAMURTHY Unavailable Unavailable Piper, E Lillian KRISHNAMURTHY Unavailable Unavailable Piper, E Lillian KRISHNAMURTHY Unavailable Unavailable Piper, E Lillian KRISHNAMURTHY Unavailable Unavailable Piper, E Lillian KRISHNAMURTHY Unavailable Unavailable Piper, Cosme Snyder MD Unavailable Unavailable Piper, Cosme Snyder MD Unavailable Unavailable Piper, E Lillian KRISHNAMURTHY Unavailable Unavailable NRI, 56 Unavailable Unavailable MUHA, M VINITA WALL AND FLOOR TILER Unavailable Unavailable MUHA, M VINITA [employer] AND FLOOR TILER Unavailable Unavailable MUHA, M VINITA WALL AND FLOOR TILER Unavailable Unavailable MUHA, M VINITA WALL AND FLOOR TILER Unavailable Unavailable MUHA, M VINITA WALL AND FLOOR TILER Unavailable Unavailable MUHA, M VINITA WALL AND FLOOR TILER Unavailable Unavailable MUHA, M VINITA WALL AND FLOOR TILER Unavailable Unavailable MUHA, M VINITA WALL AND FLOOR TILER Unavailable Unavailable MUHA, M VINITA WALL AND FLOOR TILER Unavailable Unavailable MUHA, M VINITA WALL AND FLOOR TILER Unavailable Unavailable MUHA, M VINITA WALL AND FLOOR TILER Unavailable Unavailable MUHA, M VINITA WALL AND FLOOR TILER Unavailable Unavailable MUHA, M VINITA WALL AND FLOOR TILER Unavailable Unavailable MUHA, M VINITA WALL AND FLOOR TILER Unavailable Unavailable MUHA, M VINITA WALL AND FLOOR TILER Unavailable Unavailable MUHA, M VINITA WALL AND FLOOR TILER Unavailable Unavailable MUHA, M VINITA WALL AND FLOOR TILER Unavailable Unavailable MUHA, M VINITA WALL AND FLOOR TILER Unavailable Unavailable MUHA, M VINITA WALL AND FLOOR TILER Unavailable Unavailable MUHA, M VINITA WALL AND FLOOR TILER Unavailable Unavailable MUHA, M VINITA WALL AND FLOOR TILER Unavailable Unavailable MUHA, M VINITA WALL AND FLOOR TILER Unavailable Unavailable MUHA, M VINITA WALL AND FLOOR TILER Unavailable Unavailable MUHA, M VINITA WALL AND FLOOR TILER Unavailable Unavailable MUHA, M VINITA WALL AND FLOOR TILER Unavailable Unavailable MUHA, M VINITA WALL AND FLOOR TILER Unavailable Unavailable MUHA, M VINITA WALL AND FLOOR TILER Unavailable Unavailable MUHA, M VINITA WALL AND FLOOR TILER Unavailable Unavailable MUHA, M VINITA WALL AND FLOOR TILER Unavailable Unavailable MUHA, M VINITA WALL AND FLOOR TILER Unavailable Unavailable MUHA, M VINITA WALL AND FLOOR TILER Unavailable Unavailable MUHA, M VINITA WALL AND FLOOR TILER Unavailable Unavailable MUHA, M VINITA WALL AND FLOOR TILER Unavailable Unavailable MUHA, M VINITA WALL AND FLOOR TILER Unavailable Unavailable MUHA, M VINITA WALL AND FLOOR TILER Unavailable Unavailable MUHA, M VINITA WALL AND FLOOR TILER Unavailable Unavailable MUHA, M VINITA WALL AND FLOOR TILER Unavailable Unavailable MUHA, M VINITA WALL AND FLOOR TILER Unavailable Unavailable MUHA, M VINITA WALL AND FLOOR TILER Unavailable Unavailable MUHA, M VINITA WALL AND FLOOR TILER Unavailable Unavailable MUHA, M VINITA WALL AND FLOOR TILER Unavailable Unavailable MUHA, M VINITA WALL AND FLOOR TILER Unavailable Unavailable MUHA, M VINITA WALL AND FLOOR TILER Unavailable Unavailable MUHA, M VINITA WALL AND FLOOR TILER Unavailable Unavailable MUHA, M VINITA WALL AND FLOOR TILER Unavailable Unavailable MUHA, M VINITA WALL AND FLOOR TILER Unavailable Unavailable MUHA, M VINITA WALL AND FLOOR TILER Unavailable Unavailable MUHA, M VINITA WALL AND FLOOR TILER Unavailable Unavailable MUHA, M VINITA WALL AND FLOOR TILER Unavailable Unavailable MUHA, M VINITA WALL AND FLOOR TILER Unavailable Unavailable MUHA, M VINITA WALL AND FLOOR TILER Unavailable Unavailable MUHA, M VINITA WALL AND FLOOR TILER Unavailable Unavailable Elsie, D Mike PA Unavailable Unavailable Elsie, D Mike PA Unavailable Unavailable Elsie, D Mike PA Unavailable Unavailable Elsie, D Mike PA Unavailable Unavailable Elsie, D Mike PA Unavailable Unavailable Elsie, D Mike PA Unavailable Unavailable Elsie, D Mike PA Unavailable Unavailable Elsie, D Mike PA Unavailable Unavailable Elsie, D Mike PA Unavailable Unavailable Elsie, D Mike PA Unavailable Unavailable Elsie, D Mike PA Unavailable Unavailable Elsie, D Mike PA Unavailable Unavailable Elsie, D Mike PA Unavailable Unavailable Elsie, D Mike PA Unavailable Unavailable Elsie, D Mike PA Unavailable Unavailable Elsie, D Mike PA Unavailable Unavailable Elsie, D Mike PA Unavailable Unavailable Elsie, D Mike PA Unavailable Unavailable Elsie, D Mike PA Unavailable Unavailable Elsie, D Mike PA Unavailable Unavailable Re-disclosure Warning The records that you are about to access may contain information from federally-assisted alcohol or drug abuse programs. If such information is present, then the following federally mandated warning applies: This information has been disclosed to you from records protected by federal confidentiality rules (42 CFR part 2). The federal rules prohibit you from making any further disclosure of this information unless further disclosure is expressly permitted by the written consent of the person to whom it pertains or as otherwise permitted by 42 CFR part 2. A general authorization for the release of medical or other information is NOT sufficient for this purpose. The Federal rules restrict any use of the information to criminally investigate or prosecute any alcohol or drug abuse patient.The records that you are about to access may contain highly sensitive health information, the redisclosure of which is protected by Article 27-F of the [facility] Public Health law. If you continue you may have access to information: Regarding HIV / AIDS; Provided by facilities licensed or operated by the [facility] Office of Mental Health; or Provided by the [facility] Office for People With Developmental Disabilities. If such information is present, then the following [facility] mandated warning applies: This information has been disclosed to you from confidential records which are protected by state law. State law prohibits you from making any further disclosure of this information without the specific written consent of the person to whom it pertains, or as otherwise permitted by law. Any unauthorized further disclosure in violation of state law may result in a fine or shelter sentence or both. A general authorization for the release of medical or other information is NOT sufficient authorization for further disc losure. Allergies and Adverse Reactions Type Description Substance Reaction Status Data Source(s ) Drug allergy cefaclor Cefaclor [facility] Drug allergy penicillin V penicillin V [facility] Drug allergy prednisone prednisone TENDER SKIN, FLU SH FACE, INSOMNIA, SORE THROAT MO [facility] Drug allergy oxycodone oxycodone ?vomiting [facility] Drug allergy hydrocodone Hydrocodone 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 [facility] Drug allergy cefdinir cefdinir Hives, Shortness of Breath Active SHERRY ([facility]) Drug allergy cefdinir cefdinir Hives, Shortness of Breath Active [facility] ([facility]) Drug allergy Cefdinir 125 MG/5ML Oral Suspension Leonid nstituted Cefdinir 125MG/5ML Oral Suspension, when reconstituted Hives, Shortness of Breath Active [facility]Y ([facility]) Drug allergy Cefdinir 125 MG/5ML Oral Suspension Leonid nstituted Cefdinir 125MG/5ML Oral Suspension, when reconstituted Hives, Shortness of Breath Active [facility]Y ([facility]) Drug allergy Cefdinir 125 MG/5ML Oral Suspension Leonid nstituted Cefdinir 125MG/5ML Oral Suspension, when reconstituted Hives, Shortness of Breath Active [facility]Y ([facility]) Drug allergy Cefdinir 125 MG/5ML Oral Suspension Leonid nstituted Cefdinir 125MG/5ML Oral Suspension, when reconstituted Hives, Shortness of Breath Active [facility] ([facility]) Family History Family Member Name Family Member Gender Family Member Status Date o f Status Description Data Source(s) Unknown Unknown Problem [facility] ([facility]) Encounters Encounter Providers Location Date Indications Data Source(s ) Outpatient Attender: Lillian Saldaña MD 03/18/2020 11 :42:00 AM EST RT SIDE 6 MONTH F/U [facility] RT SIDE 6 MONTH F/U Outpatient<td ID="encounterTypeDescripti onID0">followup</td><td>Lillian Saldaña MD</td><td>[facility]</td><td>03/07/2020</td><td>2:16PM</td><td>2:44PM</td><td><content ID="encounterDiagnosisID0-0">Fatty Liver</content>, <content ID="encounterDiagnosisID0-1">Allergic Rhinitis</content>, <content ID="encounterDiagnosisID0-2">Adjustment Disorder</content>, <content ID="encounterDiagnosisID0-3">Obesity</content>, <content ID="encounterDiagnosisID0-4">Lumbago</content>, <content ID="encounterDiagnosisID0-5">Post-traumatic Stress Disorder</content>, <content ID="encounterDiagnosisID0-6">Panic Disorder</content>, <content ID="encounterDiagnosisID0-7">Billings's Esophagus Without Dysplasia</content></td> Attender: Lillian Saldaña MD [facility] 03/07/2020 02:16:00 PM EST - 03/07/2020 02:44:00 PM ES T Billings's Esophagus Without DysplasiaPanic DisorderPost-traumatic Stress DisorderLumbagoObesityAdjustment DisorderFatty LiverAllergic Rhinitis [facility]AH ([facility]) Billings's Esophagus Without Dysplasia Panic Disorder Post-traumatic Stress Disorder Lumbago Obesity Adjustment Disorder Fatty Liver Allergic Rhinitis Outpatient [address] [place] [address], [place] [id number] 02/19/2020 12:00:00 AM EST eCW1 ([facility]) Outpatient Attender: Lillian Saldaña MD 01/25/2020 09:27:00 AM EST RUQ PAIN [facility] RUQ PAIN Emergency Attender: Joe Toro MD 04/2019 11:29:00 AM EST - 01/21/2020 03:50:00 PM EST abdominal pain,vomiting [facility] abdominal pain,vomiting Patient discharged. [facility] [address] [place] [address] 01/21/2020 12:00:00 AM EST eCW1 ([facility]) Outpatient Attender: Lillian Saldaña MD 01/18/2020 10 :40:00 AM EDT RUQ PAIN,R10.10,A09 [facility] RUQ PAIN,R10.10,A09 Outpatient<td ID="encounterTypeDescripti onID1">sick visit</td><td>Lillian Saldaña MD</td><td>[facility], [facility]</td><td>01/14/2020</td><td>9:44AM</td><td>10:26AM</td><td><content ID="encounterDiagnosisID1-0">Gastrointestinal Infections</content></td> Attender: Lillian Saldaña MD [facility] 01/14/2020 09:44:00 AM EDT - 01/14/2020 10:26:07 AM EDT Gastrointestinal InfectionsGastrointesti nal Infections [facility] ([facility]) Gastrointestinal Infections Gastrointestinal Infections Outpatient [id number] [facility] [id number] 09/27/2019 12:00:00 AM EDT eCW1 ([facility]) Outpatient Attender: Lillian Saldaña MD 09/20/2019 03 :00:00 PM EDT CALLBACK AND POSS US [facility] CALLBACK AND POSS US Outpatient Attender: Lillian Saldaña MD 09/11/2019 11 :26:00 AM EDT SCREENING/DENSE TISSUE/ BASELINE [facility] SCREENING/DENSE TISSUE/ BASELINE Outpatient<td ID="encounterTypeDescripti onID2">[Patient Encounter]</td><td>Lillian Saldaña MD</td><td></td><td>01/09/2020</td><td>09/04/2019 2:25PM</td><td>09/04/2019 11:59PM</td><td></td> Attender: Lillian Saldaña MD 09/04/2019 02:25:00 PM EDT - 09/04/2019 11:59:00 PM EDT [facility] ([facility]) Outpatient<td ID="encounterTypeDescripti onID3">ANNUAL PE-followup exam</td><td>Lillian Saldaña MD</td><td>[facility], [facility]</td><td>09/04/2019</td><td>12:50PM</td><td>1:33PM</td><td><content ID="encounterDiagnosisID3-0">Adjustment Disorder</content>, <content ID="encounterDiagnosisID3-1">Post-traumatic Stress Disorder</content>, <content ID="encounterDiagnosisID3-2">Panic Disorder</content>, <content ID="encounterDiagnosisID3-3">Allergic Rhinitis</content>, <content ID="encounterDiagnosisID3-4">Lumbago</content>, <content ID="encounterDiagnosisID3-5">Routine History and Physical Adult (18 - 64 Yrs)</content>, <content ID="encounterDiagnosisID3-6">Obesity</content>, <content ID="encounterDiagnosisID3-7">Billings's Esophagus Without Dysplasia</content>, <content ID="encounterDiagnosisID3-8">Fatty Liver</content></td> Attender: Lillian Saldaña MD [facility] 09/04/2019 12:50:00 PM EDT - 09/04/2019 01:33:00 PM ED T Fatty LiverBarrett's Esophagus Without DysplasiaObesityRoutine History and Physical Adult (18 - 64 Yrs)LumbagoPanic DisorderPost-traumatic Stress DisorderAdjustment DisorderFatty LiverBarrett's Esophagus Without DysplasiaObesityRoutine History and Physical Adult (18 - 64 Yrs)LumbagoPanic DisorderPost-traumatic Stress DisorderAdjustment DisorderFatty LiverBarrett's Esophagus Without DysplasiaObesityRoutine History and Physical Adult (18 - 64 Yrs)LumbagoPanic DisorderPost-traumatic Stress DisorderAdjustment DisorderAllergic RhinitisAllergic RhinitisAllergic Rhinitis SHERRY ([facility]) Fatty Liver Billings's Esophagus Without Dysplasia Obesity Routine History and Physical Adult (18 - 64 Yrs) Lumbago Panic Disorder Post-traumatic Stress Disorder Adjustment Disorder Fatty Liver Billings's Esophagus Without Dysplasia Obesity Routine History and Physical Adult (18 - 64 Yrs) Lumbago Panic Disorder Post-traumatic Stress Disorder Adjustment Disorder Fatty Liver Billings's Esophagus Without Dysplasia Obesity Routine History and Physical Adult (18 - 64 Yrs) Lumbago Panic Disorder Post-traumatic Stress Disorder Adjustment Disorder Allergic Rhinitis Allergic Rhinitis Allergic Rhinitis Attender: Chinmay Perez MD 08/22/2019 08:20:06 PM EDT [facility] Attender: Chinmay Perez MD 08/22/2019 08:20:06 PM EDT [facility] Attender: Chinmay Perez MD 08/21/2019 08:20:06 PM EDT [facility] Attender: Chinmay Perez MD 08/21/2019 08:20:06 PM EDT [facility] Attender: Chinmay Perez MD 08/20/2019 08:20:06 PM EDT [facility] Attender: Chinmay Perez MD 08/20/2019 08:20:06 PM EDT [facility] Outpatient<td ID="encounterTypeDescripti onID4">[Patient Encounter]</td><td>Lillian Saldaña MD</td><td></td><td>08/17/2019</td><td>07/16/2019 2:42PM</td><td>07/16/2019 11:59PM</td><td></td> Attender: Lillian Saldaña MD 08/17/2019 02:42:00 PM EDT - 07/16/2019 11:59:00 PM EDT LENORAH ([facility]) Outpatient<td ID="encounterTypeDescripti onID5">Telehealth Communication FU</td><td>Lillian Saldaña MD</td><td>[facility]</td><td>07/16/2019</td><td>11:33AM</td><td>1:12PM</td><td><content ID="encounterDiagnosisID5-0">Post-traumatic Stress Disorder</content>, <content ID="encounterDiagnosisID5-1">Panic Disorder</content>, <content ID="encounterDiagnosisID5-2">Adjustment Disorder</content></td> Attender: Lillian Saldaña MD [facility] 07/16/2019 11:33:00 A M EDT - 07/16/2019 01:12:42 PM EDT Adjustment DisorderPanic DisorderPost-tr aumatic Stress DisorderAdjustment DisorderPanic DisorderPost-traumatic Stress DisorderAdjustment DisorderPanic DisorderPost-traumatic Stress DisorderAdjustment DisorderPanic DisorderPost-traumatic Stress Disorder LENORAH ([facility]) Adjustment Disorder Panic Disorder Post-traumatic Stress Disorder Adjustment Disorder Panic Disorder Post-traumatic Stress Disorder Adjustment Disorder Panic Disorder Post-traumatic Stress Disorder Adjustment Disorder Panic Disorder Post-traumatic Stress Disorder Outpatient<td ID="encounterTypeDescripti onID6">sick visit</td><td>Mike Melara</td><td>[facility]</td><td>06/26/2019</td><td>1:04PM</td><td>1:22PM</td><td><content ID="encounterDiagnosisID6-0">Sinusitis Acute</content></td> Attender: Mike STRONG [facility] 06/26/2019 01:04:00 P M EDT - 06/26/2019 01:22:00 PM EDT Sinusitis AcuteSinusitis AcuteSinusitis AcuteSinusitis AcuteSinusitis Acute [facility]AH ([facility]) Sinusitis Acute Sinusitis Acute Sinusitis Acute Sinusitis Acute Sinusitis Acute Attender: Chinmay Perez MD 05/28/2019 08:20:03 PM EDT [facility] Attender: Chinmay Perez MD 05/28/2019 08:20:03 PM EDT [facility] Outpatient<td ID="encounterTypeDescripti onID7">[Patient Encounter]</td><td>Mikey Ramsey MD</td><td></td><td>05/08/2019</td><td>05/01/2019 7:23PM</td><td>05/01/2019 11:59PM</td><td></td> Attender: Mikey Ramsey MD 0 07:23:00 PM EST - 05/01/2019 11:59:00 PM EST [facility] ([facility]) Outpatient<td ID="encounterTypeDescripti onID8">followup</td><td>Mike Melara</td><td>[facility], [facility]</td><td>05/01/2019</td><td>1:47PM</td><td>2:22PM</td><td><content ID="encounterDiagnosisID8-0">Sinusitis Acute</content></td> Attender: Mike STRONG [facility] 05/01/2019 01:47:00 P M EST - 05/01/2019 02:22:00 PM EST Sinusitis AcuteSinusitis AcuteSinusitis AcuteSinusitis AcuteSinusitis AcuteSinusitis Acute L[facility]ORAH ([facility]) Sinusitis Acute Sinusitis Acute Sinusitis Acute Sinusitis Acute Sinusitis Acute Sinusitis Acute Outpatient<td ID="encounterTypeDescripti onID9">sick visit</td><td>Vinita Romano [employer]</td><td>[facility], [facility]</td><td>04/23/2019</td><td>10:05AM</td><td>10:34AM</td><td><content ID="encounterDiagnosisID9-0">Otitis Media Acute of Right Ear</content></td> Attender: VINITA DONNELLY [facility], [facility] 04/23/2019 10:05:00 AM EST - 04/23/2019 10:34:00 AM EST Otitis Media Acute of Right EarOtitis Me leonardo Acute of Right EarOtitis Media Acute of Right EarOtitis Media Acute of Right EarOtitis Media Acute of Right EarOtitis Media Acute of Right EarOtitis Media Acute of Right Ear LENORAH ([facility]) Otitis Media Acute of Right Ear Otitis Media Acute of Right Ear Otitis Media Acute of Right Ear Otitis Media Acute of Right Ear Otitis Media Acute of Right Ear Otitis Media Acute of Right Ear Otitis Media Acute of Right Ear Outpatient<td ID="encounterTypeDescripti onID10">sick visit</td><td>Vinita Marti Rosalina RIVEROP-</td><td>[facility]</td><td>04/12/2019</td><td>10:38AM</td><td>11:15AM</td><td><content ID="womqmwbhzKksbrmcybFH73-6">Upper Respiratory Infection</content></td> Attender: VINITA DONNELLY [facility], [facility] 04/12/2019 10:38:00 AM EST - 04/12/2019 11:15:00 AM EST Upper Respiratory InfectionUpper Respira tory InfectionUpper Respiratory InfectionUpper Respiratory InfectionUpper Respiratory InfectionUpper Respiratory InfectionUpper Respiratory InfectionUpper Respiratory Infection LENORAH ([facility]) Upper Respiratory Infection Upper Respiratory Infection Upper Respiratory Infection Upper Respiratory Infection Upper Respiratory Infection Upper Respiratory Infection Upper Respiratory Infection Upper Respiratory Infection Outpatient Referrer: [place] 03/05/2019 09:28:00 PM EST [facility] Attender: Mike STRONG 03/01/2019 02:18:00 PM EST J18.1 [facility] J18.1 Outpatient<td ID="encounterTypeDescripti onID10">followup</td><td>Mike Melara</td><td>[facility], [facility]</td><td>03/01/2019</td><td>1:18PM</td><td>2:03PM</td><td><content ID="[id number]">Lobar Pneumonia</content></td> Attender: Mike STRONG [facility], [facility] 03/01/2019 01:18:00 P M EST - 03/01/2019 02:03:00 PM EST Lobar PneumoniaLobar PneumoniaLobar Pneu moniaLobar PneumoniaLobar PneumoniaLobar PneumoniaLobar PneumoniaLobar Pneumonia [facility]) Lobar Pneumonia Lobar Pneumonia Lobar Pneumonia Lobar Pneumonia Lobar Pneumonia Lobar Pneumonia Lobar Pneumonia Lobar Pneumonia Medications Medication Brand Name Start Date Product Form Dose Route Admi nistrative Instructions Pharmacy Instructions Status Indications Reaction Description Data Source(s) aripiprazole 5 MG Oral Tablet [Abilify] Abilify 5 MG O ral Tablet Abilify 5 MG Oral Tablet 03/07/2020 12:00:00 AM EST 1 active aripiprazole 5 MG Oral Tablet [Abilify] L[facility]ORAH ([facility]) Levofloxacin 500 MG Oral Tablet Levofloxacin 01/29/2020 12:00:00 AM EST active [facility] ([facility]) Ondansetron 4 MG Oral Tablet Ondansetron HCL 01/29/2020 12:00:00 AM EST active [facility] ([facility]) Ondansetron 4 MG Oral Tablet Ondansetron Hcl (Zofran) 4 mg tablet Ondansetron Hcl (Zofran) 4 mg tablet 01/21/2020 03:23:34 PM EST 4 MG active [facility] pantoprazole 40 MG Delayed Release Oral Tablet Pantoprazole Pantoprazole 01/21/2020 12:16:35 PM EST 40 MG active [facility] Emverm 100 MG Oral Tablet Chewable Emverm 100 MG Oral Tablet Chewable 01/09/2020 12:00:00 AM EDT 1 completed mebendazole 100 MG Chewable Tablet [Emverm] LENORAH ([facility]) Flonase Allergy Relief 50 MCG/ACT Nasal Suspension Christiano nase Allergy Relief 50 MCG/ACT Nasal Suspension 10/19/2019 12:00:00 AM EDT active fluticasone propionate 0.05 MG/ACTUAT Metered Dose Nasal Winder [Flonase] [facility]) pantoprazole 20 MG Delayed Release Oral Tablet [Protonix] Protonix 20 MG Oral Tablet Delayed Release Protonix 20 MG Oral Tablet Delayed Release 08/27/2019 12:00:00 AM EDT 1 active pantoprazole 20 MG Delayed Release Oral Tablet [Protonix] LENORAH ([facility]) Sertraline 100 MG Oral Tablet Sertraline HCl 100 MG Or al Tablet Sertraline HCl 100 MG Oral Tablet 07/10/2019 12:00:00 AM EDT active sertraline 100 MG Oral Tablet [facility]) 60 ACTUAT Budesonide 0.16 MG/ACTUAT / fo rmoterol fumarate 0.0045 MG/ACTUAT Metered Dose Inhaler [Symbicort] Symbicort 160-4.5 MCG/ACT Inhalation Aerosol Symbicort 160-4.5 MCG/ACT Inhalation Aerosol 06/29/2019 12:00:00 AM EDT active 60 ACTUAT budeso nide 0.16 MG/ACTUAT / formoterol fumarate 0.0045 MG/ACTUAT Metered Dose Inhaler [Symbicort] LENORAH ([facility]) Azithromycin 250 MG Oral Tablet Azithromycin 250 MG Oral Tab let 06/26/2019 12:00:00 AM EDT completed azith romycin 250 MG Oral Tablet [facility]) Sertraline 100 MG Oral Tablet Sertraline HCl 100 MG Or al Tablet Sertraline HCl 100 MG Oral Tablet 06/06/2019 12:00:00 AM EDT 1 aborted sertraline 100 MG Oral Tablet [facility]) Oseltamivir 75 MG Oral Capsule Oseltamivir Phosphate 7 5 MG Oral Capsule Oseltamivir Phosphate 75 MG Oral Capsule 05/08/2019 12:00:00 AM EST 1 completed [facility]sel[facility]amivir [facility] 250 MG Oral Tablet Azithromycin 250 MG Oral Tab let 05/01/2019 12:00:00 AM EST completed azith romycin 250 MG Oral Tablet [facility]) cefdinir 300 MG Oral Capsule Cefdinir 300 MG Oral Caps ule Cefdinir 300 MG Oral Capsule 04/23/2019 12:00:00 AM EST completed cefdinir 300 MG Oral Capsule LENORAH ([facility]) doxycycline hyclate 100 MG Oral Capsule Doxycycline Hy clate 100MG Oral Capsule Doxycycline Hyclate 100MG Oral Capsule 02/21/2019 12:00:00 AM EST active doxycycline hyclate 100 MG Oral Capsule LENORAH ([facility]) Sucralfate 1000 MG Oral Tablet Sucralfate 1GM Oral Tab let Sucralfate 1GM Oral Tablet 02/20/2019 12:00:00 AM EST active sucralfate 1000 MG Oral Tablet LENORAH ([facility]) pantoprazole 20 MG Delayed Release Oral Tablet [Protonix] Protonix 20MG Oral Tablet Delayed Release Protonix 20MG Oral Tablet Delayed Release 02/01/2019 12:00:00 AM EST 1 aborted pantoprazole 20 MG Delayed Release Oral Tablet [Protonix] LENORAH ([facility]) Sertraline 50 MG Oral Tablet Sertraline HCl 50MG Oral Tablet Sertraline HCl 50MG Oral Tablet 01/08/2019 12:00:00 AM EDT abort ed sertraline 50 MG Oral Tablet L[facility]ORAH ([facility]) Flonase Allergy Relief 50MCG/ACT Nasal Suspension Flon ase Allergy Relief 50MCG/ACT Nasal Suspension 09/25/2018 12:00:00 AM EDT aborted fluticasone propionate 0.05 MG/ACTUAT Metered Dose Nasal Winder [Flonase] [facility]) Sertraline 50 MG Oral Tablet Sertraline HCl 50MG Oral Tablet Sertraline HCl 50MG Oral Tablet 08/30/2018 12:00:00 AM EDT 1 abort ed sertraline 50 MG Oral Tablet L[facility]ORAH ([facility]) Insurance Providers Payer name Policy type / Coverage type Policy ID Covered republican ID Covered republican's relationship to ozuna Policy Ozuna Plan Information BCBS EMPIRE ELEANOR DIV [id number] [facility] [id number] [id number] [facility] [id number] WI2 89 [id number] [facility] Other 0 Family Dependent Judson Vincent 0 BCBS EMPIRE ELEANOR DIV [id number] HU2 [id number] [facility] O [id number] S [id number] [employer] Other 0 Family Dependent Judson Vincent 0 [employer] Other 0 Family Dependent [place] Vincent 0 [place] [facility] [id number] 1 [id number] UNITED HEALTHCARE [id number] [employer] Other 0 Family Dependent [place] Vincent 0 [employer] Other 0 Family Dependent [place] Vincent 0 [employer] Other 0 Family Dependent Judson Vincent 0 BCBS EMPIRE ELEANOR DIV [id number] HU2 [id number] [employer] Other 0 Family Dependent [place] Vincent 0 [employer] Other 0 Family Dependent [place] Vincent 0 [employer] Other 0 Family Dependent Judson Vincent 0 [employer] Other 0 Family Dependent [place] Vincent 0 [employer] Other 0 Family Dependent [place] Vincent 0 [facility] [place] Commercial [id number] Family Depende nt [id number] [employer] Other 0 Family Dependent Judson Vincent 0 BCBS EMPIRE ELEANOR DIV [id number] HU2 [id number] EMPIRE [id number] Spouse [id number] BCBS [facility] [place] [id number] Spouse [id number] PMA MANAGEMENT [facility] [id number] SP [id number] PMA MANAGEMENT [facility] [id number] SP [id number] SELF PAY UNAVAILABLE Patient UNAVAILA BLE [employer] Other 0 Family Dependent Judson Vincent 0 [employer] Other 0 Family Dependent Judson Vincent 0 [employer] [id number] ANSI[employer] [id number] [employer] Other 0 Family Dependent Judson Vincent 0 [employer] [id number] [employer] [id number] [employer] Other 0 Family Dependent Judson Vincent 0 [facility] EMPIRE -PHYSICIAN [id number] 01 [id number] 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 Health Maintenance Organization (O) [id number] [facility] Health Maintenance Organization (O) [id number] [facility] Health Maintenance Organization (O) [id number] [employer] Other 0 Family Dependent [place] Vincent [address] [facility] Health Maintenance Organization (HMO) [id number] [facility] Health Maintenance Organization (O) [id number] [employer] Other 0 Family Dependent [place] Vincent 0 [employer] Other 0 Family Dependent Judson Vincent 0 [employer] Other 0 Family Dependent Judson Vincent 0 [employer] Other 0 Family Dependent Judson Vincent 0 [facility] [id number] HU2 [id number] [facility] DIV [id number] [employer] SELF INSURED [id number] SP [id number] OTHER WORKERS COMPENSATION [id number] SP [id number] [facility] UNAVAILABLE [address] UNAVAILABLE [address] JUDSON A UNAVAILABLE [id number] UNAVAI LABLE Problems, Conditions, and Diagnoses Code Display Name Description Problem Type Effective Dates Data Source(s) L90.5 [id number] Atrophic scar Problem 02/19/2020 12:00:00 AM EST eCW1 ([facility]) D18.01 [id number] Martinez angioma Problem 02/19/2020 12:00:00 A M EST eC1 ([facility]) D23.9 [id number] Dermatofibroma Problem 02/19/2020 12:00:00 A M EST eC1 ([facility]) D22.4 [id number] Nevus of neck Problem 02/19/2020 12:00:00 AM EST [facility] ([facility]) Surgeries/Procedures Procedure Description Date Indications Data Source(s) Computed tomography of abdomen and pelvis with contrast (pro cedure) 01/21/2020 11:59:[address] [facility] Blood Culture 01/21/2020 12:00:00 AM [facility] Ultrasonography of abdomen (procedure) 01/18/2020 11:2 0:00 AM [facility] Medication: Kenalog 40mg/1mL [place] (Triamcinolone) [facility]ason[facility] of breast (procedure) 09/20/2019 03:28 :00 PM [facility] Screening mammography (procedure) 09/20/2019 03:03:00 PM [facility] Screening mammography (procedure) 09/11/2019 09:23:00 AM [facility] Surgical / procedural history May 2017, total hyste rectomy (ovaries remain) Surgical / procedural history May 2017, total hysterectomy (ovaries remain) [facility] Brief Emotional Behavior Assessment Brief Emotional Behavior Assessment 09/04/2019 12:00:00 AM [facility] ([facility]) History of colonoscopy 2019, normal, Grade 3 hemorrho ids History of colonoscopy 2019, normal, Grade 3 hemorrhoids 09/04[facility]2019 [facility] Brief Emotional Behavior Assessment Brief Emotional Behavior Assessment 09/04/2019 12:00:00 AM [facility] ([facility]) Diagnostic radiography of chest, combine d posteroanterior and lateral (procedure) 03/01/2019 02:44:00 PM EST [facility] Results ID Date Data Source CHLOE 04/03/2020 12:00:00 AM EST [facility] Name Value Range Interpretation Code Description Data Mary rce(s) Supporting Document(s) SARS-CoV2 Rapid Antigen Negative [facility] by Kevin More. ID Date Data Source [id number] 03/24/2020 01:30:00 PM EST [facility] Name Value Range Interpretation Code Description Data Mary rce(s) Supporting Document(s) SARS coronavirus 2 RNA Not Detected [facility] This lab was ordered by [facility] and reported by [facility]. ID Date Data Source [id number] 03/18/2020 11:50:00 AM [facility] [address] [place] [address] [phone] NAME SEX PT STATUS ACCOUNT NUMBER KWASI DE [place] REG REF [id number] ORDERING PHYSICIAN LOCATION MEDICAL RECORD NO. Lillian Saldaña MD MAMMO [id number] ATTENDING PHYSICIAN DATE OF DATE OF EXAM/TIME Lillian Saldaña MD 1980 03/18/20 / 1137 TYPE / EXAM US Breast - Limited Unilat REASON FOR EXAM RIGHT BREAST F/U COMPARISON: None Multiple images of the right breast at the 11-12 o'clock location were obtained, encompassing the area of clinical concern. FINDINGS: No cystic or solid mass identified. Focal asymmetry is again demonstrated on savana mogram. IMPRESSION: No sonographic evidence of a mass. Focal asymmetry seen on mammogram. Follow-up study with mammography only in 6 months. OVERALL FINAL ASSESSMENT OF FINDINGS BI-RADS 3 - Probably benign findings Reported By Alex Baird MD on 03/18/20 1150 Signed By Alex Baird MD on 03/18/20 1151 Date Time CC: Lillian Saldaña MD; Alex Baird MD Techn: CARAI Trans Dt/Tm: Trans by: DT Prt Dt/Tm: [id number]: Total DLP = 0.00 mGy-cm [id number]: Total Radiation Dose = 0.0000 mSv Lifetime Dose: 16.1850 mSv Name Value Range Interpretation Code Description Data Mary rce(s) Supporting Document(s) ID Date Data Source [id number] 03/18/2020 11:46:00 AM EST [facility] [address] [place] [address] [phone] NAME SEX PT STATUS ACCOUNT NUMBER KWASI [place] REG REF [id number] ORDERING PHYSICIAN LOCATION MEDICAL RECORD NO. Lillian Saldaña MD MAMMO [id number] ATTENDING PHYSICIAN DATE OF DATE OF EXAM/TIME Lillian Saldaña MD 1980 03/18/20 / 1106 TYPE / EXAM 3D DIG MAMMO DIAG RT REASON FOR EXAM RT SIDE F/U FOR STABILITY LAST CLINICAL BREAST EXAM: unknown FIVE YEAR RISK: 0.5% LIFETIME RISK: 12.3% FAMILY HISTORY OF BREAST CARCINOMA: Aunt COMPARISON: September 19 and September 11, 2019 2D digital mammogram in the CC and MLO projections was performed with supplemental 3D tomosynthesisof the right breast. FINDINGS: Craniocaudad and oblique lateral views of the right breast were obtained. The breasts are composed of scattered areas of fibroglandular density. Again demonstrated is focal asymmetry in the 11 to 12:00 position of the middle third of the right breast. An intramammary lymph node is seen in the posterior aspect of the upper outer breast. There is no other dominant mass, suspicious clustered microcalcification or architectural distortion. IMPRESSION: Focal asymmetry in the 11 to 12:00 position of the right breast, a stable finding. Six-month follow-up with diagnostic mammogram advised. OVERALL FINAL ASSESSMENT OF FINDINGS BI-RADS 3 - Probably benign findings OVERALL FINAL ASSESSMENT OF THE BREAST COMPOSITION Breast Density Classification: B Description: The breast is composed of scattered areas of fibroglandular density. This mammogram was read with the assistance of M-Vu, an FDA-approved computer-aided detection system for mammography. Reported By Alex Baird MD on 03/18/20 1146 Signed By Alex Baird MD on 03/18/20 1148 Date Time CC: Lillian Saldaña MD; Alex Baird MD Techn: BAKLE Trans Dt/Tm: Trans by: DT Prt Dt/Tm: 000: Total DLP = 0.00 mGy-cm : Total Radiation Dose = 0.0000 mSv Lifetime Dose: 16.1850 mSv Name Value Range Interpretation Code Description Data Mary rce(s) Supporting Document(s) ID Date Data Source [id number] 03/17/2020 09:00:00 AM EST [facility] Name Value Range Interpretation Code Description Data Mary rce(s) Supporting Document(s) SARS coronavirus 2 RNA [facility] This lab was ordered by [facility] and reported by [facility]. ID Date Data Source [id number] 03/10/2020 07:00:00 AM EST [facility] Name Value Range Interpretation Code Description Data Mary rce(s) Supporting Document(s) SARS coronavirus 2 RNA [facility] This lab was ordered by [facility] and reported by [facility]. ID Date Data Source [id number] 03/03/2020 06:37:00 AM EST [facility] Name Value Range Interpretation Code Description Data Mary rce(s) Supporting Document(s) SARS coronavirus 2 RNA [facility] This lab was ordered by [facility] and reported by [facility]. ID Date Data Source [id number] 02/25/2020 06:34:00 AM EST [facility] Name Value Range Interpretation Code Description Data Mary rce(s) Supporting Document(s) SARS coronavirus 2 RNA [facility] This lab was ordered by [facility] and reported by [facility]. ID Date Data Source [id number] 02/18/2020 08:49:00 AM EST [facility] Name Value Range Interpretation Code Description Data Mary rce(s) Supporting Document(s) SARS coronavirus 2 RNA [facility] This lab was ordered by [facility] and reported by [facility]. ID Date Data Source [id number] 02/04/2020 07:38:00 AM EST [facility] Name Value Range Interpretation Code Description Data Mary rce(s) Supporting Document(s) SARS coronavirus 2 RNA [facility] This lab was ordered by [facility] and reported by [facility]. ID Date Data Source [id number] 02/01/2020 09:35:00 AM EST [facility] Name Value Range Interpretation Code Description Data Mary rce(s) Supporting Document(s) SARS coronavirus 2 RNA [facility] This lab was ordered by [facility] and reported by [facility]. ID Date Data Source [id number] 01/28/2020 11:35:00 AM EST [facility] Name Value Range Interpretation Code Description Data Mary rce(s) Supporting Document(s) SARS coronavirus 2 RNA [facility] This lab was ordered by [facility] and reported by [facility]. ID Date Data Source [id number] 01/28/2020 08:12:00 AM EST [facility] [address], [place] [address] [phone] NAME SEX PT STATUS ACCOUNT NUMBER KWASI DE LUNA REG REF [id number] ORDERING PHYSICIAN LOCATION MEDICAL RECORD NO. Lillian Saldaña MD [place] [id number] ATTENDING PHYSICIAN DATE OF DATE OF EXAM/TIME Lillian Saldaña MD 1980 01/25/20999 TYPE / EXAM NM HIDA Scan W/Ejection Fract REASON FOR EXAM RUQ PAIN CLINICAL HISTORY: 39 years of age, Female, RUQ PAIN. TECHNIQUE: The patient received 5 mCi Choletec intravenously. Multiple planar images of the abdomenwere obtained in a sequential fashion. Additionally, Kinevac infusion was performed, following w hichdynamic and static images were obtained for 30 minutes for calculation of the gallbladder ejection fraction. COMPARISON: 05/08/2012 FINDINGS: There is prompt visualization of the hepatic parenchyma at approximately 10 minutes. Gallbladder uptake, common bile duct excretion, and small bowel excretion are visualized by approximately 20 minutes. Gallbladder ejection fraction is calculated at 14 percent, (normal range >35 percent). IMPRESSION: Normal filling of the gallbladder. Delayed emptying compatible with biliary dyskinesis. Reported By Geovanny Heart DO on 01/28/20811 Signed By Geovanny Heart DO on 01/28/20815 Date Time CC: Lillian Saldaña MD; Geovanny Heart DO Techn: GRAMR Trans Dt/Tm: Trans by: DT Prt Dt/Tm: : Total DLP = 0.00 mGy-cm : Total Radiation Dose = 0.0000 mSv Lifetime Dose: 16.1850 mSv Name Value Range Interpretation Code Description Data Mary rce(s) Supporting Document(s) ID Date Data Source [id number] 01/21/2020 02:51:00 PM [facility] [address] [place] [address] [phone] NAME SEX PT STATUS ACCOUNT NUMBER KWASI DE LUNA [facility] ER [id number] ORDERING PHYSICIAN LOCATION MEDICAL RECORD NO. Joe Toro MD ER [id number] ATTENDING PHYSICIAN DATE OF DATE OF EXAM/TIME Lillian Saldaña MD 1980 01/21/20 / 9 TYPE / EXAM CT Abd/pel w/ contrast REASON FOR EXAM RUQ abdominal pain, nausea, vomiting Clinical History/Indication for Exam: RUQ abdominal pain, nausea, vomiting CT ABDOMEN AND PELVIS WITH INTRAVENOUS CONTRAST INDICATION: RUQ abdominal pain, nausea, vomiting. TECHNIQUE: Axial computed tomography images of the abdomen and pelvis with intravenous contrast. Sagittal and coronal reformatted images were created and reviewed. This CT exam was performed using one or more of the following dose reduction techniques: automated exposure control, adjustment of the mA and/or kV according to patient size, and/or use of iterative reconstruction technique. COMPARISON: Ultrasound abdomen 01/18/2020. FINDINGS: Lung bases: Unremarkable as visualized. ABDOMEN: Liver: Unremarkable. No mass. Gallbladder and bile ducts: Unremarkable. No calcified stones. No ductal dilation. Pancreas: Unremarkable. No mass. No ductal dilation. Spleen: Unremarkable. No splenomegaly. Adrenals: Unremarkable. No mass. Kidneys and ureters: No mass. No hydronephrosis or hydroureter. A 0.4 cm, nonobstructing calculus in the RIGHT kidney lower pole. Stomach and bowel: No obstruction. No abnormal mucosal thickening. PELVIS: Appendix: Normal appendix. Bladder: Unremarkable. No mass. Reproductive: Hysterectomy. No gross adnexal abnormality identified bilaterally. ABDOMEN and PELVIS: Intraperitoneal space: No free air. No significant fluid collection. Bones/joints: No acute or suspicious osseous abnormality identified. Severe degenerative changes at L5-S1 with degenerative disc disease with vacuum disc phenomenon, endplate sclerosis, marginal bony spurring and facet arthropathy. Small bone island in posterior aspect of T11. Soft tissues: Unremarkable. Vasculature: No abdominal aortic aneurysm. Lymph nodes: No enlarged lymph nodes. IMPRESSION: 1. No acute findings in the abdomen and pelvis. 2. A 0.4 cm, nonobstructing calculus in the RIGHT kidney lower pole. Automatic exposure control was used as a dose lowering technique. Radiation Dose: CTDI is 23.8 mGy. DLP is 1079.1 mGy-cm. Contrast Type: isovue 300. Contrast Volume: 100cc REPORT SIGNATURE ON FILE 01/21/2020 (14:51 Eastern Time ) Signed by: Isabel Montgomery M.D. Reported By Isabel Montgomery MD on 01/21/201450 Signed By Isabel Montgomery MD on 01/21/201450 Date Time CC: Lillian Saldaña MD; Isabel Montgomery MD Techn: BAIAB Trans Dt/Tm: Trans by: DT Prt Dt/Tm: : Total DLP = 1079.00 mGy-cm : Total Radiation Dose = 16.1850 mSv Lifetime Dose: 16.1850 mSv Name Value Range Interpretation Code Description Data Mary rce(s) Supporting Document(s) ID Date Data Source [id number] 01/21/2020 12:21:00 PM [facility] Special Instructions: Lab may order repe at test if initial test elevatedPhysician If elevated, reflex second test in 4-6 hrs Name Value Range Interpretation Code Description Data Mary rce(s) Supporting Document(s) Leukocytes [#/volume] in Blood by Automated count 8.7 10*3/uL 4.45-10 .71 [facility] Erythrocytes [#/volume] in Blood by Automated count 4.83 10*6/uL 4.20 -5.40 [facility] Hemoglobin [Moles/volume] in Blood 12.5 g/dL 10.7-15.4 [facility] Hematocrit [Volume Fraction] of Blood by Automated count 40.5 % 3 7-47 [facility] Erythrocyte mean corpuscular volume [Ent itic volume] in Cord blood by Automated count 83.9 fL 80-96 N [facility] ital Erythrocyte mean corpuscular hemoglobin [Entitic mass] by Automated count 25.9 pg 27-31 Below low normal [facility] pital Erythrocyte mean corpuscular hemoglobin concentration [Mass/volume] in Cord blood 30.9 g/dL 33-37 Below low normal [facility] Erythrocyte distribution width [Entitic volume] by Automated count 15 % 11-15 [facility] Platelets [#/volume] in Blood by Automated count 305 10*3/uL 130-472 [facility] Platelet mean volume [Entitic volume] in Blood 9.9 fL 9.1-13.1 [facility] Neutrophils/100 leukocytes in Blood by Automated count 68.9 % 41- 77 [facility] Neutrophils [#/volume] in Blood by Automated count 6.0 U 1.7-7.6 [facility] Lymphocytes/100 leukocytes in Blood by Automated count 25.4 % 14- 46 [facility] Lymphocytes [#/volume] in Blood by Automated count 2.2 U 0.6-4.6 N [facility] Monocytes/100 leukocytes in Blood by Automated count 4.5 % 4-12 [facility] Monocytes [#/volume] in Blood by Automated count 0.4 U 0.2-1.2 [facility] Eosinophils/100 leukocytes in Blood by Automated count 0.7 % 0-7 N [facility] Eosinophils [#/volume] in Blood by Automated count 0.1 U 0.0-0.5 N [facility] Basophils/100 leukocytes in Blood by Automated count 0.3 % 0.4-1.3 Below low normal [facility] Basophils [#/volume] in Blood by Automated count 0.0 U 0.0-0.2 N [facility] NUCLEATED RED BLOOD CELL 0 % [facility] NUCLEATED RED BLOOD CELL# 0 U [facility] Immature granulocytes [Presence] in Blood by Automated count 0-2 [address] [facility] Immature granulocytes [#/volume] in Blood by Automated count 0.0 U 0-0.1 N [facility] Manual Differential panel - Blood NO [facility] ID Date Data Source [id number] 01/21/2020 12:45:00 PM EST [facility] Special Instructions: Lab may order repe at test if initial test elevatedPhysician If elevated, reflex second test in 4-6 hrs Name Value Range Interpretation Code Description Data Mary rce(s) Supporting Document(s) Urea nitrogen [Mass/volume] in Serum or Plasma 12 mg/dL 9-23 [facility] Sodium [Moles/volume] in Serum or Plasma 139 mmol/L 132-146 [facility] Potassium [Moles/volume] in Serum or Plasma 3.8 mmol/L 3.5-5.5 [facility] Chloride [Moles/volume] in Serum or Plasma 104 mmol/L 99-109 [facility] Carbon dioxide, total [Moles/volume] in Serum or Plasma 30 mmol/L 20 -31 [facility] Anion gap in Serum or Plasma 9 mmol/L 8-16 [facility] Glucose [Mass/volume] in Serum or Plasma 82 mg/dL 74-106 [facility] Creatinine 0.9 mg/dL 0.5-1.1 [facility] Glomerular filtration rate/1.73 sq M.pre dicted [Volume Rate/Area] in Serum or Plasma Greater Than 60 ABOVE 60 [facility] Alanine aminotransferase [Enzymatic acti vity/volume] in Serum or Plasma by With P-5'-P 24 U/L 10-49 [facility] ital Aspartate aminotransferase [Enzymatic ac tivity/volume] in Serum or Plasma by With P-5'-P 16 U/L 0-33 [facility] pital Alkaline phosphatase [Enzymatic activity/volume] in Serum or Plasma 100 U/L 45-129 [facility] Calcium [Mass/volume] in Serum or Plasma 9.0 mg/dL 8.5-10.1 [facility] Bilirubin.total [Mass/volume] in Serum or Plasma 0.4 mg/dL 0.3-1.2 [facility] Albumin [Mass/volume] in Serum or Plasma by Bromocresol purple (BCP) dye binding method 3.8 g/dL 3.2-4.8 [facility] ital Protein [Mass/volume] in Serum or Plasma 8.2 g/dL 5.7-8.2 [facility] ID Date Data Source [id number] 01/21/2020 01:26:00 PM [facility] Special Instructions: Lab may order repe at test if initial test elevatedPhysician If elevated, reflex second test in 4-6 hrs Name Value Range Interpretation Code Description Data Mary rce(s) Supporting Document(s) Lactic w Rfx (if elevated) 0.9 mmol/L 0.5-2.2 N [facility] ID Date Data Source [id number] 01/26/2020 12:17:00 PM [facility] Special Instructions: Lab may order repe at test if initial test elevatedPhysician If elevated, reflex second test in 4-6 hrs Name Value Range Interpretation Code Description Data Mary rce(s) Supporting Document(s) Bacteria identified in Blood by Culture [facility] NO GROWTH AFTER 5 DAYS ID Date Data Source [id number] 01/21/2020 12:45:00 PM [facility] Special Instructions: Lab may order repe at test if initial test elevatedPhysician If elevated, reflex second test in 4-6 hrs Name Value Range Interpretation Code Description Data Mary rce(s) Supporting Document(s) Amylase [Enzymatic activity/volume] in Serum or Plasma 39 U/L 30- 118 [address] [facility] ID Date Data Source [id number] 01/21/2020 12:45:00 PM [facility] Special Instructions: Lab may order repe at test if initial test elevatedPhysician If elevated, reflex second test in 4-6 hrs Name Value Range Interpretation Code Description Data Mary rce(s) Supporting Document(s) Lipase [Enzymatic activity/volume] in Serum or Plasma 85 U/L 73-3 93 [address] [facility] ID Date Data Source [id number] 01/21/2020 12:45:00 PM [facility] Special Instructions: Lab may order repe at test if initial test elevatedPhysician If elevated, reflex second test in 4-6 hrs Name Value Range Interpretation Code Description Data Mary rce(s) Supporting Document(s) Troponin I.cardiac [Mass/volume] in Serum or Plasma Less Than 0.015 0.00-0.09 [facility] Less than 0.09 NG/ML Negative0.10 - 0.77 NG/ML High Risk0.78 NG/ML or Greater PositiveThe WHO defined the cutoff (definition for diagnosis of [place])for this method as 0.78 ng/ml. ID Date Data Source [id number] 01/21/2020 12:14:00 PM [facility]) Name Value Range Interpretation Code Description Data Mary rce(s) Supporting Document(s) Reported Physicians See Note Reported Physici ans [facility]ORAH ([facility]) Note: Reported Physicians:Ordering: Sofía Moranending: Nguyen Toro To: Lillian Saldaña ID Date Data Source [id number] 01/21/2020 12:14:00 PM [facility]) Name Value Range Interpretation Code Description Data Mary rce(s) Supporting Document(s) Bacteria identified in Blood by Culture See Note Bacteria Bld Cult [facility] ([facility]) Note: NG5DNo growth.[id number] GROWTH AFTE R 5 DAYS ID Date Data Source [id number] 01/21/2020 12:14:00 PM [facility]) Name Value Range Interpretation Code Description Data Mary rce(s) Supporting Document(s) Bacteria identified in Blood by Culture See Note Bacteria d Cult [facility] ([facility]) Note: NG5DNo growth.[id number] GROWTH AFTE R 5 DAYS ID Date Data Source [id number] 01/21/2020 12:14:00 PM [facility] ([facility]) Name Value Range Interpretation Code Description Data Mary rce(s) Supporting Document(s) Lactic w Rfx (if elevated) 0.9 MilliMolesPerLiter_[Substance_Concentration_Units] Normal Lactic w Rfx (if elevated) [facility] ([facility]) Note: Responsible Observer: Lactic Acid Lactic Acid 400.2831 (G) Notes [TIMP] See Note NOTES [facility] ([facility]) Note: Special Instructions: Lab may orde r repeat test if initial test elevatedPhysician If elevated, reflex second test in 4-6 hrs ID Date Data Source [id number] 01/21/2020 12:14:00 PM EST [facility] ([facility]) Name Value Range Interpretation Code Description Data Mary rce(s) Supporting Document(s) Calcium [Mass/volume] in Serum or Plasma 9.0 MilliGramsPerDeciLiter_[Mass_Concentration_Units] Normal Calcium [facility] ([facility]) Note: Responsible Observer: Calcium Calc ium 400.2500 (G) Alanine aminotransferase [Enzymatic acti vity/volume] in Serum or Plasma by With P-5'-P 24 enzyme_unit_per_liter Normal ALT SerPl w P-5' -P-cCnc [facility] ([facility]) Note: Responsible Observer: SGPT/ALT SGP T/ALT 400.1750 (G) Carbon dioxide, total [Moles/volume] in Serum or Plasm a 30 MilliMolesPerLiter_[Substance_Concentration_Units] Normal CO2 [facility] ([facility]) Note: Responsible Observer: CO2 Carbon D ioxide 400.1400 (G) Bilirubin.total [Mass/volume] in Serum or Plasma 0.4 MilliGramsPerDeciLiter_[Mass_Concentration_Units] Normal Bilirub [facility] ([facility]) Note: Responsible Observer: T KAM Total Bilirubin 400.2600 (G) Potassium [Moles/volume] in Serum or Plasma 3.8 MilliMolesPerLiter_[Substance_Concentration_Units] Normal Potassium [facility] ([facility]) Note: Responsible Observer: K Potassium 400.1210 (G) Chloride [Moles/volume] in Serum or Plasma 104 MilliMolesPerLiter_[Substance_Concentration_Units] Normal Chloride [facility] ([facility]) Note: Responsible Observer: Chloride Chl oride 400.1250 (G) Glucose [Mass/volume] in Serum or Plasma 82 MilliGramsPerDeciLiter_[Mass_Concentration_Units] Normal Glucose [facility] ([facility]) Note: Responsible Observer: Glucose Gluc ose 400.1500 (G) Protein [Mass/volume] in Serum or Plasma 8.2 GramsPerDeciLiter_[Mass_Concentration_Units] Normal Pro t [facility] ([facility]) Note: Responsible Observer: TP Total Pro tein 400.2800 (G) Sodium [Moles/volume] in Serum or Plasma 139 MilliMolesPerLiter_[Substance_Concentration_Units] Normal Sodium [facility] ([facility]) Note: Responsible Observer: Sodium Sodiu m 400.1100 (G) Urea nitrogen [Mass/volume] in Serum or Plasma 12 MilliGramsPerDeciLiter_[Mass_Concentration_Units] Normal BUN [facility] ([facility]) Note: Responsible Observer: BUN Blood Ur ea Nitrogen 400.1000 (G) Aspartate aminotransferase [Enzymatic ac tivity/volume] in Serum or Plasma by With P-5'-P 16 enzyme_unit_per_liter Normal AST [facility] P-5' -P-[facility] ([facility]) Note: Responsible Observer: SGOT / AST S GOT / AST 400.1900 (G) Alkaline phosphatase [Enzymatic activity/volume] in Se rum or Plasma 100 enzyme_unit_per_liter Normal ALP [facility] ( [facility]) Note: Responsible Observer: ALP Alkaline Phosphatase 400.2000 (G) Anion gap in Serum or Plasma 9 MilliMolesPerLiter_[Substance_Concentration_Units] Normal Anion Gap [facility] ([facility]) Note: Responsible Observer: ANION GAP AN ION GAP 400.1402 (E) Albumin [Mass/volume] in Serum or Plasma by Bromocresol purple (BCP) dye binding method 3.8 GramsPerDeciLiter_[Mass_Concentration_Units] Normal Albumin [facility] ([facility]) Note: Responsible Observer: Albumin [place] min 400.2700 (G) Creatinine [Moles/volume] in Vitreous fluid 0.9 MilliGramsPerDeciLiter_[Mass_Concentration_Units] Normal Creatinine [facility] ([facility]) Note: Responsible Observer: Creatinine C reatinine 400.1600 (G) Glomerular filtration rate/1.73 sq M.pre dicted [Volume Rate/Area] in Serum or Plasma Greater Than 60 GFR/BSA.pred SerPlBld-ArV Rat [facility] ([facility]) Note: Responsible Observer: GFR Glomerul ar Filt Rate Calc 400.1605 (D) ID Date Data Source [id number] 01/21/2020 12:14:00 PM EST [facility] ([facility]) Name Value Range Interpretation Code Description Data Mary rce(s) Supporting Document(s) Erythrocyte mean corpuscular volume [Ent itic volume] in Cord blood by Automated count 83.9 FemtoLiter_[SI_Volume_Units] Normal MCV Bld Co Auto [facility] ([facility]) Note: Responsible Observer: MCV MCV 100 .0600 (B) Erythrocyte distribution width [Entitic volume] by Automated cou nt 15 percent Normal RDW RBC Auto [facility] ([facility]) Note: Responsible Observer: RDW RDW 100 .0900 (B) Manual Differential panel - Blood NO Ma nual diff Bld [facility] ([facility]) Note: Responsible Observer: CBC Manual D ifferential Added 100.1990 (B) Immature granulocytes [Presence] in Blood by Automated count See No te Normal Imm Granulocytes Bld Ql Auto [facility] ([facility]) Note: 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: IG% IG% 100.1375 (B) Platelet mean volume [Entitic volume] in Blood 9.9 FemtoLite r_[SI_Volume_Units] Normal PMV Bld [facility] ([facility]) Note: Responsible Observer: MPV MPV 100 .1100 (B) Hematocrit [Volume Fraction] of Blood by Automated count 40.5 perce nt Normal Hct VFr Bld Auto [facility] ([facility]) Note: Responsible Observer: HEMATOCRIT H EMATOCRIT 100.0500 (B) Erythrocyte mean corpuscular hemoglobin concentration [Mass/volume] in Cord blood 30.9 GramsPerDeciLiter_[Mass_Concentration_Units] Below low normal MCHC BldCo-mCnc [facility] ([facility]) Note: Responsible Observer: MCHC MCHC 1 00.0800 (B) Immature granulocytes [#/volume] in Blood by Automated count 0.0 Un it Imm Granulocytes # Bld Auto [facility] ([facility]) Note: Responsible Observer: IG# IG# 100 .1400 (B) Monocytes/100 leukocytes in Blood by Automated count 4.5 percent Normal Monocytes/leuk NFr Bld Auto [facility] ([facility]) Note: Responsible Observer: MONO % MONO % 100.1225 (B) Hemoglobin [Moles/volume] in Blood 12.5 GramsPerDeciLiter_[Mass_Concentration_Units] Normal Hgb Bld-sCnc [facility] ([facility]) Note: Responsible Observer: HGB HEMOGLOB IN 100.0400 (B) Leukocytes [#/volume] in Blood by Automated count 8.7 ThousandsPerMicroLiter_[Number_Concentration_Units] Normal WBC # Bld Auto [facility] ([facility]) Note: Responsible Observer: WBC WHITE BL OOD COUNT 100.0100 (E) Basophils/100 leukocytes in Blood by Automated count 0.3 percent Below low normal Basophils/leuk NFr Bld Auto [facility] ([facility]) Note: Responsible Observer: BASO % BASO % 100.1325 (B) Basophils [#/volume] in Blood by Automated count 0.0 Unit Normal Basophils # Bld Auto [facility] ([facility]) Note: Responsible Observer: BASO # BASO# 100.1350 (B) Eosinophils [#/volume] in Blood by Automated count 0.1 Unit Normal Eosinophil # Bld Auto [facility] ([facility]) Note: Responsible Observer: EOS # EOS# 100.1300 (D) Eosinophils/100 leukocytes in Blood by Automated count 0.7 percent Normal Eosinophil/leuk NFr Bld Auto [facility] ([facility]) Note: Responsible Observer: EOS % EOS % 100.1275 (B) Lymphocytes [#/volume] in Blood by Automated count 2.2 Unit Normal Lymphocytes # Bld Auto [facility] ([facility]) Note: Responsible Observer: LYMPH # LYMP H# 100.1200 (B) Lymphocytes/100 leukocytes in Blood by Automated count 25.4 percent Normal Lymphocytes/leuk NFr Bld Auto [facility] ([facility]) Note: Responsible Observer: LYMPH % LYMP H % 100.1175 (B) Monocytes [#/volume] in Blood by Automated count 0.4 Unit Normal Monocytes # Bld Auto [facility] ([facility]) Note: Responsible Observer: MONO # MONO# 100.1250 (C) Neutrophils/100 leukocytes in Blood by Automated count 68.9 percent Normal Neutrophils/leuk NFr Bld Auto [facility] ([facility]) Note: Responsible Observer: NEUT% NEUT% 100.1125 (B) Neutrophils [#/volume] in Blood by Automated count 6.0 Unit Normal Neutrophils # Bld Auto [facility] ([facility]) Note: Responsible Observer: NEUT# NEUT# 100.1150 (B) Platelets [#/volume] in Blood by Automated count 305 ThousandsPerMicroLiter_[Number_Concentration_Units] Normal Platelet # Bld Auto [facility] ([facility]) Note: Responsible Observer: PLATELET COU NT PLATELET COUNT 100.1000 (D) Erythrocyte mean corpuscular hemoglobin [Entitic mass] by Automated count 25.9 PicoGram_[SI_Mass_Units] Below low normal MCH RBC Qn Auto [facility] ([facility]) Note: Responsible Observer: MCH MCH 100 .0700 (B) Erythrocytes [#/volume] in Blood by Automated count 4. 83 MillionsPerMicroLiter_[Number_Concentration_Units] Normal RBC # Bld Auto [facility] ([facility]) Note: Responsible Observer: RBC Red Bloo d Count 100.0300 (B) NUCLEATED RED BLOOD CELL 0 percent NUCLEATED R ED BLOOD CELL [facility] ([facility]) Note: Responsible Observer: NRBC% NRBC% 100.1360 (B) NUCLEATED RED BLOOD CELL# 0 Unit NUCLEATED RED BLOOD CELL# [facility] ([facility]) Note: Responsible Observer: NRBC# NUCLEA SETH RBC 100.1362 (A) ID Date Data Source [id number] 01/21/2020 12:14:00 PM EST [facility] ([facility]) Name Value Range Interpretation Code Description Data Mary rce(s) Supporting Document(s) Reported Physicians See Note Reported Physici ans [facility] ([facility]) Note: Reported Physicians:Ordering: Sofía Moranending: Nguyen Toro To: Lillian Saldaña ID Date Data Source [id number] 01/21/2020 12:14:00 PM EST [facility] ([facility]) Name Value Range Interpretation Code Description Data Mary rce(s) Supporting Document(s) Troponin I.cardiac [Mass/volume] in Serum or Plasma Less Than 0.015 Normal Troponin I [facility] ([facility]) Note: Less than 0.09 NG/ML Negative 0.10 - 0.77 NG/ML High Risk0.78 NG/ML or Greater PositiveThe WHO defined the cutoff (definition for diagnosis of [place])for this method as 0.78 ng/ml.Responsible Observer: Troponin I Troponin I 600.1101 (G) ID Date Data Source [id number] 01/21/2020 12:14:00 PM [facility] ([facility]) Name Value Range Interpretation Code Description Data Mary rce(s) Supporting Document(s) Reported Physicians See Note Reported [facility] ([facility]) Note: Reported Physicians:Ordering: Joe MoranAttending: Joe ToroCopy To: Lillian Saldaña ID Date Data Source [id number] 01/21/2020 12:14:00 PM [facility] ([facility]) Name Value Range Interpretation Code Description Data Mary rce(s) Supporting Document(s) Amylase [Enzymatic activity/volume] in Serum or Plasma 39 en zyme_unit_per_liter Normal Amylase [facility] ([facility]) Note: Responsible Observer: Amylase Amyl ase 400.2300 (G) ID Date Data Source [id number] 01/21/2020 12:14:00 PM [facility] ([facility]) Name Value Range Interpretation Code Description Data Mary rce(s) Supporting Document(s) Reported Physicians See Note Reported [facility] ([facility]) Note: Reported Physicians:Ordering: Joe MoranAttending: MunaJoeCopy To: Lillian Saldaña ID Date Data Source [id number] 01/21/2020 12:14:00 PM [facility] ([facility]) Name Value Range Interpretation Code Description Data Mary rce(s) Supporting Document(s) Lipase [Enzymatic activity/volume] in Serum or Plasma 85 enz yme_unit_per_liter Normal Lipase [facility] ([facility] Note: Responsible Observer: Edelmira garcia 400.2310 (G) ID Date Data Source [id number] 01/21/2020 12:02:00 PM [facility] ED Physician Documentation NAME: KWASI DE LUNA : 1980 AGE: 39 MR#: [id number] SERVICE DATE: 01/21/[address]: Joe Toro MD PRIMARY CARE DR: Lillian Saldaña MD ROOM#: HPI (Adult, General) General Chief Complaint: GI Stated Complaint: abdominal pain,vomiting Resident [facility], travel outisde home, exposure to hot tubs:: No Time Seen by Provider: 01/21/20 11:37 Source: patient Exam Limitations: no limitations History of Present Illness Narrative: intermittent right upper abdominal pain, nausea and vomiting for 3 weeks; RUQ ultrasound on 01/18/20 was reportedly negative; denies fever, chills or diarrhea; patient says that every time she tries to eat somethingshe gets the RUQ pain and she starts vomiting History of Present Illness Timing/Duration: getting worse and intermittent Place Injury/Event Occurred (if applicable): home Past Medical History Past Medical History: Nursing Past Medical History Has Been Reviewed Allergies/Home Meds Allergies Allergy/AdvReac Type Severity Reaction Status Date / Time cefaclor [Cefaclor] Allergy Unknown Verified 01/21/20 12:16 penicillin V [Penicillin V] Allergy Unknown Verified 01/21/20 12:16 prednisone [PREDNISONE] AdvReac Intermediate TENDER Verified 01/21/20 12:16 SKIN, FLUSH FACE, INSOMNIA, SORE THROAT oxycodone [From PERCOCET] AdvReac Mild ?vomiting Verified 01/21/20 12:16 hydrocodone [From Vicodin] AdvReac Unknown 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 01/21/20 12:16 Home Medications Medication Instructions Recorded Confirmed Last Taken Type fluticasone propionate [Flonase 1 spry INTRANASAL DAILY 12/05/16 01/21/20 01/21/20 History Allergy Relief] multivitamin 1 tab PO DAILY 12/05/16 01/21/20 01/21/20 History ondansetron HCl [Zofran] 4 mg PO Q6HR PRN #20 tab 01/21/20 Unknown Rx pantoprazole 40 mg PO DAILY 01/21/20 01/21/20 01/21/20 History PMH (from Triage) Yan[place] ent Medical History PMH Reviewed/Updated as Needed: Yes Hx Drug Resistant Infections Hx MRSA: (Methicillin-resistant Staphylococcus aureus): No Hx VRE (Vancomycin-resistant enterococci): No Hx C.Diff: No Hx CRKP: No Isolation: Standard precautions Hx Recent Travel Out of the country within 10 days (where): No Hx Fever: No Hx Fever with a rash?: No Nurse screening for coronavirus: Recent Travel outside the No country (where) Has patient experienced No coronavirus symptoms Social History Does patient have suicidal/homicidal thoughts or ideation?: No Are you in a relationship with/Does anyone hit you, yell/swear at you, steal from you?: No Substance Use Hx Alcohol Use: No Hx Substance Use: No Hx Substance Use Treatment: No PFSH Social History Does the Patient have a Healthcare Proxy: No Does Patient have a DNR?: No Does Patient have a Living Will?: No Hx Recent Travel (where): No Smoking Status: Never smoker ROS Review of Systems Constitutional: Denies fever, chills, weakness and malaise Eyes: Denies vision change ENT: Denies mouth pain, nasal pain, nasal discharge, nasal congestion, throat pain and hoarseness Respiratory: Denies cough and SOB Cardiovascular: Denies chest pain and palpitations Gastrointestinal: Reports nausea, vomiting and abdominal pain; Denies diarrhea Genitourinary-Female: Denies dysuria, frequency and urgen cy Musculoskeletal: Denies neck pain, shoulder pain, arm pain and back pain Skin/Breasts: Denies rash, hives and pruritus Neurologic: Denies weakness and headache Physical Exam General Limitations: no limitations General appearance: alert, in no apparent distress and obese Head Head exam: Present atraumatic, normocephalic and normal inspection Eye Eye exam: Present normal apperance and EOMI ENT ENT exam: Present normal exam, normal orophraynx and mucous membranes moist Neck Neck exam: Present normal inspection, full ROM and supple Respiratory Respiratory exam: Present normal lung sounds bilaterally Cardiovascular Cardiovascular Exam: Present regular rate and normal rhythm GI/Abdominal GI/Abdominal exam: Present soft, tenderness (RUQ tenderness with guaarding), guarding, normal bowel sounds and other (Mcduffie's sign positive) Extremities Exam Extremities exam: Present normal inspection and full ROM; Absent tenderness Back Exam Back exam: Present normal inspection and full ROM; Absent tenderness Neurological Exam Neurological exam: Present alert, oriented X3, normal gait and other (speech normal) Psychiatric Psychiatric exam: Present normal affect and normal mood Skin Skin exam: Present warm, dry, intact and normal color Vital Signs Vital Signs: Vital Signs 01/21/20 12:13 Temperature 98.7 F Pulse Rate 72 Respiratory Rate 16 Blood Pressure 126/84 O2 Sat by Pulse Oximetry 97 MDM (comprehensive) Lab Data Labs: 01/21/20 12:14 01/21/20 12:14 Laboratory Results Last 24 hours 01/21/20 12:14: WBC 8.7, RBC 4.83, Hgb 12.5, Hct 40.5, MCV 83.9, MCH 25.9 L, MCHC 30.9 L, RDW 15, Plt Count 305, MPV 9.9, Immature Gran % (Auto) 0.2, Neut % (Auto) 68.9, Lymph % (Auto) 25.4, [place] % (Auto) 4.5, Eos % (Auto) 0.7, Baso % (Auto) 0.3 L, Lymph # (Auto) 2.2, Abs Immat Gran (auto) 0.0, Add Manual Diff No, Absolute Neutrophils 6.0, Monocytes # 0.4, Absolute Eosinophils 0.1, Absolute Basophils 0.0 01/21/20 12:14: Sodium 139, Potassium 3.8, Chloride 104, Carbon Dioxide 30, Anion Gap 9, BUN 12, Creatinine 0.9, GFR Calculation Greater than 60, Glucose 82, Calcium 9.0, Total Bilirubin 0.4, AST 16, ALT 24, Alkaline Phosphatase 100, Troponin I Less than 0.015, Serum Total Protein 8.2, Albumin 3.8, Amylase 39, Lipase 85 01/21/20 12:14: Lactic Acid 0.9 Radiology Data Radiology impressions: CT Abdomen and Pelvis: IMPRESSION: 1. No acute findings in the abdomen and pelvis. 2. A 0.4 cm, nonobstructing calculus in the RIGHT kidney lower pole. Medical Decision Making Free Text/Narative:: The patient was discussed with Dr. Saldaña, and she will schedule the patient for a HIDA scan Plan Visit Medications Administered ED medications:: Medications Generic Name Dose Route Start Last Admin Trade Name Freq PRN Reason Stop Dose Admin Sodium Chloride 1,000 mls @ 200 mls/hr 01/21/20 11:59 01/21/20 12:21 Ns 0.9% IV 01/21/20 16:58 200 mls/hr .Q5H ONE Administration Discontinued Medications Generic Name Dose Route Start Last Admin Trade Name Freq PRN Reason Stop Dose Admin Ondansetron HCl 4 mg 01/21/20 11:59 01/21/20 12:22 Ondansetron Hcl/Pf 4 Mg/2 Ml Sdv IVP 01/21/20 12:00 4 mg 1T ONE Administration Discharge Plan Admission/Discharge Dx Primary DC Diagnosis: nausea and vomiting ED Provider: Joe Toro ED Status: Sign up Time Seen by Provider: 01/21/20 11:37 Triaged At: 01/21/20 11:30 Discharge Detail Disposition: Home, Self-Care Med Rec New Prescriptions: New ondansetron HCl [Zofran] 4 mg tablet 4 mg PO Q6HR PRN (Reason: nausea and vomiting) Qty: 20 RF: 0 Continued multivitamin Capsule 1 tab PO DAILY RF: 0 fluticasone propionate [Flonase Allergy Relief] 9.9 ML spray,suspension 1 spry Intranasal DAILY RF: 0 pantoprazole 40 mg tablet,delayed release (DR/EC) 40 mg PO DAILY RF: 0 Discharge Education Printouts: Acute Nausea and Vomiting (ED) Discharge Problem: Nausea vomiting Follow Up Care/Instructions Diet/Activity/Wound Care..: take the Zofran, as prescribed for nausea; follow up with Dr. Saldaña to schedule a HIDA scan of yourgallbladder *Discharge Patient* Discharge Orders: Discharge Order (Routine); Ordered 01/21/20 Ordered By: Joe Toro Report Signers: <Electronically signed by Joe Toro MD> Joe Toro MD 01/21/20 1525 Joe Toro MD SIGNATURE DA Report Cosigners: D: BASIL 01/21/20 1202 T: BASIL 01/21/20 1202 CC: Lillian Saldaña MD Name Value Range Interpretation Code Description Data Mary rce(s) Supporting Document(s) ID Date Data Source [id number] 01/21/2020 05:30:00 AM EST [facility] Name Value Range Interpretation Code Description Data [facility] rce(s) Supporting Document(s) SARS coronavirus 2 RNA [facility] This lab was ordered by [facility] and reported by [facility]. ID Date Data Source [id number] 01/18/2020 11:47:00 AM EDT [facility] [address] [place] [address] [phone] NAME SEX PT STATUS ACCOUNT NUMBER KWASI DE LUNA REG REF [id number] ORDERING PHYSICIAN LOCATION MEDICAL RECORD NO. Lillian Saldaña MD RAD [id number] ATTENDING PHYSICIAN DATE OF DATE OF EXAM/TIME Lillian Saldaña MD 1980 01/18/20 / 1119 TYPE / EXAM US Abd single organ/quadrant REASON FOR EXAM UPPER ABD PAIN CLINICAL HISTORY: 39 years of age, Female, UPPER ABD PAIN. TECHNIQUE US: Transabdominal transducer was used to obtain multiple real-time axial and sagittal grayscale and color-flow Doppler images of the right upper abdominal quadrant. COMPARISON US: 04/14/2016 FINDINGS: PANCREAS: Limited views of the pancreas appear sonographically unremarkable. The pancreatic tail is not well-visualized secondary to overlying bowel gas. LIVER: The liver is diffusely hypoechoic in appearance. There are no hepatic cysts or masses. GALLBLADDER: There is no gallbladder sludge, cholelithiasis, gallbladder wall thickening, or perich olecystic fluid. Positive sonographic Mcduffie's sign. The common duct is normal in size with a diameter of 3 mm. RIGHT KIDNEY: The right kidney measures 10.4 cm in length, and is normal in echotexture. There is no sonographic evidence of hydronephrosis. There are no renal cysts, masses, or shadowing calculi. IMPRESSION: 1. Positive sonographic Mcduffie sign. No cholelithiasis or sludge is identified. If there is persistent concern for acute cholecystitis, consider further evaluation with HIDA scan. 2. Hepatic steatosis. Reported By Geovanny Heart DO on 01/18/20 1147 Signed By Geovanny Heart DO on 01/18/20 1149 Date Time CC: Lillian Saldaña MD; Geovanny Heart DO Techn: BUSMI Trans Dt/Tm: Trans by: DT Prt Dt/Tm: 3780-8360: Total DLP = 0.00 mGy-cm 1349-2982: Total Radiation Dose = 0.0000 mSv Lifetime Dose: 0 mSv Name Value Range Interpretation Code Description Data Mary rce(s) Supporting Document(s) ID Date Data Source [id number] 01/18/2020 11:37:00 AM EDT [facility] Name Value Range Interpretation Code Description Data Mary rce(s) Supporting Document(s) Leukocytes [#/volume] in Blood by Automated count 8.5 10*3/uL 4.45-10 .71 N [facility] Erythrocytes [#/volume] in Blood by Automated count 5.17 10*6/uL 4.20 -5.40 [facility] Hemoglobin [Moles/volume] in Blood 13.2 g/dL 10.7-15.4 N [facility] Hematocrit [Volume Fraction] of Blood by Automated count 43.2 % 3 7-47 N [facility] Erythrocyte mean corpuscular volume [Ent itic volume] in Cord blood by Automated count 83.6 fL 80-96 N [facility] ital Erythrocyte mean corpuscular hemoglobin [Entitic mass] by Automated count 25.5 pg 27-31 Below low normal [facility] pital Erythrocyte mean corpuscular hemoglobin concentration [Mass/volume] in Cord blood 30.6 g/dL 33-37 Below low normal [facility] Erythrocyte distribution width [Entitic volume] by Automated count 15 % 11-15 N [facility] Platelets [#/volume] in Blood by Automated count 321 10*3/uL 130-472 N [facility] Platelet mean volume [Entitic volume] in Blood 10.2 fL 9.1-13.1 N [facility] Neutrophils/100 leukocytes in Blood by Automated count 69.5 % 41- 77 [facility] Neutrophils [#/volume] in Blood by Automated count 5.9 U 1.7-7.6 N [facility] Lymphocytes/100 leukocytes in Blood by Automated count 24.1 % 14- 46 N [facility] Lymphocytes [#/volume] in Blood by Automated count 2.0 U 0.6-4.6 N [facility] Monocytes/100 leukocytes in Blood by Automated count 4.9 % 4-12 N [facility] Monocytes [#/volume] in Blood by Automated count 0.4 U 0.2-1.2 N [facility] Eosinophils/100 leukocytes in Blood by Automated count 0.8 % 0-7 N [facility] Eosinophils [#/volume] in Blood by Automated count 0.1 U 0.0-0.5 N [facility] Basophils/100 leukocytes in Blood by Automated count 0.5 % 0.4-1 .3 N [facility] Basophils [#/volume] in Blood by Automated count 0.0 U 0.0-0.2 N [facility] NUCLEATED RED BLOOD CELL 0 % [facility] NUCLEATED RED BLOOD CELL# 0 U [facility] Immature granulocytes [Presence] in Blood by Automated count 0-2 N [facility] Immature granulocytes [#/volume] in Blood by Automated count 0.0 U 0-0.1 N [facility] Manual Differential panel - Blood NO [facility] ID Date Data Source [id number] 01/18/2020 12:04:00 PM EDT [facility] Name Value Range Interpretation Code Description Data Mary rce(s) Supporting Document(s) Urea nitrogen [Mass/volume] in Serum or Plasma 10 mg/dL 9-23 N [facility] Sodium [Moles/volume] in Serum or Plasma 140 mmol/L 132-146 N [facility] Potassium [Moles/volume] in Serum or Plasma 4.1 mmol/L 3.5-5.5 N [facility] Chloride [Moles/volume] in Serum or Plasma 105 mmol/L 99-109 N [facility] Carbon dioxide, total [Moles/volume] in Serum or Plasma 30 mmol/L 20 -31 N [facility] Anion gap in Serum or Plasma 9 mmol/L 8-[address] [facility] Glucose [Mass/volume] in Serum or Plasma 89 mg/dL 74-106 N [facility] Creatinine 0.9 mg/dL 0.5-1.1 N [facility] Glomerular filtration rate/1.73 sq M.pre dicted [Volume Rate/Area] in Serum or Plasma Greater Than 60 ABOVE 60 [facility] Alanine aminotransferase [Enzymatic acti vity/volume] in Serum or Plasma by With P-5'-P 32 U/L 10-49 N [facility] ital Aspartate aminotransferase [Enzymatic ac tivity/volume] in Serum or Plasma by With P-5'-P 20 U/L 0-33 N [facility] pital Alkaline phosphatase [Enzymatic activity/volume] in Serum or Plasma 102 U/L 45-129 N [facility] Calcium [Mass/volume] in Serum or Plasma 9.4 mg/dL 8.5-10.1 [facility] Bilirubin.total [Mass/volume] in Serum or Plasma 0.4 mg/dL 0.3-1.2 [facility] Albumin [Mass/volume] in Serum or Plasma by Bromocresol purple (BCP) dye binding method 3.9 g/dL 3.2-4.8 [facility] ital Protein [Mass/volume] in Serum or Plasma 8.0 g/dL 5.7-8.2 [facility] ID Date Data Source [id number] 01/18/2020 11:30:00 AM [facility] ([facility]) Name Value Range Interpretation Code Description Data Mary rce(s) Supporting Document(s) Reported Physicians See Note Reported Physici ans [facility] ([facility]) Note: Reported Physicians:Ordering: Lillian JjAttending: Lillian Saldaña ID Date Data Source [id number] 01/18/2020 11:30:00 AM [facility] ([facility]) Name Value Range Interpretation Code Description Data Mary rce(s) Supporting Document(s) Alanine aminotransferase [Enzymatic acti vity/volume] in Serum or Plasma by With P-5'-P 32 enzyme_unit_per_liter Normal ALT SerPl w P-5' -P-cCnc [facility] ([facility]) Note: Responsible Observer: SGPT/ALT SGP T/ALT 400.1750 (G) Calcium [Mass/volume] in Serum or Plasma 9.4 MilliGramsPerDeciLiter_[Mass_Concentration_Units] Normal Calcium [facility] ([facility]) Note: Responsible Observer: Calcium Calc ium 400.2500 (G) Carbon dioxide, total [Moles/volume] in Serum or Plasm a 30 MilliMolesPerLiter_[Substance_Concentration_Units] Normal CO2 [facility] ([facility]) Note: Responsible Observer: CO2 Carbon D ioxide 400.1400 (G) Chloride [Moles/volume] in Serum or Plasma 105 MilliMolesPerLiter_[Substance_Concentration_Units] Normal Chloride [facility] ([facility]) Note: Responsible Observer: Chloride Chl oride 400.1250 (G) Bilirubin.total [Mass/volume] in Serum or Plasma 0.4 MilliGramsPerDeciLiter_[Mass_Concentration_Units] Normal Bilirub [facility] ([facility]) Note: Responsible Observer: T KAM Total Bilirubin 400.2600 (G) Sodium [Moles/volume] in Serum or Plasma 140 MilliMolesPerLiter_[Substance_Concentration_Units] Normal Sodium [facility] ([facility]) Note: Responsible Observer: Sodium Sodiu m 400.1100 (G) Potassium [Moles/volume] in Serum or Plasma 4.1 MilliMolesPerLiter_[Substance_Concentration_Units] Normal Potassium [facility] ([facility]) Note: Responsible Observer: K Potassium 400.1210 (G) Protein [Mass/volume] in Serum or Plasma 8.0 GramsPerDeciLiter_[Mass_Concentration_Units] Normal Pro t [facility] ([facility]) Note: Responsible Observer: TP Total Pro tein 400.2800 (G) Glucose [Mass/volume] in Serum or Plasma 89 MilliGramsPerDeciLiter_[Mass_Concentration_Units] Normal Glucose [facility] ([facility]) Note: Responsible Observer: Glucose Gluc ose 400.1500 (G) Anion gap in Serum or Plasma 9 MilliMolesPerLiter_[Substance_Concentration_Units] Normal Anion Gap [facility] ([facility]) Note: Responsible Observer: ANION GAP AN ION GAP 400.1402 (E) Urea nitrogen [Mass/volume] in Serum or Plasma 10 MilliGramsPerDeciLiter_[Mass_Concentration_Units] Normal BUN [facility] ([facility]) Note: Responsible Observer: BUN Blood Ur ea Nitrogen 400.1000 (G) Albumin [Mass/volume] in Serum or Plasma by Bromocresol purple (BCP) dye binding method 3.9 GramsPerDeciLiter_[Mass_Concentration_Units] Normal Albumin [facility] ([facility]) Note: Responsible Observer: Albumin [place] min 400.2700 (G) Aspartate aminotransferase [Enzymatic ac tivity/volume] in Serum or Plasma by With P-5'-P 20 enzyme_unit_per_liter Normal AST SerPl w P-5' -P-[facility] ([facility]) Note: Responsible Observer: SGOT / AST S GOT / AST 400.1900 (G) Glomerular filtration rate/1.73 sq M.pre dicted [Volume Rate/Area] in Serum or Plasma Greater Than 60 GFR/BSA.pred SerPld-ArV Rat [facility] ([facility]) Note: Responsible Observer: GFR Glomerul ar Filt Rate Calc 400.1605 (D) Creatinine [Moles/volume] in Vitreous fluid 0.9 MilliGramsPerDeciLiter_[Mass_Concentration_Units] Normal Creatinine [facility] ([facility]) Note: Responsible Observer: Creatinine C reatinine 400.1600 (G) Alkaline phosphatase [Enzymatic activity/volume] in Se rum or Plasma 102 enzyme_unit_per_liter Normal ALP [facility] ( [facility]) Note: Responsible Observer: ALP Alkaline Phosphatase 400.2000 (G) ID Date Data Source [id number] 01/18/2020 11:30:00 AM EDT [facility] ([facility]) Name Value Range Interpretation Code Description Data Mary rce(s) Supporting Document(s) Manual Differential panel - Blood NO Ma nual diff [facility] ([facility]) Note: Responsible Observer: CBC Manual D ifferential Added 100.1990 (B) Erythrocyte mean corpuscular volume [Ent itic volume] in Cord blood by Automated count 83.6 FemtoLiter_[SI_Volume_Units] Normal MCV Bld Co Auto [facility] ([facility]) Note: Responsible Observer: MCV MCV 100 .0600 (B) Erythrocyte distribution width [Entitic volume] by Automated cou nt 15 percent Normal RDW RBC Auto [facility] ([facility]) Note: Responsible Observer: RDW RDW 100 .0900 (B) Platelet mean volume [Entitic volume] in Blood 10.2 Fe mtoLiter_[SI_Volume_Units] Normal PMV Bld [facility] ([facility] Note: Responsible Observer: MPV MPV 100 .1100 (B) Hematocrit [Volume Fraction] of Blood by Automated count 43.2 perce nt Normal Hct VFr Bld Auto [facility] ([facility]) Note: Responsible Observer: HEMATOCRIT H EMATOCRIT 100.0500 (B) Immature granulocytes [Presence] in Blood by Automated count See No te Normal Imm Granulocytes Bld Ql Auto [facility] ([facility]) Note: 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: IG% IG% 100.1375 (B) Erythrocyte mean corpuscular hemoglobin concentration [Mass/volume] in Cord blood 30.6 GramsPerDeciLiter_[Mass_Concentration_Units] Below low normal MCHC BldCo-mCnc [facility] ([facility]) Note: Responsible Observer: MCHC MCHC 1 00.0800 (B) Immature granulocytes [#/volume] in Blood by Automated count 0.0 Un it Imm Granulocytes # Bld Auto [facility] ([facility]) Note: Responsible Observer: IG# IG# 100 .1400 (B) Monocytes/100 leukocytes in Blood by Automated count 4.9 percent Normal Monocytes/leuk NFr Bld Auto [facility] ([facility]) Note: Responsible Observer: MONO % MONO % 100.1225 (B) Leukocytes [#/volume] in Blood by Automated count 8.5 ThousandsPerMicroLiter_[Number_Concentration_Units] Normal WBC # Bld Auto [facility] ([facility]) Note: Responsible Observer: WBC WHITE BL OOD COUNT 100.0100 (E) Hemoglobin [Moles/volume] in Blood 13.2 GramsPerDeciLiter_[Mass_Concentration_Units] Normal Hgb Bld-sCnc [facility] ([facility]) Note: Responsible Observer: HGB HEMOGLOB IN 100.0400 (B) Eosinophils [#/volume] in Blood by Automated count 0.1 Unit Normal Eosinophil # Bld Auto [facility] ([facility]) Note: Responsible Observer: EOS # EOS# 100.1300 (D) Basophils/100 leukocytes in Blood by Automated count 0.5 percent Normal Basophils/leuk NFr Bld Auto [facility] ([facility]) Note: Responsible Observer: BASO % BASO % 100.1325 (B) Basophils [#/volume] in Blood by Automated count 0.0 Unit Normal Basophils # Bld Auto [facility] ([facility]) Note: Responsible Observer: BASO # BASO# 100.1350 (B) Lymphocytes/100 leukocytes in Blood by Automated count 24.1 percent Normal Lymphocytes/leuk NFr Bld Auto [facility] ([facility]) Note: Responsible Observer: LYMPH % LYMP H % 100.1175 (B) Lymphocytes [#/volume] in Blood by Automated count 2.0 Unit Normal Lymphocytes # Bld Auto [facility] ([facility]) Note: Responsible Observer: LYMPH # LYMP H# 100.1200 (B) Eosinophils/100 leukocytes in Blood by Automated count 0.8 percent Normal Eosinophil/leuk NFr Bld Auto [facility] ([facility]) Note: Responsible Observer: EOS % EOS % 100.1275 (B) Neutrophils/100 leukocytes in Blood by Automated count 69.5 percent Normal Neutrophils/leuk NFr Bld Auto [facility] ([facility]) Note: Responsible Observer: NEUT% NEUT% 100.1125 (B) Neutrophils [#/volume] in Blood by Automated count 5.9 Unit Normal Neutrophils # Bld Auto [facility] ([facility]) Note: Responsible Observer: NEUT# NEUT# 100.1150 (B) Monocytes [#/volume] in Blood by Automated count 0.4 Unit Normal Monocytes # Bld Auto [facility] ([facility]) Note: Responsible Observer: MONO # MONO# 100.1250 (C) Erythrocytes [#/volume] in Blood by Automated count 5. 17 MillionsPerMicroLiter_[Number_Concentration_Units] Normal RBC # Bld Auto [facility] ([facility]) Note: Responsible Observer: RBC Red Bloo d Count 100.0300 (B) Erythrocyte mean corpuscular hemoglobin [Entitic mass] by Automated count 25.5 PicoGram_[SI_Mass_Units] Below low normal [facility] RBC Qn Auto [facility] ([facility] [facility]) Note: Responsible Observer: MCH MCH 100 .0700 (B) Platelets [#/volume] in Blood by Automated count 321 ThousandsPerMicroLiter_[Number_Concentration_Units] Normal Platelet # Bld Auto SHERRY ([facility]) Note: Responsible Observer: PLATELET COU NT PLATELET COUNT 100.1000 (D) NUCLEATED RED BLOOD CELL 0 percent NUCLEATED R ED BLOOD CELL SHERRY ([facility]) Note: Responsible Observer: NRBC% NRBC% 100.1360 (B) NUCLEATED RED BLOOD CELL# 0 Unit NUCLEATED RED BLOOD CELL# SHERRY ([facility]) Note: Responsible Observer: NRBC# NUCLEA SETH RBC 100.1362 (A) ID Date Data Source [id number] 01/14/2020 02:04:00 PM EDT [facility] Name Value Range Interpretation Code Description Data Mary rce(s) Supporting Document(s) SARS coronavirus 2 RNA [facility] This lab was ordered by [facility] and reported by [facility]. ID Date Data Source [id number] 01/07/2020 05:32:00 AM EDT [facility] Name Value Range Interpretation Code Description Data Mary rce(s) Supporting Document(s) SARS coronavirus 2 RNA [facility] This lab was ordered by [facility] and reported by [facility]. ID Date Data Source [id number] 12/31/2019 12:50:00 PM EDT [facility] Name Value Range Interpretation Code Description Data Mary rce(s) Supporting Document(s) SARS coronavirus 2 RNA [facility] This lab was ordered by [facility] and reported by [facility]. ID Date Data Source [id number] 12/24/2019 05:30:00 AM EDT [facility] Name Value Range Interpretation Code Description Data Mary rce(s) Supporting Document(s) SARS coronavirus 2 RNA [facility] This lab was ordered by [facility] and reported by [facility]. ID Date Data Source [id number] 12/17/2019 08:00:00 AM EDT [facility] Name Value Range Interpretation Code Description Data Mary rce(s) Supporting Document(s) SARS coronavirus 2 RNA [facility] This lab was ordered by [facility] and reported by [facility]. ID Date Data Source [id number] 12/10/2019 07:50:00 AM EDT [facility] Name Value Range Interpretation Code Description Data Mary rce(s) Supporting Document(s) SARS coronavirus 2 RNA [facility] This lab was ordered by [facility] and reported by [facility]. ID Date Data Source [id number] 12/06/2019 11:00:00 AM EDT [facility] Name Value Range Interpretation Code Description Data Mary rce(s) Supporting Document(s) SARS coronavirus 2 RNA [facility] This lab was ordered by [facility] and reported by [facility]. ID Date Data Source [id number] 11/19/2019 12:19:00 PM EDT [facility] Name Value Range Interpretation Code Description Data Mary rce(s) Supporting Document(s) SARS coronavirus 2 RNA [facility] This lab was ordered by [facility] and reported by [facility]. ID Date Data Source [id number] 11/12/2019 08:43:00 AM EDT [facility] Name Value Range Interpretation Code Description Data Mary rce(s) Supporting Document(s) SARS coronavirus 2 RNA [facility] This lab was ordered by [facility] and reported by [facility]. ID Date Data Source [id number] 11/06/2019 09:06:00 AM EDT [facility] Name Value Range Interpretation Code Description Data Mary rce(s) Supporting Document(s) SARS-CoV-2, PRASHANT Not Detected Not Detected [facility] was performed using the nabil(R) SARS-CoV-2 test.This test was developed and its performance characteristics determinedby [employer]. This test has not been FDA cleared orapproved. This test has been authorized by FDA under an Emergency UseAuthorization (EUA). This test is only authorized for the duration oftime the declaration that circumstances exist justifying theauthorization of the emergency use of in vitro diagnostic tests fordetection of SARS-CoV-2 virus and/or diagnosis of COVID-19 infectionunder section 564(b)(1) of the Act, 21 U.S.C. 360bbb-3(b)(1), unlessthe authorization is terminated or revoked sooner.When diagnostic testing is negative, the possibility of a falsenegative result should be considered in the context of a patient'srecent exposures and the presence of clinical signs and symptomsconsistent with COVID-19. An individual without symptoms of COVID-19and who is not shedding SARS-CoV-2 virus would expect to have anegative (not detected) result in this assay. ID Date Data Source [id number] 11/06/2019 09:06:00 AM EDT [facility] Name Value Range Interpretation Code Description Data Mary rce(s) Supporting Document(s) Inpatient [facility] Received ID Date Data Source [id number] 10/08/2019 11:21:00 AM EDT [facility] Name Value Range Interpretation Code Description Data Mary rce(s) Supporting Document(s) SARS coronavirus 2 RNA [facility] This lab was ordered by [facility] and reported by [facility]. ID Date Data Source [id number] 10/01/2019 11:02:00 AM EDT [facility] Name Value Range Interpretation Code Description Data Mary rce(s) Supporting Document(s) SARS coronavirus 2 RNA [facility] This lab was ordered by [facility] and reported by [facility]. ID Date Data Source [id number] 09/24/2019 11:30:00 AM EDT [facility] Name Value Range Interpretation Code Description Data Mary rce(s) Supporting Document(s) SARS coronavirus 2 RNA [facility] This lab was ordered by [facility] and reported by [facility]. ID Date Data Source [id number] 09/20/2019 04:04:00 PM EDT [facility] [address] [place], [place] [address] [phone] NAME SEX PT STATUS ACCOUNT NUMBER KWASI DE LUNA PRE REF [id number] ORDERING PHYSICIAN LOCATION MEDICAL RECORD NO. Lillian Saldaña MD MAMMO [id number] ATTENDING PHYSICIAN DATE OF DATE OF EXAM/TIME Doctor Provided,No Family 1980 09/20/198 TYPE / EXAM US Breast - Limited [...] findings Reported By Alex Baird MD on 09/20/191603 Signed By Alex Baird MD on 09/20/191603 Date Time CC: Alex Baird MD; No Family PHYS Provided Techn: LATA Trans Dt/Tm: Trans by: DT Prt Dt/Tm: : Total DLP = 0.00 mGy-cm 25: Total Radiation Dose = 0.0000 mSv Lifetime Dose: 0 mSv Name Value Range Interpretation Code Description Data Mary rce(s) Supporting Document(s) ID Date Data Source [id number] 09/20/2019 03:59:00 PM EDT [facility] [address] [place] [address] [phone] NAME SEX PT STATUS ACCOUNT NUMBER KWASI DE LUNA PRE REF [id number] ORDERING PHYSICIAN LOCATION MEDICAL RECORD NO. Lillian Saldaña MD MAMMO [id number] ATTENDING PHYSICIAN DATE OF DATE OF EXAM/TIME Doctor Provided,No Family 1980 09/20/19 / 3 TYPE / EXAM DIG MAMMO SCREEN [...] mammogram was read with the assistance of M-SkilledWizard, an FDA-approved computer- aided detection system for mammography. Reported By Alex Baird MD on 09/20/19 1559 Signed By Alex Baird MD on 09/20/19 1604 Date Time CC: Alex Baird MD; No Family PHYS Provided Techn: PELBU Trans Dt/Tm: Trans by: DT Prt Dt/Tm: 11: Total DLP = 0.00 mGy-cm : Total Radiation Dose = 0.0000 mSv Lifetime Dose: 0 mSv Name Value Range Interpretation Code Description Data Mary rce(s) Supporting Document(s) ID Date Data Source [id number] 09/17/2019 11:31:00 AM EDT [facility] Name Value Range Interpretation Code Description Data Mary rce(s) Supporting Document(s) SARS CORONAVIRUS 2 RNA [facility] This lab was ordered by [facility] and reported by [facility]. ID Date Data Source [id number] 09/12/2019 11:30:00 AM EDT [facility] [address] [place], [place] [address] [phone] NAME SEX PT STATUS ACCOUNT NUMBER KWASI DE LUNA REG REF [id number] ORDERING PHYSICIAN LOCATION MEDICAL RECORD NO. Lillian Saldaña MD MAMMO [id number] ATTENDING PHYSICIAN DATE OF DATE OF EXAM/TIME [...] mammogram was read with the assistance of M-SkilledWizard, an FDA-approved computer-aided detection system for mammography. Reported By Alex Baird MD on 09/12/19 1130 Signed By Alex Baird MD on 09/12/19 1145 Date Time CC: Lillian Saldaña MD; Alex Baird MD Techn: BAKLE Trans Dt/Tm: Trans by: DT Prt Dt/Tm: : Total DLP = 0.00 mGy-cm : Total Radiation Dose = 0.0000 mSv Lifetime Dose: 0 mSv Name Value Range Interpretation Code Description Data Mary rce(s) Supporting Document(s) ID Date Data Source [id number] 09/11/2019 02:30:00 PM EDT [facility] Name Value Range Interpretation Code Description Data Mary rce(s) Supporting Document(s) [facility] JQEBMr4iRcCERaDdBNPhHtdFTGzzLFrmWGJpC8M0JYdmMg0BSYuzsdWhBHUwDi0+EXYyHD8lud5rPXDp gMy [file] 6InaIqtdumRkWxx6OqY/3NlIs/6f8v6PFoMcqnoR4CO96dBbXIIQFyB335TshjlcZr2/K6nMIurBT+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 [file] Feu9H5wBrZoTu5JO295aekg8AVku4x5UjKu019b4gUlM7bvcVO/Vtj9RyjP+[place]+2FWMt2jATJ12eh/g fbS4uE6VqMtQffYwt2PKXU7lLMRD+mwOR78bjsf8qr OfoBb6xJtUH62sWxiU2nms6D5c9ON9Ps5nEiA4hOxFgfAhn0/Z5KXT5cfFh2v97knyx82ywV3cIqWkwx CsSRl34fiamDD0tRx0JgCU1AGdzYXyaq/dnZK7w4kDIBw6uxxfKbBH+xIztnMbU6g5Q7vZfVGxWlDTbQ MLT9Ztvpd3s+iCfh1IWLJOon9pwAbRdXwi9LbbfLrg 8S0anBMx/a8eq7Kbe6Bm/xhfdsTuKP/SXvfUejEsLugXgeod8BdBY6Mch8sWLXQYk7utPixTPXQ3sl9x 5hRj8tp9rsy3z6v1Cb0dWcbfVXs8jZeKf8dThKOjC4i3N4tBuy4KnQ35XuJ6uzY607jZUPb5053bQtp/ keDElwk5KiCrYu4Mxq+l2A0c0cqFoDPvOZcHm86Kpe m2f7drH3rmf4Wer3cey3zgvGF2QBsH85rCOou4yR2fRwnzDUXLcN2XxWepwE1+WIAfCd49tetn8eW/Zh c/Y3Sx9pBaoreLfeu10JHueeifywir2X3gi+eYqf+omeEqBZjZ2kGD4Pvd5HNfszwjNq+/3yzjfEGkTd n7RrksKE3svuAo5dyD9nFfxs6Fz5wXZNwEZhAH0/bl 6h0tJArxUuSWs5Dur9TpVgn009z9i1L+VmXnejphVNJx8sholtsvYnbNnVFnFKzDtGWYZ8cV+FuCrelG Katheryn+TYUbQOq6J8ZhAEmiaDedtGGIQv5l9GtlFcIDZkcuZANaFyg1QFVksbuxOL1zI+ioU2V6kp4t8D+h [file] zI3Pu4DTY7ZKDb7eitoJIGwRhGZn+YoqJllR+veterans service representative/m44tDOlun49OJ+2TsHG2jlX2HoNfl5SKrKvO9DS [file] dneW9dZzmaNU73D+sanitation lead+QrCidwumrEovrMZObbgGhm [file] [employer]/xMKO8zq4Lnz7V8+lovd4cx+Q9vVWaPNSyJOY7UDPmmCAqWuR0ta5EKXrlzdjk7NHOJ2xFauxM0VXk [file] L+wFl69lYHZQHom5NgKTIDZMu6p8xXrQvyGVMVX+Weinberg kK5U6QIayTfj+si+5/UatIi1dC/POqLqOSzwD6+FPSwjrYOcaKlRdT4e1HaUc3FJs7kous4nKILlu8Sd usY2fgk11XcqfdAMism0HHx89NLleXdAkX04Ad5zH1zZAShk/tCtXbcPe7dcU09JhlL/aXJqYnIv0d3L hNt5ZU9piUo9BaDQuj1+EJ3goa1T61p+zfKl7b+zQN 81UiH9A8d6Mzxt//I+UcK9Qnd7V52JaQWNOJitg15gwFtB4AmJV4yb/lbK/P+i3N/4giuFv7gGdIF/ro hMUHvn9enNbJy8UEyf2A5QyJmxkNTjYIvCn+qhJZ9PKYE3AW2WPQ7ecrI2ORVUBRuKTOpvDK2++im/4w 13LHzE55wfzYE1B4kmajuIv8wbd8e+nkBxF4Chl5Mq WIlYrc3VV0PjG06k5PWadAmhdp5tJsrUpfdrPZGtADQH/naOTFHmV1788BWP5bnZuK6Ur0DWq8exIIN2 ZxJ1ThnQW8bWFQ/Ke50cjhvlr18yTCXT7qyVPSPkVfXJnbcdJjgS8+ljgpbcWInCxBwENT2Avomh+SURGICAL ASSISTANT CERTIFIED [file] a77D+Xd71VutRmWAmSS1kex8piaJiG3WO4f6ljVCXDoDA48q+VGXKJS+65mS4IkDkfrdv8WP9q+dj+Laborer [employer] 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 [employer] [file] BX/+Z5r4i+Q4YfAj/9eehYcoU1DUM39axeckHj/BETINA L/popzkE9JNCwTXQICpU8es3G3mXJPuBWyWZ2DZ7/maría/j875wAoGJNyuWNbEk3QXqSg8MgiRIFb+3nt [file] /7rQh+swknQWGt7yjTskYvq7H8QwNtfx5TQ5lS+/Shaq EvTqrqm8vcTKUOZj9nHsSyf6YSXESrR67KYH+hn4/SL+AXiOeJ53uQ1WqRADHSH2vD6FU0ttRVg8Bxek CbKUPzisDGZp5o1M50GH9Ztioq5kzalEACk0QNuWnyyPUg1nYs/K53yphixJSDCvEXu/lgA9ujV60MSX tz1bvfwTtRybhvE8blGzjZ8mCE12K0+p3gmmJC6eUz kLd0CFu/XRZcYp1349FCSTX7b/QcovxhqlAeP7c4Bn8h3SEBYPudmDlF+OdaTvPitl+bhhk4Aewmx+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 [file] K+M69ALLNL+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/jAWCaBCssZk5zsn/guglby6kkHct0/WpeTLR1T7KZWo2H9ahf3CsFUj41/XuK+5qz1 GlFMUSUNhpbccg+3kmGDYVethhGTDecNt00PO2RoDk QeULsE0ck+a446w2L/nsZED7saRofqaoTj/yQFrpmnnjdzFWmamF2yd5SDjX3uvM+ZQtCJmgzfNpaSq7 x5mgphdyi26dXFQPxcuE7c8XxJePhX4VXp+lWaibnEn2Atcp332SSGz39jMytWEulewoFnDF0xJK0dL5 URXUnBLIKV0Q8jHHWArPXXMSxJlKhmNnk3b2X1/iNE [file] operations support coordinator+P3/DQ7h+b1ai3JUqhU83loFn6Xt5lvXzBS76wD2/p6WzqkBP7vCAxeN1CsML2kvPUjfKrrXg1uz/ [file] nOF/zjBGkQhLpQxVVUHlKWYPo9yWxPSqL4LjW12+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 ID Date Data Source [id number] 09/03/2019 05:30:00 AM EDT [facility] Name Value Range Interpretation Code Description Data Mary rce(s) Supporting Document(s) SARS CORONAVIRUS 2 RNA [facility] This lab was ordered by [facility] and reported by [facility]. ID Date Data Source [id number] 08/27/2019 06:00:00 AM EDT [facility] Name Value Range Interpretation Code Description Data Mary rce(s) Supporting Document(s) SARS CORONAVIRUS 2 RNA [facility] This lab was ordered by [facility] and reported by [facility]. ID Date Data Source [id number] 08/23/2019 08:45:00 AM EDT [facility] Name Value Range Interpretation Code Description Data Mary rce(s) Supporting Document(s) EGD-Colonoscopy [facility] RZGGBu2xSbECWiWcDPTgHmsEDYklHDnsBBSzF5K3DUotQo8UXAhsbiMfAAToEi0+GVSnLM2pzb2iAWCy gMy [file] GbT2l/skilled nursing/ruTMOrNxfVU2BUq7cbwKeNpt1geL5DUihYvv88yPZ4B2Dbs+9WDe29l3m10epOTX8csHlX [file] Upper sorbian/bTa6BB5w3RVht2POS6bfE1f8aqRXgpwywHXMP1+ [file] UvZgxG07HRXi9BUT7Fo7We4BUDNE0Nu4JdD3aO4Ai3D6jqJNeUunt5dXRDpVGfHVMsqX5eRvB+Maurice+Me7 GKpF3jcWN/7U94hwqFzPXqcV1r8fLK0Z2JW/U9/4I80Ejayk8c14eUOS9+ni34tmNf8VnU6sBn9H7GMn gbcnpx75O0bcyljq3OXIC6wko2oDlFp1s9izn3T1tR wzYrUl7KdTsfm+FIkMsOF5RGa10s83ZrCYU/d6SgL7zlbFXWCh5SSlQGjRHfBKxzImIg1/wtLh3trJFm PmHe0naZcI1f/eUdmf05oxGrBWCqOualMkeyaaQw2j7v/R2s/WyKT9nEA9H/KbLLC+2Iv7Vu3gGXowmv MWhxYiMC2mcyOJudPBi5Ksn/hOFtUQ0Bc+NB+EWhBT F5i2Z5hhF9Difk90ByTf9b5JzmC+c/ptuH/CYSS9BpD0gKq0QHSfpV7Erx2lJRv1R3lEGfqf9dnS3uB4 P5rR9jg6RQR0AxPSnUfPpF0aS8OpZkfF6F03aTuzV+t66I5bs9B11uWM9D7UZfzZQBoKb2g4BNs/+diesel engine fitter z/lYAc/lNWzzUva9ZAgxFcd27/jmzmcvk5YDzrqMcs ALJvVbjRCUTJ241Dq94uZ/7NLp+yPtTaDAoKNoLWdQ9LRIy9npQOHxRYFtgA1laeixUO2f1f1OqXZ1vO 8LVvXCU0jK8wlmzWrQm1GADQwMG18Zn/qG5yFzyuErQ2q5/0aC45NvF+CDxPdIzI5W7V0x+P6OO0kOrQ c0obouAraw4gyhCZOmCE/VcQBP/e/YFZtz0LESr4Oh hp54XCWh1wf4hKJOLsAljAC9WrsSTcExe/dEnJYm+ddA1urplyaw+ZHxnipF2Jjh1OkH7+LT6dFWhO6L Ia3NXFWKxfueA0qfnGUdtgDf55J5z8TxqOnRs4QPmsmClBnJnQm+3rhImyO5N5UQ6Ss0v/mYTkryFEgw JtdCN7Q7VBxcTwSN4DPoRW4rIyEIXvRty+sHd6v+dN f/JycE2lRA5z+/xzwQPORTgZwWft6AswIKsJbejNwXi8MsRKoId4u3Hh/5bikyAouyAECfxNyBlD+x6C Wtw3Ft1h04vfB7CtcAYVNcVgg6V1Hgp4d2s/tZMBwlAIflktZouY3ZxgtCCRxcx6Rxj1e3APjXpYx17h jeNE8ZJA+Dfjx9nDKCa6I7DkQks8RhoWkOh3CQu+zt +39wkesmxjAARbLAfW8qoK/A+8tTSP3O6uDbpSl/UvlqNUnnpQOkuE3LKjCpprbiXeg5Hs/e91xddQNg KN9zb9ieFLbyQdLlSMVzFBSu2hbtaJNQPtj1XKBUzMZLdZpbKO9K+JuYtfbLtIr2oo7hlmcAsDbXTRZJ CF+33QCbuF97/GEpG3I6QzcDcsqh+koV4xjQawya/4 YEJyaa71JFc9ZxF2D1sGv9Dqi965JsV1aNxe9g/KDxOKarsv1OmciGpAvWyWRkamDwSImquHHBaLPq6P 6bhI+0c+Y0W9PvZbgb/MBg0ZTBpAraJanMwcHUllgnpT/zrguaU3uuis0cCu3ASRBdzzefNH6PQLx0xu pZAo3izd47l5D3axiAc7ZK5r+hN8T4h2SJTtJ86SvT u3bkO1owblXFaTxBedBDT/tMuK6VuGX8isxgS/Piña/v5MqJPWsduI14DYXvsy0nsimwEW8oZIvpoSoX8 [file] uRPeiNMpJ8H+Rcfqkr/Q58iyx4SlBpCPiEBz28EwjVXS2u9CCeyg511xPNB1Ub6ptaktXKT+historical records administrator/U06V [file] eZAZA0Dd4L9/VETERINARY NURSE/8TkbM9RqGNt1/b+VJjPFWQtE8sGJ23HSwsT213lKjDnfQNeAAMA6rZYS6y2MTA3i [file] c/33XeEhSOq5Bgw/H1cX/R3i2dQEcMRfy2p8EMKp4YKodiT0Xr66nFjjLPRYBhM0CBOKEsbNC1KRW/Wire Steward [file] loan coordinator/7bbCUKASxzRAR7yr1tDRjirOObTx4XtfKCPcmMf [file] WwzQJotnKakjGzviSFnTVpqou3iHgayDoJvPNn+CLARIBEL 5wKAF2JFWE/ulCddapuKMy++hDONPbuV1bbBtCoDLrlukm/EXpSOFn3zWCHhsl/9Z38LGlfjoiBYQwfD tKifpuU3eAt5DML8xAS0HzXkN07KjcWVdcb2WcbkAn9Glp+4EmCWLhnvB3eFqy1wAfSXzpcRo3BHERAm jyNzXLCrq/z5SmfUROo6T5JuY8wi6XvrfO/9YfMf4/ At1pjwYNDsHWEu5OR4tR7jEkI8aF2c7XhRZ5DJ9nWzt5NdysXEulB7RQybk5Qi4RYQO6L+UULIRnnSlX zu+SbuZJijB8zgcFszSSe3m4iOYISn5pYnxvXzn16Ua4OZiWfbJmllkhkbzAJ0/CJ7ZyM6/rpuLqGUhG axCEarCvyfvBB8LocOHEOdoNFnPq/IcZAlgD6RrP46 o+lhmJ4SdX03ty/SSD6drMmk5nKA90QN+N62vQxKjBcgL+JtcmdViJH3q4kPVPqVwE8hpkaXD1fmUTB7 9T9t7dtFGXiTCBEb8tiZzQV4e1RCbPqZryIJHpjwSlFXLE89DDT6m52yhOc7n3spQC+pgbHMUzt++3XL a/lMBI8ChLBtwXzZ7JJpeNJYkUS9ummFYOksan644x M8DXuOCxrDIAaJMMDNr2gd7iDatscDBH4tMnRGxX1NvlmZY1yGaX0rh0diqILtkIH+0L4SiSrfM9rpPo 5pVLqwqP9ZH7nMZMCi9LyGlvZ4hLB7OoD6IMvzAemeyMmOaFGtKh9ihwJbv5Xg9FluozHYSM0J2KuJ/M Utn/rv3KkVHC54OX17/NEm/A8TArUQtZDnnMT0r0Yz Rrfy9aGd60JFp+dKIWpL67TrpinZHCNxUFhJAOhKn+9VJVpVV1fbJ/vdH1gLkfV1BvNuyrIwLKXcYZbB 24v/U8qo+1uEbKGYB9ocY9lpGn2zOgeo2gaihMaGPdlgudRZIGpAY11c7b4dahD2NGFg6Tq+79GMS/eliezer zMMiVewsAYLTM+BoutKF7Iogc7EwOnH5ODcKhzCxi3 EeO7mdWW6Ujknb26lT/PKcsl0J2XfOCdY1UYBi5LVP+NU+5yznUzhGKahYluRGB6NB/TTGYLhuyhY0QW hy457NxJR9vusq6XJx8nTS3wxKJ1Kqlqab5FWRKG9MOTmSVZ3qPYtW3dBI0sRqVumiP18JFeC1NLavKs W3/ZeguNX4oywG7ohvnNO1ElEyTpB6ymEN2idIMSKo 1Okkfz6bgkIW7aGmC3FuB2pjYkXyXk6c9bX1F1Zx3+weJsoboMkA8ax1ebb6G/PwniYe4UOjNGctblqV +zISZkO32qaUc6ZHboDirbhdOPPkIJRxRbO216ijNDpYqP5+NvavUdXbkZFytzP7IgFoCaZ+kLIHThRA N99tn3wAUCEuvaxMvagvdm8HCVnUmRcXp4gH88wunM RKhZ3+/TyKVqLceRgBb3a+o1lxswXy+travel pt/s0kdezfhYmLFkB1IHjG48Q6zUI+VgHhw7cCD/+x5/I7lt [file] yPqvbvni1Q1psZDJ9BzOoUPllnqbvz/Upper sorbian+swBp7bcY [file] RW3z1E5bkPlTGa9vi3A+RHolh/Cme35/battery charger+UZ28RLooBHXWVcNc6GrjEuRDqVVs8RgJpP2Vp7ej4p3f [file] +7D2RI1nsKYKhlNpicWAnywLsr+JOSÉ MIGUEL+V7sgJbmnaRTpoRY+bBIt+xW+uV3CxtNnjLLCfN+egmUuU0B [file] wXKtM6hKje0eZT3Opfs3CNR0o2JDNpJo16jgqQ9m826hu4G/N0KhesXSQHcEVWa6u3Dx3lSzf+C2/Books Binder [file] msNJRK7Er3Xkd0/vBpZ1H7d/YnBnMnu+Julián/oB/Z8ez8ZWHS4G9ei/yA0+XduQhdzDf8AIy6/O8gHetZ [file] HfSQU4RXpzBAMYWr== ID Date Data Source [id number] 08/20/2019 05:30:00 AM EDT [facility] Name Value Range Interpretation Code Description Data Mary rce(s) Supporting Document(s) SARS CORONAVIRUS 2 RNA [facility] This lab was ordered by [facility] and reported by [facility]. ID Date Data Source [id number] 08/14/2019 02:41:00 PM EDT [facility] Name Value Range Interpretation Code Description Data Mary rce(s) Supporting Document(s) SARS CORONAVIRUS 2 RNA [facility] This lab was ordered by [facility] and reported by [facility]. ID Date Data Source [id number] 08/08/2019 11:38:00 AM EDT [facility] Name Value Range Interpretation Code Description Data Mary rce(s) Supporting Document(s) SARS CORONAVIRUS 2 RNA [facility] This lab was ordered by [facility] and reported by [facility]. ID Date Data Source [id number] 08/01/2019 06:49:00 AM EDT [facility] Name Value Range Interpretation Code Description Data Mary rce(s) Supporting Document(s) SARS CORONAVIRUS 2 RNA [facility] This lab was ordered by [facility] and reported by [facility]. ID Date Data Source [id number] 07/02/2019 10:10:00 AM EDT [facility] Name Value Range Interpretation Code Description Data Mary rce(s) Supporting Document(s) SARS CORONAVIRUS 2 RNA [facility] This lab was ordered by [facility] and reported by [facility]. ID Date Data Source [id number] 05/28/2019 08:00:00 AM EDT [facility] Name Value Range Interpretation Code Description Data Mary rce(s) Supporting Document(s) EGD [facility] NHEVFo4oGuHMFbAtGCRdImfNXMrsTYmlKRUiH5J5UOsnOk5PYEiafsEaRHPvTj2+XEBaAL3opf0rLKJq gMy 6oJLXcKbhjW8LwWOQcv12CUQMgBZxGZiUxDuOqEdS5KTckZrC5JBQ9OfQcNmqlCJ8cEYX6LZBrFPdfSA TlMFPwPAJ1CtBrYp5mKVsbSMmbLr3SIO4zd2GeATUdPUSqHggUBBtfBPckGEUeGHYfJATyD064pjOkBb 9CnFPvTLa7IHOoBzN7GERuOnJ3VIWvWy1mDdNhd3Db B0YpBCz8K2dMSpntP0FbOZsuKZ6eESH4RIVcYv7VuSvdTTjmVALDP7twPsFfEZApJTNIOw5+Pj4+DWVu KR0qih23MFXgo1MyFYd0Y0Z4lJBbL7EsP1ZfYDNgqMCGu9fqUoAtDFV9NQAjPhozIM6AELWenDQvERXp OGeoAS8osoXciJA3EE5HpXstODXbTVVULt8+Pi9QYX MslgIiYfBbULPfE91mzWQnhSCiFsudEDDQYH1+ZBVsYB8von26CKGdf2PaWEy1U7xokmo8kXDnTAR5Iq GxPdWdSRBsTX0oLO6PuMZ3jSUfOB8SmLPzNN0PbOGmNZ5QO3NmOEE9U4UpmQElisCdV3BtVNRpYLRvm7 ZzZG7GJ7DCTLSsEVIrB2AhtE3zU0YhD5UzH3Jdkqnx GVVYYz7XjXI5eNQkVFZjJ3avhTdqpBTnFWdpJ7VgrAHQAGYFi87zb59ovxLiKB4+n3SkZUSpNJl29tr2 ZVAcX/cxYKBWMbg9WKlbPBMoVrZQcr6gQ3gtCiK0UUx7YrolhDR5N7eClRKN0//yieo2rdf2xz/eD+/z 8PDBum4+x4ut0yYr6jIv1DJQBPihAOWFjJKYGIRT39 sfhIk1IRelcZzsuVrQ+SKzOYNLiUGlt3wU1U9Pt4UGfgYgZbQ02+Nq9pnq9uwg3aFt6+Lm/CaaKO7er2 ZHQyfGwCDmfEv+lvP/MA87TCqtkRpoboCXHmFPSeIMB+HbG8QXPXIgGfrICM2eWFsBUiZkn4Ryd5W1GT CPDXiFAAS+QgQiISEi/u31+axCBWZXiq3S7AOXV5sI [file] S7ps6kCq9SEefg8zpax6v+x0ePjxr2e//ZRIhV/Asa'[place] [file] K31/wKVJ1AxksPNM8uSo9vsZeOBg0ewW4P8oP++SUPERVISOR FRYER FARM+JOAtbXzm+pgVXBhdfY+N9T/MXKuFoZrFz+Cxpg [file] Sales Operations Assistant/ks6L0cmQN/MJNfJOuXnCs+3aEDB0fkfI0MS0Ls+90zGQQVioQo0mZAFJ+1t9oq+o8CoHsHrEK2Aa [file] Carlos A+JPLye2HBcHo0MOIOJO+7zX8kcAio90pvqNx8mVhffalUqzD2B5vyZDqdYfS+GoO+2R5UFcdMcvmp [file] LPBt40OcosbPdtQmW9Hm6p8y8c8GvymsVpi6I9rErk04yxswRV1+GLUE REEL OPERATOR+0wHie9cEONaNojnOZHAkcMEn [file] JUVPRg== ID Date Data Source [id number] 03/01/2019 02:53:00 PM EST [facility] [address] [id number] [phone] NAME SEX PT STATUS ACCOUNT NUMBER [facility]WASI DE [facility] REG REF [id number] ORDERING PHYSICIAN LOCATION MEDICAL RECORD NO. MIKE TAE CASE [facility] [id number] ATTENDING PHYSICIAN DATE OF DATE OF EXAM/TIME Lillian Saldaña MD 1980 03/01/191443 TYPE / EXAM Xray Chest 2 view PA/LAT REASON FOR EXAM LOBAR PNEUMONIA, UNSPECIFIED ORGANISM COMPARISON: 02/21/2019, study from [facility] FINDINGS: Lung meade are clear. No [...] Reported By Ariane Mendez MD on 03/01/19 1453 Signed By Ariane Mendez MD on 03/02/19 2153 Date Time CC: Lillian Saldaña MD; Ariane Mendez MD Techn: LATA Trans Dt/Tm: Trans by: DT Prt Dt/Tm: 0045-7802: Total DLP = 0.00 mGy-cm Fluoroscopy Time (in secs): Name Value Range Interpretation Code Description Data Mary rce(s) Supporting Document(s) ID Date Data Source [id number] 02/20/2019 10:00:00 AM EST [facility] Name Value Range Interpretation Code Description Data Mary rce(s) Supporting Document(s) EGD-Colonoscopy [facility] BUIQTq9gQsEFCuIxAYWsEfxVNFpbLCctOCHcU5W7VLetFy0VOQmcrfStLFSpFr2+NKPeRY9nwr4iGGNi gMy [file] u2okail/Jo/loan coordinator/XveblwS/6aP1yXu8PIN6lO3JSQ3 wPMSYc71LTPOsFfg3Viat+gZn6aVsSn+4cRRux74/qnq0lVXLdpmCBZLYK21KWjtKB3zdsBKXBWCs4kj ujYS/4F/+daT0Low+6qkVHEgV4xn/ZoQBPrzFs+sJPhQPtxHWpvOyXPAJwmo5mnJxy8R0Ddm9v7Zo/nL 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+p80aV2a5UYZ9UqtH50/A01pOnyRtzM7u9WvlZdf [file] A6Yc9jrTq780p8lF8eo4A90i5jWd73KyTTVyS6+2o5 MlPEPZO0uVs7ivQXwGmGzNM7YMhs9W8RjM/drDTOv+1p9O5YR7c7HffLUFU1jgoQI4BS32aaPflaY1qY Chjt6iDskKkFZHmot2LLhAGQKnh4l6UIo/HvY+ZMt3ME0FQBHsWOHsOhtgu34fDvyOV9rKxWnmpCn6Q7 c7IfToL1ZjRI2sl/vLxtRZZzk1iUaB5zERmEstZOhB 4W40jPMsk2QFbwWHgcPgxSy9WKIOFqrRMHV1F0pGcLLQ2HpfUzr1WvzTIbqUJgGUOOFk1Y5ajVN92msJ Imr8C98SoA43ogAyiNSzFCnw4/ZMxmhgLmZXhTsu4v/6KDMT/6cxPEdN0Uux3o/NoA4ga8VN+KEG++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 [file] Car Framer/ZfSrSWykfQNNEQ9Z0+b9XIqxv4fUC4LPRrl8qXM9yBBnYou9BGYadNwdDZT7raff0U0i8qsDIls6 CYxjxpuMtvpIL9WECEki6fB/7TLpdipzrk380MaINM/0aamySX+1vgWGKo4iYM9VT/Rmbd1//GZwmPUG O3fC4gfoesuifhY2LaNnP2kCyHaaGnmnH0eYPmvsfz jSsSq4nAnXZZu+1lc+RLkCW4yswqIdRbkFBbXu5/iKFjKlyn8fII7WfwbUPB7fwocZ8N+oaPUgiYUVll FagbBs3stm3VtT33leidCDZPoNn8O/juZpi+Gjpa+VZzhaj7jIXfnyqXu7uj7+Mkz6P4ZV7/mVGXVMvg KZA1NkXXx80BgXqJfbp9c+3DScMFf4we/3/yCNDvRJ m2IOg7j3nZP+Suki/f9bY0yGwnWvs6yYKCkJoUdkaUYy15bjutVvA6jLFCl0Vs5XETJJLyqOXXFfcNs16 [file] 1FIO/4qsSrxM5l35/1Dlwkyw7Z9Op9qVrth1t669wjDVwd8i+EA77n8P0LQsoYrhz917gpyjhY+iX+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 [file] Upper sorbian/v8a/Y0FO90ZSOpwYCUf8/Eib2z2FJtl+u6Em2ILBpI9YevRjhhc5az/R+ixiCQ3a/eF1e/YrNf04k JFQ2hVQo3lqLLTx9srKWCOLWQ6gPUgjvdd+3bU1Z81 +F/qM+L6YzEbO7V/1N/uv+jX+UB2GtYmTzLTyk7wFbXLSe0kW3g/UR4sWx2NwKDh5BJMZ92e0MMGrnes tsOWDBf8frjNeCu61wFob8htSLcAWrSU52ttZwiZBxKY5BfrnGwjQwxggXd8ELrRfoKoHEFO6xTBLJ0x 91A2OwtdS3wX33yMw54p75q/ZxY0tC3EDpBO5DmM38 [file] lhMajJOoFmA90/aGAMpY0rGnEhaYyHLdwpQ17d/welder gun [file] NGkJnUB3FsE2r3SWoh9w4kJqBIz5z9eosU6fzkA6/6V8KCQvEEwArZywlE8s0l28Nvu5P/Anai/M9Xyji defect repairer glassware/iXA9dD2Ik2fzumSk8lC+EwXcSpRr2IcAcL43t3 [file] WHnFSvan9G8zmxeFZfto76263VrWxD11MHHYinRrNwi/gAtINHeguAphb0h2tOqORl1K5tvZeKoZ1+executive vp [file] bge0mPYGRmg+loan coordinator+87OgAT/3OtohHiJeufXOsC0qXqk+Vk2DwCKVYm80jd+rdaR5Lu/XasPsoYuQg57eM [file] X8MfRGt+VGRbalxbdRcdOL4JminDuJZqexHUYu9crBSPafUfvKC8rzkNtjqzjZHhzp4/Drv/67g5L/loan coordinator [file] 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/qy+o4q9hXdomte5i9EhTGJxs8SEDvSMUdjlkwCB [file] xCiv1dl4wOBHEMVnrjun30Ir3YFfZyThJNV2MHc1nq4WGFaZs4Mj6SI5JPRbJN3lQUhe7U6zZ0/iI/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 [file] 4U7BD1ezNUzcpH8lw882wTcTbwUXt+Елена+B+eWoDEwX3LLXrk73qACZam0Rl+/04YJBzIozlkodlFnGk [file] NlnoKuB7RGrAxxpdBq5JPgIqdJKmrb1JcCu8AoZxpKqRZ8pn7qaASDpLm/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+pH5w5xjeTbLgeh8OP22 [file] cHBwcHBwcHBwcHBwcHBwcHBwBwcHBwcHBwcHBwcHBwcHBwcHBwBwBwBwBwBwBwBw cHBwcHBwcHBwBwBwBwBwBwBwBw BwcHBw/sqERBLVGxgBmKofqndacf0DvWzG783TJx6+7nkGXOErHA+KIxt9zHItNHJ1gHI5Z8dgO2yHpC mIghiHLr63Ph0ph9OvZM2x3B3UqLjR6k1WGIMDkpk3pc5/bp+2xQhgS+hti+To4e63R4ih9PEb0hoYn1 KkBmuPUcti//W5VxtLjFJgCl5XRWayesPxDZQtVIDy PBLSnTw4zoUDG45OJPpte2wuCR6C0CVSatjMIlRXCwtI/MwwDu1LEREfI62o8dktdZYiGCQK0ibCrTLi TptYTOdKopmx5QXzNgQKtbF+yg7pHyZd3W80fALt3Y2KQBgWVHCUQ1bPal5uLqt9qJSgGnwiWh6OLbiS GJNOmV5oSyy5jUweXk6j+LHpGK6uO4ZmaLAa9mphrf 2r1g9cbtVjdam2YdzVygpbQSE/CrOFnbBVD2Y3iw/v5cTZSKv90kaf+HcH8ts9owsex/UJPQDR9aSTo2 MmWKqDpDgFHlGviOiCrnmzaPfP9UZBmm86JlNZGft3nkL2COF7pZ3dPW6JVqjw5ryfSDThsmNTibUdwh 9KdWFM7PHlQeKy5w6EwJhXkssz59FiN2hFdJ8O3zcD WPWX0wBmzYfS/t13OiF0ZuKmlergKWUNV8MkrZBU96ZCzaUpJMFeqM4cvJX4yaA6usg7lsKiuw2UjRZ1 KxbIQaNX7RGCkjmpVwk+CiiZsZ7lPuJ5vedKK3rcs99LcegAb6sB91QL1diOzo2+ch8jE4kgKp9+alVT xFLx83yS6sMKhkQ9VbgNdolT34ZdsWn+dS9vWmAqtS FN8dedyvVfQukJXgMGcCugIovTfkWc9dzJWV3oHAHhn3GNsGr3M8t/mAr1QVE0ShJHrb/GFeSOFClfAT +2GUdk4/hgnQF5M7nM/Izzy+30q54D6cV6zZvDHdI6MVGgDMkWNs3qQGpLN9megddxBHgNrOJ5Wm6Kdvl [file] YgQJ1FNgRjHN1fwe9YCuY2OVB5pNTzOc1OEOB6ZRKoIIyjBKYSXw== Procedure Social History Code Duration Value Status Description Data Source(s ) Smoking 02/19/2020 12:00:00 AM EST Never Smoker completed Never S sandra eCW1 ([facility]) 01/21/2020 12:13:00 PM EST Never smoker completed Never s [facility] Smoking 01/21/2020 12:13:00 PM EST Never smoker completed Never s [facility] 01/21/2020 12:05:29 PM EST No completed No [facility] 01/21/2020 12:05:29 PM EST No completed No [facility] Smoking 09/27/2019 12:00:00 AM EDT Never Smoker completed Never S sandra eCW1 ([facility]) Vital Signs ID Date Data Source UNK Name Value Range Interpretation Code Description Data Source(s) Body mass index (BMI) [Ratio] 45.3 kg/m2 45.3 k g/m2 LENORAH ([facility]) Body weight 256 [lb_av] 256 [lb_av] LENORAH ([facility]) Body height 63 [in_i] 63 [in_i] LENORAH ([facility]) Body temperature 98.3 [degF] 98.3 [degF] [facility] ([facility]) Respiratory rate 18 /min 18 /min LENORAH ([facility]) Heart rate 87 /min 87 /min LENORAH ([facility]) Diastolic blood pressure 74 mm[Hg] 74 mm[Hg] LENORAH ([facility]) Systolic blood pressure 128 mm[Hg] 128 mm[Hg] [facility] Body surface area Derived from formula 2.15 m2 2.15 m2 LENORAH ([facility]) Diastolic blood pressure 80 mm[Hg] 80 mm[Hg] eCW1 ([facility]) Systolic blood pressure 132 mm[Hg] 132 mm[Hg] e CW1 ([facility]) Body mass index (BMI) [Ratio] 42.91 kg/m2 42.91 kg/m2 [facility] ([facility]) Body height 64 [in_i] 64 [in_i] W1 ([facility]) Body weight 250 [lb_av] 250 [lb_av] W1 ([facility]) Body weight 110.735 kg 110.735 kg MEDENT ([facility], ) [place] body weight 120 [lb_av] 120 [lb_av] MEDEN T ([facility], ) Body mass index (BMI) [Ratio] 41.9 kg/m2 41.9 k g/m2 MEDENT ([facility], ) Body weight 244.12 [lb_av] 244.12 [lb_av] MEDEN T ([facility], ) Body height 64 [in_i] 64 [in_i] MEDENT ([facility], ) 5'4" Diastolic blood pressure 90 mm[Hg] 90 mm[Hg] MEDENT ([facility], ) Systolic blood pressure 127 mm[Hg] 127 mm[Hg] M EDENT ([facility], ) Body mass index (BMI) [Ratio] 45.3 kg/m2 45.3 k g/m2 LENORAH ([facility]) Body weight 255.6 [lb_av] 255.6 [lb_av] [facility] Y ([facility]) Body height 63 [in_i] 63 [in_i] LENORAH ([facility]) Respiratory rate 18 /min 18 /min LENORAH ([facility]) Heart rate 78 /min 78 /min LENORAH ([facility]) Diastolic blood pressure 86 mm[Hg] 86 mm[Hg] SHERRY ([facility]) Systolic blood pressure 120 mm[Hg] 120 mm[Hg] G RE[facility] ([facility]) Body surface area Derived from formula 2.15 m2 2.15 m2 LENORAH ([facility]) Diastolic blood pressure 78 mm[Hg] 78 mm[Hg] eCW1 ([facility]) Systolic blood pressure 132 mm[Hg] 132 mm[Hg] e CW1 ([facility]) Body mass index (BMI) [Ratio] 43.70 kg/m2 43.70 kg/m2 eCW1 ([facility]) Body height 64 [in_i] 64 [in_i] eCW1 ([facility]) Body weight 254.6 [lb_av] 254.6 [lb_av] eCW1 ([facility]) Body mass index (BMI) [Ratio] 44.6 kg/m2 44.6 k g/m2 LENORAH ([facility]) Body weight 252 [lb_av] 252 [lb_av] LENORAH ([facility]) Body height 63 [in_i] 63 [in_i] LENORAH ([facility]) Respiratory rate 20 /min 20 /min LENORAH ([facility]) Heart rate 72 /min 72 /min LENORAH ([facility]) Diastolic blood pressure 62 mm[Hg] 62 mm[Hg] LENORAH ([facility]) Systolic blood pressure 110 mm[Hg] 110 mm[Hg] [facility] ([facility]) Body surface area Derived from formula 2.13 m2 2.13 m2 LENORAH ([facility]) Body height 63 [in_i] 63 [in_i] LENORAH ([facility]) Body mass index (BMI) [Ratio] 45.3 kg/m2 45.3 k g/m2 LENORAH ([facility]) Body weight 256 [lb_av] 256 [lb_av] LENORAH ([facility]) Body height 63 [in_i] 63 [in_i] LENORAH ([facility]) Body temperature 98.4 [degF] 98.4 [degF] [facility] ([facility]) Respiratory rate 22 /min 22 /min LENORAH ([facility]) Heart rate 88 /min 88 /min LENORAH ([facility]) Body surface area Derived from formula 2.15 m2 2.15 m2 LENORAH ([facility]) Body height 63 [in_i] 63 [in_i] LENORAH ([facility]) Respiratory rate 20 /min 20 /min LENORAH ([facility]) Heart rate 72 /min 72 /min LENORAH ([facility]) Body mass index (BMI) [Ratio] 45.5 kg/m2 45.5 k g/m2 LENORAH ([facility]) Body weight 257 [lb_av] 257 [lb_av] LENORAH ([facility]) Body height 63 [in_i] 63 [in_i] LENORAH ([facility]) Body temperature 97.9 [degF] 97.9 [degF] [facility] ([facility]) Respiratory rate 18 /min 18 /min LENORAH ([facility]) Heart rate 60 /min 60 /min LENORAH ([facility] [employer] [facility]) Diastolic blood pressure 80 mm[Hg] 80 mm[Hg] LENORAH ([facility]) Systolic blood pressure 130 mm[Hg] 130 mm[Hg] G [facility] ([facility]) Oxygen saturation in Arterial blood by Pulse oximetry 97 % 97 % [facility]) Body surface area Derived from formula 2.15 m2 2.15 m2 [facility]) Body mass index (BMI) [Ratio] 45.5 kg/m2 45.5 k g/m2 [facility]) Body weight 257 [lb_av] 257 [lb_av] LENORAH ([facility]) Body height 63 [in_i] 63 [in_i] LENORAH ([facility]) Body temperature 97.9 [degF] 97.9 [degF] [place] [facility] ([facility]) Respiratory rate 24 /min 24 /min LENORAH ([facility]) Heart rate 78 /min 78 /min LENORAH ([facility]) Diastolic blood pressure 80 mm[Hg] 80 mm[Hg] LENORAH ([facility]) Systolic blood pressure 118 mm[Hg] 118 mm[Hg] G [facility] ([facility]) Oxygen saturation in Arterial blood by Pulse oximetry 98 % 98 % LENORAH ([facility]) Body surface area Derived from formula 2.15 m2 2.15 m2 LENORAH ([facility]) Body mass index (BMI) [Ratio] 45.4 kg/m2 45.4 k g/m2 [facility]) Body weight 256.125 [lb_av] 256.125 [lb_av] [facility] ([facility]) Body height 63 [in_i] 63 [in_i] LENORAH ([facility]) Body temperature 97.8 [degF] 97.8 [degF] [place] [facility] ([facility]) Respiratory rate 20 /min 20 /min LENORAH ([facility]) Heart rate 84 /min 84 /min LENORAH ([facility]) Diastolic blood pressure 74 mm[Hg] 74 mm[Hg] LENORAH ([facility]) Systolic blood pressure 122 mm[Hg] 122 mm[Hg] G [facility] ([facility]) Inhaled oxygen concentration 21 % 21 % [facility]) Inhaled oxygen flow rate 0 L/min 0 L/min [facility]) Oxygen saturation in Arterial blood by Pulse oximetry 99 % 99 % [facility]) Body surface area Derived from formula 2.15 m2 2.15 m2 LENORAH ([facility]) Patient Treatment Plan of Care Planned Activity Planned Date Details Description Data Source (s) aripiprazole 5 MG Oral Tablet [Abilify] 03/07/2020 12:00:00 AM [facility]) Emverm 100 MG Oral Tablet Chewable 01/09/2020 12:00:00 AM T [facility]) Flonase Allergy Relief 50 MCG/ACT Nasal Suspension 10/19/2019 12 :00:00 AM [facility] pantoprazole 20 MG Delayed Release Oral Tablet [Proton ix] 08/27/2019 12:00:00 AM [facility] ([facility]) Sertraline 100 MG Oral Tablet 07/10/2019 12:00:00 AM [facility]) 60 ACTUAT Budesonide 0.16 MG/ACTUAT / fo rmoterol fumarate 0.0045 MG/ACTUAT Metered Dose Inhaler [Symbicort] 06/29/2019 12:00:00 AM [facility] Azithromycin 250 MG Oral Tablet 06/26/2019 12:00:00 AM [facility]) Sertraline 100 MG Oral Tablet 06/06/2019 12:00:00 AM [facility]) Oseltamivir 75 MG Oral Capsule 05/08/2019 12:00:00 AM [facility]) Azithromycin 250 MG Oral Tablet 05/01/2019 12:00:00 AM [facility]) cefdinir 300 MG Oral Capsule 04/23/2019 12:00:00 AM [facility]) pantoprazole 20 MG Delayed Release Oral Tablet [Proton ix] 02/01/2019 12:00:00 AM [facility]) Sertraline 50 MG Oral Tablet 01/08/2019 12:00:00 AM [facility] Flonase Allergy Relief 50MCG/ACT Nasal Suspension 09/25/2018 12: 00:00 AM [facility]) Sertraline 50 MG Oral Tablet 08/30/2018 12:00:00 AM BELINDA POWELL ([facility])
[2020-04-08] MEDS ORDERED: ARIP1TAB6 (04:29)
[2020-04-08] MEDS ORDERED: SERT-138 (04:29)
[2020-04-08] MEDS ORDERED: ACETAMINOPHEN 500 MG TAB PO ONE (05:30)
[2020-04-08] MEDS ORDERED: KETOROLAC 60MG 2ML VIAL IM ONE (05:30)
--- OUTSIDE RECORDS SUMMARY | 2020-04-08 05:33 | CCD ---
Author Author [facility] Organization [facility] Address Unknown Phone Unavailable Care Team Providers Care Panel Installer Name Role Phone Jonatan Ramsey MD Unavailable [...] Unavailable Unavailable Jonatan Ramsey MD Unavailable Unavailable Jonatna Ramsey MD Unavailable Unavailable Jonatan Ramsey MD [...] Unavailable LynJonatan turk MD Unavailable Unavailable LynJonatan truk MD Unavailable Unavailable LynJonatan turk MD Unavailable [...] Unavailable Elsie, D Mike PA Unavailable Unavailable Lesie, D Mike PA Unavailable Unavailable Elsie, D [...] NRI, 54 Unavailable Unavailable MUHA, M VINITA SALES TEAM RECRUITER Unavailable Unavailable MUHA, M VINITA SALES TEAM RECRUITER Unavailable Unavailable MUHA, M VINITA SALES TEAM RECRUITER Unavailable Unavailable MUHA, M VINITA SALES TEAM RECRUITER Unavailable Unavailable MUHA, M VINITA SALES TEAM RECRUITER Unavailable Unavailable MUHA, M VINITA SALES TEAM RECRUITER Unavailable Unavailable MUHA, M VINITA SALES TEAM RECRUITER Unavailable Unavailable MUHA, M VINITA SALES TEAM RECRUITER Unavailable Unavailable MUHA, M VINITA SALES TEAM RECRUITER Unavailable Unavailable MUHA, M VINITA SALES TEAM RECRUITER Unavailable Unavailable MUHA, M VINITA SALES TEAM RECRUITER Unavailable Unavailable MUHA, M VINITA SALES TEAM RECRUITER Unavailable Unavailable MUHA, M VINITA SALES TEAM RECRUITER Unavailable Unavailable MUHA, M VINITA SALES TEAM RECRUITER Unavailable Unavailable MUHA, M VINITA SALES TEAM RECRUITER Unavailable Unavailable MUHA, M VINITA SALES TEAM RECRUITER Unavailable Unavailable MUHA, M VINITA SALES TEAM RECRUITER Unavailable Unavailable MUHA, M VINITA SALES TEAM RECRUITER Unavailable Unavailable MUHA, M VINITA SALES TEAM RECRUITER Unavailable Unavailable MUHA, M VINITA SALES TEAM RECRUITER Unavailable Unavailable MUHA, M VINITA SALES TEAM RECRUITER Unavailable Unavailable MUHA, M VINITA SALES TEAM RECRUITER Unavailable Unavailable MUHA, M VINITA SALES TEAM RECRUITER Unavailable Unavailable MUHA, M VINITA SALES TEAM RECRUITER Unavailable Unavailable MUHA, M VINITA SALES TEAM RECRUITER Unavailable Unavailable MUHA, M VINITA SALES TEAM RECRUITER Unavailable Unavailable MUHA, M VINITA SALES TEAM RECRUITER Unavailable Unavailable MUHA, M VINITA SALES TEAM RECRUITER Unavailable Unavailable MUHA, M VINITA SALES TEAM RECRUITER Unavailable Unavailable MUHA, M VINITA SALES TEAM RECRUITER Unavailable Unavailable MUHA, M VINITA SALES TEAM RECRUITER Unavailable Unavailable MUHA, M VINITA SALES TEAM RECRUITER Unavailable Unavailable MUHA, M VINITA SALES TEAM RECRUITER Unavailable Unavailable MUHA, M VINITA SALES TEAM RECRUITER Unavailable Unavailable MUHA, M VINITA SALES TEAM RECRUITER Unavailable Unavailable MUHA, M VINITA SALES TEAM RECRUITER Unavailable Unavailable MUHA, M VINITA SALES TEAM RECRUITER Unavailable Unavailable MUHA, M VINITA SALES TEAM RECRUITER Unavailable Unavailable MUHA, M VINITA SALES TEAM RECRUITER Unavailable Unavailable MUHA, M VINITA SALES TEAM RECRUITER Unavailable Unavailable MUHA, M VINITA SALES TEAM RECRUITER Unavailable Unavailable MUHA, M VINITA SALES TEAM RECRUITER Unavailable Unavailable MUHA, M VINITA SALES TEAM RECRUITER Unavailable Unavailable MUHA, M VINITA SALES TEAM RECRUITER Unavailable Unavailable MUHA, M VINITA SALES TEAM RECRUITER Unavailable Unavailable MUHA, M VINITA SALES TEAM RECRUITER Unavailable Unavailable MUHA, M VINITA SALES TEAM RECRUITER Unavailable Unavailable MUHA, M VINITA SALES TEAM RECRUITER Unavailable Unavailable MUHA, M VINITA SALES TEAM RECRUITER Unavailable Unavailable MUHA, M VINITA SALES TEAM RECRUITER Unavailable Unavailable MUHA, M VIINTA SALES TEAM RECRUITER Unavailable Unavailable MUHA, M VINITA SALES TEAM RECRUITER Unavailable Unavailable Elsie, D Mike PA Unavailable [...] is protected by Article 27-F of the [facility] Public Health law. If you continue you may have access to information: Regarding HIV / AIDS; Provided by facilities licensed or operated by the [facility] Office of Mental Health; or Provided by the [facility] Office for People With Developmental Disabilities. If such information is present, then the following [facility] mandated warning applies: This information has been [...] law may result in a fine or alf sentence or both. A general authorization for the release of medical or other information is NOT sufficient authorization for further disc losure. 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 [facility] Drug allergy cefdinir cefdinir Hives, Shortness of Breath Active [facility] ([facility]) Drug allergy cefdinir cefdinir Hives, Shortness of Breath Active [place] ([facility]) Drug allergy Cefdinir 125 MG/5ML Oral Suspension Leonid nstituted Cefdinir 125MG/5ML Oral Suspension, when reconstituted Hives, Shortness of Breath Active [facility] ([facility]) Drug allergy Cefdinir 125 MG/5ML Oral Suspension Leonid nstituted Cefdinir 125MG/5ML Oral Suspension, when reconstituted Hives, Shortness of Breath Active [place] ([facility]) Drug allergy Cefdinir 125 MG/5ML Oral Suspension Leonid nstituted Cefdinir 125MG/5ML Oral Suspension, when reconstituted Hives, Shortness of Breath Active [place] ([facility]) Drug allergy Cefdinir 125 MG/5ML Oral Suspension Leonid nstituted Cefdinir 125MG/5ML Oral Suspension, when reconstituted Hives, Shortness of Breath Active [place] ([facility]) Family History Family Member Name Family Member Gender Family Member Status Date o f Status Description Data Source(s) Unknown Unknown Problem [facility] ([facility]) Encounters Encounter Providers Location Date Indications Data Source(s ) Outpatient Attender: Lillian Saldaña MD 03/18/2020 11 :42:00 AM EST RT SIDE 6 MONTH F/U [facility] RT SIDE 6 MONTH F/U Outpatient<td ID="encounterTypeDescripti onID0">followup</td><td>Lillian Saldaña MD</td><td>[facility]</td><td>03/07/2020</td><td>2:16PM</td><td>2:44PM</td><td><content ID="encounterDiagnosisID0-0">Fatty Liver</content>, <content ID="encounterDiagnosisID0-1">Allergic Rhinitis</content>, <content ID="encounterDiagnosisID0-2">Adjustment Disorder</content>, <content ID="encounterDiagnosisID0-3">Obesity</content>, <content ID="encounterDiagnosisID0-4">Lumbago</content>, <content ID="encounterDiagnosisID0-5">Post-traumatic Stress Disorder</content>, <content ID="encounterDiagnosisID0-6">Panic Disorder</content>, <content ID="encounterDiagnosisID0-7">Billings's Esophagus Without Dysplasia</content></td> Attender: Lillian Saldaña MD [facility] 03/07/2020 02:16:00 PM EST - 03/07/2020 02:44:00 PM ES T Billings's Esophagus Without DysplasiaPanic DisorderPost-traumatic Stress DisorderLumbagoObesityAdjustment DisorderFatty LiverAllergic Rhinitis [place] ([facility]) Billings's Esophagus Without Dysplasia Panic Disorder Post-traumatic Stress Disorder Lumbago Obesity Adjustment Disorder Fatty Liver Allergic Rhinitis Outpatient [address] [place] [address], [place] [address] 02/19/2020 12:00:00 AM EST eCW1 ([facility]) Outpatient Attender: Lillian Saldaña MD 01/25/2020 09:27:00 AM EST RUQ PAIN [facility] RUQ PAIN Emergency Attender: Joe Toro MD 04/2019 11:29:00 AM EST - 01/21/2020 03:50:00 PM EST abdominal pain,vomiting [facility] abdominal pain,vomiting Patient discharged. [facility] [address] [place] [address] 01/21/2020 12:00:00 AM EST eCW1 ([facility]) Outpatient Attender: Lillian Saldaña MD 01/18/2020 10 :40:00 AM EDT RUQ PAIN,R10.10,A09 [facility] RUQ PAIN,R10.10,A09 Outpatient<td ID="encounterTypeDescripti onID1">sick visit</td><td>Lillian Saldaña MD</td><td>[facility]</td><td>01/14/2020</td><td>9:44AM</td><td>10:26AM</td><td><content ID="encounterDiagnosisID1-0">Gastrointestinal Infections</content></td> Attender: Lillian Saldaña MD [facility] 01/14/2020 09:44:00 AM EDT - 01/14/2020 10:26:07 AM EDT Gastrointestinal InfectionsGastrointesti nal Infections [place] ([facility]) Gastrointestinal Infections Gastrointestinal Infections Outpatient [address] [facility] [address] 09/27/2019 12:00:00 AM EDT eCW1 ([facility]) Outpatient Attender: Lillian Saldaña MD 09/20/2019 03 :00:00 PM EDT CALLBACK AND POSS US [facility] CALLBACK AND POSS US Outpatient Attender: Lillian Saldaña MD 09/11/2019 11 :26:00 AM EDT SCREENING/DENSE TISSUE/ BASELINE [facility] SCREENING/DENSE TISSUE/ BASELINE Outpatient<td ID="encounterTypeDescripti onID2">[Patient Encounter]</td><td>Lillian Saldaña MD</td><td></td><td>01/09/2020</td><td>09/04/2019 2:25PM</td><td>09/04/2019 11:59PM</td><td></td> Attender: Lillian Saldaña MD 09/04/2019 02:25:00 PM EDT - 09/04/2019 11:59:00 PM EDT [place] ([facility]) Outpatient<td ID="encounterTypeDescripti onID3">ANNUAL PE-followup exam</td><td>Lillian Saldaña MD</td><td>[facility]</td><td>09/04/2019</td><td>12:50PM</td><td>1:33PM</td><td><content ID="encounterDiagnosisID3-0">Adjustment Disorder</content>, <content ID="encounterDiagnosisID3-1">Post-traumatic Stress Disorder</content>, <content ID="encounterDiagnosisID3-2">Panic Disorder</content>, <content ID="encounterDiagnosisID3-3">Allergic Rhinitis</content>, <content ID="encounterDiagnosisID3-4">Lumbago</content>, <content ID="encounterDiagnosisID3-5">Routine History and Physical Adult (18 - 64 Yrs)</content>, <content ID="encounterDiagnosisID3-6">Obesity</content>, <content ID="encounterDiagnosisID3-7">Billings's Esophagus Without Dysplasia</content>, <content ID="encounterDiagnosisID3-8">Fatty Liver</content></td> Attender: Lillian Saldaña MD [facility] 09/04/2019 12:50:00 PM EDT [...] Stress DisorderAdjustment DisorderAllergic RhinitisAllergic RhinitisAllergic Rhinitis [facility] ([facility]) Fatty Liver Billings's Esophagus Without Dysplasia Obesity [...] 08:20:06 PM EDT [facility] Attender: Chinmay Perez MD 08/22/2019 08:20:06 PM EDT [facility] Attender: Chinmay Perez MD 08/21/2019 08:20:06 PM EDT [facility] Attender: Chinmay Perez MD 08/21/2019 08:20:06 PM EDT [facility] Attender: Chinmay Perez MD 08/20/2019 08:20:06 PM EDT [facility] Attender: Chinmay Perez MD 08/20/2019 08:20:06 PM EDT [facility] Outpatient<td ID="encounterTypeDescripti onID4">[Patient Encounter]</td><td>Lillian Saldaña MD</td><td></td><td>08/17/2019</td><td>07/16/2019 2:42PM</td><td>07/16/2019 11:59PM</td><td></td> Attender: Lillian Saldaña MD 08/17/2019 02:42:00 PM EDT - 07/16/2019 11:59:00 PM EDT [place] ([facility]) Outpatient<td ID="encounterTypeDescripti onID5">Telehealth Communication FU</td><td>Lillian Saldaña MD</td><td>[facility]</td><td>07/16/2019</td><td>11:33AM</td><td>1:12PM</td><td><content ID="encounterDiagnosisID5-0">Post-traumatic Stress Disorder</content>, <content ID="encounterDiagnosisID5-1">Panic Disorder</content>, <content ID="encounterDiagnosisID5-2">Adjustment Disorder</content></td> Attender: Lillian Saldaña MD [facility] 07/16/2019 11:33:00 A M EDT - 07/16/2019 01:12:42 PM EDT Adjustment DisorderPanic DisorderPost-tr aumatic Stress DisorderAdjustment DisorderPanic DisorderPost-traumatic Stress DisorderAdjustment DisorderPanic DisorderPost-traumatic Stress DisorderAdjustment DisorderPanic DisorderPost-traumatic Stress Disorder [place] ([facility]) Adjustment Disorder Panic Disorder Post-traumatic Stress Disorder Adjustment Disorder Panic Disorder Post-traumatic Stress Disorder Adjustment Disorder Panic Disorder Post-traumatic Stress Disorder Adjustment Disorder Panic Disorder Post-traumatic Stress Disorder Outpatient<td ID="encounterTypeDescripti onID6">sick visit</td><td>Mike Melara</td><td>[facility]</td><td>06/26/2019</td><td>1:04PM</td><td>1:22PM</td><td><content ID="encounterDiagnosisID6-0">Sinusitis Acute</content></td> Attender: Mike STRONG [facility] 06/26/2019 01:04:00 P M EDT - 06/26/2019 01:22:00 PM EDT Sinusitis AcuteSinusitis AcuteSinusitis AcuteSinusitis AcuteSinusitis Acute [place] ([facility]) Sinusitis Acute Sinusitis Acute Sinusitis Acute Sinusitis Acute Sinusitis Acute Attender: Chinmay Perez MD 05/28/2019 08:20:03 PM EDT [facility] Attender: Chinmay Perez MD 05/28/2019 08:20:03 PM EDT [facility] Outpatient<td ID="encounterTypeDescripti onID7">[Patient Encounter]</td><td>Mikey Ramsey MD</td><td></td><td>05/08/2019</td><td>05/01/2019 7:23PM</td><td>05/01/2019 11:59PM</td><td></td> Attender: Mikey Ramsey MD 0 07:23:00 PM EST - 05/01/2019 11:59:00 PM EST [place] ([facility]) Outpatient<td ID="encounterTypeDescripti onID8">followup</td><td>Mike Melara</td><td>[facility]</td><td>05/01/2019</td><td>1:47PM</td><td>2:22PM</td><td><content ID="encounterDiagnosisID8-0">Sinusitis Acute</content></td> Attender: Mike STRONG [facility] 05/01/2019 01:47:00 P M EST - 05/01/2019 02:22:00 PM EST Sinusitis AcuteSinusitis AcuteSinusitis AcuteSinusitis AcuteSinusitis AcuteSinusitis Acute [place] ([facility]) Sinusitis Acute Sinusitis Acute Sinusitis Acute Sinusitis Acute Sinusitis Acute Sinusitis Acute Outpatient<td ID="encounterTypeDescripti onID9">sick visit</td><td>Vinita Romano SALES TEAM RECRUITER-BC</td><td>[facility]</td><td>04/23/2019</td><td>10:05AM</td><td>10:34AM</td><td><content ID="encounterDiagnosisID9-0">Otitis Media Acute of Right Ear</content></td> Attender: VINITA DONNELLY [facility] 04/23/2019 10:05:00 AM EST - 04/23/2019 10:34:00 AM EST Otitis Media Acute of Right EarOtitis Me leonardo Acute of Right EarOtitis Media Acute of Right EarOtitis Media Acute of Right EarOtitis Media Acute of Right EarOtitis Media Acute of Right EarOtitis Media Acute of Right Ear [place] ([facility]) Otitis Media Acute of Right Ear Otitis Media Acute of Right Ear Otitis Media Acute of Right Ear Otitis Media Acute of Right Ear Otitis Media Acute of Right Ear Otitis Media Acute of Right Ear Otitis Media Acute of Right Ear Outpatient<td ID="encounterTypeDescripti onID10">sick visit</td><td>Vinita Marti Rosalina RIVEROP-</td><td>[facility]</td><td>04/12/2019</td><td>10:38AM</td><td>11:15AM</td><td><content ID="vaolorkepJosahvpxfGH32-0">Upper Respiratory Infection</content></td> Attender: VINITA DONNELLY [facility] 04/12/2019 10:38:00 AM EST - 04/12/2019 11:15:00 AM EST Upper Respiratory InfectionUpper Respira tory InfectionUpper Respiratory InfectionUpper Respiratory InfectionUpper Respiratory InfectionUpper Respiratory InfectionUpper Respiratory InfectionUpper Respiratory Infection [place] ([facility]) Upper Respiratory Infection Upper Respiratory Infection Upper Respiratory Infection Upper Respiratory Infection Upper Respiratory Infection Upper Respiratory Infection Upper Respiratory Infection Upper Respiratory Infection Outpatient Referrer: [place] 03/05/2019 09:28:00 PM EST [facility] Outpatient Attender: Mike STRONG 03/01/2019 02:18:00 PM EST J18.1 [facility] J18.1 Outpatient<td ID="encounterTypeDescripti onID10">followup</td><td>Mike Melara</td><td>[facility], [facility]</td><td>03/01/2019</td><td>1:18PM</td><td>2:03PM</td><td><content ID="[id number]">Lobar Pneumonia</content></td> Attender: Mike STRONG [facility], [facility] 03/01/2019 01:18:00 P M EST - 03/01/2019 02:03:00 PM EST Lobar PneumoniaLobar PneumoniaLobar Pneu moniaLobar PneumoniaLobar PneumoniaLobar PneumoniaLobar PneumoniaLobar Pneumonia [facility]) Lobar Pneumonia Lobar Pneumonia Lobar Pneumonia Lobar [...] active aripiprazole 5 MG Oral Tablet [Abilify] [place] ([facility]) Levofloxacin 500 MG Oral Tablet Levofloxacin 01/29/2020 12:00:00 AM EST active [facility] ([facility]) Ondansetron 4 MG Oral Tablet Ondansetron HCL 01/29/2020 12:00:00 AM EST active [facility] ([facility]) Ondansetron 4 MG Oral Tablet Ondansetron Hcl (Zofran) 4 mg tablet Ondansetron Hcl (Zofran) 4 mg tablet 01/21/2020 03:23:34 PM EST 4 MG active [facility] pantoprazole 40 MG Delayed Release Oral Tablet Pantoprazole Pantoprazole 01/21/2020 12:16:35 PM EST 40 MG active [facility] Emverm 100 MG Oral Tablet Chewable Emverm 100 MG Oral Tablet Chewable 01/09/2020 12:00:00 AM EDT 1 completed mebendazole 100 MG Chewable Tablet [Emverm] [place] ([facility]) Flonase Allergy Relief 50 MCG/ACT Nasal Suspension Christiano nase Allergy Relief 50 MCG/ACT Nasal Suspension 10/19/2019 12:00:00 AM EDT active fluticasone propionate 0.05 MG/ACTUAT Metered Dose Nasal [place] [Flonase] [facility]) pantoprazole 20 MG Delayed Release Oral Tablet [Protonix] Protonix 20 MG Oral Tablet Delayed Release Protonix 20 MG Oral Tablet Delayed Release 08/27/2019 12:00:00 AM EDT 1 active pantoprazole 20 MG Delayed Release Oral Tablet [Protonix] [place] ([facility]) Sertraline 100 MG Oral Tablet Sertraline HCl 100 MG Or al Tablet Sertraline HCl 100 MG Oral Tablet 07/10/2019 12:00:00 AM EDT active sertraline 100 MG Oral Tablet [facility]) 60 ACTUAT Budesonide 0.16 MG/ACTUAT / fo rmoterol fumarate 0.0045 MG/ACTUAT Metered Dose Inhaler [Symbicort] Symbicort 160-4.5 MCG/ACT Inhalation Aerosol Symbicort 160-4.5 MCG/ACT Inhalation Aerosol 06/29/2019 12:00:00 AM EDT active 60 ACTUAT budeso nide 0.16 MG/ACTUAT / formoterol fumarate 0.0045 MG/ACTUAT Metered Dose Inhaler [Symbicort] [place] ([facility]) Azithromycin 250 MG Oral Tablet Azithromycin 250 MG Oral Tab let 06/26/2019 12:00:00 AM EDT completed azith romycin 250 MG Oral Tablet [facility]) Sertraline 100 MG Oral Tablet Sertraline HCl 100 MG Or al Tablet Sertraline HCl 100 MG Oral Tablet 06/06/2019 12:00:00 AM EDT 1 aborted sertraline 100 MG Oral Tablet [facility]) Oseltamivir 75 MG Oral Capsule Oseltamivir Phosphate 7 5 MG Oral Capsule Oseltamivir Phosphate 75 MG Oral Capsule 05/08/2019 12:00:00 AM EST 1 completed [facility]ivir [facility] 250 MG Oral Tablet Azithromycin 250 MG Oral Tab let 05/01/2019 12:00:00 AM EST completed azith romycin 250 MG Oral Tablet [facility]) cefdinir 300 MG Oral Capsule Cefdinir 300 MG Oral Caps ule Cefdinir 300 MG Oral Capsule 04/23/2019 12:00:00 AM EST completed cefdinir 300 MG Oral Capsule [place] ([facility]) doxycycline hyclate 100 MG Oral Capsule Doxycycline Hy clate 100MG Oral Capsule Doxycycline Hyclate 100MG Oral Capsule 02/21/2019 12:00:00 AM EST active doxycycline hyclate 100 MG Oral Capsule [place] ([facility]) Sucralfate 1000 MG Oral Tablet Sucralfate 1GM Oral Tab let Sucralfate 1GM Oral Tablet 02/20/2019 12:00:00 AM EST active sucralfate 1000 MG Oral Tablet [place] ([facility]) pantoprazole 20 MG Delayed Release Oral Tablet [Protonix] Protonix 20MG Oral Tablet Delayed Release Protonix 20MG Oral Tablet Delayed Release 02/01/2019 12:00:00 AM EST 1 aborted pantoprazole 20 MG Delayed Release Oral Tablet [Protonix] [place] ([facility]) Sertraline 50 MG Oral Tablet Sertraline HCl 50MG Oral Tablet Sertraline HCl 50MG Oral Tablet 01/08/2019 12:00:00 AM EDT abort ed sertraline 50 MG Oral Tablet [place] ([facility]) Flonase Allergy Relief 50MCG/ACT Nasal Suspension Flon ase Allergy Relief 50MCG/ACT Nasal Suspension 09/25/2018 12:00:00 AM EDT aborted fluticasone propionate 0.05 MG/ACTUAT Metered Dose Nasal [place] [Flonase] [facility]) Sertraline 50 MG Oral Tablet Sertraline HCl 50MG Oral Tablet Sertraline HCl 50MG Oral Tablet 08/30/2018 12:00:00 AM EDT 1 abort ed sertraline 50 MG Oral Tablet [place] ([facility]) Insurance Providers Payer name Policy type / Coverage type Policy ID Covered alliance party ID Covered alliance party's relationship to ozuna Policy Ozuna Plan Information [employer]BS EMPIRE ELEANOR DIV [id number] [facility] [id number] [id number] [facility] [id number] WI2 [id number] [facility] Other 0 Family Dependent Judson Vincent 0 BCBS EMPIRE ELEANOR DIV [id number] [id number] [facility] O [id number] S [id number] [employer] Other 0 Family Dependent Judson Vincent 0 [employer] Other 0 Family Dependent [place] Vincent 0 [facility] [id number] 1 [id number] [facility] [id number] [employer] Other 0 Family Dependent [place] Vincent 0 [employer] Other 0 Family Dependent [place] Vincent 0 [employer] Other 0 Family Dependent Judson Vincent 0 BCBS EMPIRE ELEANOR DIV [id number] HU2 [id number] [employer] Other 0 Family Dependent [place] Vincent 0 [employer] Other 0 Family Dependent [place] Vincent 0 [employer] Other 0 Family Dependent Judson Vincent 0 [employer] Other 0 Family Dependent [place] Vincent 0 [employer] Other 0 Family Dependent [place] Vincent 0 [employer] [facility] [place] [employer] [id number] Family Depende nt [id number] [employer] Other 0 Family Dependent Judson Vincent 0 BCBS EMPIRE ELEANOR DIV [id number] HU2 [id number] EMPIRE [id number] Spouse [id number] [place] [facility] [place] [id number] Spouse [id number] PMA MANAGEMENT [facility] [id number] SP [id number] PMA MANAGEMENT [facility] [id number] SP [id number] SELF PAY UNAVAILABLE Patient UNAVAILA BLE [employer] Other 0 Family Dependent Judson Vincent 0 [employer] Other 0 Family Dependent Judson Vincent 0 [employer] [id number] [employer] [id number] [employer] Other 0 Family Dependent Judson Vincent 0 [employer] [id number] [employer] [id number] [employer] Other 0 Family Dependent Judson Vincent 0 COMM[employer] EMPIRE -PHYSICIAN [id number] 01 [id number] 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 [id number] SP [id number] [facility] Health Maintenance Organization (O) [id number] [facility] Health Maintenance Organization (O) [id number] [facility] Health Maintenance Organization (O) [id number] [employer] Other 0 Family Dependent [place] 0 [facility] Health Maintenance Organization (HMO) [id number] [facility] Health Maintenance Organization (O) [id number] [employer] Other 0 Family Dependent [place] [facility] 0 [employer] Other 0 Family Dependent [place] [facility] 0 [employer] Other 0 Family Dependent [facility] 0 [employer] Other 0 Family Dependent [facility] 0 [facility] [id number] HU2 [id number] [facility] [id number] NBA [place] SELF INSURED [id number] SP [id number] OTHER WORKERS COMPENSATION [id number] SP [id number] [facility] UNAVAILABLE [address] [place] A UNAVAILABLE [id number] UNAVAI LABLE Problems, Conditions, and Diagnoses Code Display Name Description Problem Type Effective Dates Data Source(s) L90.5 [id number] Atrophic scar Problem 02/19/2020 12:00:00 AM EST eCW1 ([facility]) D18.01 [id number] Martinez angioma Problem 02/19/2020 12:00:00 A M EST eC1 ([facility]) D23.9 [id number] Dermatofibroma Problem 02/19/2020 12:00:00 A M EST eC1 ([facility]) D22.4 [id number] Nevus of neck Problem 02/19/2020 12:00:00 AM EST [facility] ([facility]) Surgeries/Procedures Procedure Description Date Indications Data Source(s) Computed tomography of abdomen and pelvis with contrast (pro cedure) 01/21/2020 11:59:00 AM [facility] l Blood Culture 01/21/2020 12:00:00 AM [facility] Ultrasonography of abdomen (procedure) 01/18/2020 11:2 0:00 AM [facility] Medication: Kenalog 40mg/1mL [place] (Triamcinolone) [facility] Ultrasonography of breast (procedure) 09/20/2019 03:28 :00 PM [facility] Screening mammography (procedure) 09/20/2019 03:03:00 PM [facility] Screening mammography (procedure) 09/11/2019 09:23:00 AM [facility] Surgical / procedural history May 2017, total hyste rectomy (ovaries remain) Surgical / procedural history May 2017, total hysterectomy (ovaries remain) [facility] Brief Emotional Behavior Assessment Brief Emotional Behavior Assessment 09/04/2019 12:00:00 AM [facility] ([facility]) History of colonoscopy 2019, normal, Grade 3 hemorrho ids History of colonoscopy 2019, normal, Grade 3 hemorrhoids [facility]04[facility] Brief Emotional Behavior Assessment Brief Emotional Behavior Assessment 09/04/2019 12:00:00 AM [facility] ([facility]) Diagnostic radiography of chest, combine d posteroanterior and lateral (procedure) 03/01/2019 02:44:00 PM EST [facility] Results ID Date Data Source [id number] 04/03/2020 12:00:00 AM EST [facility] Name Value Range Interpretation Code Description Data Mary rce(s) Supporting Document(s) SARS-CoV2 Rapid Antigen Negative [facility] by [facility]. ID Date Data Source [id number] 03/24/2020 01:30:00 PM EST [facility] Name Value Range Interpretation Code Description Data Mary rce(s) Supporting Document(s) SARS coronavirus 2 RNA Not Detected [facility] This lab was ordered by [facility] and reported by [facility]. ID Date Data Source [id number] 03/18/2020 11:50:00 AM [facility] [address] [place] [address] [phone] NAME SEX PT STATUS ACCOUNT NUMBER KWASI DE LUNA REG REF [id number] ORDERING PHYSICIAN LOCATION MEDICAL RECORD NO. Lillian Saldaña MD MAMMO [id number] ATTENDING PHYSICIAN DATE OF DATE OF EXAM/TIME [...] Trans Dt/Tm: Trans by: DT Prt Dt/Tm: 9091-6966: Total DLP = 0.00 mGy-cm 1664-3512: Total Radiation Dose = 0.0000 mSv Lifetime Dose: 16.1850 mSv Name Value Range Interpretation Code Description Data Mary rce(s) Supporting Document(s) ID Date Data Source [id number] 03/18/2020 11:46:00 AM EST [facility] [address] [place] [address] [phone] NAME SEX PT STATUS ACCOUNT NUMBER KWASI DE [place]NA REG REF [id number] ORDERING PHYSICIAN LOCATION MEDICAL RECORD NO. Lillian Saldaña MD MAMMO [id number] ATTENDING PHYSICIAN DATE OF DATE OF EXAM/TIME [...] rce(s) Supporting Document(s) ID Date Data Source [id number] 03/17/2020 09:00:00 AM EST [facility] Name Value Range Interpretation Code Description Data Mary rce(s) Supporting Document(s) SARS coronavirus 2 RNA [facility] This lab was ordered by [facility] and reported by [facility]. ID Date Data Source [id number] 03/10/2020 07:00:00 AM EST [facility] Name Value Range Interpretation Code Description Data Mary rce(s) Supporting Document(s) SARS coronavirus 2 RNA [facility] This lab was ordered by [facility] and reported by [facility]. ID Date Data Source [id number] 03/03/2020 06:37:00 AM EST [facility] Name Value Range Interpretation Code Description Data Mary rce(s) Supporting Document(s) SARS coronavirus 2 RNA [facility] This lab was ordered by [facility] and reported by [facility]. ID Date Data Source [id number] 02/25/2020 06:34:00 AM EST [facility] Name Value Range Interpretation Code Description Data Mary rce(s) Supporting Document(s) SARS coronavirus 2 RNA [facility] This lab was ordered by [facility] and reported by [facility]. ID Date Data Source [id number] 02/18/2020 08:49:00 AM EST [facility] Name Value Range Interpretation Code Description Data Mary rce(s) Supporting Document(s) SARS coronavirus 2 RNA [facility] This lab was ordered by [facility] and reported by [facility]. ID Date Data Source [id number] 02/04/2020 07:38:00 AM EST [facility] Name Value Range Interpretation Code Description Data Mary rce(s) Supporting Document(s) SARS coronavirus 2 RNA [facility] This lab was ordered by [facility] and reported by [facility]. ID Date Data Source [id number] 02/01/2020 09:35:00 AM EST [facility] Name Value Range Interpretation Code Description Data Mary rce(s) Supporting Document(s) SARS coronavirus 2 RNA [facility] This lab was ordered by [facility] and reported by [facility]. ID Date Data Source [id number] 01/28/2020 11:35:00 AM EST [facility] Name Value Range Interpretation Code Description Data Mary rce(s) Supporting Document(s) SARS coronavirus 2 RNA [facility] This lab was ordered by [facility] and reported by [facility]. ID Date Data Source [id number] 01/28/2020 08:12:00 AM EST [facility] [address] [place], [place] [address] [phone] NAME SEX PT STATUS ACCOUNT NUMBER KWASI DE LUNA REG REF [id number] ORDERING PHYSICIAN LOCATION MEDICAL RECORD NO. Lillian Saldaña MD MD [id number] ATTENDING PHYSICIAN DATE OF DATE OF EXAM/TIME [...] rce(s) Supporting Document(s) ID Date Data Source [id number] 01/21/2020 02:51:00 PM [facility] [address] [place] [address] [phone] NAME SEX PT STATUS ACCOUNT NUMBER KWASI DE LUNA [facility] ER [id number] ORDERING PHYSICIAN LOCATION MEDICAL RECORD NO. Joe Toro MD ER [id number] ATTENDING PHYSICIAN DATE OF DATE OF EXAM/TIME [...] rce(s) Supporting Document(s) ID Date Data Source [id number] 01/21/2020 12:21:00 PM [facility] Special Instructions: Lab may order repe at test if initial test elevatedPhysician If elevated, reflex second test in 4-6 hrs Name Value Range Interpretation Code Description Data Mary rce(s) Supporting Document(s) Leukocytes [#/volume] in Blood by Automated count 8.7 10*3/uL 4.45-10 .71 N [facility] Erythrocytes [#/volume] in Blood by Automated count 4.83 10*6/uL 4.20 -5.40 N [facility] Hemoglobin [Moles/volume] in Blood 12.5 g/dL 10.7-15.4 N [facility] Hematocrit [Volume Fraction] of Blood by Automated count 40.5 % 3 7-47 N [facility] Erythrocyte mean corpuscular volume [Ent itic volume] in Cord blood by Automated count 83.9 fL 80-96 N [facility] ital Erythrocyte mean corpuscular hemoglobin [Entitic mass] by Automated count 25.9 pg 27-31 Below low normal [facility] pital Erythrocyte mean corpuscular hemoglobin concentration [Mass/volume] in Cord blood 30.9 g/dL 33-37 Below low normal [facility] Erythrocyte distribution width [Entitic volume] by Automated count 15 % 11-15 N [facility] Platelets [#/volume] in Blood by Automated count 305 10*3/uL 130-472 N [facility] Platelet mean volume [Entitic volume] in Blood 9.9 fL 9.1-13.1 N [facility] Neutrophils/100 leukocytes in Blood by Automated count 68.9 % 41- 77 N [facility] Neutrophils [#/volume] in Blood by Automated count 6.0 U 1.7-7.6 N [facility] Lymphocytes/100 leukocytes in Blood by Automated count 25.4 % 14- 46 N [facility] Lymphocytes [#/volume] in Blood by Automated count 2.2 U 0.6-4.6 N [facility] Monocytes/100 leukocytes in Blood by Automated count 4.5 % 4-12 N [facility] Monocytes [#/volume] in Blood by Automated count 0.4 U 0.2-1.2 N [facility] Eosinophils/100 leukocytes in Blood by Automated count 0.7 % 0-7 N [facility] Eosinophils [#/volume] in Blood by Automated count 0.1 U 0.0-0.5 N [facility] Basophils/100 leukocytes in Blood by Automated count 0.3 % 0.4-1.3 Below low normal [facility] Basophils [#/volume] in Blood by Automated count 0.0 U 0.0-0.2 N [facility] NUCLEATED RED BLOOD CELL 0 % [facility] NUCLEATED RED BLOOD CELL# 0 U [facility] Immature granulocytes [Presence] in Blood by Automated count 0-2 N [facility] Immature granulocytes [#/volume] in Blood by Automated count 0.0 U 0-0.1 N [facility] Manual Differential panel - Blood NO [facility] ID Date Data Source [id number] 01/21/2020 12:45:00 PM EST [facility] Special Instructions: Lab may order repe at test if initial test elevatedPhysician If elevated, reflex second test in 4-6 hrs Name Value Range Interpretation Code Description Data Mary rce(s) Supporting Document(s) Urea nitrogen [Mass/volume] in Serum or Plasma 12 mg/dL 9-23 N [facility] Sodium [Moles/volume] in Serum or Plasma 139 mmol/L 132-146 [facility] Potassium [Moles/volume] in Serum or Plasma 3.8 mmol/L 3.5-5.5 [facility] Chloride [Moles/volume] in Serum or Plasma 104 mmol/L 99-109 [facility] Carbon dioxide, total [Moles/volume] in Serum or Plasma 30 mmol/L 20 -31 [facility] Anion gap in Serum or Plasma 9 mmol/L 8-16 [facility] Glucose [Mass/volume] in Serum or Plasma 82 mg/dL 74-106 [facility] Creatinine 0.9 mg/dL 0.5-1.1 [facility] Glomerular filtration rate/1.73 sq M.pre dicted [Volume Rate/Area] in Serum or Plasma Greater Than 60 ABOVE 60 [facility] Alanine aminotransferase [Enzymatic acti vity/volume] in Serum or Plasma by With P-5'-P 24 U/L 10-49 N [facility] ital Aspartate aminotransferase [Enzymatic ac tivity/volume] in Serum or Plasma by With P-5'-P 16 U/L 0-33 [facility] pital Alkaline phosphatase [Enzymatic activity/volume] in Serum or Plasma 100 U/L 45-129 N [facility] Calcium [Mass/volume] in Serum or Plasma 9.0 mg/dL 8.5-10.1 [facility] Bilirubin.total [Mass/volume] in Serum or Plasma 0.4 mg/dL 0.3-1.2 [facility] Albumin [Mass/volume] in Serum or Plasma by Bromocresol purple (BCP) dye binding method 3.8 g/dL 3.2-4.8 N [facility] ital Protein [Mass/volume] in Serum or Plasma 8.2 g/dL 5.7-8.2 [facility] ID Date Data Source [id number] 01/21/2020 01:26:00 PM [facility] Special Instructions: Lab may order repe at test if initial test elevatedPhysician If elevated, reflex second test in 4-6 hrs Name Value Range Interpretation Code Description Data Mary rce(s) Supporting Document(s) Lactic w Rfx (if elevated) 0.9 mmol/L 0.5-2.2 N [facility] ID Date Data Source [id number] 01/26/2020 12:17:00 PM [facility] Special Instructions: Lab may order repe at test if initial test elevatedPhysician If elevated, reflex second test in 4-6 hrs Name Value Range Interpretation Code Description Data Mary rce(s) Supporting Document(s) Bacteria identified in Blood by Culture [facility] NO GROWTH AFTER 5 DAYS ID Date Data Source [id number] 01/21/2020 12:45:00 PM [facility] Special Instructions: Lab may order repe at test if initial test elevatedPhysician If elevated, reflex second test in 4-6 hrs Name Value Range Interpretation Code Description Data Mary rce(s) Supporting Document(s) Amylase [Enzymatic activity/volume] in Serum or Plasma 39 U/L 30- 118 N [facility] ID Date Data Source [id number] 01/21/2020 12:45:00 PM [facility] Special Instructions: Lab may order repe at test if initial test elevatedPhysician If elevated, reflex second test in 4-6 hrs Name Value Range Interpretation Code Description Data Mary rce(s) Supporting Document(s) Lipase [Enzymatic activity/volume] in Serum or Plasma 85 U/L 73-3 93 N [facility] ID Date Data Source [id number] 01/21/2020 12:45:00 PM [facility] Special Instructions: Lab may order repe at test if initial test elevatedPhysician If elevated, reflex second test in 4-6 hrs Name Value Range Interpretation Code Description Data Mary rce(s) Supporting Document(s) Troponin I.cardiac [Mass/volume] in Serum or Plasma Less Than 0.015 0.00-0.09 [facility] Less than 0.09 NG/ML Negative0.10 - 0.77 NG/ML High Risk0.78 NG/ML or Greater PositiveThe WHO defined the cutoff (definition for diagnosis of [place])for this method as 0.78 ng/ml. ID Date Data Source [id number] 01/21/2020 12:14:00 [facility] Name Value Range Interpretation Code Description Data Mary rce(s) Supporting Document(s) Reported Physicians See Note Reported Physici ans [place] ([facility]) Note: Reported Physicians:Ordering: Sofía Moranending: Nguyen Toro To: Lillian Saldaña ID Date Data Source [id number] 01/21/2020 12:14:00 PM [facility] Name Value Range Interpretation Code Description Data Mary rce(s) Supporting Document(s) Bacteria identified in Blood by Culture See Note Bacteria Bld Cult [place] ([facility]) Note: NG5DNo growth.[id number] GROWTH AFTE R 5 DAYS ID Date Data Source [id number] 01/21/2020 12:14:00 PM [facility] Name Value Range Interpretation Code Description Data Mary rce(s) Supporting Document(s) Bacteria identified in Blood by Culture See Note Bacteria d Cult [place] ([facility]) Note: NG5DNo growth.[id number] GROWTH AFTE R 5 DAYS ID Date Data Source [id number] 01/21/2020 12:14:00 PM [facility] ([facility]) Name Value Range Interpretation Code Description Data Mary rce(s) Supporting Document(s) Lactic w Rfx (if elevated) 0.9 MilliMolesPerLiter_[Substance_Concentration_Units] Normal Lactic w Rfx (if elevated) [place] ([facility]) Note: Responsible Observer: Lactic Acid Lactic Acid 400.2831 (G) Notes [TIMP] See Note NOTES [place] ([facility]) Note: Special Instructions: Lab may orde r repeat test if initial test elevatedPhysician If elevated, reflex second test in 4-6 hrs ID Date Data Source [id number] 01/21/2020 12:14:00 PM EST [place] ([facility]) Name Value Range Interpretation Code Description Data Mary rce(s) Supporting Document(s) Calcium [Mass/volume] in Serum or Plasma 9.0 MilliGramsPerDeciLiter_[Mass_Concentration_Units] Normal Calcium [facility] ([facility]) Note: Responsible Observer: Calcium Calc ium 400.2500 (G) Alanine aminotransferase [Enzymatic acti vity/volume] in Serum or Plasma by With P-5'-P 24 enzyme_unit_per_liter Normal ALT SerPl w P-5' -P-cCnc [place] ([facility]) Note: Responsible Observer: SGPT/ALT SGP T/ALT 400.1750 (G) Carbon dioxide, total [Moles/volume] in Serum or Plasm a 30 MilliMolesPerLiter_[Substance_Concentration_Units] Normal CO2 [facility] ([facility]) Note: Responsible Observer: CO2 Carbon D ioxide 400.1400 (G) Bilirubin.total [Mass/volume] in Serum or Plasma 0.4 MilliGramsPerDeciLiter_[Mass_Concentration_Units] Normal Bilirub [facility] ([facility]) Note: Responsible Observer: T KAM Total Bilirubin 400.2600 (G) Potassium [Moles/volume] in Serum or Plasma 3.8 MilliMolesPerLiter_[Substance_Concentration_Units] Normal Potassium [facility] ([facility]) Note: Responsible Observer: K Potassium 400.1210 (G) Chloride [Moles/volume] in Serum or Plasma 104 MilliMolesPerLiter_[Substance_Concentration_Units] Normal Chloride [facility] ([facility]) Note: Responsible Observer: Chloride Chl oride 400.1250 (G) Glucose [Mass/volume] in Serum or Plasma 82 MilliGramsPerDeciLiter_[Mass_Concentration_Units] Normal Glucose [facility] ([facility]) Note: Responsible Observer: Glucose Gluc ose 400.1500 (G) Protein [Mass/volume] in Serum or Plasma 8.2 GramsPerDeciLiter_[Mass_Concentration_Units] Normal Pro t [facility] ([facility]) Note: Responsible Observer: TP Total Pro tein 400.2800 (G) Sodium [Moles/volume] in Serum or Plasma 139 MilliMolesPerLiter_[Substance_Concentration_Units] Normal Sodium [facility] ([facility]) Note: Responsible Observer: Sodium Sodiu m 400.1100 (G) Urea nitrogen [Mass/volume] in Serum or Plasma 12 MilliGramsPerDeciLiter_[Mass_Concentration_Units] Normal BUN [facility] ([facility]) Note: Responsible Observer: BUN Blood Ur ea Nitrogen 400.1000 (G) Aspartate aminotransferase [Enzymatic ac tivity/volume] in Serum or Plasma by With P-5'-P 16 enzyme_unit_per_liter Normal AST [facility] P-5' -P-[facility] ([facility]) Note: Responsible Observer: SGOT / AST S GOT / AST 400.1900 (G) Alkaline phosphatase [Enzymatic activity/volume] in Se rum or Plasma 100 enzyme_unit_per_liter Normal ALP [facility] ( [facility]) Note: Responsible Observer: ALP Alkaline Phosphatase 400.2000 (G) Anion gap in Serum or Plasma 9 MilliMolesPerLiter_[Substance_Concentration_Units] Normal Anion Gap [facility] ([facility]) Note: Responsible Observer: ANION GAP AN ION GAP 400.1402 (E) Albumin [Mass/volume] in Serum or Plasma by Bromocresol purple (BCP) dye binding method 3.8 GramsPerDeciLiter_[Mass_Concentration_Units] Normal Albumin [facility] ([facility]) Note: Responsible Observer: Albumin [place] 400.2700 (G) Creatinine [Moles/volume] in Vitreous fluid 0.9 MilliGramsPerDeciLiter_[Mass_Concentration_Units] Normal Creatinine [facility] ([facility]) Note: Responsible Observer: Creatinine C reatinine 400.1600 (G) Glomerular filtration rate/1.73 sq M.pre dicted [Volume Rate/Area] in Serum or Plasma Greater Than 60 GFR/BSA.pred SerPlBld-ArV Rat [facility] ([facility]) Note: Responsible Observer: GFR Glomerul ar Filt Rate Calc 400.1605 (D) ID Date Data Source [id number] 01/21/2020 12:14:00 PM EST [place] ([facility]) Name Value Range Interpretation Code Description Data Mary rce(s) Supporting Document(s) Erythrocyte mean corpuscular volume [Ent itic volume] in Cord blood by Automated count 83.9 FemtoLiter_[SI_Volume_Units] Normal MCV Bld Co Auto [place] ([facility]) Note: Responsible Observer: MCV MCV 100 .0600 (B) Erythrocyte distribution width [Entitic volume] by Automated cou nt 15 percent Normal RDW RBC Auto [place] ([facility]) Note: Responsible Observer: RDW RDW 100 .0900 (B) Manual Differential panel - Blood NO Ma nual diff Bld [facility] ([facility]) Note: Responsible Observer: CBC Manual D ifferential Added 100.1990 (B) Immature granulocytes [Presence] in Blood by Automated count See No te Normal Imm Granulocytes Bld Ql Auto [place] ([facility]) Note: [id number] Ob subpoena server: IG% IG% 100.1375 (B) Platelet mean volume [Entitic volume] in Blood 9.9 FemtoLite r_[SI_Volume_Units] Normal PMV Bld [facility] ([facility] Note: Responsible Observer: MPV MPV 100 .1100 (B) Hematocrit [Volume Fraction] of Blood by Automated count 40.5 perce nt Normal Hct VFr Bld Auto [facility] ([facility]) Note: Responsible Observer: HEMATOCRIT H EMATOCRIT 100.0500 (B) Erythrocyte mean corpuscular hemoglobin concentration [Mass/volume] in Cord blood 30.9 GramsPerDeciLiter_[Mass_Concentration_Units] Below low normal MCHC BldCo-mCnc [facility] ([facility]) Note: Responsible Observer: MCHC MCHC 1 00.0800 (B) Immature granulocytes [#/volume] in Blood by Automated count 0.0 Un it Imm Granulocytes # Bld Auto [facility] ([facility]) Note: Responsible Observer: IG# IG# 100 .1400 (B) Monocytes/100 leukocytes in Blood by Automated count 4.5 percent Normal Monocytes/leuk NFr Bld Auto [facility] ([facility]) Note: Responsible Observer: MONO % MONO % 100.1225 (B) Hemoglobin [Moles/volume] in Blood 12.5 GramsPerDeciLiter_[Mass_Concentration_Units] Normal Hgb Bld-sCnc [facility] ([facility]) Note: Responsible Observer: HGB HEMOGLOB IN 100.0400 (B) Leukocytes [#/volume] in Blood by Automated count 8.7 ThousandsPerMicroLiter_[Number_Concentration_Units] Normal WBC # Bld Auto [facility] ([facility]) Note: Responsible Observer: WBC WHITE BL OOD COUNT 100.0100 (E) Basophils/100 leukocytes in Blood by Automated count 0.3 percent Below low normal Basophils/leuk NFr Bld Auto [facility] ([facility] Note: Responsible Observer: BASO % BASO % 100.1325 (B) Basophils [#/volume] in Blood by Automated count 0.0 Unit Normal Basophils # Bld Auto [facility] ([facility]) Note: Responsible Observer: BASO # BASO# 100.1350 (B) Eosinophils [#/volume] in Blood by Automated count 0.1 Unit Normal Eosinophil # Bld Auto [facility] ([facility]) Note: Responsible Observer: EOS # EOS# 100.1300 (D) Eosinophils/100 leukocytes in Blood by Automated count 0.7 percent Normal Eosinophil/leuk NFr Bld Auto [facility] ([facility]) Note: Responsible Observer: EOS % EOS % 100.1275 (B) Lymphocytes [#/volume] in Blood by Automated count 2.2 Unit Normal Lymphocytes # Bld Auto [facility] ([facility]) Note: Responsible Observer: LYMPH # LYMP H# 100.1200 (B) Lymphocytes/100 leukocytes in Blood by Automated count 25.4 percent Normal Lymphocytes/leuk NFr Bld Auto [facility] ([facility]) Note: Responsible Observer: LYMPH % LYMP H % 100.1175 (B) Monocytes [#/volume] in Blood by Automated count 0.4 Unit Normal Monocytes # Bld Auto [facility] ([facility]) Note: Responsible Observer: MONO # MONO# 100.1250 (C) Neutrophils/100 leukocytes in Blood by Automated count 68.9 percent Normal Neutrophils/leuk NFr Bld Auto [facility] ([facility]) Note: Responsible Observer: NEUT% NEUT% 100.1125 (B) Neutrophils [#/volume] in Blood by Automated count 6.0 Unit Normal Neutrophils # Bld Auto [facility] ([facility]) Note: Responsible Observer: NEUT# NEUT# 100.1150 (B) Platelets [#/volume] in Blood by Automated count 305 ThousandsPerMicroLiter_[Number_Concentration_Units] Normal Platelet # Bld Auto [facility] ([facility]) Note: Responsible Observer: PLATELET COU NT PLATELET COUNT 100.1000 (D) Erythrocyte mean corpuscular hemoglobin [Entitic mass] by Automated count 25.9 PicoGram_[SI_Mass_Units] Below low normal MCH RBC Qn Auto [facility] ([facility]) Note: Responsible Observer: MCH MCH 100 .0700 (B) Erythrocytes [#/volume] in Blood by Automated count 4. 83 MillionsPerMicroLiter_[Number_Concentration_Units] Normal RBC # Bld Auto [facility] ([facility]) Note: Responsible Observer: RBC Red Bloo d Count 100.0300 (B) NUCLEATED RED BLOOD CELL 0 percent NUCLEATED R ED BLOOD CELL [facility] ([facility]) Note: Responsible Observer: NRBC% NRBC% 100.1360 (B) NUCLEATED RED BLOOD CELL# 0 Unit NUCLEATED RED BLOOD CELL# [facility] ([facility]) Note: Responsible Observer: NRBC# NUCLEA SETH RBC 100.1362 (A) ID Date Data Source [id number] 01/21/2020 12:14:00 PM EST [facility] ([facility]) Name Value Range Interpretation Code Description Data Mary rce(s) Supporting Document(s) Reported Physicians See Note Reported Physici ans [facility] ([facility]) Note: Reported Physicians:Ordering: Sofía Moranending: Nguyen Toro To: Lillian Saldaña ID Date Data Source [id number] 01/21/2020 12:14:00 PM EST [facility] ([facility]) Name Value Range Interpretation Code Description Data Mary rce(s) Supporting Document(s) Troponin I.cardiac [Mass/volume] in Serum or Plasma Less Than 0.015 Normal Troponin I [facility] ([facility]) Note: Less than 0.09 NG/ML Negative 0.10 - 0.77 NG/ML High Risk0.78 NG/ML or Greater PositiveThe WHO defined the cutoff (definition for diagnosis of [place])for this method as 0.78 ng/ml.Responsible Observer: Troponin I Troponin I 600.1101 (G) ID Date Data Source [id number] 01/21/2020 12:14:00 PM [facility] ([facility]) Name Value Range Interpretation Code Description Data Mary rce(s) Supporting Document(s) Reported Physicians See Note Reported [facility] ([facility]) Note: Reported Physicians:Ordering: Joe MoranAttending: Joe ToroCopy To: Lillian Saldaña ID Date Data Source [id number] 01/21/2020 12:14:00 PM [facility] ([facility]) Name Value Range Interpretation Code Description Data Mary rce(s) Supporting Document(s) Amylase [Enzymatic activity/volume] in Serum or Plasma 39 en zyme_unit_per_liter Normal Amylase [facility] ([facility]) Note: Responsible Observer: Amylase Amyl ase 400.2300 (G) ID Date Data Source [id number] 01/21/2020 12:14:00 PM [facility] ([facility]) Name Value Range Interpretation Code Description Data Mary rce(s) Supporting Document(s) Reported Physicians See Note Reported [facility] ([facility]) Note: Reported Physicians:Ordering: Joe MoranAttending: MunaJoeCopy To: Lillian Saldaña ID Date Data Source [id number] 01/21/2020 12:14:00 PM [facility] ([facility]) Name Value Range Interpretation Code Description Data Mary rce(s) Supporting Document(s) Lipase [Enzymatic activity/volume] in Serum or Plasma 85 enz yme_unit_per_liter Normal Lipase [facility] ([facility]) Note: Responsible Observer: Edelmira garcia 400.2310 (G) ID Date Data Source [id number] 01/21/2020 12:02:00 PM [facility] ED Physician Documentation NAME: KWASI DE LUNA : 1980 AGE: 39 MR#: [id number] SERVICE DATE: 01/21/[address]: Joe Toro MD PRIMARY CARE DR: Lillian Saldaña MD ROOM#: HPI (Adult, General) General Chief Complaint: GI Stated Complaint: abdominal pain,vomiting Resident [facility], travel outisde home, exposure to hot tubs:: [...] 01/21/20 12:16 hydrocodone [From Vicodin] AdvReac Unknown [employer]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 ID Date Data Source [id number] 01/18/2020 11:47:00 AM EDT [facility] [address] [place] [address] [phone] NAME SEX PT STATUS ACCOUNT NUMBER KWASI DE LUNA REG REF [id number] ORDERING PHYSICIAN LOCATION MEDICAL RECORD NO. Lillian Saldaña MD RAD [id number] ATTENDING PHYSICIAN DATE OF DATE OF EXAM/TIME [...] Trans Dt/Tm: Trans by: DT Prt Dt/Tm: [id number]: Total DLP = 0.00 mGy-cm 9137-7730: Total Radiation Dose = 0.0000 mSv Lifetime Dose: 0 mSv Name Value Range Interpretation Code Description Data Mary rce(s) Supporting Document(s) ID Date Data Source [id number] 01/18/2020 11:37:00 AM EDT [facility] Name Value Range Interpretation Code Description Data Mary rce(s) Supporting Document(s) Leukocytes [#/volume] in Blood by Automated count 8.5 10*3/uL 4.45-10 .71 N [facility] Erythrocytes [#/volume] in Blood by Automated count 5.17 10*6/uL 4.20 -5.40 [facility] Hemoglobin [Moles/volume] in Blood 13.2 g/dL 10.7-15.4 N [facility] Hematocrit [Volume Fraction] of Blood by Automated count 43.2 % 3 7-47 N [facility] Erythrocyte mean corpuscular volume [Ent itic volume] in Cord blood by Automated count 83.6 fL 80-96 N [facility] ital Erythrocyte mean corpuscular hemoglobin [Entitic mass] by Automated count 25.5 pg 27-31 Below low normal [facility] pital Erythrocyte mean corpuscular hemoglobin concentration [Mass/volume] in Cord blood 30.6 g/dL 33-37 Below low normal [facility] Erythrocyte distribution width [Entitic volume] by Automated count 15 % 11-15 N [facility] Platelets [#/volume] in Blood by Automated count 321 10*3/uL 130-472 N [facility] Platelet mean volume [Entitic volume] in Blood 10.2 fL 9.1-13.1 N [facility] Neutrophils/100 leukocytes in Blood by Automated count 69.5 % 41- 77 [facility] Neutrophils [#/volume] in Blood by Automated count 5.9 U 1.7-7.6 N [facility] Lymphocytes/100 leukocytes in Blood by Automated count 24.1 % 14- 46 N [facility] Lymphocytes [#/volume] in Blood by Automated count 2.0 U 0.6-4.6 N [facility] Monocytes/100 leukocytes in Blood by Automated count 4.9 % 4-12 N [facility] Monocytes [#/volume] in Blood by Automated count 0.4 U 0.2-1.2 N [facility] Eosinophils/100 leukocytes in Blood by Automated count 0.8 % 0-7 N [facility] Eosinophils [#/volume] in Blood by Automated count 0.1 U 0.0-0.5 N [facility] Basophils/100 leukocytes in Blood by Automated count 0.5 % 0.4-1 .3 N [facility] Basophils [#/volume] in Blood by Automated count 0.0 U 0.0-0.2 N [facility] NUCLEATED RED BLOOD CELL 0 % [facility] NUCLEATED RED BLOOD CELL# 0 U [facility] Immature granulocytes [Presence] in Blood by Automated count 0-2 N [facility] Immature granulocytes [#/volume] in Blood by Automated count 0.0 U 0-0.1 N [facility] Manual Differential panel - Blood NO [facility] ID Date Data Source [id number] 01/18/2020 12:04:00 PM EDT [facility] Name Value Range Interpretation Code Description Data Mary rce(s) Supporting Document(s) Urea nitrogen [Mass/volume] in Serum or Plasma 10 mg/dL 9-23 N [facility] Sodium [Moles/volume] in Serum or Plasma 140 mmol/L 132-146 N [facility] Potassium [Moles/volume] in Serum or Plasma 4.1 mmol/L 3.5-5.5 N [facility] Chloride [Moles/volume] in Serum or Plasma 105 mmol/L 99-109 N [facility] Carbon dioxide, total [Moles/volume] in Serum or Plasma 30 mmol/L 20 -31 N [facility] Anion gap in Serum or Plasma 9 mmol/L 8-16 N L [facility] Glucose [Mass/volume] in Serum or Plasma 89 mg/dL 74-106 N [facility] Creatinine 0.9 mg/dL 0.5-1.1 N [facility] Glomerular filtration rate/1.73 sq M.pre dicted [Volume Rate/Area] in Serum or Plasma Greater Than 60 ABOVE 60 [facility] Alanine aminotransferase [Enzymatic acti vity/volume] in Serum or Plasma by With P-5'-P 32 U/L 10-49 N [facility] ital Aspartate aminotransferase [Enzymatic ac tivity/volume] in Serum or Plasma by With P-5'-P 20 U/L 0-33 N [facility] pital Alkaline phosphatase [Enzymatic activity/volume] in Serum or Plasma 102 U/L 45-129 N [facility] Calcium [Mass/volume] in Serum or Plasma 9.4 mg/dL 8.5-10.1 [facility] Bilirubin.total [Mass/volume] in Serum or Plasma 0.4 mg/dL 0.3-1.2 [facility] Albumin [Mass/volume] in Serum or Plasma by Bromocresol purple (BCP) dye binding method 3.9 g/dL 3.2-4.8 [facility] ital Protein [Mass/volume] in Serum or Plasma 8.0 g/dL 5.7-8.2 [facility] ID Date Data Source [id number] 01/18/2020 11:30:00 AM [facility] ([facility]) Name Value Range Interpretation Code Description Data Mary rce(s) Supporting Document(s) Reported Physicians See Note Reported Physici ans [place] ([facility]) Note: Reported Physicians:Ordering: Lillian JjAttending: Lillian Saldaña ID Date Data Source [id number] 01/18/2020 11:30:00 AM [facility] ([facility]) Name Value Range Interpretation Code Description Data Mary rce(s) Supporting Document(s) Alanine aminotransferase [Enzymatic acti vity/volume] in Serum or Plasma by With P-5'-P 32 enzyme_unit_per_liter Normal ALT SerPl w P-5' -P-cCnc [place] ([facility]) Note: Responsible Observer: SGPT/ALT SGP T/ALT 400.1750 (G) Calcium [Mass/volume] in Serum or Plasma 9.4 MilliGramsPerDeciLiter_[Mass_Concentration_Units] Normal Calcium [facility] ([facility]) Note: Responsible Observer: Calcium Calc ium 400.2500 (G) Carbon dioxide, total [Moles/volume] in Serum or Plasm a 30 MilliMolesPerLiter_[Substance_Concentration_Units] Normal CO2 [facility] ([facility]) Note: Responsible Observer: CO2 Carbon D ioxide 400.1400 (G) Chloride [Moles/volume] in Serum or Plasma 105 MilliMolesPerLiter_[Substance_Concentration_Units] Normal Chloride [facility] ([facility]) Note: Responsible Observer: Chloride Chl oride 400.1250 (G) Bilirubin.total [Mass/volume] in Serum or Plasma 0.4 MilliGramsPerDeciLiter_[Mass_Concentration_Units] Normal Bilirub [facility] ([facility]) Note: Responsible Observer: T KAM Total Bilirubin 400.2600 (G) Sodium [Moles/volume] in Serum or Plasma 140 MilliMolesPerLiter_[Substance_Concentration_Units] Normal Sodium [facility] ([facility]) Note: Responsible Observer: Sodium Sodiu m 400.1100 (G) Potassium [Moles/volume] in Serum or Plasma 4.1 MilliMolesPerLiter_[Substance_Concentration_Units] Normal Potassium [facility] ([facility]) Note: Responsible Observer: K Potassium 400.1210 (G) Protein [Mass/volume] in Serum or Plasma 8.0 GramsPerDeciLiter_[Mass_Concentration_Units] Normal Pro t [facility] ([facility]) Note: Responsible Observer: TP Total Pro tein 400.2800 (G) Glucose [Mass/volume] in Serum or Plasma 89 MilliGramsPerDeciLiter_[Mass_Concentration_Units] Normal Glucose [facility] ([facility]) Note: Responsible Observer: Glucose Gluc ose 400.1500 (G) Anion gap in Serum or Plasma 9 MilliMolesPerLiter_[Substance_Concentration_Units] Normal Anion Gap [facility] ([facility]) Note: Responsible Observer: ANION GAP AN ION GAP 400.1402 (E) Urea nitrogen [Mass/volume] in Serum or Plasma 10 MilliGramsPerDeciLiter_[Mass_Concentration_Units] Normal BUN [facility]-nc [place] ([facility]) Note: Responsible Observer: BUN Blood Ur ea Nitrogen 400.1000 (G) Albumin [Mass/volume] in Serum or Plasma by Bromocresol purple (BCP) dye binding method 3.9 GramsPerDeciLiter_[Mass_Concentration_Units] Normal Albumin [facility] BCP-nc [place] ([facility]) Note: Responsible Observer: Albumin [place] min 400.2700 (G) Aspartate aminotransferase [Enzymatic ac tivity/volume] in Serum or Plasma by With P-5'-P 20 enzyme_unit_per_liter Normal AST SerPl w P-5' -P-[facility] ([facility]) Note: Responsible Observer: SGOT / AST S GOT / AST 400.1900 (G) Glomerular filtration rate/1.73 sq M.pre dicted [Volume Rate/Area] in Serum or Plasma Greater Than 60 GFR/BSA.pred SerPld-ArV Rat [place] ([facility]) Note: Responsible Observer: GFR Glomerul ar Filt Rate Calc 400.1605 (D) Creatinine [Moles/volume] in Vitreous fluid 0.9 MilliGramsPerDeciLiter_[Mass_Concentration_Units] Normal Creatinine [place] ([facility]) Note: Responsible Observer: Creatinine C reatinine 400.1600 (G) Alkaline phosphatase [Enzymatic activity/volume] in Se rum or Plasma 102 enzyme_unit_per_liter Normal ALP [facility] ( [facility]) Note: Responsible Observer: ALP Alkaline Phosphatase 400.2000 (G) ID Date Data Source [id number] 01/18/2020 11:30:00 AM EDT [place] ([facility]) Name Value Range Interpretation Code Description Data Mary rce(s) Supporting Document(s) Manual Differential panel - Blood NO Ma nual diff [facility] ([facility]) Note: Responsible Observer: CBC Manual D ifferential Added 100.1990 (B) Erythrocyte mean corpuscular volume [Ent itic volume] in Cord blood by Automated count 83.6 FemtoLiter_[SI_Volume_Units] Normal MCV Bld Co Auto [facility] ([facility]) Note: Responsible Observer: MCV MCV 100 .0600 (B) Erythrocyte distribution width [Entitic volume] by Automated cou nt 15 percent Normal RDW RBC Auto [facility] ([facility]) Note: Responsible Observer: RDW RDW 100 .0900 (B) Platelet mean volume [Entitic volume] in Blood 10.2 Fe mtoLiter_[SI_Volume_Units] Normal PMV Bld [facility] ([facility] Note: Responsible Observer: MPV MPV 100 .1100 (B) Hematocrit [Volume Fraction] of Blood by Automated count 43.2 perce nt Normal Hct VFr Bld Auto [facility] ([facility]) Note: Responsible Observer: HEMATOCRIT H EMATOCRIT 100.0500 (B) Immature granulocytes [Presence] in Blood by Automated count See No te Normal Imm Granulocytes Bld Ql Auto [facility] ([facility]) Note: [id number] Ob subpoena server: IG% IG% 100.1375 (B) Erythrocyte mean corpuscular hemoglobin concentration [Mass/volume] in Cord blood 30.6 GramsPerDeciLiter_[Mass_Concentration_Units] Below low normal MCHC BldCo-mCnc [facility] ([facility]) Note: Responsible Observer: MCHC MCHC 1 00.0800 (B) Immature granulocytes [#/volume] in Blood by Automated count 0.0 Un it Imm Granulocytes # Bld Auto [facility] ([facility]) Note: Responsible Observer: IG# IG# 100 .1400 (B) Monocytes/100 leukocytes in Blood by Automated count 4.9 percent Normal Monocytes/leuk NFr Bld Auto [facility] ([facility]) Note: Responsible Observer: MONO % MONO % 100.1225 (B) Leukocytes [#/volume] in Blood by Automated count 8.5 ThousandsPerMicroLiter_[Number_Concentration_Units] Normal WBC # Bld Auto [facility] ([facility]) Note: Responsible Observer: WBC WHITE BL OOD COUNT 100.0100 (E) Hemoglobin [Moles/volume] in Blood 13.2 GramsPerDeciLiter_[Mass_Concentration_Units] Normal Hgb Bld-sCnc [facility] ([facility]) Note: Responsible Observer: HGB HEMOGLOB IN 100.0400 (B) Eosinophils [#/volume] in Blood by Automated count 0.1 Unit Normal Eosinophil # Bld Auto [facility] ([facility]) Note: Responsible Observer: EOS # EOS# 100.1300 (D) Basophils/100 leukocytes in Blood by Automated count 0.5 percent Normal Basophils/leuk NFr Bld Auto [facility] ([facility]) Note: Responsible Observer: BASO % BASO % 100.1325 (B) Basophils [#/volume] in Blood by Automated count 0.0 Unit Normal Basophils # Bld Auto [facility] ([facility]) Note: Responsible Observer: BASO # BASO# 100.1350 (B) Lymphocytes/100 leukocytes in Blood by Automated count 24.1 percent Normal Lymphocytes/leuk NFr Bld Auto [facility] ([facility]) Note: Responsible Observer: LYMPH % LYMP H % 100.1175 (B) Lymphocytes [#/volume] in Blood by Automated count 2.0 Unit Normal Lymphocytes # Bld Auto [facility] ([facility]) Note: Responsible Observer: LYMPH # LYMP H# 100.1200 (B) Eosinophils/100 leukocytes in Blood by Automated count 0.8 percent Normal Eosinophil/leuk NFr Bld Auto [facility] ([facility]) Note: Responsible Observer: EOS % EOS % 100.1275 (B) Neutrophils/100 leukocytes in Blood by Automated count 69.5 percent Normal Neutrophils/leuk NFr Bld Auto [facility] ([facility]) Note: Responsible Observer: NEUT% NEUT% 100.1125 (B) Neutrophils [#/volume] in Blood by Automated count 5.9 Unit Normal Neutrophils # Bld Auto [facility] ([facility]) Note: Responsible Observer: NEUT# NEUT# 100.1150 (B) Monocytes [#/volume] in Blood by Automated count 0.4 Unit Normal Monocytes # Bld Auto [facility] ([facility]) Note: Responsible Observer: MONO # MONO# 100.1250 (C) Erythrocytes [#/volume] in Blood by Automated count 5. 17 MillionsPerMicroLiter_[Number_Concentration_Units] Normal RBC # Bld Auto [facility] ([facility]) Note: Responsible Observer: RBC Red Bloo d Count 100.0300 (B) Erythrocyte mean corpuscular hemoglobin [Entitic mass] by Automated count 25.5 PicoGram_[SI_Mass_Units] Below low normal MCH RBC Qn Auto [facility] ([facility]) Note: Responsible Observer: MCH MCH 100 .0700 (B) Platelets [#/volume] in Blood by Automated count 321 ThousandsPerMicroLiter_[Number_Concentration_Units] Normal Platelet # Bld Auto [facility] ([facility]) Note: Responsible Observer: PLATELET COU NT PLATELET COUNT 100.1000 (D) NUCLEATED RED BLOOD CELL 0 percent NUCLEATED R ED BLOOD CELL [facility] ([facility]) Note: Responsible Observer: NRBC% NRBC% 100.1360 (B) NUCLEATED RED BLOOD CELL# 0 Unit NUCLEATED RED BLOOD CELL# [facility] ([facility]) Note: Responsible Observer: NRBC# NUCLEA SETH RBC 100.1362 (A) ID Date Data Source [id number] 01/14/2020 02:04:00 PM EDT [facility] Name Value Range Interpretation Code Description Data Mary rce(s) Supporting Document(s) SARS coronavirus 2 RNA [facility] This lab was ordered by [facility] and reported by [facility]. ID Date Data Source [id number] 01/07/2020 05:32:00 AM EDT [facility] Name Value Range Interpretation Code Description Data Mary rce(s) Supporting Document(s) SARS coronavirus 2 RNA [facility] This lab was ordered by [facility] and reported by [facility]. ID Date Data Source [id number] 12/31/2019 12:50:00 PM EDT [facility] Name Value Range Interpretation Code Description Data Mary rce(s) Supporting Document(s) SARS coronavirus 2 RNA [facility] This lab was ordered by [facility] and reported by [facility]. ID Date Data Source [id number] 12/24/2019 05:30:00 AM EDT [facility] Name Value Range Interpretation Code Description Data Mary rce(s) Supporting Document(s) SARS coronavirus 2 RNA [facility] This lab was ordered by [facility] and reported by [facility]. ID Date Data Source [id number] 12/17/2019 08:00:00 AM EDT [facility] Name Value Range Interpretation Code Description Data Mary rce(s) Supporting Document(s) SARS coronavirus 2 RNA [facility] This lab was ordered by [facility] and reported by [facility]. ID Date Data Source [id number] 12/10/2019 07:50:00 AM EDT [facility] Name Value Range Interpretation Code Description Data Mary rce(s) Supporting Document(s) SARS coronavirus 2 RNA [facility] This lab was ordered by [facility] and reported by [facility]. ID Date Data Source [id number] 12/06/2019 11:00:00 AM EDT [facility] Name Value Range Interpretation Code Description Data Mary rce(s) Supporting Document(s) SARS coronavirus 2 RNA [facility] This lab was ordered by [facility] and reported by [facility]. ID Date Data Source [id number] 11/19/2019 12:19:00 PM EDT [facility] Name Value Range Interpretation Code Description Data Mary rce(s) Supporting Document(s) SARS coronavirus 2 RNA [facility] This lab was ordered by [facility] and reported by [facility]. ID Date Data Source [id number] 11/12/2019 08:43:00 AM EDT [facility] Name Value Range Interpretation Code Description Data Mary rce(s) Supporting Document(s) SARS coronavirus 2 RNA [facility] This lab was ordered by [facility] and reported by [facility]. ID Date Data Source [id number] 11/06/2019 09:06:00 AM EDT [facility] Name Value Range Interpretation Code Description Data Mary rce(s) Supporting Document(s) SARS-CoV-2, PRASHANT Not Detected Not [facility]ed [facility] was performed using the nabil(R) SARS-CoV-2 test.This test was developed and its performance characteristics determinedby [employer]. This test has not been FDA cleared [...] in this assay. ID Date Data Source [id number] 11/06/2019 09:06:00 AM EDT [facility] Name Value Range Interpretation Code Description Data Mary rce(s) Supporting Document(s) Inpatient [facility] Received ID Date Data Source [id number] 10/08/2019 11:21:00 AM EDT [facility] Name Value Range Interpretation Code Description Data Mary rce(s) Supporting Document(s) SARS coronavirus 2 RNA [facility] This lab was ordered by [facility] and reported by [facility]. ID Date Data Source [id number] 10/01/2019 11:02:00 AM EDT [facility] Name Value Range Interpretation Code Description Data Mary rce(s) Supporting Document(s) SARS coronavirus 2 RNA [facility] This lab was ordered by [facility] and reported by [facility]. ID Date Data Source [id number] 09/24/2019 11:30:00 AM EDT [facility] Name Value Range Interpretation Code Description Data Mary rce(s) Supporting Document(s) SARS coronavirus 2 RNA [facility] This lab was ordered by [facility] and reported by [facility]. ID Date Data Source [id number] 09/20/2019 04:04:00 PM EDT [facility] [address] [place], [place] [id number] [phone] NAME SEX PT STATUS ACCOUNT NUMBER KWASI DE LUNA PRE REF [id number] ORDERING PHYSICIAN LOCATION MEDICAL RECORD NO. Lillian Saldaña MD MAMMO [id number] ATTENDING PHYSICIAN DATE OF DATE OF EXAM/TIME [...] rce(s) Supporting Document(s) ID Date Data Source [id number] 09/20/2019 03:59:00 PM EDT [facility] [address] [place] [address] [phone] NAME SEX PT STATUS ACCOUNT NUMBER KWASI DE LUNA PRE REF [id number] ORDERING PHYSICIAN LOCATION MEDICAL RECORD NO. Lillian Saldaña MD MAMMO [id number] ATTENDING PHYSICIAN DATE OF DATE OF EXAM/TIME [...] mammogram was read with the assistance of [employer], an FDA-approved computer- aided detection system for [...] rce(s) Supporting Document(s) ID Date Data Source [id number] 09/17/2019 11:31:00 AM EDT [facility] Name Value Range Interpretation Code Description Data Mary rce(s) Supporting Document(s) SARS CORONAVIRUS 2 RNA [facility] This lab was ordered by [facility] and reported by [facility]. ID Date Data Source [id number] 09/12/2019 11:30:00 AM EDT [facility] [address] [place], [place] [id number] [phone] NAME SEX PT STATUS ACCOUNT NUMBER KWASI DE LUNA REG REF [id number] ORDERING PHYSICIAN LOCATION MEDICAL RECORD NO. Lillian Saldaña MD MAMMO [id number] ATTENDING PHYSICIAN DATE OF DATE OF EXAM/TIME [...] mammogram was read with the assistance of [employer], an FDA-approved computer-aided detection system for mammography. 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 [file] Gko7K6bDpUoGu6SG191hkyf7CCpw8g8BfEw822a6vFwM3dbmET/Fcd9VzxC+CHIGNIK LAGOON+3NPSj9fKYU11mi/g xyA1vD7OwQcYmuHet3CVNT4gLOGC+tkGU97qbms2wv OtfPj4kZkKQ03bDglL9sxh6I0b3YB3Mk2aXgO6iCyJilKvi9/V8HVD8svSp0a07nout50gtF1kTgWckh TuRVn54ovcnFW1cIs2RuRL4MSjkMLgop/ftLO6m2bBADy7eoyqLlQM+hSqkdWmJ2a1X3jHdHZeGoRAnA IPR7Gsudm8t+gJes1XSUJEqt8lvVcSzFid4JfnuHqd 3M3guGLw/j1de6Qer4To/xhfdsTuKP/BJsoEfmPlHajVzbwa9GsID8Ndn4nCTJPHc0fgTzyAYAC4ie2p 6zXp6ad9icm2g9c2En5lUcqpCYl6sFnHh7kSgBJmK4w3L4cXyn1AhB02GiV6vfM400oPEQx8681dHpl/ ceLGupb0PhZlDv9Peh+m3Z1d0ruUbXWjWLjXy36Tfp z0g6fvE8tky2Qfx4kpu4rfhIN9EBuU79oDSpx8mF1zHwatNUMFnL1MyDgttE2+EPPxQu64dvyt6mD/Zh c/G5Ml4vFmnnlMpkh60KBrqqrvgirj5L8fa+eYqf+sdpShCUdE0rFI3Wnj6MEwrxtdSz+/3yzjfEGkTd l6MywuXX3baxGw8rwU7tQuls5Uf5fPXYaAHkKE8/bl 4w8jCElhNnTCz5Wmv3FrPxy727d5f1P+FjExpffqAGBp0rlylqtkUkdWsUStWLhNzVJKZ8yY+FuCrelG Katheryn+GFBdGYi4I6DhAQuayUjqkKFENu5o9BhuWrWQXfbcJIHjEmk3LAUmayacEZ6pX+aqB8K0ga5d6N+h [file] uZ2Yf1CVJ8LYBg4kfydELBpPmJRz+YoqJllR+adaptive physical education teacher/y62aJXksl03IF+6UrYI1dgR1DdXdo8PTtIbN0YE [file] gasL3mVpybQD81N+carbon sequestration plant manager+QrCidwumrEovrMZObbgGhm [file] Igniter Assembler/bCEW6td3Fmy4O4+cpqe0zz+H2jUQrBSCvULP6RQRtnJTwPxQ3sn7JAEwyfrmo5KVTP1lAwseC6KQn [file] L+mLb18cPXHTCuv8FsWPRWXRl6o1bOnMsfDCBLP+Weinberg oV3J1ZZkwLgu+si+5/FpnKo3oJ/POqLqOSzwD6+SPXjtgEKdcIiMvW2y9LdEp6BAe3gwfx4nWSXuq3Pd zlX5mqk72EjbsrSSrva9PQa97IAdfJbBeM18Be5nK0dKPPst/xEcLeoMk3wnK04BvlA/oWMlQmBw1j2Z oIl8YJ1fuXu6HnYAzr7+LX1ckb5Y85u+zfKl7b+zQN 14UlV5A3o7Yhpp//I+KtE7Ybx9D67UlSHSDNpaa21fkFpP8PjXY2ky/lbK/P+i3N/1sekHj9mNtJR/ro sGQZdi2vrPnNc5UWyl8T6VbZfdjAXvOKtGp+moAA0MWBT4QD9WFY3kleI4RXDKHHbVHXnaLO5++im/4w 06ROiO37lomPM7K0ztcvuPc1qhg0o+yiLeG6Gqu7Sl ELfVaq0US9NpU88l0RTesMxaav8zJzrIhynnVITiAULC/toEXGKyR5637CGA6hyPqK4Ij1QTi8ekZKS3 LiN1YggSA3iLOB/Ct22uygdwk53hBXWV8czCTSMeFbTMxghsIadP4+ndgayoUIuQeQkOEM0Hiegf+GALLEY STRIPPER [file] a77D+Py01DkrOwDUcVK4bqv5jnwRlD0SO7s7coTRQCbWY70j+VGXKJS+15mX0LyKwcpvm0DV4p+dj+Igniter Assembler [file] BX/+Z5r4i+Q4YfAj/8oceKdyW5BZB56szfgkPz/BETINA L/zeasyI8PBQiIBULVfU7tk9J3yMHCyDAkLB2XA7/maría/i347mCxDMXioBEbFu2AAfWc1IwhUGAd+3nt [file] /7rQh+mxntDJTw3vrXehQub4K2WhEusa9AF3eD+/Shaq VyArwfi0pkZVUVRg2oAvKrn0ENHXNuU46JBG+hn4/SL+EDhNkZ34lH3CpNLWNML6yF5TW5mtYDp3Nqnu AtFEIibqMQIk0p2R06XV0Kksys9eyukKAKw8OGjMgfsCOj8gKz/M74xebkgJPCEyNSv/vlT6koN04KPF gn0ymeeDpEirdaZ8piXaoA2uFA82T4+i9auaTJ2rBl zRl7SCy/VXVuXt2420UFSKQ6v/BlebxosyToZ9y1Bf5s5GIUBJkqpQbC+OdaTvPitl+oxdf4Sipsj+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 [file] K+K04UPAAV+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/eGVAhGJybQd4ifp/dfrecq6mrNya3/JmaVVG5V3MJOm4U8gna2SmFPg08/XuK+5qz1 GlFMUSUNhpbccg+3ntLBSOhebeHGSlaGy94KA7TnQu JzCSuI6yw+x777n2P/lxCMM3xhXsomobSq/kSQbglwmpdfDUrmeG7ot4RReJ9vxF+ZQtCJmgzfNpaSq7 s3wsxeuls85sUCULwxyT2x0AxKnNyD7NEk+gVyowmDz2Yqny083IJQt57kPqcYRzrfveNaLQ1hWM4xW8 WZUMjATDSG6V4rMZOOwHKYQZdMtEqfOmg9y6S0/iNE [file] mathematics education professor+P3/DQ7h+b6li4OCqmN56icJm9Sq3avTkSX50fY5/p0PtzmNA7kHQsqA7ClVE9xwDXigQmfPl1gd/ [file] nOF/xyKXqUzRpCdSXFGuZWZMu9yAiGAoB3TrU73+Igniter Assembler [file] OP8J2gw3cctayfKsTqodBi45unVPxTebDHZApk+[facility] [file] QeJEllpmVugkdRT4vNtZc9zXkAKmZmKmMW5AqnSy8+Carlos A+RCHyLI5rUCLHsd/kfhGj0ohb2o14bV72ap [file] DQolJUVPRg== ID Date Data Source [id number] 09/11/2019 07:43:00 AM EDT [facility] Name Value Range Interpretation Code Description Data Mary rce(s) Supporting Document(s) SARS CORONAVIRUS 2 RNA [facility] This lab was ordered by [facility] and reported by [facility]. ID Date Data Source [id number] 09/03/2019 05:30:00 AM EDT [facility] Name Value Range Interpretation Code Description Data Mary rce(s) Supporting Document(s) SARS CORONAVIRUS 2 RNA [facility] This lab was ordered by [facility] and reported by [facility]. ID Date Data Source [id number] 08/27/2019 06:00:00 AM EDT [facility] Name Value Range Interpretation Code Description Data Mary rce(s) Supporting Document(s) SARS CORONAVIRUS 2 RNA [facility] This lab was ordered by [facility] and reported by [facility]. ID Date Data Source [id number] 08/23/2019 08:45:00 AM EDT [facility] Name Value Range Interpretation Code Description Data Mary rce(s) Supporting Document(s) EGD-Colonoscopy [facility] KRCCRf9dZtTOQjTjHHJsHwxZEZadGMhsLOCyS9H7RUedCd7TIYlpdsHfLRQcJn4+UOAcCI0cgn6oQCEr gMy [file] ErZdzT66VGMd4JPH1Ca5Ng1HFZYA2Bb9AtR5aW1Rn8W6kjLJbIpgu1oDXSjIAvBCIvqT2bNiM+Maurice+Me7 NVuD8qoNO/6D19rrdTuBAuhU2b7vYT6J6JE/U9/3B72Gfkiv5m05dLHV5+qu89zkIv3DqV2kFd9U1AOv iygoww95A2kfiuam0ZDRU1aoz2hTvGf4r9ubr3V4yM ixSrVw7ScJjox+EUxIaPR8GNv07u21JxFEV/j6IbY1aykGKJYq6MBhFWeJXzGUjmXgCq6/kqLh0jnROt YxQz8flScG4i/xSmmx48ndQdYEPgTtziZpoywePl4s6u/R2s/DvKL4bNF0S/KbLLC+9Hm5Me7uOWhkvw APmnLfBU5nqiYZwpIRx1Qun/wNIyDM9Ka+NB+EWhBT X9d2D9zyV3Weyb44GbRy8j4YulE+c/ptuH/RZYU2TgD7uEa1CEXaqU3Kti7qVBz2H5yPVcpi6zdN2rU0 V5bJ3ne4JPJ9QrRCvOqXvA6iD3AsExdY8I71wMigT+m06Y6eb3O48xEA8A2KMlnGEVaPf7b6RAk/+entry level z/lYAc/xRIugJpg6ZCogYss06/nczmvku4DHfggIhq ZHBaQylZRNWC522Dl34tR/7NLp+zMfKmGRzYLoHKjE9MSVv0fjHKQuPCXqoS3itdgdYU0z4w2YeDT1rH 8ZTySRX6zW2prfjKmGh4OLKGiOG80Jh/zQ3qHztoJtF4u4/4qO63MrR+CSiDdVpA9O9Y4o+L7YJ5iUeS w8agliUqhd2pjmAVNzRT/VcQBP/e/CFWni0BDXd9Zz ei51ALZp9kj4xPYTCxRbsMT4EksMRzUpf/dEnJYm+peI1issrgpm+QNsfriZ5Wag4LbO3+YU4iYAoP3C Ac7CGUKTfpgwP6ipwCGvgcAk71R5o5OmxCyQh4WHdzyRxPxPgXb+5xmXewH3U1CR0Nc8d/mYTkryFEgw WvyJH5O1GDpaXmES4HEpET0zFnRSIyFyn+sHd6v+dN f/GkjP3xKY4l+/ensJEZSQeOaPhu7JuhDSzZyieJbFc6BuALiAw4z7Ys/5bikyAouyAECfxNyBlD+x6C Ufm4Pt4v88hhH4FztSBVTbHtt8J8Lhz8p0b/vIVCjzHImmfoHqiM5JvmzJUMkbl6Atw3a1MIwLgIj85r ryKY0BKC+Huiq2pWFFa5K8VzXhl2HrcCgNc7NUv+zt +26admuoawJRVyGJuA1zfY/A+6qPLL0D7fPuzXv/NruiESblhAOkfR8OXiItunheQwc7Lp/l54dzcMJt KX9rn7xkPRyiAcAvVXFhCDAz8vjceBBSYrj7IHFEzPKXhOttXZ4V+DpDyqzDrCp0iz7sdvvFcLgRYMDJ CF+91HKrsI18/YBhD6T6PxeIxxwu+jpK6yqLcuuf/4 CJNadv03UOz4IsI6E2bIs0Kzr602YcZ9fAui5p/APmJGjqpu9VpjbAsZhYnRDddfEtIXfhvVGMfIYh4E 6bhI+0c+X1D3LpTmat/RCj9ZVGxLjpBkhNrwAKmcralY/qchzpQ9fzja4jWz1AOGXcpzzyLB1KHWe3xl mHLv9rig44n3B4vnkGi4TH8d+uL4M4w1ERJvR41UnI s4bpX1gmmuDJlLvMgoKDK/aFsV7HfTJ3qyzlT/Piña/z7ZnHUGcidN03XUOjoq1dqnkcPY9uBUjjgZqK2 [file] officer/U06V [file] mLCMW7Hx1L5/PHOTORADIO OPERATOR/5FbgR6KdBLj8/b+CYtAURTcP3bAP84MBltL546tCrUawNMnSMYI7dTGP9f4COX9x [file] c/50XxItCDb0Eny/H1cX/J5e1vWMlKKgx7e3TYEy1XZyxhU2Ry87sIqwGTEZTeQ0ULEKDgrTC1FQX/Assistant Secretary [file] washery boss/6tpIOFGKxaDCP5rz6oZZistMTjAg8TibYIBvuRs [file] XpxBKwmhFybcEyixBJjYIdjha7xOtylSoNoWUu+CLARIBEL 9cEMA9MPLN/ulCddapuKMy++nOFYWcoB0ojTrKcABgpmuv/QAtLWFd2aJDZrri/8P22IDtvtcsLZDipO cSsdqpA9xAw2III5vYH5HjAfS90ZuhXMbdh4QvohUe2Qfx+4OxQZOoevZ9xBqn3qDjWTuqtAf6RORBNq jyNzXLCrq/g4AwzZODg5W7WmT5fe8LqylW/9YfMf4/ Fv1xixWFAsKRQg6NK5rV2xAzS1qZ4n5NyZW9SA3cUpk2YwiyHRmlJ7ZZlge8Tl1YCBM4E+UULIRnnSlX zu+MzrSNxvH6utwEffZYg0x3nDTORv0vWetaQes69Cx4IAiChxMwublipysEY2/EM0XqS4/rpuLqGUhG voXWhjAdamdHK0ExvTXTZnlILsHt/XlRQqbZ4KrV11 o+nzjK6FrQ54ci/EYL9zlKls0kDO00ZO+Z55eJcNvCrlH+VxhxmMqUK1j1gNXSuJhT3ywwsCS6gxJZV5 7J1q4cbGTMjSOALb1xkIpEB4l8QAdTsFezEEZwpmNtJCPR43VHS8e70amYy3t1szUJ+pgbHMUzt++3XL a/fZXZ7FrDCafZzZ5KTpdVXPmIW9zzoJTXyfto219p L5KMxODkxTPEpIJIORw1sd4vUwpbeSZA2bCmJRwZ2ForlJF6jTjI7lf5tttCAeeOM+3P1DjFwxT3mbCc 2cBTzpdW1KO8yQQBWx5CtZioL9gTM4QsK8YTmoThtuwKtIzUYgNm5gljPmd3Ya9EdjwgOMEI7M3GvK/M Utn/ut6DkUBD15HL63/NEm/T9BEcZOqWLgrRZ8o1Hx Mebj2kYz80TYb+uJYBiI14EukcdNBSPsTVpPGAuEt+4TLMuSF4nzK/pzF9rIeoA9WzRrugWvTTCzBFuZ 24v/U8qo+4gNoPZDE6toG2zqDo8yYzca8suqzMqPCpcyowIDYAhJZ47l6u6xltM1JZXh7Sk+79GMS/eliezer zMMiVewsAYLTM+JkjoUA8Jvdn2KwUwF8XBjQcaQco8 DdZ8xhAQ2Ogjmr51mJ/NTuju0R2VxRCvR0AIGy1KSU+NU+7vqnNnwZRzgKgeGYH3ZA/YSAUUtuzxE8UJ ao797PjKH3pkkv4GNz5wQV3meNF7Zftbft4BCQNC9YTTsCJM9jHUlO3yIF1aWeVwooB33RZzH1NDcbHg W3/CuygSO5khsB7lnnrIZ4ThGvZgL8lvYN4foLZVLa 2Nygws8etsQF6xGvI7NfQ2fgBdWvMq2w5zL5A0Cx6+sbLlhxfPoN0bl1sbm1L/ReekUs0HOwJFvsrpjZ +yOGKgG78ajBc0VUljOdjjfdULVrUTKpVuK645mzMYkRfL2+SmgkNdAaeAIqbkE2CiYnJgI+kLIHThRA C16fo9xIDBWhzssCaqcuog3MEEdJmOiQv4jF05dxvI RKhZ3+/XhBVwJeqGvSq8u+a8rybwSz+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/z6rmhvyrQgLFoP3NJjA37C4tXN+VoVce3hQN/+x5/I7lt [file] mZHhUSGo8NY92fzmpVqVCiSpo4pYrJPBYJU+seat scooper machine+PvErY6gfkeAKgR2M7e2poqufVioR879fX5Qs8rIS PQX0kd3VdU7qMf2iPnsMFmOX03femiN0WMoEeXj+bs hj0TRV0JsbGbcE2c1i4MBbMVuGVVEY4x+n/niTDE5hYGw5R4mRp9D3ppyx7+Aa4ERvIk5mMgoWm4stM9 Po+95lMCXZ37qoCwPfzWzDdOGBk55t+78l4jrnSrk+6Ys8BXKUTpyZjb4BAvBl1bin0FR8ZFnsTh3sYi 9mefEHccX840KwVkhHzOZG8CNhgISNbv23/zBOAvEB 35z/H/mYQmHe1N06vzLv3Dh/rUpWX6QUeNduQTZWfrF7lNPhZ+5hkvCT/3Ci3cpRXt4F/w1xucmSaVcb cqo00dtjvpx78Y04YvD2q9Xoc84chp+t6WcnssgiRZBeE7JRP0Vw6PFk+TFiL8ei2lJ/Z7K0yZ4kSZo4 4+PN81hviij8sWtc64fddLUR0FN/Vl3eOTCsipLqAL Q+ty7tZOB9zdP+qW+4yaJqFKzql0FiXyATrgROnBTWP4EJEy/ap7/V9IwTKVakaDta33mCmDt5U9Gjam vVrZIkPVkE5QqimWxCRQhaqoooiqmr3JO1K9kAWORcXwUabKwfEJ5VxOO2Ij3MwEggbvEQt4WO/Glory/o [file] PF7h3X5xbLnOCw9za4F+RHolh/Cme35/lathe sander+PT13GDltASGSNdBv6MxlJyKDsGHc9HxRvN7Hh1yr5i4h [file] +6T2YV3ciYKMxwCljnOCrdeMmu+JOSÉ MIGUEL+J1nmAesbxUPzvEJ+bBIt+xW+wN3PvgLrfFPMhL+vtoMyX1Q [file] fMWkT3xOvl1sPW2Hkty8AIS0o7SHZlZy71tqxV2r184ta3D/P3RiaeWAKLmCYNj1b4Mp8sRhf+C2/Electronic Controls Repairer Supervisor [file] ftHJDN6Mz6Zhj1/uUyZ1D1x/YnBnMnu+Julián/oB/U4zd9MDHX4M8fl/yA0+PlhLezyOh0ZGa1/X2rOnaY [file] EwPSD7AAtdQTXJEv== ID Date Data Source [id number] 08/20/2019 05:30:00 AM EDT [facility] Name Value Range Interpretation Code Description Data Mary rce(s) Supporting Document(s) SARS CORONAVIRUS 2 RNA [facility] This lab was ordered by [facility] and reported by [facility]. ID Date Data Source [id number] 08/14/2019 02:41:00 PM EDT [facility] Name Value Range Interpretation Code Description Data Mary rce(s) Supporting Document(s) SARS CORONAVIRUS 2 RNA [facility] This lab was ordered by [facility] and reported by [facility]. ID Date Data Source [id number] 08/08/2019 11:38:00 AM EDT [facility] Name Value Range Interpretation Code Description Data Mary rce(s) Supporting Document(s) SARS CORONAVIRUS 2 RNA [facility] This lab was ordered by [facility] and reported by [facility]. ID Date Data Source [id number] 08/01/2019 06:49:00 AM EDT [facility] Name Value Range Interpretation Code Description Data Mary rce(s) Supporting Document(s) SARS CORONAVIRUS 2 RNA [facility] This lab was ordered by [facility] and reported by [facility]. ID Date Data Source [id number] 07/02/2019 10:10:00 AM EDT [facility] Name Value Range Interpretation Code Description Data Mary rce(s) Supporting Document(s) SARS CORONAVIRUS 2 RNA [facility] This lab was ordered by [facility] and reported by [facility]. ID Date Data Source [id number] 05/28/2019 08:00:00 AM EDT [facility] Name Value Range Interpretation Code Description Data Mary rce(s) Supporting Document(s) EGD [facility] SGMWVc9kCyIIBvGxFYTaOsaAQQbqPCrhNYXyF9X0WNctAa3GIJuqzoEdQLWtTh4+BYHtDG8pbi9kEJXu gMy 3oKWDcXxqhC9XgJGTmj26XDMXsCYuZGuPjMiYwRcJ1PCylBgM1MOH0WhXgXsjwOJ6uFKO6NDLqBJzfDJ ReNDAoACJ9ClVyIx0pSOrjDSgsLn0WBA7vm6YgZAOnIFJlGndXAKozGXpsVMNiFACfHILkA266jxDdYl 4PnETmSPw2USKsLcA6AMXfLgA5MXYaKt4uRmSxn7Cx R3IjEWv9S7jIPiyhK6RdXDchLS3xKTJ7XGCiWp8TzOunJVjdRJOIT2axFfNjBLYbKVBQEi5+Pj4+DWVu MP0oji90XIBky4NyRIe7Y5X1yGAnV2WxK0FhLFYeaANHf4dsQpOlRQQ1TFBzTikfCZ9UKUGqpCFiHVFj BNfuWC9tfqEzuKX6WZ9BgBbeKNEsDTSZUh9+Pi9QYX YoheUtTxSoCNJrA63flJSqzAWbEpvjENDEOO3+HYUaCD3bhp46EUXpa8MsOGs6V4xzegn4dFNkIBH9Ro FuSnMqUDOgGJ9cGJ4DfWP9vJWnTB4NpSOcDL0YcVEbHJ4SQ0GqBIF9U7UrnNSvnwBmI9FbGNXlEZMpj2 LkQH4TS5MCHGNsWXJcI2EslU0fB5RoU8BaX1Gbbvyc MMFEOp0TuSP4wINtEGRqL9gfaAqbcXOkYMrfP7ScuPPVQDAHp78ng76wphKwLQ1+i8GgEZLrYRm22do0 ZVAcX/jnIVSYRwu3WKdvNRXeIcWEbf7oO8kkGyZ7QRv4VwoseYD2U4uXlZZZ7//ddqi4smz3ps/eD+/z 4ZFBgj8+k6be2aYe6zDf1VCIISdhMRQKzDSNKZLD35 cjbWf1TAmjeYnttSqZ+OMlITEZdGEft2xT3F6Qa8UJadRuWfO51+Vt2pcq9vyq7eDo1+Lm/CavUP3bh6 ZHQyfGwCDmfEv+lvP/TJ20ICxffIzxtoVFSfZWXyPDR+OmO3EMMLCrNyjZZG2nETiJOpAgz8Rgk7E9BC CPDXiFAAS+QgQiISEi/u31+rfUIQDKia6Y4NZDI9nN [file] B9wy9iLg8OBzwo3kmxk5w+z1zCelo7y//ZRIhV/[place] [file] K31/oOLQ8TebvEPG2gPc1hyCbQFa3qtC9J9mC++LEAD SECTION SUPERVISOR+JOAtbXzm+pgVXBhdfY+N9T/MXKuFoZrFz+Cxpg [file] Escalator Mechanic/yw2L8mjVN/MJNfJOuXnCs+7kZOX0bhiB8HU4Dl+09uSUSFhoOf1qNTJY+1t9oq+i5NsZlLmIE1Td [file] Carlos A+ROYvr9USoLs7BWEBFF+8nG3bmPjl65vjbYj0eYlgmyfLtiP8N6ugJWndChQ+GoO+6A7AKenRzjpe [file] RJHx42JumsaVuoDmZ0Qd3n5z9h2FrqdpHpj1X0xUov18pkwaJD7+COMPUTER SYSTEMS ANALYST+8wOwg7aGZOwOlnxCXEBwaAKo [file] JUVPRg== ID Date Data Source [id number] 03/01/2019 02:53:00 PM EST [facility] [address] [id number] [phone] NAME SEX PT STATUS ACCOUNT NUMBER KWASI DE [facility] REG REF [id number] ORDERING PHYSICIAN LOCATION MEDICAL RECORD NO. MIKE TAE CASE [facility] [id number] ATTENDING PHYSICIAN DATE OF DATE OF EXAM/TIME Lillian Saldaña MD 1980 03/01/191443 TYPE / EXAM Xray Chest 2 view PA/LAT REASON FOR EXAM LOBAR PNEUMONIA, UNSPECIFIED ORGANISM COMPARISON: 02/21/2019, study from [facility] FINDINGS: Lung meade are clear. No [...] Trans Dt/Tm: Trans by: DT Prt Dt/Tm: 3525-1610: Total DLP = 0.00 mGy-cm Fluoroscopy Time (in secs): Name Value Range Interpretation Code Description Data Mary rce(s) Supporting Document(s) ID Date Data Source [id number] 02/20/2019 10:00:00 AM EST [facility] Name Value Range Interpretation Code Description Data Mary rce(s) Supporting Document(s) EGD-Colonoscopy [facility] JEAWDx5oVwIOJaHkTSHsKmiBXIffSTisJUPdG0N2PRevFh3IWImvtkAcPFZrOd2+NIFkVX2kut1nATKn gMy [file] k0evheg/Jo/washery boss/XveblwS/3aU9xYf6CHU1rO7MXL5 bORDUq64ODWBzXcb8Aosp+gGh6uYeJc+4jLOwa49/tom7lTXZvpeBPAYJC67WDvpQR8zwnKCJMJOv2hi ujYS/4F/+mcR7Jsk+8ebUHKsZ3xe/ZoQBPrzFs+wWMsGOcoBXmuRvLGMEomf4seMnh6K2Cxi1d7Kc/nL 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+n75gK0b4ORW7UleF04/M75fVymLcsG3e4OzwQgw [file] Y3Dd1cwKy002w5hV3rb7V35b6eSf14WdOXWsL4+2o5 CtGGPMB1hPq9sgKRoJiMgIA4SPsg4E0XbB/drDTOv+2i5E9PL5p0ZplSTVS9ijgXY2XB24quOgcjF5lR Rnsw9dImdJaXDCrzb5KCoVPZCju5c6PBu/HvY+GUb0HH6VOYCwSNAbRrodn06vNfgGV3dHlAqrtFp3W1 w2ZuEmS6QoIW6qb/nCsvFYEoj4aOoK2hSUbCakDBcU 4O84oFVrh1VVksUPtlYawUw7NHRJSlvMDTI9U2pLwNJU1JsrRdi9SunLTosLLeOKOYNv8X7bxGD13yhQ Hzu1V91DvC56dcTkfUGpKZht1/ZKcwvwBnCMpMnq4n/6KDMT/4hkSZlG6Nio0f/WpT4be0YA+KEG++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 [file] 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 Operator/WvBwYCxglFKQPG3P6+s6PMofv6nLE0VLKww6zPW9eIJtBzu4MNLjcHgrYLI4kizd7Z1o2vyEXlz6 GGsqysuMhanVK2WYJDwl5eB/8PVscoadql471SeLCZ/0aamySX+5cfANOa8xLW1NU/Rmbd1//GZwmPUG M4hC7yuapdddxnS9TzOcK2gQuTozHngmJ6eKHaazpb cJnMz3mTtKVDp+1lc+LOrXW0zzueRtQavFKlHy0/oMXjFuwi3cXL9IizwFQQ0cbhkG7D+oaPUgiYUVll ClwlFu7rcs1NtN53uldeHKWTyFa9H/juZpi+Gjpa+FMzoqx0cVKogclSq1rz8+Wzu8P9TB5/mVGXVMvg HUC0OlOEj33KsWuIdjp9x+6NEiJIt7yn/3/yCNDvRJ i7WVi0k1zFS+Suki/r3cD8uEzhHib3iGNBzMyUelsTCj91stzsWaX4nQHUa5Uo6YCHTRRqxYWJRmsYh33 [file] 1FIO/7haVsoS0r03/9Lycerr0G6Ne5aXcsd4f712rgIEqm0a+QK30y2Y7VRcdLsvd471xyzokN+iX+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 [file] rgScdJMgFdL93/eMSQoY9fBxArmIqAMcysK74k/rounder hand [file] AEqSsVQ1WvN2h9AQkf1f4rRcWPj1y9imwS0ihmM8/6F8VEMpWCjZiPaecK5i6b74Kic2G/Anai/M9Xyji paper wrapping 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 operator/eJL8rC1Zh7gzegJu6uP+ZzPrIyNt8NeMtB69z9 [file] scientific affairs [file] njl3kDCPNhh+washery boss+87OgAT/3KknjSrSpfmXQuN6xSwu+Oi1NcPJUZg20kr+lgtH8Ls/QkwJpsGiJw85sC [file] Z4MdBRo+PVJxfbjgdPrpLN7PwssOnZHrkcZTMv7gpDHVmjKfjSG0aljXvthynIRjfk3/Drv/67g5L/washery boss [file] 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/qy+t5k1iTrglwk0f5GuOUBxi7TLGhZTTigtltAR [file] fSov3kr2fXMJPUTycjkq51Zp7NRnEpUdTJQ5VRr3ex8NUHkDf0Ni5HW5BFNaRY2fHGfb1E5cG3/iI/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 [file] n3Xf43yNuIxZD4jZLhZXd37JKMQlN4mDJTvldb+manager truck [file] 4M6VZ8yeYYzdyH4og801zSzEavNHm+Елена+B+yQrXHhU0MJUtd83nCYWtg9Uq+/04YJBzIozlkodlFnGk [file] QugtNxR9FHmBvluaJo5ANhRorDFxak9HbZp4PsAklQpKK2iu3gyVGVuRp/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+xA6z6lcbRwEwok3TV95 [file] cHBwcHBwcHBwcHBwcHBwcHBwBwcHBwcHBwcHBwcHBwcHBwcHBwBwBwBwBwBwBwBw cHBwcHBwcHBwBwBwBwBwBwBwBw BwcHBw/mnJOUQMGufIbHqmzqycbl2DeGbO364UWb4+7nkGXOErHA+WBjj6rUHoVGK8rLJ2C3ruI2rObU yIvsuIDa49Yu6im4RwXZ5u8K4UsEhG3x1NJLJRviu8gy9/bp+2xQhgS+hti+Sa1w45Z8vy3MOa8alLg4 KkBmuPUcti//E4GtnIzZPvWn7BNRdqllOpAFWgDYTr ZPDScBg2upEVC71COIeqm5ssSF7H6KZAsrzMJjJVSwzR/GvxEc1VPQQwN79s8ekrkADnFYGS3ncGhKJj AjfTEQxSmcka5KSoZyOGwqF+sy9yKeRh8X02rEJc7L1HGLdLGLITF8rExd4mNdq0cKPjEhmySh3UPhcX VGWLiP3nBzx2hTypSx2u+YOtTQ8wE7MeaBXm4bqwcc 2i8m4tavRcjqx8VtlEbfxzXVT/MwKXpqFDS7A7wi/x0uSURTw49qmw+KxX1bb6hqied/NNUUVX5oBLd9 XfAPoGqWkHCjIdzZlWpgqkqQgK6VGGjy64QcHGSyv6uuS7GRL8fZ1bCB2HZjla4ldlJIUvjyYJntYehc 7IcFBX9VMwEjSz7i5CwGnKaszr02KiZ5hBcE4O9txB HHLN5nTxcZuS/k71PjL0MbUgfjxdIBAEF2EykBMD30LOkoIcHINyaH8gqZZ8maY9khx8oqFjsq8EoPS7 IxsNAuPL6HOLzetsFwo+QhfSxG3uXmP8wzqDG0ets23QmsyWr7eM79PT1qzHce4+kq5sM2xaCw2+alVT dGDf05wL4dVZeoD2MnwIqcuB06OsqZo+hZ6rMqCtuK OF1odjnhPsEcrEWsQPbFmvRuvFjcTc4vxOHK7lPKLsj4TGoSb7M0w/iEg5HCP9YnPEfg/GFeSOFClfAT +2GUdk4/cggOQ3I2iD/Izzy+46w89Z3rT9lVqHGtM9SXSiFPzUKf8yVPaKO9jvwtfkPNuCsDF8Ih4Bxdk [file] MjKO0VKkKhYV1oek0NVdM4LAP4qVBoLp3MAFG5CZZjRPnzFSPMDb== Procedure Social History Code Duration Value Status Description Data Source(s ) Smoking 02/19/2020 12:00:00 AM EST Never Smoker completed Never S sandra eCW1 ([facility]) 01/21/2020 12:13:00 PM EST Never smoker completed Never s [facility] Smoking 01/21/2020 12:13:00 PM EST Never smoker completed Never s [facility] 01/21/2020 12:05:29 PM EST No completed No [facility] 01/21/2020 12:05:29 PM EST No completed No [facility] Smoking 09/27/2019 12:00:00 AM EDT Never Smoker completed Never S sandra eCW1 ([facility]) Vital Signs ID Date Data Source UNK Name Value Range Interpretation Code Description Data Source(s) Body mass index (BMI) [Ratio] 45.3 kg/m2 45.3 k g/m2 [place] ([facility]) Body weight 256 [lb_av] 256 [lb_av] [place] ([facility]) Body height 63 [in_i] 63 [in_i] [place] ([facility]) Body temperature 98.3 [degF] 98.3 [degF] [facility] ([facility]) Respiratory rate 18 /min 18 /min [place] ([facility]) Heart rate 87 /min 87 /min [place] ([facility]) Diastolic blood pressure 74 mm[Hg] 74 mm[Hg] [place] ([facility]) Systolic blood pressure 128 mm[Hg] 128 mm[Hg] [facility] Body surface area Derived from formula 2.15 m2 2.15 m2 [place] ([facility]) Diastolic blood pressure 80 mm[Hg] 80 mm[Hg] eCW1 ([facility]) Systolic blood pressure 132 mm[Hg] 132 mm[Hg] e CW1 ([facility]) Body mass index (BMI) [Ratio] 42.91 kg/m2 42.91 kg/m2 [facility] ([facility]) Body height 64 [in_i] 64 [in_i] W1 ([facility]) Body weight 250 [lb_av] 250 [lb_av] W1 ([facility]) Body weight 110.735 kg 110.735 kg MEDENT ([facility], ) [place] body weight 120 [lb_av] 120 [lb_av] MEDEN T ([facility], ) Body mass index (BMI) [Ratio] 41.9 kg/m2 41.9 k g/m2 MEDENT ([facility], ) Body weight 244.12 [lb_av] 244.12 [lb_av] MEDEN T ([facility], ) Body height 64 [in_i] 64 [in_i] MEDENT ([facility], ) 5'4" Diastolic blood pressure 90 mm[Hg] 90 mm[Hg] MEDENT ([facility], ) Systolic blood pressure 127 mm[Hg] 127 mm[Hg] M EDENT ([facility], ) Body mass index (BMI) [Ratio] 45.3 kg/m2 45.3 k g/m2 [place] ([facility]) Body weight 255.6 [lb_av] 255.6 [lb_av] [facility] ([facility]) Body height 63 [in_i] 63 [in_i] [place] ([facility]) Respiratory rate 18 /min 18 /min [place] ([facility]) Heart rate 78 /min 78 /min [place] ([facility]) Diastolic blood pressure 86 mm[Hg] 86 mm[Hg] SH[place] ([facility]) Systolic blood pressure 120 mm[Hg] 120 mm[Hg] G [place] ([facility]) Body surface area Derived from formula 2.15 m2 2.15 m2 [place] ([facility]) Diastolic blood pressure 78 mm[Hg] 78 mm[Hg] eCW1 ([facility]) Systolic blood pressure 132 mm[Hg] 132 mm[Hg] e CW1 ([facility]) Body mass index (BMI) [Ratio] 43.70 kg/m2 43.70 kg/m2 eCW1 ([facility]) Body height 64 [in_i] 64 [in_i] eCW1 ([facility]) Body weight 254.6 [lb_av] 254.6 [lb_av] eCW1 ([facility]) Body mass index (BMI) [Ratio] 44.6 kg/m2 44.6 k g/m2 [place] ([facility]) Body weight 252 [lb_av] 252 [lb_av] [place] ([facility]) Body height 63 [in_i] 63 [in_i] [place] ([facility]) Respiratory rate 20 /min 20 /min [place] ([facility]) Heart rate 72 /min 72 /min [place] ([facility]) Diastolic blood pressure 62 mm[Hg] 62 mm[Hg] [place] ([facility]) Systolic blood pressure 110 mm[Hg] 110 mm[Hg] G [facility] ([facility]) Body surface area Derived from formula 2.13 m2 2.13 m2 [place] ([facility]) Body height 63 [in_i] 63 [in_i] [place] ([facility]) Body mass index (BMI) [Ratio] 45.3 kg/m2 45.3 k g/m2 [place] ([facility]) Body weight 256 [lb_av] 256 [lb_av] [place] ([facility]) Body height 63 [in_i] 63 [in_i] [place] ([facility]) Body temperature 98.4 [degF] 98.4 [degF] [facility] ([facility]) Respiratory rate 22 /min 22 /min [place] ([facility]) Heart rate 88 /min 88 /min [place] ([facility]) Body surface area Derived from formula 2.15 m2 2.15 m2 [place] ([facility]) Body height 63 [in_i] 63 [in_i] [place] ([facility]) Respiratory rate 20 /min 20 /min [place] ([facility]) Heart rate 72 /min 72 /min [place] ([facility]) Body mass index (BMI) [Ratio] 45.5 kg/m2 45.5 k g/m2 [place] ([facility]) Body weight 257 [lb_av] 257 [lb_av] [place] ([facility]) Body height 63 [in_i] 63 [in_i] [place] ([facility]) Body temperature 97.9 [degF] 97.9 [degF] [facility] ([facility]) Respiratory rate 18 /min 18 /min [place] ([facility]) Heart rate 60 /min 60 /min [place] ([facility] [employer] [facility]) Diastolic blood pressure 80 mm[Hg] 80 mm[Hg] [place] ([facility]) Systolic blood pressure 130 mm[Hg] 130 mm[Hg] G [facility] ([facility]) Oxygen saturation in Arterial blood by Pulse oximetry 97 % 97 % [facility]) Body surface area Derived from formula 2.15 m2 2.15 m2 [facility]) Body mass index (BMI) [Ratio] 45.5 kg/m2 45.5 k g/m2 [facility]) Body weight 257 [lb_av] 257 [lb_av] [place] ([facility]) Body height 63 [in_i] 63 [in_i] [place] ([facility]) Body temperature 97.9 [degF] 97.9 [degF] NEMOW AY ([facility]) Respiratory rate 24 /min 24 /min [place] ([facility]) Heart rate 78 /min 78 /min [place] ([facility]) Diastolic blood pressure 80 mm[Hg] 80 mm[Hg] [place] ([facility]) Systolic blood pressure 118 mm[Hg] 118 mm[Hg] [facility] ([facility]) Oxygen saturation in Arterial blood by Pulse oximetry 98 % 98 % [place] ([facility]) Body surface area Derived from formula 2.15 m2 2.15 m2 [place] ([facility]) Body mass index (BMI) [Ratio] 45.4 kg/m2 45.4 k g/m2 [facility]) Body weight 256.125 [lb_av] 256.125 [lb_av] [facility] ([facility]) Body height 63 [in_i] 63 [in_i] [place] ([facility]) Body temperature 97.8 [degF] 97.8 [degF] NEMOW AY ([facility]) Respiratory rate 20 /min 20 /min [place] ([facility]) Heart rate 84 /min 84 /min [place] ([facility]) Diastolic blood pressure 74 mm[Hg] 74 mm[Hg] [place] ([facility]) Systolic blood pressure 122 mm[Hg] 122 mm[Hg] G [facility] ([facility]) Inhaled oxygen concentration 21 % 21 % [facility]) Inhaled oxygen flow rate 0 L/min 0 L/min [facility]) Oxygen saturation in Arterial blood by Pulse oximetry 99 % 99 % [facility]) Body surface area Derived from formula 2.15 m2 2.15 m2 [place] ([facility]) Patient Treatment Plan of Care Planned Activity Planned Date Details Description Data Source (s) aripiprazole 5 MG Oral Tablet [Abilify] 03/07/2020 12:00:[address] [facility]) Emverm 100 MG Oral Tablet Chewable 01/09/2020 12:00:00 AM T [facility]) Flonase Allergy Relief 50 MCG/ACT Nasal Suspension 10/19/2019 12 :00:00 AM [facility] pantoprazole 20 MG Delayed Release Oral Tablet [Proton ix] 08/27/2019 12:00:00 AM [facility] ([facility]) Sertraline 100 MG Oral Tablet 07/10/2019 12:00:00 AM [facility]) 60 ACTUAT Budesonide 0.16 MG/ACTUAT / fo rmoterol fumarate 0.0045 MG/ACTUAT Metered Dose Inhaler [Symbicort] 06/29/2019 12:00:00 AM [facility]) Azithromycin 250 MG Oral Tablet 06/26/2019 12:00:00 AM [facility]) Sertraline 100 MG Oral Tablet 06/06/2019 12:00:00 AM [facility]) Oseltamivir 75 MG Oral Capsule 05/08/2019 12:00:[address] [facility]) Azithromycin 250 MG Oral Tablet 05/01/2019 12:00:[address] [facility]) cefdinir 300 MG Oral Capsule 04/23/2019 12:00:[address] [facility]) pantoprazole 20 MG Delayed Release Oral Tablet [Proton ix] 02/01/2019 12:00:00 AM [facility]) Sertraline 50 MG Oral Tablet 01/08/2019 12:00:00 AM [facility]) Flonase Allergy Relief 50MCG/ACT Nasal Suspension 09/25/2018 12: 00:00 AM [facility]) Sertraline 50 MG Oral Tablet 08/30/2018 12:00:00 AM [facility] POWE[facility] ([facility])
[2020-04-08 06:38] VITALS: BP 128/85
== END 2020-04-08 06:40 | disposition home or self-care (01) ==
LOC: M ED 04:17
DX: M54.2 Cervicalgia (principal); Z79.899 Other long term (current) drug therapy; Z88.0 Allergy status to penicillin
CPT/HCPCS: 96372; 99283; J1885

== ENCOUNTER → 2020-06-18 | Outpatient (CLI) | payer BC, OTHER ==
[~2020-06-18] MED LIST changes: +ARIP1TAB6; +SERT-138
--- NOTE | 2020-06-18 16:59 | REPVR ---
PROCEDURE INFORMATION: Exam: MR Neck Without Contrast Exam date and time: 06/18/2020 3:14 PM Age: 39 years old Clinical indication: Other: Diff swallowing neck swelling; Prior surgery; Surgery date: 6+ months TECHNIQUE: Imaging protocol: MR images of the neck without intravenous contrast. COMPARISON: CT Neck with contrast 04/01/2020 3:24 PM FINDINGS: Nasopharynx: Unremarkable. Oropharynx: Unremarkable. Hypopharynx: Unremarkable. Larynx: Unremarkable. Submandibular/Parotid glands: Unremarkable. Retropharyngeal space: Unremarkable. Vasculature: Unremarkable. Lymph nodes: No lymphadenopathy. Soft tissues: Unremarkable. Bones/joints: Unremarkable. IMPRESSION: Unremarkable MR Neck. Electronically signed by: Ela Zhu On 06/18/2020 16:59:36 PM
== END ==
LOC: M PLARAD 12:41
PROVIDERS: ATTEND Otolaryngology
DX: R13.10 Dysphagia, unspecified (principal); R59.0 Localized enlarged lymph nodes

== ENCOUNTER 2020-07-04 06:07 | Emergency (ER) | payer OTHER, BC ==
[~2020-07-04] VITALS: Ht 162.6 cm; Wt 124.4 kg
[~2020-07-04 06:07] MED LIST changes: +RALTEGRAVIR 400 MG TAB (ISENTRESS) PO SCH; +TRUVADA 200MG/300MG TABLET PO SCH
[2020-07-04] MEDS ORDERED: ZOLO100T PO (06:30)
[2020-07-04] MEDS ORDERED: EXPOSURE KIT-ADULT 7 DAY SUPPLY PO ONE (06:50)
[2020-07-04] MEDS ORDERED: BOOSTRIX/ADACEL VACCINE (DIPHTH/PERTUSS/ACELL/TETANUS) 0.5ML SYR IM ONE (06:50)
[2020-07-04] MEDS ORDERED: TRUVADA 200MG/300MG TABLET PO ONE (07:00)
[2020-07-04] MEDS ORDERED: RALTEGRAVIR 400 MG TAB (ISENTRESS) PO ONE (07:00)
[2020-07-04 07:02] LABS: BASO # 0.1 10^3/uL (0.0-0.2); BASO % 0.5 % (0.0-1.0); EOS # 0.1 10^3/uL (0.0-0.5); EOS % 1.1 % (0.0-3.0); HEMATOCRIT 42.4 % (36.0-47.0); HEMOGLOBIN 12.9 g/dl (12.0-15.5); LYMPH # 2.1 10^3/uL (1.5-5.0); LYMPH % 21.3 % (24.0-44.0); MEAN CORPUSCULAR HEMOGLOBIN 26.1 pg (27.0-33.0); MEAN CORPUSCULAR HGB CONC 30.4 g/dl (32.0-36.5); MEAN CORPUSCULAR VOLUME 85.8 fl (80.0-96.0); MONO # 0.5 10^3/uL (0.0-0.8); MONO % 5.2 % (2.0-8.0); NEUTROPHILS # 6.9 10^3/uL (1.5-8.5); NEUTROPHILS % 71.4 % (36.0-66.0); PLATELET COUNT, AUTOMATED 301 10^3/uL (150-450); RED BLOOD COUNT 4.94 10^6/uL (4.00-5.40); WHITE BLOOD COUNT 9.6 10^3/uL (4.0-10.0)
[2020-07-04 07:41] LABS: ALBUMIN 3.5 GM/DL (3.2-5.2); ALT/SGPT 23 U/L (12-78); BILIRUBIN,TOTAL < 0.1 MG/DL (0.2-1.0); BLOOD UREA NITROGEN 14 MG/DL (7-18); CALCIUM LEVEL 9.4 MG/DL (8.5-10.1); CARBON DIOXIDE LEVEL 24 MEQ/L (21-32); CHLORIDE LEVEL 105 MEQ/L (98-107); CREATININE FOR GFR 0.73 MG/DL (0.55-1.30); GLOMERULAR FILTRATION RATE > 60.0 (>60); GLUCOSE, FASTING 117 MG/DL (70-100); POTASSIUM SERUM 4.1 MEQ/L (3.5-5.1); SODIUM LEVEL 137 MEQ/L (136-145); TOTAL PROTEIN 7.4 GM/DL (6.4-8.2)
[2020-07-04 07:47] LABS: HCG, SERUM QUALITATIVE NEGATIVE (NEGATIVE)
[2020-07-04] MEDS ORDERED: ONDANSETRON 4 MG ORAL DISINTEGRATING TAB PO ONE (08:25)
[2020-07-04] MEDS ORDERED: HEPATITIS B VACCINE 20MCG/ML 1ML SYRINGE (ADULT DOSE) IM ONE (08:30)
[2020-07-04] MEDS ORDERED: PILL CUTTER 1 EACH XX PRN (08:30)
[2020-07-04] MEDS ORDERED: RALT40TA PO (08:34)
[2020-07-04] MEDS ORDERED: TRUVTAB PO (08:34)
[2020-07-04 09:13] VITALS: BP 149/60
[2020-07-04 09:56] LABS: HEPATITIS B SURFACE ANTIBODY POSITIVE (POSITIVE)
[2020-07-04 10:06] LABS: HEPATITIS B SURFACE ANTIGEN NEGATIVE (NEGATIVE)
[2020-07-04 10:35] LABS: HEPATITIS C VIRUS ABY INDEX < 0.0 INDEX (<0.8); HIV SCREEN CENTAUR EXPOSED NEGATIVE (NEGATIVE)
== END 2020-07-04 09:16 | disposition home or self-care (01) ==
LOC: M ED 06:07
DX: S61.031A Puncture wound without foreign body of right thumb without damage to nail, initial encounter (principal); Z77.21 Contact with and (suspected) exposure to potentially hazardous body fluids; W46.1XXA Contact with contaminated hypodermic needle, initial encounter; Y92.239 Unspecified place in hospital as the place of occurrence of the external cause; Y93.9 Activity, unspecified; Y99.0 Civilian activity done for income or pay; G43.909 Migraine, unspecified, not intractable, without status migrainosus; K22.70 Barrett's esophagus without dysplasia; F43.10 Post-traumatic stress disorder, unspecified; Z88.0 Allergy status to penicillin; Z79.899 Other long term (current) drug therapy
CPT/HCPCS: 36415; 80053; 84703; 85025; 86706; 86803; 87340; 87389; 90471; 90715; 96372; 99284; Q0162

== ENCOUNTER → 2020-07-21 | Outpatient (REF) ==
[~2020-07-21] MED LIST changes: -RALTEGRAVIR 400 MG TAB (ISENTRESS) PO SCH; -TRUVADA 200MG/300MG TABLET PO SCH; +ZOLO100T PO
== END ==
LOC: M LABSMTC 10:26
PROVIDERS: ATTEND Pediatrics
DX: Z20.828 Contact with and (suspected) exposure to other viral communicable diseases (principal); Z11.59 Encounter for screening for other viral diseases

== ENCOUNTER → 2020-09-25 | Outpatient (REF) ==
[~2020-09-25] MED LIST changes: -DOXY100C37 PO; +DOXY1CAP62 PO; +EMTR1TAB16 PO; -TRUVTAB PO
== END ==
LOC: M EMP 12:48
PROVIDERS: ATTEND Family Medicine
DX: Z20.822 Contact with and (suspected) exposure to COVID-19 (principal)

== ENCOUNTER → 2020-12-01 | Outpatient (REF) | LOC: M LABSMTC 09:16 | PROVIDERS: ATTEND Pediatrics | DX: Z20.822 Contact with and (suspected) exposure to COVID-19 (principal) ==

== ENCOUNTER → 2020-12-22 | Outpatient (CLI) | payer BC, OTHER ==
--- NOTE | 2020-12-23 15:02 | SLEEPCENT ---
DATE: 12/22/2020 PROCEDURE: Nocturnal polysomnography. ORDERED BY: Loly Mcghee. Nocturnal polysomnography was performed for evaluation of sleep physiology in this patient with a history of excessive somnolence and nonrestorative sleep. 8 hours and 7 minutes of data were reviewed. There were 401 minutes of sleep identified. Sleep latency was mildly prolonged at 17 minutes. REM latency was more so prolonged at 323 minutes. Sleep architecture showed fragmentation and poor progression. There was 1 REM cycle late in the test. Overall sleep efficiency was 83.4%. The electrocardiogram showed a sinus rhythm with an average heart rate of 75 beats per minute. EEG showed reasonably normal waveforms for wake and sleep. There were 131 respiratory events identified of 10 seconds in duration or greater for an apnea-hypopnea index of 19.6. The events were obstructive, not exclusive to sleep stage nor body position. Arousals from respiratory events occurred 12.9 times per hour, and oxygen desaturations were seen into the 80s. There was significant limb activity in the EMG leads as well with multiple trains of events. Limb movement arousal index of 19.9. IMPRESSIONS: 1. Obstructive sleep apnea syndrome (G47.33). Apnea-hypopnea index 19.6. 2. Possible periodic limb movement disorder (G47.61). Limb movement arousal index 19.9. RECOMMENDATION: The patient should be encouraged to return [facility]. In the interim, alcohol and sedative avoidance should be practiced, and caution exercised during the operation of motor vehicles. Pending response to pressure therapy, interventions to reduce the frequency of arousal from limb activity may also be helpful. cc: HENRIETTA AMAYA M.D.
== END ==
LOC: M SLEEP 20:00
PROVIDERS: ATTEND Nurse Practitioner Family
DX: R06.83 Snoring (principal)

== ENCOUNTER → 2021-01-05 | Outpatient (REF) | LOC: M EMP 09:13 | PROVIDERS: ATTEND Family Medicine | DX: Z20.822 Contact with and (suspected) exposure to COVID-19 (principal) ==

== ENCOUNTER → 2021-01-31 | Outpatient (CLI) | payer BC, OTHER ==
[~2021-01-31] MED LIST changes: +DOXY-443 PO; -DOXY1CAP62 PO
--- NOTE | 2021-02-02 17:32 | SLEEPCENT ---
DATE: 01/31/2021 ORDERED BY: CONY Alvarez Nocturnal polysomnography was performed for the titration of pressure therapy in this patient with obstructive sleep apnea syndrome, apnea hypopnea index 19.6. For testing, the patient was fit with a ResMed AirFit F20 full face mask of medium size, 4 cm of water pressure were applied to the circuit and the lights were extinguished. Seven hours and 9 minutes of data were reviewed. There were 365 minutes of sleep identified. Sleep latency was mildly prolonged at 26 minutes. REM latency further prolonged at 283 minutes. Sleep architecture improved with optimal pressure therapy. There was one REM cycle late in the study. Overall, sleep efficiency 86.1%. The electrocardiogram showed a sinus rhythm with an average heart rate of 70 beats per minute. EEG showed normal waveforms for wake and sleep. Respiratory events were fully palliated with a CPAP to a pressure of +8. Some limb activity persisted despite the palliation of respiratory events. Limb movement arousal index on this occasion was 20. IMPRESSIONS: 1. Obstructive sleep apnea (G47.33). 2. Possible periodic limb movement disorder (G47.61). Limb movement arousal index 20.1. RECOMMENDATION: Nightly use of pressure therapy at 8 cm of water should be sufficient to address the patient's obstructive respiratory events. Pending clinical response, interventions to reduce the frequency or arousal from limb activity may also be helpful.
== END ==
LOC: M SLEEP 20:00
PROVIDERS: ATTEND Nurse Practitioner Family
DX: G47.33 Obstructive sleep apnea (adult) (pediatric) (principal)

== ENCOUNTER 2021-02-16 11:02 | Emergency (ER) | payer BC, OTHER ==
[~2021-02-16] VITALS: Ht 162.6 cm; Wt 124.4 kg
[~2021-02-16 11:02] MED LIST changes: -CEFD1CAP8 OR; +CEFD300C41 OR; -LEVO500T3 PO; +LEVO500T4 PO
[2021-02-16 11:36] LABS: BASO # 0.1 10^3/uL (0.0-0.2); BASO % 0.5 % (0.0-1.0); EOS # 0.1 10^3/uL (0.0-0.5); EOS % 0.8 % (0.0-3.0); HEMATOCRIT 43.5 % (36.0-47.0); HEMOGLOBIN 13.6 g/dl (12.0-15.5); LYMPH # 2.6 10^3/uL (1.5-5.0); LYMPH % 24.7 % (24.0-44.0); MEAN CORPUSCULAR HGB CONC 31.3 g/dl (32.0-36.5); MEAN CORPUSCULAR VOLUME 83.2 fl (80.0-96.0); MONO # 0.5 10^3/uL (0.0-0.8); MONO % 4.5 % (2.0-8.0); NEUTROPHILS # 7.3 10^3/uL (1.5-8.5); NEUTROPHILS % 69.2 % (36.0-66.0); PLATELET COUNT, AUTOMATED 366 10^3/uL (150-450); RED BLOOD COUNT 5.23 10^6/uL (4.00-5.40); WHITE BLOOD COUNT 10.5 10^3/uL (4.0-10.0)
[2021-02-16 12:08] LABS: ALT/SGPT 33 U/L (12-78); BILIRUBIN,DIRECT < 0.1 MG/DL (0.0-0.2); BILIRUBIN,TOTAL 0.4 MG/DL (0.2-1.0); BLOOD UREA NITROGEN 13 MG/DL (7-18); CALCIUM LEVEL 9.6 MG/DL (8.5-10.1); CARBON DIOXIDE LEVEL 24 MEQ/L (21-32); CHLORIDE LEVEL 104 MEQ/L (98-107); CREATININE FOR GFR 0.89 MG/DL (0.55-1.30); GLOMERULAR FILTRATION RATE > 60.0 (>60); GLUCOSE, FASTING 89 MG/DL (70-100); LIPASE 82 U/L (73-393); POTASSIUM SERUM 4.4 MEQ/L (3.5-5.1); SODIUM LEVEL 137 MEQ/L (136-145); TOTAL PROTEIN 8.1 GM/DL (6.4-8.2)
[2021-02-16 14:00] VITALS: BP 106/54
== END 2021-02-16 14:11 | disposition home or self-care (01) ==
LOC: M ED 11:02
DX: K92.2 Gastrointestinal hemorrhage, unspecified (principal); K92.1 Melena; F17.200 Nicotine dependence, unspecified, uncomplicated; Z87.11 Personal history of peptic ulcer disease; Z88.0 Allergy status to penicillin; Z79.899 Other long term (current) drug therapy

== ENCOUNTER → 2021-02-23 | Outpatient (REF) ==
[~2021-02-23] MED LIST changes: +CEFD1CAP8 OR; -CEFD300C41 OR; +LEVO500T3 PO; -LEVO500T4 PO
== END ==
LOC: M EMP 08:24
PROVIDERS: ATTEND Family Medicine
DX: Z11.52 Encounter for screening for COVID-19 (principal)

== ENCOUNTER → 2021-02-26 | Outpatient (REF) | LOC: M EMP 08:16 | PROVIDERS: ATTEND Family Medicine | DX: Z11.52 Encounter for screening for COVID-19 (principal) ==

== ENCOUNTER → 2021-04-06 | Outpatient (REF) ==
[~2021-04-06] MED LIST changes: -CEFD1CAP8 OR; +CEFD300C41 OR; -LEVO500T3 PO; +LEVO500T4 PO
== END ==
LOC: M EMP 08:03
PROVIDERS: ATTEND Family Medicine
DX: Z20.822 Contact with and (suspected) exposure to COVID-19 (principal)

== ENCOUNTER → 2021-07-31 | Outpatient (REF) | payer BC, OTHER ==
[2021-07-31 05:35] LABS: BASO % 0.3 % (0.0-1.0); EOS # 0.1 10^3/uL (0.0-0.5); EOS % 1.5 % (0.0-3.0); HEMATOCRIT 40.1 % (36.0-47.0); HEMOGLOBIN 12.5 g/dl (12.0-15.5); LYMPH # 2.3 10^3/uL (1.5-5.0); LYMPH % 24.3 % (24.0-44.0); MEAN CORPUSCULAR HGB CONC 31.2 g/dl (32.0-36.5); MEAN CORPUSCULAR VOLUME 83.4 fl (80.0-96.0); MONO # 0.6 10^3/uL (0.0-0.8); NEUTROPHILS # 6.4 10^3/uL (1.5-8.5); NEUTROPHILS % 67.5 % (36.0-66.0); PLATELET COUNT, AUTOMATED 311 10^3/uL (150-450); RED BLOOD COUNT 4.81 10^6/uL (4.00-5.40); WHITE BLOOD COUNT 9.4 10^3/uL (4.0-10.0)
[2021-07-31 06:14] LABS: ALBUMIN 3.4 GM/DL (3.2-5.2); ALT/SGPT 24 U/L (12-78); BILIRUBIN,TOTAL 0.2 MG/DL (0.2-1.0); BLOOD UREA NITROGEN 12 MG/DL (7-18); CALCIUM LEVEL 9.2 MG/DL (8.5-10.1); CARBON DIOXIDE LEVEL 30 MEQ/L (21-32); CHLORIDE LEVEL 106 MEQ/L (98-107); CHOLESTEROL LEVEL 148 MG/DL (<200); CREATININE FOR GFR 0.82 MG/DL (0.55-1.30); GLOMERULAR FILTRATION RATE > 60.0 (>60); GLUCOSE, FASTING 121 MG/DL (70-100); HDL CHOLESTEROL 40 MG/DL (>40); LDL CHOLESTEROL 91 MG/DL (<100); NON-HDL-C 108 MG/DL; POTASSIUM SERUM 4.2 MEQ/L (3.5-5.1); SODIUM LEVEL 140 MEQ/L (136-145); TRIGLYCERIDES LEVEL 87 MG/DL (<150)
== END ==
LOC: M LAB REF 05:23
PROVIDERS: ATTEND Family Medicine
DX: E66.01 Morbid (severe) obesity due to excess calories (principal)

== ENCOUNTER → 2022-01-01 | Outpatient (REF) | payer BC, OTHER ==
[~2022-01-01] MED LIST changes: +LEVO1TAB39 PO; -LEVO500T4 PO
[2022-01-01 05:53] LABS: ALBUMIN 3.5 GM/DL (3.2-5.2); ALT/SGPT 33 U/L (12-78); BILIRUBIN,TOTAL 0.2 MG/DL (0.2-1.0); BLOOD UREA NITROGEN 10 MG/DL (7-18); CALCIUM LEVEL 9.1 MG/DL (8.5-10.1); CARBON DIOXIDE LEVEL 28 MEQ/L (21-32); CHLORIDE LEVEL 106 MEQ/L (98-107); CREATININE FOR GFR 0.83 MG/DL (0.55-1.30); GLOMERULAR FILTRATION RATE > 60.0 (>60); GLUCOSE, FASTING 113 MG/DL (70-100); POTASSIUM SERUM 4.4 MEQ/L (3.5-5.1); SODIUM LEVEL 142 MEQ/L (136-145); TOTAL PROTEIN 7.4 GM/DL (6.4-8.2)
[2022-01-01 06:05] LABS: HEMOGLOBIN A1c 6.1 %
== END ==
LOC: M LAB REF 05:25
PROVIDERS: ATTEND Family Medicine
DX: R73.01 Impaired fasting glucose (principal)

== ENCOUNTER → 2022-04-18 | Outpatient (REF) | LOC: M LABSMTC 11:57 | PROVIDERS: ATTEND Family Medicine | DX: Z20.822 Contact with and (suspected) exposure to COVID-19 (principal) ==

== ENCOUNTER → 2022-08-02 | Outpatient (REF) ==
[~2022-08-02] MED LIST changes: +FLUT50SP17; -FLUTISP
== END ==
LOC: M EMP 10:09
PROVIDERS: ATTEND Family Medicine
DX: Z11.52 Encounter for screening for COVID-19 (principal)

== ENCOUNTER → 2022-10-01 | Outpatient (REF) | payer OTHER ==
[2022-10-01 12:02] LABS: BASO % 0.3 % (0.0-1.0); EOS # 0.1 10^3/uL (0.0-0.5); EOS % 1.1 % (0.0-3.0); HEMATOCRIT 36.9 % (36.0-47.0); HEMOGLOBIN 11.5 g/dl (12.0-15.5); LYMPH # 2.2 10^3/uL (1.5-5.0); LYMPH % 22.1 % (24.0-44.0); MEAN CORPUSCULAR HEMOGLOBIN 25.6 pg (27.0-33.0); MEAN CORPUSCULAR HGB CONC 31.2 g/dl (32.0-36.5); MONO # 0.5 10^3/uL (0.0-0.8); MONO % 4.5 % (2.0-8.0); NEUTROPHILS # 7.1 10^3/uL (1.5-8.5); NEUTROPHILS % 71.7 % (36.0-66.0); PLATELET COUNT, AUTOMATED 312 10^3/uL (150-450); WHITE BLOOD COUNT 9.9 10^3/uL (4.0-10.0)
[2022-10-01 12:38] LABS: ALBUMIN 3.6 G/DL (3.2-5.2); ALKALINE PHOSPHATASE 107 U/L (46-116); ALT/SGPT 25 U/L (7.0-40); AST/SGOT 14 U/L (<34); BILIRUBIN,TOTAL 0.4 MG/DL (0.3-1.2); BLOOD UREA NITROGEN 11 MG/DL (9-23); CARBON DIOXIDE LEVEL 26 MMOL/L (20-31); CHLORIDE LEVEL 103 MMOL/L (98-107); CHOLESTEROL LEVEL 159 MG/DL (<200); CHOLESTEROL RISK RATIO 4.03 (<5); CREATININE FOR GFR 0.74 MG/DL (0.55-1.30); GLOMERULAR FILTRATION RATE > 60.0 (>58); GLUCOSE, FASTING 84 MG/DL (60-100); HDL CHOLESTEROL 39.4 MG/DL (>40); LDL CHOLESTEROL 101.6 MG/DL (<100); NON-HDL-C 119.6 MG/DL; POTASSIUM SERUM 3.9 MMOL/L (3.5-5.1); SODIUM LEVEL 139 MMOL/L (136-145); TRIGLYCERIDES LEVEL 90 MG/DL (<150)
[2022-10-01 12:40] LABS: THYROID STIMULATING HORMONE 3.135 uIU/ML (0.55-4.78)
== END ==
LOC: M LAB REF 11:30
PROVIDERS: ATTEND Family Medicine
DX: F41.0 Panic disorder [episodic paroxysmal anxiety] (principal); E66.01 Morbid (severe) obesity due to excess calories

== ENCOUNTER → 2023-07-05 | Outpatient (CLI) | payer BC ==
[~2023-07-05] MED LIST changes: +CEFD1CAP9 OR; -CEFD300C41 OR; -FLUT50SP17; +FLUTISP
[2023-07-05 07:17] LABS: BASO % 0.3 % (0.0-1.0); EOS # 0.1 10^3/uL (0.0-0.5); EOS % 1.2 % (0.0-3.0); HEMOGLOBIN 11.8 g/dl (12.0-15.5); LYMPH # 2.4 10^3/uL (1.5-5.0); LYMPH % 25.4 % (24.0-44.0); MEAN CORPUSCULAR HEMOGLOBIN 25.9 pg (27.0-33.0); MEAN CORPUSCULAR HGB CONC 31.1 g/dl (32.0-36.5); MEAN CORPUSCULAR VOLUME 83.3 fl (80.0-96.0); MONO # 0.5 10^3/uL (0.0-0.8); MONO % 4.9 % (2.0-8.0); NEUTROPHILS # 6.5 10^3/uL (1.5-8.5); NEUTROPHILS % 67.9 % (36.0-66.0); PLATELET COUNT, AUTOMATED 278 10^3/uL (150-450); RED BLOOD COUNT 4.56 10^6/uL (4.00-5.40); WHITE BLOOD COUNT 9.5 10^3/uL (4.0-10.0)
[2023-07-05 07:38] LABS: HEMOGLOBIN A1c 5.9 % (4.0-6.0)
[2023-07-05 07:56] LABS: ALBUMIN 3.4 G/DL (3.2-5.2); ALKALINE PHOSPHATASE 106 U/L (46-116); ALT/SGPT 23 U/L (7.0-40); AST/SGOT 17 U/L (<34); BILIRUBIN,TOTAL 0.3 MG/DL (0.3-1.2); BLOOD UREA NITROGEN 15 MG/DL (9-23); CALCIUM LEVEL 9.1 MG/DL (8.5-10.1); CARBON DIOXIDE LEVEL 28 MMOL/L (20-31); CHLORIDE LEVEL 104 MMOL/L (98-107); CREATININE FOR GFR 0.84 MG/DL (0.55-1.30); GLOMERULAR FILTRATION RATE > 60.0 (>58); GLUCOSE, FASTING 95 MG/DL (60-100); POTASSIUM SERUM 4.1 MMOL/L (3.5-5.1); SODIUM LEVEL 138 MMOL/L (136-145)
== END ==
LOC: M LAB 06:23
PROVIDERS: ATTEND Physician Assistant Surgical
DX: E66.01 Morbid (severe) obesity due to excess calories (principal)

== ENCOUNTER → 2023-07-15 | Outpatient (REF) ==
[2023-07-15 12:31] LABS: RSV AMPLIFICATION NEGATIVE (NEGATIVE)
== END ==
LOC: M EMP 11:42
PROVIDERS: ATTEND Family Medicine
DX: Z20.822 Contact with and (suspected) exposure to COVID-19 (principal)

== ENCOUNTER → 2023-08-17 | Outpatient (CLI) | payer BC ==
[~2023-08-17] MED LIST changes: +DOXY-323 PO; -DOXY-443 PO
[2023-08-17 06:59] LABS: HEMATOCRIT 40.3 % (36.0-47.0)
[2023-08-17 07:07] LABS: BASO % 0.5 % (0.0-1.0); EOS # 0.2 10^3/uL (0.0-0.5); EOS % 2.4 % (0.0-3.0); HEMATOCRIT 40.4 % (36.0-47.0); HEMOGLOBIN 12.6 g/dl (12.0-15.5); LYMPH # 1.6 10^3/uL (1.5-5.0); LYMPH % 25.7 % (24.0-44.0); MEAN CORPUSCULAR HEMOGLOBIN 26.1 pg (27.0-33.0); MEAN CORPUSCULAR HGB CONC 31.2 g/dl (32.0-36.5); MEAN CORPUSCULAR VOLUME 83.6 fl (80.0-96.0); MONO # 0.6 10^3/uL (0.0-0.8); MONO % 9.5 % (2.0-8.0); NEUTROPHILS # 3.8 10^3/uL (1.5-8.5); NEUTROPHILS % 61.7 % (36.0-66.0); PLATELET COUNT, AUTOMATED 230 10^3/uL (150-450); RED BLOOD COUNT 4.83 10^6/uL (4.00-5.40); WHITE BLOOD COUNT 6.2 10^3/uL (4.0-10.0)
[2023-08-17 07:17] LABS: HEMOGLOBIN A1c 5.7 % (4.0-6.0)
[2023-08-17 07:20] LABS: IRON (FE) 41 UG/DL (50-170); PERCENT SATURATION 14.5 % (13.2-45.0); TOTAL IRON BINDING CAPACITY 283 UG/DL (250-425)
[2023-08-17 07:26] LABS: ALBUMIN 3.4 G/DL (3.2-5.2); ALKALINE PHOSPHATASE 104 U/L (46-116); ALT/SGPT 87 U/L (7.0-40); AST/SGOT 32 U/L (<34); BILIRUBIN,TOTAL 0.4 MG/DL (0.3-1.2); BLOOD UREA NITROGEN < 5 MG/DL (9-23); CALCIUM LEVEL 8.8 MG/DL (8.5-10.1); CARBON DIOXIDE LEVEL 30 MMOL/L (20-31); CHLORIDE LEVEL 104 MMOL/L (98-107); CREATININE FOR GFR 0.82 MG/DL (0.55-1.30); FERRITIN 83.7 NG/ML (7.3-270.7); GLOMERULAR FILTRATION RATE > 60.0 (>58); GLUCOSE, FASTING 89 MG/DL (60-100); MAGNESIUM LEVEL 1.6 MG/DL (1.8-2.4); PHOSPHORUS LEVEL 2.5 MG/DL (2.5-4.9); POTASSIUM SERUM 3.6 MMOL/L (3.5-5.1); SODIUM LEVEL 140 MMOL/L (136-145); TOTAL 25(OH) VITAMIN D 37.4 NG/ML (20.0-100.0); TOTAL PROTEIN 6.5 G/DL (5.7-8.2); VITAMIN B12 LEVEL > 2000 PG/ML (211-911)
== END ==
LOC: M LAB 06:15
PROVIDERS: ATTEND Surgery
DX: K91.2 Postsurgical malabsorption, not elsewhere classified (principal); Z98.84 Bariatric surgery status; E55.9 Vitamin D deficiency, unspecified

== ENCOUNTER → 2023-10-04 | Outpatient (CLI) | payer BC ==
[2023-10-04 08:03] LABS: BASO % 0.7 % (0.0-1.0); EOS # 0.1 10^3/uL (0.0-0.5); EOS % 1.3 % (0.0-3.0); HEMATOCRIT 41.4 % (36.0-47.0); HEMOGLOBIN 13.1 g/dl (12.0-15.5); LYMPH % 32.9 % (24.0-44.0); MEAN CORPUSCULAR HEMOGLOBIN 27.2 pg (27.0-33.0); MEAN CORPUSCULAR HGB CONC 31.6 g/dl (32.0-36.5); MEAN CORPUSCULAR VOLUME 86.1 fl (80.0-96.0); MONO # 0.4 10^3/uL (0.0-0.8); MONO % 6.2 % (2.0-8.0); NEUTROPHILS # 3.5 10^3/uL (1.5-8.5); NEUTROPHILS % 58.6 % (36.0-66.0); PLATELET COUNT, AUTOMATED 225 10^3/uL (150-450); RED BLOOD COUNT 4.81 10^6/uL (4.00-5.40)
[2023-10-04 08:33] LABS: ALBUMIN 3.8 G/DL (3.2-5.2); ALKALINE PHOSPHATASE 116 U/L (46-116); ALT/SGPT 35 U/L (7.0-40); AST/SGOT 19 U/L (<34); BILIRUBIN,TOTAL 0.6 MG/DL (0.3-1.2); BLOOD UREA NITROGEN 7 MG/DL (9-23); CALCIUM LEVEL 9.5 MG/DL (8.5-10.1); CARBON DIOXIDE LEVEL 27 MMOL/L (20-31); CHLORIDE LEVEL 107 MMOL/L (98-107); CHOLESTEROL LEVEL 146 MG/DL (<200); CHOLESTEROL RISK RATIO 5.14 (<5); CREATININE FOR GFR 0.81 MG/DL (0.55-1.30); GLOMERULAR FILTRATION RATE > 60.0 (>58); GLUCOSE, FASTING 88 MG/DL (60-100); HDL CHOLESTEROL 28.4 MG/DL (>40); LDL CHOLESTEROL 93.8 MG/DL (<100); NON-HDL-C 117.6 MG/DL; SODIUM LEVEL 141 MMOL/L (136-145); TOTAL PROTEIN 6.8 G/DL (5.7-8.2); TRIGLYCERIDES LEVEL 119 MG/DL (<150)
[2023-10-04 08:35] LABS: THYROID STIMULATING HORMONE 2.196 uIU/ML (0.55-4.78)
[2023-10-04 08:42] LABS: HEMOGLOBIN A1c 5.2 % (4.0-6.0)
== END ==
LOC: M LAB 07:37
PROVIDERS: ATTEND Student in an Organized Health Care Education/Training Program
DX: R73.01 Impaired fasting glucose (principal); F41.0 Panic disorder [episodic paroxysmal anxiety]; K76.0 Fatty (change of) liver, not elsewhere classified

== ENCOUNTER → 2024-01-20 | Outpatient (REF) | payer BC ==
[~2024-01-20] MED LIST changes: -DOXY-323 PO; +DOXY-441 PO
[2024-01-20 11:25] LABS: HEMATOCRIT 40.8 % (36.0-47.0); HEMOGLOBIN 13.2 g/dl (12.0-15.5); MEAN CORPUSCULAR HEMOGLOBIN 29.2 pg (27.0-33.0); MEAN CORPUSCULAR HGB CONC 32.4 g/dl (32.0-36.5); MEAN CORPUSCULAR VOLUME 90.3 fl (80.0-96.0); PLATELET COUNT, AUTOMATED 250 10^3/uL (150-450); RED BLOOD COUNT 4.52 10^6/uL (4.00-5.40); WHITE BLOOD COUNT 6.9 10^3/uL (4.0-10.0)
[2024-01-20 11:36] LABS: HEMOGLOBIN A1c 5.2 % (4.0-6.0)
[2024-01-20 11:53] LABS: IRON (FE) 63 UG/DL (50-170); PERCENT SATURATION 22.7 % (13.2-45.0); TOTAL IRON BINDING CAPACITY 278 UG/DL (250-425)
[2024-01-20 11:54] LABS: ALBUMIN 3.6 G/DL (3.2-5.2); ALKALINE PHOSPHATASE 118 U/L (35-104); ALT/SGPT 23 U/L (7.0-40); AST/SGOT 16 U/L (<34); BILIRUBIN,TOTAL 0.6 MG/DL (0.3-1.2); BLOOD UREA NITROGEN 7 MG/DL (9-23); CALCIUM LEVEL 9.4 MG/DL (8.5-10.1); CARBON DIOXIDE LEVEL 30 MMOL/L (20-31); CHLORIDE LEVEL 106 MMOL/L (98-107); CREATININE FOR GFR 0.77 MG/DL (0.55-1.30); GLOMERULAR FILTRATION RATE > 60.0 (>58); GLUCOSE, FASTING 74 MG/DL (60-100); MAGNESIUM LEVEL 1.9 MG/DL (1.8-2.4); PHOSPHORUS LEVEL 3.8 MG/DL (2.5-4.9); POTASSIUM SERUM 3.7 MMOL/L (3.5-5.1); SODIUM LEVEL 142 MMOL/L (136-145); TOTAL PROTEIN 6.8 G/DL (5.7-8.2)
[2024-01-20 11:55] LABS: FERRITIN 104.1 NG/ML (7.3-270.7); FOLATE > 24.00 NG/ML (>5.4); TOTAL 25(OH) VITAMIN D 63.1 NG/ML (20.0-100.0)
[2024-01-20 11:56] LABS: VITAMIN B12 LEVEL 1911 PG/ML (211-911)
== END ==
LOC: M LAB REF 10:30
PROVIDERS: ATTEND Physician Assistant Surgical
DX: Z86.39 Personal history of other endocrine, nutritional and metabolic disease (principal); Z98.84 Bariatric surgery status; K91.2 Postsurgical malabsorption, not elsewhere classified

== ENCOUNTER → 2024-07-11 | Outpatient (REF) | payer OTHER ==
[2024-07-11 09:38] LABS: HEMATOCRIT 42.8 % (36.0-47.0); HEMOGLOBIN 13.9 g/dl (12.0-15.5); MEAN CORPUSCULAR HEMOGLOBIN 29.4 pg (27.0-33.0); MEAN CORPUSCULAR HGB CONC 32.5 g/dl (32.0-36.5); MEAN CORPUSCULAR VOLUME 90.5 fl (80.0-96.0); PLATELET COUNT, AUTOMATED 251 10^3/uL (150-450); RED BLOOD COUNT 4.73 10^6/uL (4.00-5.40); WHITE BLOOD COUNT 5.6 10^3/uL (4.0-10.0)
[2024-07-11 10:08] LABS: IRON (FE) 90 UG/DL (50-170); TOTAL IRON BINDING CAPACITY 281 UG/DL (250-425)
[2024-07-11 10:09] LABS: ALBUMIN 3.8 G/DL (3.2-5.2); ALKALINE PHOSPHATASE 121 U/L (35-104); ALT/SGPT 18 U/L (7.0-40); AST/SGOT 13 U/L (<34); BILIRUBIN,TOTAL 0.5 MG/DL (0.3-1.2); BLOOD UREA NITROGEN 6 MG/DL (9-23); CALCIUM LEVEL 9.2 MG/DL (8.5-10.1); CARBON DIOXIDE LEVEL 31 MMOL/L (20-31); CHLORIDE LEVEL 105 MMOL/L (98-107); CREATININE FOR GFR 0.72 MG/DL (0.55-1.30); GLOMERULAR FILTRATION RATE > 90.0 (>58); GLUCOSE, FASTING 82 MG/DL (60-100); MAGNESIUM LEVEL 1.8 MG/DL (1.8-2.4); PHOSPHORUS LEVEL 3.4 MG/DL (2.5-4.9); POTASSIUM SERUM 3.6 MMOL/L (3.5-5.1); SODIUM LEVEL 143 MMOL/L (136-145); TOTAL PROTEIN 6.8 G/DL (5.7-8.2)
[2024-07-11 10:10] LABS: FERRITIN 114.9 NG/ML (7.3-270.7); FOLATE > 24.0 NG/ML (>5.4); TOTAL 25(OH) VITAMIN D 64.2 NG/ML (20.0-100.0)
[2024-07-11 10:11] LABS: VITAMIN B12 LEVEL 1968 PG/ML (211-911)
[2024-07-11 10:14] LABS: HEMOGLOBIN A1c 4.6 % (4.0-6.0)
== END ==
LOC: M LAB REF 09:09
PROVIDERS: ATTEND Physician Assistant Surgical
DX: K91.2 Postsurgical malabsorption, not elsewhere classified (principal); Z98.84 Bariatric surgery status; Z86.39 Personal history of other endocrine, nutritional and metabolic disease

== ENCOUNTER → 2024-10-08 | Outpatient (REF) | payer OTHER ==
[2024-10-08 07:52] LABS: BASO # 0.0 10^3/uL (0.0-0.2); BASO % 0.5 % (0.0-1.0); EOS # 0.1 10^3/uL (0.0-0.5); EOS % 2.5 % (0.0-3.0); LYMPH # 2.3 10^3/uL (1.5-5.0); LYMPH % 40.9 % (24.0-44.0); MONO # 0.4 10^3/uL (0.0-0.8); MONO % 6.3 % (2.0-8.0); NEUTROPHILS # 2.8 10^3/uL (1.5-8.5); NEUTROPHILS % 49.6 % (36.0-66.0); PLATELET COUNT, AUTOMATED 223 10^3/uL (150-450)
[2024-10-08 08:19] LABS: ALT/SGPT 15 U/L (7.0-40); AST/SGOT 16 U/L (<34); CALCIUM LEVEL 9.2 MG/DL (8.5-10.1); CARBON DIOXIDE LEVEL 31 MMOL/L (20-31); CHLORIDE LEVEL 103 MMOL/L (98-107); CHOLESTEROL LEVEL 156 MG/DL (<200); CHOLESTEROL RISK RATIO 2.82 (<5); CREATININE FOR GFR 0.78 MG/DL (0.55-1.30); GLOMERULAR FILTRATION RATE > 90.0 (>58); LDL CHOLESTEROL 84.6 MG/DL (<100); NON-HDL-C 100.8 MG/DL; POTASSIUM SERUM 3.8 MMOL/L (3.5-5.1); SODIUM LEVEL 145 MMOL/L (136-145); TRIGLYCERIDES LEVEL 81 MG/DL (<150)
[2024-10-08 09:42] LABS: ESTIMATED AVERAGE GLUCOSE 100.0 MG/DL (60-110)
== END ==
LOC: M LAB REF 07:25
PROVIDERS: ATTEND Student in an Organized Health Care Education/Training Program
DX: E78.5 Hyperlipidemia, unspecified (principal); E03.9 Hypothyroidism, unspecified